=== PATIENT | female | born 1935 | race Caucasian/White ===

== ENCOUNTER → 2017-12-09 | Outpatient (CLI) | payer MEDICARE, BC ==
--- NOTE | 2017-12-09 15:47 | CT ---
EXAMINATION TYPE: CT abdomen pelvis w con DATE OF EXAM: 12/09/2017 COMPARISON: None INDICATION: abdominal pain and weight loss DLP: 741.7 mGycm, Automated exposure control for dose reduction was used. CONTRAST: 100mL mL of Isovue 300. Study performed with Oral Contrast TECHNIQUE: Axial images were obtained from above the diaphragm to the pubic rami in the axial plane a t 5 mm thick sections. Reconstructed images are reviewed on the computer in the coronal plane. FINDINGS: Limited CT sections are obtained the lung bases. The lung bases are clear. CT ABDOMEN: Liver: There is some mild fatty infiltration of the liver. There is likely a cyst in the caudate lobe liver Spleen: Normal Pancreas: Normal Adrenal glands: The adrenal glands are normal. Gallbladder: Normal Kidneys: No masses are evident. No hydronephrosis is present. No cysts are present. Delayed images were obtained through the kidneys, which remain unremarkable. Aorta: Vascular calcification is within the aorta. The aorta is tortuous. Inferior vena cava: Normal. CT PELVIS: Loops of bowel within the abdomen and pelvis are normal. There are loops of bowel which are incom pletely distended or lack oral contrast limiting their evaluation. Appendix: Normal as visualized. Urinary bladder: Normal as visualized Genitourinary structures: Uterus and ovaries are not identified. Osseous structures: Postsurgical changes are through the lumbar spine. Bilateral hip prostheses are p resent causing beam hardening artifact over the lower pelvis. IMPRESSIONS: 1. No suspicious acute changes. 2. Mild fatty infiltration the liver. 3. Mild diverticulosis without acute diverticulitis.
== END | disposition home or self-care (01) ==
LOC: RADCTMAIN 12:24
PROVIDERS: ATTEND Nurse Practitioner Family
DX: K57.90 Diverticulosis of intestine, part unspecified, without perforation or abscess without bleeding (principal); K76.0 Fatty (change of) liver, not elsewhere classified; K56.7 Ileus, unspecified
CPT/HCPCS: 74177; Q9967

== ENCOUNTER → 2020-01-03 | Outpatient (CLI) | payer MEDICARE, BC ==
[2020-01-03 14:19] LABS: HCT 45.6 % (34.0-46.0); HGB 15.1 gm/dL (11.4-16.0); MCH 34.2 pg (25.0-35.0); MCHC 33.1 g/dL (31.0-37.0); MCV 103.6 fL (80.0-100.0); Macrocytosis Slight; Mean Platelet Volume 7.2; Platelet Count 267 k/uL (150-450); RDW 11.7 % (11.5-15.5); WBC 7.7 k/uL (3.8-10.6)
[2020-01-03 14:21] LABS: Appearance,Urine Clear (Clear); Bilirubin,Urine Negative (Negative); Blood,Urine Negative (Negative); Color,Urine Colorless; Glucose,Urine (UA) Negative (Negative); Ketones,Urine Negative (Negative); Leukocyte Esterase,Urine Negative (Negative); Nitrite,Urine Negative (Negative); Protein,Urine Negative (Negative); Specific Gravity,Urine 1.004 (1.001-1.035); Urobilinogen,Urine <2.0 mg/dL (<2.0)
--- NOTE | 2020-01-03 16:50 | XR ---
EXAMINATION TYPE: XR chest 2V DATE OF EXAM: 01/03/2020 COMPARISON: NONE HISTORY: Preoperative evaluation for carpal tunnel surgery. TECHNIQUE: Frontal and lateral views of the chest are obtained. FINDINGS: There is no focal air space opacity, pleural effusion, or pneumothorax seen. The cardiac silhouette size is within normal limits. The osseous structures are intact. IMPRESSION: No acute cardiopulmonary process.
[2020-01-03 21:35] LABS: African American GFR (CKD) 92.9 (60.0-200.0); Anion Gap 9.6 mmol/L (4.00-12.00); BUN/Creat Ratio 17.14 Ratio (12.00-20.00); Calcium 10.2 mg/dL (8.7-10.3); Carbon Dioxide 27.4 mmol/L (21.6-31.8); Non-African American GFR(CKD) 80.1 (60.0-200.0); Potassium 4.3 mmol/L (3.5-5.5)
[2020-01-04 02:50] LABS: INR 1.01 (0.90-1.11); Partial Thromboplastin Time 30.7 sec (24.7-29.9); Prothrombin Time 10.8 sec (9.9-11.9)
== END | disposition home or self-care (01) ==
LOC: LABWHC1 12:59
PROVIDERS: ATTEND Orthopaedic Surgery Orthopaedic Surgery of the Spine
DX: Z01.818 Encounter for other preprocedural examination (principal); Z01.812 Encounter for preprocedural laboratory examination; Z79.01 Long term (current) use of anticoagulants
CPT/HCPCS: 36415; 71046; 80048; 81003; 85027; 85610; 85730; 93005

== ENCOUNTER → 2020-04-03 | Outpatient (CLI) | payer MEDICARE, BC ==
[2020-04-03 13:22] VITALS: BP 148/87; PULSE 79; RESP 18; TEMP 98
--- NOTE | 2020-04-03 18:45 | P.PAINCN ---
History of Present Illness - Reason for Consult Consult date: 04/03/20 - History of Present Illness This is a 54 years old female who was referred to [facility] pain clinic from Dr. Nguyễn's office, patient complaining of severe numbness and tingling sensation in the upper extremity mainly in the right side, she had numbness and tingling sensation in the second third and fourth finger of her hand, with radiation to the forearm, started year and a half ago she denies any initiating event, patient had EMG and nerve conduction study showed that she had carpal tunnel syndrome and she had carpal tunnel surgery, and she continued to have numbness and tingling sensation, and the numbness is in the dorsal and palmar aspect of her fingers, and the numbness radiated to the forearms, patient denies any motor or sensory deficit, she denies any fever or night sweats, she denies any change in the bowel movements or urination Past Medical History Past Medical History: Asthma, Cancer, Hyperlipidemia, Hypertension Additional Past Medical History / Comment(s): numbness 2nd,3rd,4th digits rt hand, back pain,skin CA History of Any Multi-Drug Resistant Organisms: None Reported Past Surgical History: Back Surgery, Hysterectomy, Joint Replacement, Orthopedic Surgery, Tonsillectomy Additional Past Surgical History / Comment(s): back x2,lumbar fusion, left knee replacement,ana hips Past Anesthesia/Blood Transfusion Reactions: No Reported Reaction Additional Past Anesthesia/Blood Transfusion Reaction / Comm: no hx blood transfusion Smoking Status: Former smoker - Past Family History Mother Family Medical History: No Reported History Medications and Allergies Home Medications Medication Instructions Recorded Confirmed Type Omeprazole [PriLOSEC] 40 mg PO DAILY 10/27/14 04/03/20 History Pravastatin Sodium [Pravachol] 40 mg PO DAILY 10/27/14 04/03/20 History SUMAtriptan SUCCINATE [Imitrex] 25 mg PO DIRECTED PRN 10/27/14 04/03/20 History Verapamil HCl [Calan] 240 mg PO BID 10/27/14 04/03/20 History ALPRAZolam [Xanax] 0.5 mg PO HS PRN 04/02/20 04/03/20 History Azelastine HCl [Astepro] 2 spray NASAL BID 04/02/20 04/03/20 History Budesonide/Formoterol Fumarate 2 puff INHALATION BID 04/02/20 04/03/20 History [Symbicort 160-4.5 Mcg Inhaler] Calcium Carbonate/Vitamin D3 2 each PO DAILY 04/02/20 04/03/20 History [Calcium 600-Vit D3 12.5 Mcg (500 Iu)] Celecoxib [CeleBREX] 200 mg PO BID 04/02/20 04/03/20 History Cholecalciferol [Vitamin D3 (25 25 mcg PO DAILY 04/02/20 04/03/20 History Mcg = 1000 Iu)] Gabapentin 600 mg PO HS 04/02/20 04/03/20 History Metoprolol Tartrate [Lopressor] 50 mg PO BID 04/02/20 04/03/20 History Mirtazapine [Remeron] 15 mg PO HS 04/02/20 04/03/20 History Montelukast Sodium [Singulair] 10 mg PO HS 04/02/20 04/03/20 History Multivitamins, Thera [Multivitamin 1 tab PO DAILY 04/02/20 04/03/20 History (formulary)] Allergies Allergy/AdvReac Type Severity Reaction Status Date / Time amoxicillin trihydrate Allergy Unknown Verified 04/02/20 14:57 [From Augmentin] cephalexin monohydrate Allergy Unknown Verified 04/02/20 14:57 [From Keflex] dicyclomine Allergy states Verified 04/02/20 14:57 "unconscious for 8 days" hydromorphone HCl Allergy Confusion Verified 04/02/20 14:57 [From Dilaudid] nitrofurantoin Allergy Unknown Verified 04/02/20 14:57 macrocrystalline [From Macrodantin] potassium clavulanate Allergy Unknown Verified 04/02/20 14:57 [From Augmentin] Physical Exam Vitals: Vital Signs Temp Pulse Resp BP Pulse Ox 04/03/20 13:16 98.0 F 79 18 148/87 95 Physical Examinations : -Constitutiona : Cooperative , not in acute distress . -HEENT : nech : supple , no Lymphadenopathy , normal thyroid size . : eyes : no ptosis , no icterus, no photophobia . - neurologic : Cranial nerve II to XII intact , no focal neurological deffecit . -psychatric : alert , oriented X 3 , appropriate affect , intact judgment and insight . -Lymphatic : no Lymphadenopathy . - musculoskeltal : Cervical Spine motor stregnth in the deltoid and biceps, normal right side , normal Left side motor stregnth biceps and the wrist extensors normal right side ,normal left side . motor stregnth in the triceps muscle . normal Right side , normal Left side deep tendon reflexes normal at the biceps , normal at Brachioradialis , normal at triceps. cervical facet loading test: Positive Bilaterally Spurling test= positive Right , positive left. Neck distraction test= positive Right , positive left. Renay sign= positive right, positive left . Lumber spine moter stegnth lower extremities ,thigh and legs 5/5 Right side , 5/5 Left side . Results Comments: MRI of the cervical spine= C2 3, C3 4 C4 5 and C5 6 cervical degenerative disc disease cervical facet arthropathy and foraminal stenos Assessment and Plan Plan: Assessment and plan=1-cervical radiculopathy 2-cervical degenerative disc disease 3-cervical stenosis. 4-cervical spondylosis with cervical facet arthropathy. Patient could benefit from cervical epidural steroid injection at C7-T1 (right paramedian approach ) Time with Patient: Greater than 30 PQRS Measure Charge Sheet Measure #130: Documentation of Current Meds in Medical Chart: Patient's medications documented in chart Measure #226: Tobacco Use: Screen & Cessation Intervention: Pt not a tobacco user Measure #111: Pneumonia Vaccination: Pneumococcal vaccine administered or previously received Measure #47: Advance Care Plan: Advance care planning discussed & documented, pt chose/unable to give Measure #412: Opioid Treatment Agreement: No documentation of signed opioid treatment agreement Measure #408: Opioid Therapy Follow-up Evaluation: Patient had NO f/u eval minimum every 3 months during opioid therapy Measure #317: Preventitive Care & Scrn High Bld Press & F/U: Pre-hypertensive or hypertensive BP documented, pt will f/u with PCP Measure #128: Body Mass Index (BMI) Screening & Follow-up: BMI documented ABOVE normal parameters - f/u documented Measure #131: Pain Assessment & Follow-up: Pain positive & plan documented, Follow-up scheduled Measure #431: Unhealthy Alcohol Use Preventative Care & Scrn: Patient not identified as an unhealthy alcohol user PQRS Narrative: Smoking Status Former smoker Blood Pressure 148/87 Pain Intensity [Right Hand] 3 Scale Used Numeric (1 - 10) Hx Alcohol Use (MH) Yes Home Medications: Ambulatory Orders Omeprazole [PriLOSEC] 40 mg PO DAILY 10/27/14 Pravastatin Sodium [Pravachol] 40 mg PO DAILY 10/27/14 SUMAtriptan SUCCINATE [Imitrex] 25 mg PO DIRECTED PRN 10/27/14 Verapamil HCl [Calan] 240 mg PO BID 10/27/14 ALPRAZolam [Xanax] 0.5 mg PO HS PRN 04/02/20 Azelastine HCl [Astepro] 2 spray NASAL BID 04/02/20 Budesonide/Formoterol Fumarate [Symbicort 160-4.5 Mcg Inhaler] 2 puff INHALATION BID 04/02/20 Calcium Carbonate/Vitamin D3 [Calcium 600-Vit D3 12.5 Mcg (500 Iu)] 2 each PO DAILY 04/02/20 Celecoxib [CeleBREX] 200 mg PO BID 04/02/20 Cholecalciferol [Vitamin D3 (25 Mcg = 1000 Iu)] 25 mcg PO DAILY 04/02/20 Gabapentin 600 mg PO HS 04/02/20 Metoprolol Tartrate [Lopressor] 50 mg PO BID 04/02/20 Mirtazapine [Remeron] 15 mg PO HS 04/02/20 Montelukast Sodium [Singulair] 10 mg PO HS 04/02/20 Multivitamins, Thera [Multivitamin (formulary)] 1 tab PO DAILY 04/02/20
== END | disposition home or self-care (01) ==
LOC: PNWHC3 13:02
PROVIDERS: ATTEND Specialist
DX: M48.02 Spinal stenosis, cervical region (principal); M50.10 Cervical disc disorder with radiculopathy, unspecified cervical region; M47.22 Other spondylosis with radiculopathy, cervical region; Z87.891 Personal history of nicotine dependence; Z79.891 Long term (current) use of opiate analgesic; Z79.899 Other long term (current) drug therapy
CPT/HCPCS: 99211

== ENCOUNTER 2020-04-16 11:48 | Day surgery (SDC) | payer MEDICARE, BC ==
[2020-04-12 16:07] VITALS: BMI 26.2
[2020-04-16] MEDS ORDERED: LACTATED RINGERS 1,000 ML IV ONE (12:05)
[2020-04-16 12:12] VITALS: TEMP 97.3
[2020-04-16] MEDS ORDERED: MIDAZOLAM 2 MG/2 ML VIAL ONE (12:18)
[2020-04-16] MEDS ORDERED: fentaNYL (PF) 50 MCG/ML 2 ML AMP ONE (12:18)
[2020-04-16] MEDS ORDERED: DEXAMETHASONE SOD PHOSPHATE 10 MG/ML 1 ML VIAL ONE (12:18)
[2020-04-16] MEDS ORDERED: IOPAMIDOL-370 125ML BTL ONE (12:18)
--- NOTE | 2020-04-16 12:31 | P.PCN ---
Date of Procedure: 04/16/20 Description of Procedure: Diagnosis: Cervical radiculopathy Cervical degenerative disc disease POSTOPERATIVE DIAGNOSIS: Diagnoses: Cervical radiculopathy Cervical degenerative disc disease PROCEDURE Cervical Epidural steroid injection under fluoroscopic guidance at the C7-T1 interspace using right paramedian approach Cervical epidurogram ANESTHESIA: Local with 1% lidocaine 3 ml and IV sedation with Versed and fentanyl, sedation time [] Fluoroscopy was used for the procedure and images were saved in the radiology portion of the chart. EBL: Minimal PROCEDURE INDICATION: The patient presents with cervical radicular symptoms unresponsive to conservative treatment. This is the [first/ second] cervical epidural steroid injection. PROCEDURE DESCRIPTION / TECHNIQUE: The patient was seen and identified in the preoperative area. Risks, benefits, complications including but not limited to infections ,bleeding ,allergic reaction to the medications ,nerve damage and incomplete pain relief, and alternatives were discussed with the patient. The patient agreed to proceed with the procedure and signed the consent. IV was started, and vital signs were stable. Patient was taken to the OR and time out was completed. The patient was placed in the prone position on procedure table and a pillow was placed under the chest area. The cervical area was prepped and draped in the usual sterile fashion. Conscious sedation was used during the procedure to decrease patients anxiety. Vital signs was monitored during the entire procedure. Using anterior-posterior fluoroscopy, the C7-T1 interlaminar space was identified and the skin over this site was marked and then infiltrated with 1% lidocaine subcutaneously. Subsequently, a 20-gauge Tuohy epidural needle was inserted and advanced toward the epidural space using the loss of resistance technique and guided by AP and 50 oblique fluoroscopy. The correct needle position in the epidural space was verified. After negative aspiration for blood and CSF and in the absence of paresthesias, Isovue 200 2 mL's was injected under live fluoroscopy with good epidural spread. After negative aspiration, a 4 ml mixture containing 10 mg of dexamethasone, 3 mL of preservative free normal saline was injected. Needle was withdrawn intact, skin was cleansed, and bandages were applied. COMPLICATIONS: None DISPOSITION / PLANS: The patient was placed in a supine position and transferred to the recovery area in a stable condition for observation. There was no evidence of lower extremity motor or sensory deficit after the procedure. Patient was discharged from the recovery room after meeting discharge criteria. Home discharge instructions were given to the patient by the staff. The patient will be scheduled a [follow up/repeat procedure] in the clinic in 2-4 weeks.
[2020-04-16] MEDS ORDERED: IV FLUID CONTINUATION 1,000 ML IV ONE (12:38)
[2020-04-16 12:51] VITALS: RESP 20
[2020-04-16 13:08] VITALS: BP 141/84; PULSE 70
--- NOTE | 2020-04-16 13:13 | FL ---
Fluoroscopy History: Cerv Epid Inj 6sec fluoro time, 3 images scanned
== END 2020-04-16 13:08 | disposition home or self-care (01) ==
LOC: ORPAIN 11:48
PROVIDERS: ATTEND Anesthesiology
DX: M50.10 Cervical disc disorder with radiculopathy, unspecified cervical region (principal)
CPT/HCPCS: 62321; J2250; J1100; J3010; Q9967

== ENCOUNTER 2020-05-21 10:55 | Day surgery (SDC) | payer MEDICARE, BC ==
[2020-05-01 15:55] VITALS: BMI 26.2
[~2020-05-21 10:55] MED LIST: LACTATED RINGERS 1,000 ML IV SCH
[2020-05-21 11:25] VITALS: TEMP 97.2
[2020-05-21] MEDS ORDERED: IOPAMIDOL M200 10 ML VIAL ONE (12:07)
[2020-05-21] MEDS ORDERED: DEXAMETHASONE SOD PHOSPHATE 10 MG/ML 1 ML VIAL ONE (12:07)
--- NOTE | 2020-05-21 12:31 | P.PCN ---
Date of Procedure: 05/21/20 Procedure(s) Performed: . PROCEDURE 1. Cervical epidural steroid injection under fluoroscopic guidance, C7-T1 (fluoroscopy images available in the radiology department ) 2. Cervical epidurogram. PREOPERATIVE DIAGNOSIS: 1- Cervical Degenerative Disc Diseases 2- Cervical radiculopathy., 3-cervical spondylosis with cervical Facet arthropathy without myelopathy POSTOPERATIVE DIAGNOSIS: : 1- Cervical Degenerative Disc Diseases , 2- Cervical radiculopathy. 3-,cervical spondylosis with cervical Facet arthropathy without myelopathy ANESTHESIA: Local anesthesia with lidocaine 1 % 3 ml only . EBL 0 PROCEDURE INDICATION: The patient with neck pain and radiculitis unresponsive to conservative treatment consents for procedure. PROCEDURE DESCRIPTION / TECHNIQUE: The patient was seen and identified in the preoperative area. Risks, benefits, complications, including but not limited to infections ,bleeding , allergic reactions to the medications ,and not complete pain releife, and alternatives were discussed with the patient, the patient agreed to proceed with the procedure and signed the consent. Patient was taken to the OR and time out was completed. The patient was placed in the prone position on the procedure table. A pillow was placed under the patients chest to increase the cervical interlaminar space. The cervical area was prepped and draped in the usual sterile fashion. Vital signs were closely monitored during the procedure. Using anterior-posterior fluoroscopy, the C7-T1 interlaminar space was identified and the skin over this site was marked and then infiltrated with 1% lidocaine subcutaneously. Subsequently, a 20-gauge 3-1/2-inch Tuohy epidural needle was inserted and advanced toward the epidural space by means of the ``hanging-drop technique and guided by AP and lateral fluoroscopy. The correct needle position in the epidural space was verified with the injection of 2 mL of the water soluble contrast dye Isovue-200 and observing an excellent epidurogram with the epidural spread of the dye, after negative aspiration for blood and CSF and in the absence of paresthesias. Again after negative aspiration, mixture containing 15 Dexamethasone and 2 ml of preservative-free normal saline injected and a washout of epidurogram was seen. Needle was wi thdrawn intact, skin was cleansed, and bandages were applied. Complications= none. Disposition= patient was placed in supine position and transferred to the recovery room area in stable condition and there was no evidence of upper or lower extremity motor or sensory deficit after the procedure patient was discharged from recovery room after discharge criteria met and home discharge instructions was given by the staff and patient will follow with the pain clinic in 2-4 weeks
[2020-05-21 12:35] VITALS: RESP 16
--- NOTE | 2020-05-21 12:50 | FL ---
EXAMINATION TYPE: FL guided pain mgmt statistic DATE OF EXAM: 05/21/2020 CLINICAL HISTORY: Neck pain. TECHNIQUE: Fluoroscopy. COMPARISON: None. FINDINGS: Fluoroscopic guidance was provided during pain relief procedure performed by Dr. John . A total of 4 seconds of fluoroscopic time was utilized during the procedure and 1 spot images are acquired. Single image acquired shows needle localization at C6 level. IMPRESSION: As Above.
[2020-05-21 12:53] VITALS: BP 160/91; PULSE 84
== END 2020-05-21 12:57 | disposition home or self-care (01) ==
LOC: ORPAIN 10:55
PROVIDERS: ATTEND Specialist
DX: M47.22 Other spondylosis with radiculopathy, cervical region (principal); M50.10 Cervical disc disorder with radiculopathy, unspecified cervical region; Z88.1 Allergy status to other antibiotic agents; Z88.5 Allergy status to narcotic agent; Z88.8 Allergy status to other drugs, medicaments and biological substances; I10 Essential (primary) hypertension; J45.909 Unspecified asthma, uncomplicated
CPT/HCPCS: 62321; J1100; Q9966

== ENCOUNTER → 2020-06-10 | Outpatient (CLI) | payer MEDICARE, BC ==
[2020-06-10 13:21] VITALS: BP 157/91; PULSE 99; RESP 18; TEMP 97.8
--- NOTE | 2020-06-10 13:23 | P.PN ---
Subjective Progress Note Date: 06/10/20 This is an 84-year-old lady with history of pain in her right hand with numbness and tingling. The patient had surgery on the middle 2 fingers on the right hand about 25 years ago and it seems to have had a fusion and interphalangeal joints. The patient denies any pain in her neck and only pain in the right hand which improved after cervical and epidural steroid injection and her pain is tolerable now. The patient did not respond to a carpal tunnel release previously and that's why she had the cervical epidural steroid injection. She has a severe history of osteoarthritis. Patient denies new-onset weakness, bowel/bladder incontinence, or any other signs or symptoms of cauda equina syndrome. There are no signs of acute intoxication, and no indications of medication diversion or overuse. In addition to above, 13-point review of systems is also negative for chest pain, shortness of breath, changes in vision, changes in hearing, new onset weakness, abdominal pain, diarrhea, extreme fatigue, malaise, fever, skin changes, homicidal or suicidal ideation, or bowel or bladder incontinence. Vital Signs: Reviewed in EMR Gen: AAOx3, NAD HEENT: PERRLA,hearing grossly normal Pulm: resp unlabored Neck: supple, trachea midline Neuro exam of the upper extremities: Normal muscle tones bilaterally Straight leg raising test: Christofer's test: Range of motion of the lumbar spine: Facet loading test: Tenderness in the paravertebral musculature: Neuro: CN II-XII grossly intact, Imaging: Reviewed in EMR/chart Assessment: Cervical spondylosis without myelopathy Right hand pain due to osteoarthritis and possibly due to cervical radiculopathy Right hand pain responsive to cervical epidural steroid injection Plan: 1. Explanation: Opioid and psychological risk scores were reviewed. Diagnoses, prognoses, and multiple treatment options including but not limited to physical therapy, interventional therapies, adjuvant medical therapies, narcotic medication therapies, and surgery were discussed with the patient and all questions were answered to the patient's satisfaction. 2. Opioid agreement: Signed with the patient and the patient is warned not to use opioids while driving or before driving and not to combine opioids with benzodiazepines or alcohol. 3. Counseling: The patient was counseled extensively on SMOKING CESSATION, BODY MASS INDEX, EXERCISE. Specifically, the patient was instructed regarding the importance of smoking cessation, obesity, and exercise in the context of both chronic pain and overall health. 4. Procedures: The patient would benefit from a third cervical epidural steroid injection but since her pain is tolerable and await until her pain starts to get worse. 5. Consultations: None 6. Investigations: None 7. Medications: None prescribed 8. Disposition: Return to clinic as needed 9. Maps were reviewed and were appropriate.
== END ==
LOC: PNWHC3 12:54
PROVIDERS: ATTEND Anesthesiology
DX: M47.812 Spondylosis without myelopathy or radiculopathy, cervical region (principal); M19.041 Primary osteoarthritis, right hand; Z87.891 Personal history of nicotine dependence
CPT/HCPCS: 99211

== ENCOUNTER 2020-08-06 09:59 | Day surgery (SDC) | payer MEDICARE, BC ==
[2020-08-02 11:56] VITALS: BMI 26.5
[2020-08-06 10:24] VITALS: TEMP 97
[2020-08-06] MEDS ORDERED: IOPAMIDOL M200 10 ML VIAL ONE (10:46)
[2020-08-06] MEDS ORDERED: DEXAMETHASONE SOD PHOSPHATE 10 MG/ML 1 ML VIAL ONE ×2 (10:46)
--- NOTE | 2020-08-06 11:03 | P.PCN ---
Date of Procedure: 08/06/20 Procedure(s) Performed: PROCEDURE 1. Cervical epidural steroid injection under fluoroscopic guidance, C7-T1 (fluoroscopy images available in the radiology department ) 2. Cervical epidurogram. PREOPERATIVE DIAGNOSIS: 1- Cervical Degenerative Disc Diseases 2- Cervical radiculopathy., 3-cervical spondylosis with cervical Facet arthropathy without myelopathy POSTOPERATIVE DIAGNOSIS: : 1- Cervical Degenerative Disc Diseases , 2- Cervical radiculopathy. 3-,cervical spondylosis with cervical Facet arthropathy without myelopathy ANESTHESIA: Local anesthesia with lidocaine 1 % 3 ml only . EBL =0 PROCEDURE INDICATION: The patient with neck pain and radiculitis unresponsive to conservative treatment consents for procedure. PROCEDURE DESCRIPTION / TECHNIQUE: The patient was seen and identified in the preoperative area. Risks, benefits, complications, including but not limited to infections ,bleeding , allergic reactions to the medications ,and not complete pain releife, and alternatives were discussed with the patient, the patient agreed to proceed with the procedure and signed the consent. Patient was taken to the OR and time out was completed. The patient was placed in the prone position on the procedure table. A pillow was placed under the patients chest to increase the cervical interlaminar space. The cervical area was prepped and draped in the usual sterile fashion. Vital signs were closely monitored during the procedure. Using anterior-posterior fluoroscopy, the C7-T1 interlaminar space was identified and the skin over this site was marked and then infiltrated with 1% lidocaine subcutaneously. Subsequently, a 20-gauge 3-1/2-inch Tuohy epidural needle was inserted and advanced toward the epidural space by means of the ``hanging-drop technique and guided by AP and lateral fluoroscopy. The correct needle position in the epidural space was verified with the injection of 2 mL of the water soluble contrast dye Isovue-200 and observing an excellent epidurogram with the epidural spread of the dye, after negative aspiration for blood and CSF and in the absence of paresthesias. Again after negative aspiration, mixture containing 15 Dexamethasone and 2 ml of preservative-free normal saline injected and a washout of epidurogram was seen. Needle was withdrawn intact, skin was cleansed, and bandages were applied. Complications= none. Disposition= patient was placed in supine position and transferred to the recovery room area in stable condition and there was no evidence of upper or lower extremity motor or sensory deficit after the procedure patient was discharged from recovery room after discharge criteria met and home discharge instructions was given by the staff and patient will follow with the pain clinic in 2-4 weeks
--- NOTE | 2020-08-06 11:06 | FL ---
Fluoroscopy HISTORY: Pain 17 seconds fluoroscopy time supplied to the referring clinician. 1 intraoperative C-arm images docum ent the procedure. See dictated report from anesthesia.
[2020-08-06 11:12] VITALS: BP 137/78; PULSE 78; RESP 18
== END 2020-08-06 11:41 | disposition home or self-care (01) ==
LOC: ORPAIN 09:59
PROVIDERS: ATTEND Specialist
DX: M47.22 Other spondylosis with radiculopathy, cervical region (principal); M50.10 Cervical disc disorder with radiculopathy, unspecified cervical region; Z88.1 Allergy status to other antibiotic agents; Z88.0 Allergy status to penicillin
CPT/HCPCS: 62321; J1100; Q9966

== ENCOUNTER 2022-09-02 15:49 | Emergency (ER) | payer MEDICARE ==
--- NOTE | 2022-09-02 16:54 | ED ---
General Adult HPI - General Chief complaint: Extremity Injury, Lower Stated complaint: hip pain Time Seen by Provider: 09/02/22 16:08 Source: patient Mode of arrival: EMS Limitations: physical limitation - History of Present Illness Initial comments: A 86-year-old woman presenting to the ED with a chief complaint of right hip pain. Patient notes history of remote fall 2 weeks ago where she slipped down some concrete steps. During that she admits that she landed on her chin falling forward. Currently denies any headache or neck pain. At that time does not note a definite hip injury however states over the last 5 days has been developing right hip pain. Patient states that she only experiences this pain when the hip is in certain positions. States that she has been able to ambulate however, "waddles" due to the pain. Denies chest pain or shortness of breath. Denied lightheadedness or dizziness prior to the fall. No other complaints. S he is not on blood thinners. - Related Data Home Medications Medication Instructions Recorded Confirmed Pravastatin Sodium [Pravachol] 40 mg PO DAILY 10/27/14 09/02/22 ALPRAZolam [Xanax] 0.5 mg PO BID PRN 04/02/20 09/02/22 Azelastine HCl [Astepro] 2 spray EA NOSTRIL BID PRN 04/02/20 09/02/22 Celecoxib [CeleBREX] 200 mg PO BID 04/02/20 09/02/22 Gabapentin 300 mg PO BID 04/02/20 09/02/22 Metoprolol Tartrate [Lopressor] 50 mg PO BID 04/02/20 09/02/22 Mirtazapine [Remeron] 15 mg PO HS 04/02/20 09/02/22 Montelukast Sodium [Singulair] 10 mg PO DAILY 04/02/20 09/02/22 Albuterol Inhaler [Ventolin Hfa 2 puff INHALATION RT-Q6H PRN 06/05/20 09/02/22 Inhaler] Budesonide/Formoterol Fumarate 2 puff INHALATION RT-BID 08/02/20 09/02/22 [Symbicort 160-4.5 Mcg Inhaler] Diltiazem Cd [Cardizem Cd] 180 mg PO DAILY 08/02/20 09/02/22 Baclofen [Lioresal] 10 mg PO BID PRN 09/02/22 09/02/22 DULoxetine HCL [Cymbalta] 30 mg PO DAILY 09/02/22 09/02/22 Dapagliflozin Propanediol [Farxiga] 10 mg PO DAILY 09/02/22 09/02/22 Ibuprofen [Motrin] 800 mg PO BID PRN 09/02/22 09/02/22 Multivitamins, Thera [Multivitamin 1 tab PO DAILY 09/02/22 09/02/22 (formulary)] Omeprazole 40 mg PO DAILY 09/02/22 09/02/22 SUMAtriptan succinate [Imitrex] 25 mg PO BID PRN 09/02/22 09/02/22 busPIRone HCL 5 mg PO BID PRN 09/02/22 09/02/22 Allergies Allergy/AdvReac Type Severity Reaction Status Date / Time amoxicillin trihydrate Allergy Unknown Verified 09/02/22 16:56 [From Augmentin] cephalexin monohydrate Allergy Unknown Verified 09/02/22 16:56 [From Keflex] dicyclomine Allergy disoriented Verified 09/02/22 16:56 for 4 days hydromorphone HCl Allergy Extremely Verified 09/02/22 16:56 [From Dilaudid] Confusion for 8 days nitrofurantoin Allergy Unknown Verified 09/02/22 16:56 macrocrystalline [From Macrodantin] potassium clavulanate Allergy Unknown Verified 09/02/22 16:56 [From Augmentin] zolpidem [From Ambien] AdvReac Unknown sleep Verified 09/02/22 16:56 walks, confused Review of Systems ROS Statement: Those systems with pertinent positive or pertinent negative responses have been documented in the HPI. ROS Other: All systems not noted in ROS Statement are negative. Past Medical History Past Medical History: Asthma, Cancer, Hyperlipidemia, Hypertension Additional Past Medical History / Comment(s): numbness 2nd,3rd,4th digits rt hand, back pain,skin CA History of Any Multi-Drug Resistant Organisms: None Reported Past Surgical History: Back Surgery, Hysterectomy, Joint Replacement, Orthopedic Surgery, Tonsillectomy Additional Past Surgical History / Comment(s): back x2,lumbar fusion, left knee replacement,ana hips, carpal tunnel surgery Right. Pain clinic procedure Past Anesthesia/Blood Transfusion Reactions: No Reported Reaction Additional Past Anesthesia/Blood Transfusion Reaction / Comment(s): no hx blood transfusion Past Psychological History: Depression Smoking Status: Former smoker - Past Family History Mother Family Medical History: No Reported History General Exam Limitations: no limitations, physical limitation General appearance: alert, in no apparent distress Head exam: Present: atraumatic, normocephalic Eye exam: Present: normal appearance Neck exam: Present: normal inspection (No midline cervical spinal tenderness to palpation) Respiratory exam: Present: normal lung sounds bilaterally Cardiovascular Exam: Present: regular rate, normal rhythm GI/Abdominal exam: Present: soft External exam: Present: other (Strength and sensation in bilateral upper and lower extremities 5/5 equal and intact. DP/PT pulses 2+. Radial pulses 2+. No pain on log roll of the right leg however tenderness to palpation at the area of the greater trochanter.) Extremities exam: Present: normal inspection Back exam: Present: other (No Midline thoracic or lumbar spinal tenderness to palpation) Neurological exam: Present: alert, oriented X3 Psychiatric exam: Present: normal affect, normal mood Skin exam: Present: warm, dry Medical Decision Making - Medical Decision Making Was pt. sent in by a medical professional or institution ([facility]aver, OIL PIPE INSPECTOR, urgent care, hospital, or shelter...) When possible be specific @ -No Did you speak to anyone other than the patient for history (EMS, parent, family, police, friend...)? What history was obtained from this source @ -No Did you review nursing and triage notes (agree or disagree)? Why? @ -I reviewed and agree with nursing and triage notes Were old charts reviewed (outside hosp., previous admission, EMS record, old EKG, old radiological studies, urgent care reports/EKG's, shelter records)? Report findings @ -No old charts were reviewed Differential Diagnosis (chest pain, altered mental status, abdominal pain women, abdominal pain men, vaginal bleeding, weakness, fever, dyspnea, syncope, headache, dizziness, GI bleed, back pain, seizure, CVA, palpatations, mental health, musculoskeletal)? @ -Acute fracture, acute brain hemorrhage. This is not meant to be an all- inclusive list EKG interpreted by me (3pts min.). @ -As above X-rays interpreted by me (1pt min.). @ -None done CT interpreted by me (1pt min.). @ -CT of the hip showed no acute fracture. U/S interpreted by me (1pt. min.). @ -None done What testing was considered but not performed or refused? (CT, X-rays, U/S, labs)? Why? @ -Acute brain and neck were considered however with history of remote fall and patient not complaining of any headache or neck pain deferred at this time. What meds were considered but not given or refused? Why? @ -None Did you discuss the management of the patient with other professionals (professionals i.e. , PA, OIL PIPE INSPECTOR, lab, RT, psych nurse, social work administrator, ct technologist, teacher, banking officer, case managers)? Give summary @ -No Was smoking cessation discussed for >3mins.? @ -No Was critical care preformed (if so, how long)? @ -No Were there social determinants of health that impacted care today? How? (Homelessness, low income, unemployed, alcoholism, drug addiction, transportation, low edu. Level, literacy, decrease access to med. care, fci, rehab)? @ -No Was there de-escalation of care discussed even if they declined (Discuss DNR or withdrawal of care, Hospice)? DNR status @ -No What co-morbidities impacted this encounter? (DM, HTN, Smoking, COPD, CAD, Cancer, CVA, ARF, Chemo, Hep., AIDS, mental health diagnosis, sleep apnea, morbid obesity)? @ -None Was patient admitted / discharged? Hospital course, mention meds given and route, prescriptions, significant lab abnormalities, going to OR and other pertinent info. @ -Discharged. CT findings as above. CT did show degenerative changes of the hip. Patient does have an orthopedic appointment scheduled for the sixth of next month. Provided ibuprofen starter pack in the ED. Advised follow-up as scheduled. Discussed return precautions patient verbalizes agreement. Undiagnosed new problem with uncertain prognosis? @ -No Drug Therapy requiring intensive monitoring for toxicity (Heparin, Nitro, Insulin, Cardizem)? @ -No Were any procedures done? @ -No Diagnosis/symptom? @ -Hip pain Acute, or Chronic, or Acute on Chronic? @ -Acute Uncomplicated (without systemic symptoms) or Complicated (systemic symptoms)? @ -Uncomplicated Side effects of treatment? @ -No Exacerbation, Progression, or Severe Exacerbation? @ -No Poses a threat to life or bodily function? How? (Chest pain, [place], ND, pneumonia, PE, COPD, DKA, ARF, appy, cholecystitis, CVA, Diverticulitis, Homicidal, Suicidal, threat to staff... and all critical care pts) @ -No Disposition Clinical Impression: Hip pain Disposition: HOME SELF-CARE Instructions (If sedation given, give patient instructions): Osteoarthritis (ED) Additional Instructions: Please return to the Emergency Department if symptoms worsen or any other concerns. Is patient prescribed a controlled substance at d/c from ED?: No Referrals: Gilberto Kelly MD [Primary Care Provider] - 1-2 days
--- NOTE | 2022-09-02 19:01 | CT ---
EXAMINATION TYPE: CT hip RT wo con CT DLP: 543.5 mGycm, Automated exposure control for dose reduction was used. DATE OF EXAM: 09/02/2022 6:16 PM COMPARISON: None CLINICAL INDICATION:Female, 86 years old with history of r/o fx; PHH, RT hip pain. no injury TECHNIQUE: Axial images were obtained of the right hip . Additional coronal and sagittal reformatted images and soft tissue and bone window were obtained for review. 3-D reconstruction was created on a separate workstation. Contrast used: None Oral contrast used: None FINDINGS: Right hip prosthesis hardware appears in tact. There is no evidence of fracture, subluxatio n, or dislocation. No significant soft tissue swelling or joint effusion is identified. No focal mus cular atrophy or edema is identified. No radiopaque foreign body identified. Scattered atherosclerosi s of the arterial vasculature. Few scattered colonic diverticula. IMPRESSION: Right hip arthroplasty without evidence of fracture.
[2022-09-02] MEDS ORDERED: IBUPROFEN 600 MG STARTER PACK 4 TAB BTL PO STA (20:02)
[2022-09-02] MEDS ORDERED: ACET/COD 300 MG/30 MG STARTER PACK 6 TAB BTL PO STA (20:33)
[2022-09-02 20:39] VITALS: BP 183/92; PULSE 102; RESP 19; TEMP 97
== END 2022-09-02 20:45 | disposition home or self-care (01) ==
LOC: EC 15:49
DX: M25.551 Pain in right hip (principal); J45.909 Unspecified asthma, uncomplicated; E78.5 Hyperlipidemia, unspecified; I10 Essential (primary) hypertension; F32.A Depression, unspecified; Z87.891 Personal history of nicotine dependence; Z79.51 Long term (current) use of inhaled steroids; Z79.899 Other long term (current) drug therapy; Z88.0 Allergy status to penicillin; Z88.6 Allergy status to analgesic agent; Z88.8 Allergy status to other drugs, medicaments and biological substances
CPT/HCPCS: 99284

== ENCOUNTER → 2022-09-30 | Outpatient (CLI) | payer MEDICARE ==
--- NOTE | 2022-09-30 12:42 | CT ---
EXAMINATION TYPE: CT lumbar spine wo con DATE OF EXAM: 09/30/2022 COMPARISON: None HISTORY: 86-year-old female S22.081A STABLE BURST FRACTURE OF T11-T12, eval of fx of t11-t12 TECHNIQUE: Contiguous axial scanning of the lumbar spine without IV contrast. Coronal and sagittal re constructions performed. CT DLP: 575.6 mGycm Automated exposure control for dose reduction was used. FINDINGS: Small hiatal hernia. Tortuous aorta and iliac arteries. Ectatic descending thoracic aorta at 2.8 cm. Sigmoid diverticulosis. Post surgical change L1-L5 posterior lumbar fusion with corresponding laminectomies. Disc bulge and facet arthropathy below the fusion at L5-S1. The fluid collection demonstrated within the laminectomy bed on the patient's outside 08/28/2022 MRI i s not as well depicted by CT partially secondary to prominent metal artifacts. Estimated to measure u p to 2.7 cm wide and 1.1 cm thick versus 2.0 cm thick previously. Craniocaudal extent not well charac terized. There is bone on bone disc that simply degenerative change above the fusion at T12-L1 redemonstrated. Inferior endplate erosion or deformity of T12 and anterior wedging also similar to prior. Some retro pulsion into the ventral spinal canal causing focal moderate spinal canal stenosis here, unchanged. O therwise, no significant spinal canal stenosis seen. On the right, there may be focal severe neuroforaminal stenosis at L5-S1 and L1-L2. Moderate at T12-L 1. On the left, moderate neural foraminal stenosis at L1-L2 and L5-S1. Mild additional levels. IMPRESSION: 1. POST SURGICAL CHANGE OF L1-L5 POSTERIOR LUMBAR FUSION WITH CORRESPONDING LAMINECTOMIES. 2. FLUID COLLECTION IN THE LAMINECTOMY BED SEEN TO MEASURE 6.2 CM CRANIOCAUDAL AND 2.0 CM THICK IS NO T WELL DEMONSTRATED BY CT DUE TO METAL ARTIFACT. IT MAY BE SMALLER MEASURING 1.1 CM THICK NOW. PRO BABLY RESORBING POSTSURGICAL SEROMA. 3. REDEMONSTRATED ANTERIOR WEDGE DEFORMITY OF T12 WITH SEVERE DISC/ENDPLATE DEGENERATIVE CHANGE AT TH IS LEVEL. RETROPULSION INTO THE VENTRAL SPINAL CANAL CAUSES A SIMILAR MODERATE FOCAL SPINAL CANAL RICHARD NOSIS. 4. VARIABLE NEUROFORAMINAL STENOSES OUTLINED ABOVE. There may be severe focal neuroforaminal steno sis on the right at L1-L2 and L5-S1. Moderate on the left at L1-L2 and L5-S1.
== END | disposition home or self-care (01) ==
LOC: RADCTMAIN 11:08
PROVIDERS: ATTEND Orthopaedic Surgery
DX: S22.081A Stable burst fracture of T11-T12 vertebra, initial encounter for closed fracture (principal); M47.816 Spondylosis without myelopathy or radiculopathy, lumbar region; M99.73 Connective tissue and disc stenosis of intervertebral foramina of lumbar region
CPT/HCPCS: 72131

== ENCOUNTER → 2022-10-21 | Outpatient (CLI) | payer MEDICARE ==
[2022-10-21 14:19] VITALS: BP 133/76; PULSE 75; RESP 15; TEMP 98.2
--- NOTE | 2022-10-21 14:32 | P.PAINPG ---
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 Pain level is provoked at 9/10 in intensity, constant, localized in the cervical spine, sharp in character w shooting towards the R shoulder. Pain is provoked by hyperextension, lifting. Pain is alleviated with medications, injections in the past, repositioning and rest. Oswestry axial pain score at 39. Interventional pain procedures completed include POWER C7-T1 x3 Patient is currently on Tramadol, Baclofen, Ibu Patient denies any side effects of the medication(s), denies excessive drowsiness or sleepiness, denies suicidal ideation and reports that the current pain medication is helping to control the pain and improve activities of daily living. Patient denies any motor or sensory deficits. Patient denies any fever or night sweats, denies any change in the bowel movements or urination. Physical Examination: -Constitutional: Cooperative. Not in acute distress . - Neurologic: Cranial nerve II to XII intact. No focal neurological deficits. - Psychatric: Alert & oriented x 3. Matching mood & appropriate affect. Judgment and insight intact. - Musculoskeletal: Cervical spine: Muscle bulk/ tone/ strength in the bilateral upper extremities normal Vertebral body tenderness to palpation over Spurling test positive Distraction test positive Facet loading test positive TTP Thoracic spine Muscle bulk / tone/ strength in the bilateral paraspinal muscles normal Vertebral body tender to palpation over Facet loading test positive TTP Lumbar spine: Motor bulk/ tone/ strength lower extremities , thigh and legs : 5/5 Deep tendon reflexes : Normal Knee Jerk. Normal Ankle Jerk . Vertebral body tenderness to palpation over L5 Trevizo test positive Lumbar Facet Loading Test positive Straight Leg Raise: positive at 30 degrees right side/ left side Gaenslen's Test positive Sacral spine : Severe tenderness over the Sacroiliac joint: right side / left side Range of motion: Flexion of the lumbar spine <60 degrees Range of motion: Extension of the lumbar spine <20 degrees Gaenslen's Test positive R / L Shanique test: positive right side / left side Thigh Thrust Test positive R / L Sacral Thrust Test positive R/ L Imaging: MRI non contrast of the lumbar spine from 08/28/22 reviewed Assessment and plan: Chronic LBP secondary to post laminectomy syndrome Recommendation of POWER L5-S1. May need a series of injections for optimal pain relief. Risks, benefits of procedure discussed and pt verbalized understanding. Admits to anticoagulant use or medical history of diabetes. Protocol for discontinuation/ continuation of medications janice procedure discussed. Minimal anesthesia provided, if clinically indicated, consisting of Versed and Fentanyl. Percocet 5/325gm #18 NR. Use, side effects, adverse reactions and safe storage discussed. Pt verbalized understanding. All questions answered. I have spent less than 30 minutes on patient care today. Dr John was available by phone for the evaluation of this patient. The time was used to review the medical records including relevant urine studies and Prescription history (MAPs), review of the available imaging, evaluation and examination of the patient, coordination of care with the medical staff and if applicable referring physicians, as well as creation of the medical record PQRS Narrative: Smoking Status Former smoker Hx Alcohol Use (MH) Yes Home Medications: Ambulatory Orders Pravastatin Sodium [Pravachol] 40 mg PO DAILY 10/27/14 ALPRAZolam [Xanax] 0.5 mg PO BID PRN 04/02/20 Azelastine HCl [Astepro] 2 spray EA NOSTRIL BID PRN 04/02/20 Celecoxib [CeleBREX] 200 mg PO BID 04/02/20 Gabapentin 300 mg PO BID 04/02/20 Metoprolol Tartrate [Lopressor] 50 mg PO BID 04/02/20 Mirtazapine [Remeron] 15 mg PO HS 04/02/20 Montelukast Sodium [Singulair] 10 mg PO DAILY 04/02/20 Albuterol Inhaler [Ventolin Hfa Inhaler] 2 puff INHALATION RT-Q6H PRN 06/05/20 Budesonide/Formoterol Fumarate [Symbicort 160-4.5 Mcg Inhaler] 2 puff INHALATION RT-BID 08/02/20 Diltiazem Cd [Cardizem Cd] 180 mg PO DAILY 08/02/20 Baclofen [Lioresal] 10 mg PO BID PRN 09/02/22 DULoxetine HCL [Cymbalta] 30 mg PO DAILY 09/02/22 Dapagliflozin Propanediol [Farxiga] 10 mg PO DAILY 09/02/22 Ibuprofen [Motrin] 800 mg PO BID PRN 09/02/22 Multivitamins, Thera [Multivitamin (formulary)] 1 tab PO DAILY 09/02/22 Omeprazole 40 mg PO DAILY 09/02/22 SUMAtriptan succinate [Imitrex] 25 mg PO BID PRN 09/02/22 busPIRone HCL 5 mg PO BID PRN 09/02/22 traMADol HCl [Ultram] 50 mg PO Q6H PRN 5 Days #20 tab 09/02/22 oxyCODONE HCL/ACETAMINOPHEN [Percocet 5-325 mg] 1 tab PO Q4HR PRN 3 Days #18 tab 10/21/22 Controlled Substance Measures - Controlled Substance Measures Is patient prescribed a controlled substance at discharge?: Yes When asked, does pt state using other controlled substances?: Yes If prescribed controlled substance>3 days was MAPS reviewed?: Prescribed <3 Days
== END ==
LOC: PNWHC3 13:28
PROVIDERS: ATTEND Specialist
DX: M48.04 Spinal stenosis, thoracic region (principal); M48.061 Spinal stenosis, lumbar region without neurogenic claudication; M54.16 Radiculopathy, lumbar region; M96.1 Postlaminectomy syndrome, not elsewhere classified; G89.29 Other chronic pain; Z87.891 Personal history of nicotine dependence; Z88.5 Allergy status to narcotic agent; Z88.8 Allergy status to other drugs, medicaments and biological substances; Z88.0 Allergy status to penicillin; Z88.1 Allergy status to other antibiotic agents
CPT/HCPCS: 99211

== ENCOUNTER 2022-10-28 10:08 | Inpatient (IN) | payer MEDICARE ==
[2022-10-28] MEDS ORDERED: SODIUM CHLORIDE 0.9% 1,000 ML IV STA (10:36)
[2022-10-28] MEDS ORDERED: KETOROLAC 15 MG/ML 1 ML VIAL IVP STA (10:37)
[2022-10-28] MEDS ORDERED: fentaNYL (PF) 50 MCG/ML 2 ML AMP IVP ONE (10:37)
[2022-10-28] MEDS ORDERED: ONDANSETRON 4 MG/2 ML VIAL IVP STA (10:37)
[2022-10-28] MEDS ORDERED: FAMOTIDINE 20 MG/2 ML VIAL IV STA (10:44)
--- NOTE | 2022-10-28 10:48 | ED ---
Abdominal Pain HPI - General Chief Complaint: Nausea/Vomiting/Diarrhea Stated Complaint: N/V/D Time Seen by Provider: 10/28/22 10:27 Source: patient, EMS, RN notes reviewed Mode of arrival: EMS Limitations: no limitations - History of Present Illness Initial Comments: This is an 87-year-old female who presents to the emergency department for abdominal pain, nausea, vomiting, and diarrhea. States that the symptoms started one week ago. The diarrhea improved this morning, however she continues to have nausea and abdominal pain. Denies any history of similar symptoms in the past. Additionally, her states that at the end of July, she fell and sustained an injury to her head and right hip. She did not experience any loss of consciousness, however she has continued to have pain, particularly in the right hip. She initially had an MRI revealing 2 fractures in the hip. She followed up with Dr. Garcia, orthopedics, who was concerned that given her heart condition, she would not survive surgery. She has since been on Oxycodone and Ibuprofen for management of her pain, however she did not take it today. Patient states that the abdominal pain is more painful than the hip at this time. While she does not have any fevers, patient is noted be sweating profusely in the examination room. Denies any fevers, sore throat, cough, dyspnea, chest pain, palpitations, or headaches. MD Complaint: abdominal pain Onset/Timin -: week(s) Location: diffuse - Related Data Home Medications Medication Instructions Recorded Confirmed Pravastatin Sodium [Pravachol] 40 mg PO DAILY 10/27/14 10/28/22 ALPRAZolam [Xanax] 0.5 mg PO BID PRN 04/02/20 10/28/22 Azelastine HCl [Astepro] 2 spray EA NOSTRIL BID PRN 04/02/20 10/28/22 Celecoxib [CeleBREX] 200 mg PO BID 04/02/20 10/28/22 Gabapentin 300 mg PO BID PRN 04/02/20 10/28/22 Metoprolol Tartrate [Lopressor] 50 mg PO BID 04/02/20 10/28/22 Mirtazapine [Remeron] 15 mg PO HS 04/02/20 10/28/22 Montelukast Sodium [Singulair] 10 mg PO HS 04/02/20 10/28/22 Budesonide/Formoterol Fumarate 2 puff INHALATION RT-BID 08/02/20 10/28/22 [Symbicort 160-4.5 Mcg Inhaler] Diltiazem Cd [Cardizem Cd] 180 mg PO DAILY 08/02/20 10/28/22 Dapagliflozin Propanediol [Farxiga] 10 mg PO DAILY 09/02/22 10/28/22 Multivitamins, Thera [Multivitamin 1 tab PO DAILY 09/02/22 10/28/22 (formulary)] Omeprazole 40 mg PO DAILY 09/02/22 10/28/22 SUMAtriptan succinate [Imitrex] 25 mg PO BID PRN 09/02/22 10/28/22 Calcium Carbonate [Calcium] 600 mg PO DAILY 10/26/22 10/28/22 Cholecalciferol [Vitamin D3 (25 25 mcg PO DAILY 10/26/22 10/28/22 Mcg = 1000 Iu)] HYDROcodone/APAP 7.5-325MG [[place] 1 tab PO Q8H PRN 10/26/22 10/28/22 7.5-325] Calcium Carbonate/Vitamin D3 1 cap PO DAILY 10/28/22 10/28/22 [Calcium 600 mg-D3 10 Mcg (400 Iu)] Cyanocobalamin (Vitamin B-12) 1,000 mcg PO DAILY 10/28/22 10/28/22 [Vitamin B-12] DULoxetine HCL [Cymbalta] 30 mg PO DAILY 10/28/22 10/28/22 Ibuprofen [Motrin] 600 mg PO BID PRN 10/28/22 10/28/22 Melatonin 10 mg PO HS 10/28/22 10/28/22 Potassium Gluconate 595mg Tab 595 mg PO DAILY 10/28/22 10/28/22 diphenhydrAMINE [Benadryl] 25 mg PO DAILY 10/28/22 10/28/22 traMADol HCl [Ultram] 50 mg PO Q8H PRN 10/28/22 10/28/22 Allergies Allergy/AdvReac Type Severity Reaction Status Date / Time amoxicillin trihydrate Allergy Unknown Verified 10/28/22 16:39 [From Augmentin] cephalexin monohydrate Allergy Unknown Verified 10/28/22 16:39 [From Keflex] dicyclomine Allergy disoriented Verified 10/28/22 16:39 for 4 days hydromorphone HCl Allergy Extremely Verified 10/28/22 16:39 [From Dilaudid] Confusion for 8 days nitrofurantoin Allergy Unknown Verified 10/28/22 16:39 macrocrystalline [From Macrodantin] potassium clavulanate Allergy Unknown Verified 10/28/22 16:39 [From Augmentin] zolpidem [From Ambien] AdvReac Unknown sleep Verified 10/28/22 16:39 walks, confused Review of Systems ROS Statement: Those systems with pertinent positive or pertinent negative responses have been documented in the HPI. ROS Other: All systems not noted in ROS Statement are negative. Past Medical History Past Medical History: Asthma, Cancer, Diabetes Mellitus, Hyperlipidemia, Hypertension Additional Past Medical History / Comment(s): numbness 2nd,3rd,4th digits rt hand, back pain,skin CA History of Any Multi-Drug Resistant Organisms: None Reported Past Surgical History: Back Surgery, Hysterectomy, Joint Replacement, Orthopedic Surgery, Tonsillectomy Additional Past Surgical History / Comment(s): back x2,lumbar fusion, left knee replacement,ana hips, carpal tunnel surgery Right. Pain clinic procedure Past Anesthesia/Blood Transfusion Reactions: No Reported Reaction Additional Past Anesthesia/Blood Transfusion Reaction / Comment(s): no hx blood transfusion Past Psychological History: No Psychological Hx Reported, Depression Smoking Status: Former smoker Past Alcohol Use History: None Reported Past Drug Use History: None Reported - Past Family History Mother Family Medical History: No Reported History General Exam Limitations: no limitations General appearance: alert, in distress Head exam: Present: atraumatic, normocephalic, normal inspection Respiratory exam: Present: normal lung sounds bilaterally. Absent: respiratory distress, wheezes, rales, rhonchi, stridor Cardiovascular Exam: Present: regular rate, normal rhythm, normal heart sounds. Absent: systolic murmur, diastolic murmur, rubs, gallop, clicks GI/Abdominal exam: Present: soft, tenderness (centralized), normal bowel sounds. Absent: distended Neurological exam: Present: alert, oriented X3, CN II-XII intact Psychiatric exam: Present: normal affect, normal mood Skin exam: Present: diaphoretic Course Vital Signs 10/28/22 10/28/22 10/28/22 10:13 13:00 16:00 Temperature 97 F L 97.4 F L Pulse Rate 99 107 H 103 H Pulse Rate [ [place] ] Respiratory 18 19 Rate Blood Pressure 197/105 174/133 198/103 Blood Pressure [Left Arm] O2 Sat by Pulse 93 L 94 L 90 L Oximetry 10/28/22 10/28/22 10/28/22 16:44 19:00 19:56 Temperature 97.4 F L Pulse Rate 96 Pulse Rate [ [place] ] Respiratory 17 Rate Blood Pressure 190/112 155/113 181/100 Blood Pressure [Left Arm] O2 Sat by Pulse 93 L Oximetry 10/29/22 10/29/22 10/29/22 00:07 01:18 02:00 Temperature Pulse Rate 78 84 84 Pulse Rate [ [place] ] Respiratory 18 18 18 Rate Blood Pressure 165/78 190/80 157/87 Blood Pressure [Left Arm] O2 Sat by Pulse 98 98 95 Oximetry 10/29/22 10/29/22 10/29/22 03:00 04:32 05:30 Temperature 98.1 F Pulse Rate 83 84 84 Pulse Rate [ [place] ] Respiratory 18 18 18 Rate Blood Pressure 151/92 146/87 164/129 Blood Pressure [Left Arm] O2 Sat by Pulse 94 L 95 95 Oximetry 10/29/22 10/29/22 10/29/22 06:00 06:35 08:45 Temperature Pulse Rate 86 Pulse Rate [ 100 [place] ] Respiratory 18 16 Rate Blood Pressure 163/120 167/80 Blood Pressure [Left Arm] O2 Sat by Pulse 98 Oximetry 10/29/22 10/29/22 10/29/22 15:10 19:25 21:00 Temperature 97.9 F 98.7 F Pulse Rate 88 80 Pulse Rate [ 74 [place] ] Respiratory 16 20 18 Rate Blood Pressure 167/89 177/84 Blood Pressure 147/88 [Left Arm] O2 Sat by Pulse 90 L 95 98 Oximetry 10/29/22 10/29/22 10/30/22 22:00 23:00 00:00 Temperature Pulse Rate 79 78 78 Pulse Rate [ [place] ] Respiratory 18 18 18 Rate Blood Pressure 183/88 168/85 169/79 Blood Pressure [Left Arm] O2 Sat by Pulse 98 97 97 Oximetry 10/30/22 10/30/22 10/30/22 01:00 03:00 04:00 Temperature Pulse Rate 76 67 74 Pulse Rate [ [place] ] Respiratory 18 18 18 Rate Blood Pressure 181/89 168/88 178/84 Blood Pressure [Left Arm] O2 Sat by Pulse 95 95 96 Oximetry 10/30/22 10/30/22 10/30/22 06:00 08:00 12:00 Temperature 98 F 98.3 F Pulse Rate 76 75 62 Pulse Rate [ [place] ] Respiratory 18 16 18 Rate Blood Pressure 176/84 198/91 172/86 Blood Pressure [Left Arm] O2 Sat by Pulse 96 92 L 96 Oximetry 10/30/22 13:00 Temperature 98.1 F Pulse Rate Pulse Rate [ 72 [place] ] Respiratory 17 Rate Blood Pressure Blood Pressure 153/98 [Left Arm] O2 Sat by Pulse 88 L Oximetry Medical Decision Making - Medical Decision Making This is an 87-year-old female who presents to the emergency department for abdominal pain, nausea, and vomiting. Was pt. sent in by a medical professional or institution? @ -No Did you speak to anyone other than the patient for history? @ -Her provided the majority of the information, with the patient explaining where her pain was that it was worse than the hip pain. Did you review nursing and triage notes? @ -Yes, and I agree, it is accurate with regards to the patient's symptoms. Were old charts reviewed? @ -No Differential Diagnosis? @ -Differential Abdominal Pain Women: Appendicitis, Cholecystitis, diverticulosis, ischemic bowel, pancreatitis, hepatitis, UTI, gastroenteritis, AAA, incarcerated hernia, bowel obstruction, constipation, inflammatory bowel, hepatitis, peptic ulcer disease, splenic infarction, perforated viscus, vulvitis, ovarian torsion, PID, kidney stone, placenta abruption, this is not meant to be an all-inclusive list EKG interpreted by me (3pts min.)? @ -EKG interpreted by me demonstrating the following: Sinus rhythm. Ventricular rate 98 beats per minute, NC interval 200 ms, QRS duration 109 ms, QTC 434 ms. X-rays interpreted by me (1pt min.)? @ -Not obtained CT interpreted by me (1pt min.)? @ -Computed tomography scan of the abdomen and pelvis obtained. My interpretation identifies no evidence of bowel wall thickening or free air. U/S interpreted by me (1pt. min.)? @ -Not obtained What testing was considered but not performed? (CT, X-rays, U/S, labs)? Why? @ -None What meds were considered but not given? Why? @ -None Did you discuss the management of the patient with other professionals? @ -Yes, Dr. Ortiz, who accepts the patient for admission. Did you reconcile home meds? @ -Yes Was smoking cessation discussed for >3mins.? @ -No Was critical care preformed (if so, how long)? @ -No Were there social determinants of health that impacted care today? How? (Homelessness, low income, unemployed, alcoholism, drug addiction, transportation, low edu. Level, literacy, decrease access to med. care, care home, rehab)? @ -No Was there de-escalation of care discussed even if they declined? (Discuss DNR or withdrawal of care, Hospice)? @ -No What co-morbidities impacted this encounter? (DM, HTN, Smoking, COPD, CAD, Cancer, CVA, Hep., AIDS, mental health diagnosis, sleep apnea, morbid obesity)? @ -DM, HLD, HTN Was patient admitted / discharged? @ -Admitted. Lab work obtained revealing leukocytosis and hypokalemia, with a potassium of 2.8. Lab work was otherwise nonactionable. 40 mEq of K-dur was administered. She was also given IV fluids, Zofran, Pepcid, and fentanyl for management of symptoms, which she felt was helpful. Urinalysis has 3+ ketones and 4+ glucose without evidence of infection. Computed tomography scan of the abdomen and pelvis obtained revealing no acute process. Patient was notably diaphoretic in the examination room and continued to be in extreme pain. Additionally, the patient became tachycardic and her blood pressure was extremely elevated, in the 190s systolically. She was initially given 20 mg of IV labetalol with no improvement in BP. Another 20 mg was subsequently ordered. Given the patient's age, comorbidities, and her presentation, there is concern for ACS or other underlying process. Blood cultures were ordered in light of her symptoms with the tachycardia and leukocytosis and she was admitted to medicine for further management. Serial troponins ordered as well. Undiagnosed new problem with uncertain prognosis? @ -None Drug Therapy requiring intensive monitoring for toxicity (Heparin, Nitro, Insulin, Cardizem)? @ -None Were any procedures done? @ -None Diagnosis/symptom? @ -Hypertensive urgency, abdominal pain, hypokalemia Acute, or Chronic, or Acute on Chronic? @ -Acute Uncomplicated (without systemic symptoms) or Complicated (systemic symptoms)? @ -Complicated Side effects of treatment? @ -None Exacerbation, Progression, or Severe Exacerbation] @ -Not applicable Poses a threat to life or bodily function? @ -Yes This case was discussed in detail with the attending ED physician, Dr. Ma. Presentation, findings, and treatment plan discussed in detail as well. - Lab Data Result diagrams: 10/30/22 09:36 10/30/22 09:36 Lab Results 10/28/22 10/28/22 10/28/22 Range/Units 10:40 10:40 14:08 WBC 13.3 H (3.8-10.6) k/uL RBC 5.15 (3.80-5.40) m/uL Hgb 17.1 H (11.4-16.0) gm/dL Hct 49.8 H (34.0-46.0) % MCV 96.8 (80.0-100.0) fL MCH 33.2 (25.0-35.0) pg MCHC 34.3 (31.0-37.0) g/dL RDW 12.0 (11.5-15.5) % Plt Count 289 (150-450) k/uL MPV 8.1 Neutrophils % 67 % Neutrophils % (Manual) % Lymphocytes % 21 % Lymphocytes % (Manual) % Monocytes % 7 % Monocytes % (Manual) % Eosinophils % 0 % Eosinophils % (Manual) % Basophils % 0 % Neutrophils # 8.9 H (1.3-7.7) k/uL Neutrophils # (Manual) (1.3-7.7) k/uL Lymphocytes # 2.8 (1.0-4.8) k/uL Lymphocytes # (Manual) (1.0-4.8) k/uL Monocytes # 1.0 (0-1.0) k/uL Monocytes # (Manual) (0-1.0) k/uL Eosinophils # 0.0 (0-0.7) k/uL Eosinophils # (Manual) (0-0.7) k/uL Basophils # 0.0 (0-0.2) k/uL Nucleated RBCs (0-0) /100 WBC Manual Slide Review RBC Morphology Sodium (137-145) mmol/L Potassium (3.5-5.1) mmol/L Chloride (98-107) mmol/L Carbon Dioxide (22-30) mmol/L Anion Gap mmol/L BUN (7-17) mg/dL Creatinine (0.52-1.04) mg/dL Est GFR (CKD-EPI)AfAm (>60 ml/min/1.73 sqM) Est GFR (CKD-EPI)NonAf (>60 ml/min/1.73 sqM) Glucose (74-99) mg/dL Estimated Ave Glu mg/dL mg/dL Hemoglobin A1c (<=6.0) % Plasma Lactic Acid [place] 1.3 (0.7-2.0) mmol/L Calcium (8.4-10.2) mg/dL Magnesium (1.5-2.4) mg/dL Total Bilirubin (0.2-1.3) mg/dL AST (14-36) U/L ALT (4-34) U/L Alkaline Phosphatase (38-126) U/L Troponin I (0.000-0.034) ng/mL Total Protein (6.3-8.2) g/dL Albumin (3.5-5.0) g/dL Amylase (30-110) U/L Lipase (23-300) U/L Procalcitonin (0.02-0.09) ng/mL TSH (0.465-4.680) mIU/L Urine Color Colorless Urine Appearance Clear (Clear) Urine pH 6.0 (5.0-8.0) Ur Specific [place] 1.011 (1.001-1.035) Urine Protein 1+ H (Negative) Urine Glucose (UA) 4+ H (Negative) Urine Ketones 3+ H (Negative) Urine Blood Negative (Negative) Urine Nitrite Negative (Negative) Urine Bilirubin Negative (Negative) Urine Urobilinogen <2.0 (<2.0) mg/dL Ur Leukocyte Esterase Negative (Negative) Urine RBC 1 (0-5) /hpf Urine WBC 1 (0-5) /hpf Urine Mucus Rare H (None) /hpf 10/28/22 10/28/22 10/28/22 Range/Units 14:08 14:08 18:08 WBC (3.8-10.6) k/uL RBC (3.80-5.40) m/uL Hgb (11.4-16.0) gm/dL Hct (34.0-46.0) % MCV (80.0-100.0) fL MCH (25.0-35.0) pg MCHC (31.0-37.0) g/dL RDW (11.5-15.5) % Plt Count (150-450) k/uL MPV Neutrophils % % Neutrophils % (Manual) % Lymphocytes % % Lymphocytes % (Manual) % Monocytes % % Monocytes % (Manual) % Eosinophils % % Eosinophils % (Manual) % Basophils % % Neutrophils # (1.3-7.7) k/uL Neutrophils # (Manual) (1.3-7.7) k/uL Lymphocytes # (1.0-4.8) k/uL Lymphocytes # (Manual) (1.0-4.8) k/uL Monocytes # (0-1.0) k/uL Monocytes # (Manual) (0-1.0) k/uL Eosinophils # (0-0.7) k/uL Eosinophils # (Manual) (0-0.7) k/uL Basophils # (0-0.2) k/uL Nucleated RBCs (0-0) /100 WBC Manual Slide Review RBC Morphology Sodium 140 (137-145) mmol/L Potassium 2.8 L (3.5-5.1) mmol/L Chloride 104 (98-107) mmol/L Carbon Dioxide 20 L (22-30) mmol/L Anion Gap 16 mmol/L BUN 15 (7-17) mg/dL Creatinine 0.53 (0.52-1.04) mg/dL Est GFR (CKD-EPI)AfAm >90 (>60 ml/min/1.73 sqM) Est GFR (CKD-EPI)NonAf 87 (>60 ml/min/1.73 sqM) Glucose 100 H (74-99) mg/dL Estimated Ave Glu mg/dL mg/dL Hemoglobin A1c (<=6.0) % Plasma Lactic Acid [place] (0.7-2.0) mmol/L Calcium 9.2 (8.4-10.2) mg/dL Magnesium (1.5-2.4) mg/dL Total Bilirubin 0.8 (0.2-1.3) mg/dL AST 41 H (14-36) U/L ALT 30 (4-34) U/L Alkaline Phosphatase 74 (38-126) U/L Troponin I 0.034 0.055 H* (0.000-0.034) ng/mL Total Protein 7.3 (6.3-8.2) g/dL Albumin 4.7 (3.5-5.0) g/dL Amylase 62 (30-110) U/L Lipase 42 (23-300) U/L Procalcitonin (0.02-0.09) ng/mL TSH 1.380 (0.465-4.680) mIU/L Urine Color Urine Appearance (Clear) Urine pH (5.0-8.0) Ur Specific [place] (1.001-1.035) Urine Protein (Negative) Urine Glucose (UA) (Negative) Urine Ketones (Negative) Urine Blood (Negative) Urine Nitrite (Negative) Urine Bilirubin (Negative) Urine Urobilinogen (<2.0) mg/dL Ur Leukocyte Esterase (Negative) Urine RBC (0-5) /hpf Urine WBC (0-5) /hpf Urine Mucus (None) /hpf 10/28/22 10/29/22 10/29/22 Range/Units 20:53 07:40 07:40 WBC 11.5 H (3.8-10.6) k/uL RBC 4.58 (3.80-5.40) m/uL Hgb 15.5 (11.4-16.0) gm/dL Hct 44.9 (34.0-46.0) % MCV 98.1 (80.0-100.0) fL MCH 33.8 (25.0-35.0) pg MCHC 34.4 (31.0-37.0) g/dL RDW 12.0 (11.5-15.5) % Plt Count 254 (150-450) k/uL MPV 7.4 Neutrophils % % Neutrophils % (Manual) 74 % Lymphocytes % % Lymphocytes % (Manual) 19 % Monocytes % % Monocytes % (Manual) 5 % Eosinophils % % Eosinophils % (Manual) 2 % Basophils % % Neutrophils # (1.3-7.7) k/uL Neutrophils # (Manual) 8.51 H (1.3-7.7) k/uL Lymphocytes # (1.0-4.8) k/uL Lymphocytes # (Manual) 2.19 (1.0-4.8) k/uL Monocytes # (0-1.0) k/uL Monocytes # (Manual) 0.58 (0-1.0) k/uL Eosinophils # (0-0.7) k/uL Eosinophils # (Manual) 0.23 (0-0.7) k/uL Basophils # (0-0.2) k/uL Nucleated RBCs 0 (0-0) /100 WBC Manual Slide Review Performed RBC Morphology Normal Sodium 140 (137-145) mmol/L Potassium 2.7 L* (3.5-5.1) mmol/L Chloride 105 (98-107) mmol/L Carbon Dioxide 23 (22-30) mmol/L Anion Gap 12 mmol/L BUN 19 H (7-17) mg/dL Creatinine 0.56 (0.52-1.04) mg/dL Est GFR (CKD-EPI)AfAm >90 (>60 ml/min/1.73 sqM) Est GFR (CKD-EPI)NonAf 85 (>60 ml/min/1.73 sqM) Glucose 118 H (74-99) mg/dL Estimated Ave Glu mg/dL mg/dL Hemoglobin A1c (<=6.0) % Plasma Lactic Acid Gideon (0.7-2.0) mmol/L Calcium 9.2 (8.4-10.2) mg/dL Magnesium (1.5-2.4) mg/dL Total Bilirubin (0.2-1.3) mg/dL AST (14-36) U/L ALT (4-34) U/L Alkaline Phosphatase (38-126) U/L Troponin I 0.062 H* (0.000-0.034) ng/mL Total Protein (6.3-8.2) g/dL Albumin (3.5-5.0) g/dL Amylase (30-110) U/L Lipase (23-300) U/L Procalcitonin (0.02-0.09) ng/mL TSH (0.465-4.680) mIU/L Urine Color Urine Appearance (Clear) Urine pH (5.0-8.0) Ur Specific [place] (1.001-1.035) Urine Protein (Negative) Urine Glucose (UA) (Negative) Urine Ketones (Negative) Urine Blood (Negative) Urine Nitrite (Negative) Urine Bilirubin (Negative) Urine Urobilinogen (<2.0) mg/dL Ur Leukocyte Esterase (Negative) Urine RBC (0-5) /hpf Urine WBC (0-5) /hpf Urine Mucus (None) /hpf 10/29/22 10/29/22 10/29/22 Range/Units 07:40 07:40 07:40 WBC (3.8-10.6) k/uL RBC (3.80-5.40) m/uL Hgb (11.4-16.0) gm/dL Hct (34.0-46.0) % MCV (80.0-100.0) fL MCH (25.0-35.0) pg MCHC (31.0-37.0) g/dL RDW (11.5-15.5) % Plt Count (150-450) k/uL MPV Neutrophils % % Neutrophils % (Manual) % Lymphocytes % % Lymphocytes % (Manual) % Monocytes % % Monocytes % (Manual) % Eosinophils % % Eosinophils % (Manual) % Basophils % % Neutrophils # (1.3-7.7) k/uL Neutrophils # (Manual) (1.3-7.7) k/uL Lymphocytes # (1.0-4.8) k/uL Lymphocytes # (Manual) (1.0-4.8) k/uL Monocytes # (0-1.0) k/uL Monocytes # (Manual) (0-1.0) k/uL Eosinophils # (0-0.7) k/uL Eosinophils # (Manual) (0-0.7) k/uL Basophils # (0-0.2) k/uL Nucleated RBCs (0-0) /100 WBC Manual Slide Review RBC Morphology Sodium (137-145) mmol/L Potassium (3.5-5.1) mmol/L Chloride (98-107) mmol/L Carbon Dioxide (22-30) mmol/L Anion Gap mmol/L BUN (7-17) mg/dL Creatinine (0.52-1.04) mg/dL Est GFR (CKD-EPI)AfAm (>60 ml/min/1.73 sqM) Est GFR (CKD-EPI)NonAf (>60 ml/min/1.73 sqM) Glucose (74-99) mg/dL Estimated Ave Glu mg/dL 128 mg/dL Hemoglobin A1c 6.1 H (<=6.0) % Plasma Lactic Acid Gideon (0.7-2.0) mmol/L Calcium (8.4-10.2) mg/dL Magnesium 2.3 (1.5-2.4) mg/dL Total Bilirubin (0.2-1.3) mg/dL AST (14-36) U/L ALT (4-34) U/L Alkaline Phosphatase (38-126) U/L Troponin I (0.000-0.034) ng/mL Total Protein (6.3-8.2) g/dL Albumin (3.5-5.0) g/dL Amylase (30-110) U/L Lipase (23-300) U/L Procalcitonin 0.06 (0.02-0.09) ng/mL TSH (0.465-4.680) mIU/L Urine Color Urine Appearance (Clear) Urine pH (5.0-8.0) Ur Specific [place] (1.001-1.035) Urine Protein (Negative) Urine Glucose (UA) (Negative) Urine Ketones (Negative) Urine Blood (Negative) Urine Nitrite (Negative) Urine Bilirubin (Negative) Urine Urobilinogen (<2.0) mg/dL Ur Leukocyte Esterase (Negative) Urine RBC (0-5) /hpf Urine WBC (0-5) /hpf Urine Mucus (None) /hpf 10/29/22 Range/Units 14:23 WBC (3.8-10.6) k/uL RBC (3.80-5.40) m/uL Hgb (11.4-16.0) gm/dL Hct (34.0-46.0) % MCV (80.0-100.0) fL MCH (25.0-35.0) pg MCHC (31.0-37.0) g/dL RDW (11.5-15.5) % Plt Count (150-450) k/uL MPV Neutrophils % % Neutrophils % (Manual) % Lymphocytes % % Lymphocytes % (Manual) % Monocytes % % Monocytes % (Manual) % Eosinophils % % Eosinophils % (Manual) % Basophils % % Neutrophils # (1.3-7.7) k/uL Neutrophils # (Manual) (1.3-7.7) k/uL Lymphocytes # (1.0-4.8) k/uL Lymphocytes # (Manual) (1.0-4.8) k/uL Monocytes # (0-1.0) k/uL Monocytes # (Manual) (0-1.0) k/uL Eosinophils # (0-0.7) k/uL Eosinophils # (Manual) (0-0.7) k/uL Basophils # (0-0.2) k/uL Nucleated RBCs (0-0) /100 WBC Manual Slide Review RBC Morphology Sodium (137-145) mmol/L Potassium 3.1 L (3.5-5.1) mmol/L Chloride (98-107) mmol/L Carbon Dioxide (22-30) mmol/L Anion Gap mmol/L BUN (7-17) mg/dL Creatinine (0.52-1.04) mg/dL Est GFR (CKD-EPI)AfAm (>60 ml/min/1.73 sqM) Est GFR (CKD-EPI)NonAf (>60 ml/min/1.73 sqM) Glucose (74-99) mg/dL Estimated Ave Glu mg/dL mg/dL Hemoglobin A1c (<=6.0) % Plasma Lactic Acid Gideon (0.7-2.0) mmol/L Calcium (8.4-10.2) mg/dL Magnesium 2.5 H (1.5-2.4) mg/dL Total Bilirubin (0.2-1.3) mg/dL AST (14-36) U/L ALT (4-34) U/L Alkaline Phosphatase (38-126) U/L Troponin I (0.000-0.034) ng/mL Total Protein (6.3-8.2) g/dL Albumin (3.5-5.0) g/dL Amylase (30-110) U/L Lipase (23-300) U/L Procalcitonin (0.02-0.09) ng/mL TSH (0.465-4.680) mIU/L Urine Color Urine Appearance (Clear) Urine pH (5.0-8.0) Ur Specific [place] (1.001-1.035) Urine Protein (Negative) Urine Glucose (UA) (Negative) Urine Ketones (Negative) Urine Blood (Negative) Urine Nitrite (Negative) Urine Bilirubin (Negative) Urine Urobilinogen (<2.0) mg/dL Ur Leukocyte Esterase (Negative) Urine RBC (0-5) /hpf Urine WBC (0-5) /hpf Urine Mucus (None) /hpf - Radiology Data Radiology results: report reviewed, image reviewed Disposition Clinical Impression: Hypertensive urgency, Hypokalemia, Abdominal pain Disposition: ADMITTED IP TO THIS HOSP
[2022-10-28 11:05] LABS: Basophils % (A) 0 %; Eosinophils % (A) 0 %; HCT 49.8 % (34.0-46.0); HGB 17.1 gm/dL (11.4-16.0); Lymphocytes # (A) 2.8 k/uL (1.0-4.8); Lymphocytes % (A) 21 %; MCH 33.2 pg (25.0-35.0); MCHC 34.3 g/dL (31.0-37.0); MCV 96.8 fL (80.0-100.0); Mean Platelet Volume 8.1; Monocytes % (A) 7 %; Neutrophils # (A) 8.9 k/uL (1.3-7.7); Neutrophils % (A) 67 %; Platelet Count 289 k/uL (150-450); RBC 5.15 m/uL (3.80-5.40); WBC 13.3 k/uL (3.8-10.6)
[2022-10-28 13:39] LABS: Appearance,Urine Clear (Clear); Bilirubin,Urine Negative (Negative); Blood,Urine Negative (Negative); Color,Urine Colorless; Glucose,Urine (UA) 4+ (Negative); Leukocyte Esterase,Urine Negative (Negative); Mucus,Urine Rare /hpf; Nitrite,Urine Negative (Negative); Protein,Urine 1+ (Negative); RBC,Urine 1 /hpf (0-5); Specific Gravity,Urine 1.011 (1.001-1.035); Urobilinogen,Urine <2.0 mg/dL (<2.0); WBC,Urine 1 /hpf (0-5)
[2022-10-28 14:05] LABS: Ketones,Urine 3+ (Negative)
[2022-10-28 15:03] LABS: ALT 30 U/L (4-34); AST 41 U/L (14-36); African American GFR (CKD) >90 (>60 ml/min/1.73 sqM); Albumin 4.7 g/dL (3.5-5.0); Alkaline Phosphatase 74 U/L (38-126); Amylase 62 U/L (30-110); Anion Gap 16 mmol/L; Blood Urea Nitrogen 15 mg/dL (7-17); Calcium 9.2 mg/dL (8.4-10.2); Carbon Dioxide 20 mmol/L (22-30); Chloride 104 mmol/L (98-107); Glucose 100 mg/dL (74-99); Lipase 42 U/L (23-300); Non-African American GFR(CKD) 87 (>60 ml/min/1.73 sqM); Potassium 2.8 mmol/L (3.5-5.1); Sodium 140 mmol/L (137-145); Total Bilirubin 0.8 mg/dL (0.2-1.3); Total Protein 7.3 g/dL (6.3-8.2)
[2022-10-28] MEDS ORDERED: LABETALOL 5 MG/ML VIAL MDV IVP STA ×2 (15:25→16:53)
[2022-10-28] MEDS ORDERED: POTASSIUM CHLORIDE ER 20 MEQ TAB.ER PO STA (15:25)
--- NOTE | 2022-10-28 15:55 | CT ---
EXAMINATION TYPE: CT abdomen pelvis w con DATE OF EXAM: 10/28/2022 COMPARISON: 12/09/2017 HISTORY: nausea, vomiting, right hip pain from fall CT DLP: 784.6 mGycm CONTRAST: CT scan of the abdomen and pelvis is performed without Oral Contrast and with IV Contrast, patient in jected with 100 mL of Isovue 300. FINDINGS: LUNG BASES-: No visible nodule. No infiltrate. LIVER/GB: No calcified gallstones. There is a simple cyst of the hepatic caudate lobe measuring 3.5 cm. Biliary tree is of normal caliber. PANCREAS: No inflammation. No distinct mass. SPLEEN: No splenic enlargement. No lesion seen. ADRENALS: No nodule. No thickening. KIDNEYS/BLADDER: No hydronephrosis. No nephrolithiasis. No distinct renal mass. Urinary bladder g rossly unremarkable. BOWEL: Normal appendix. Normal bowel caliber. No inflammation. GENITAL ORGANS: Streak artifact limits evaluation of the pelvis from bilateral hip prosthesis. There is a right ovarian cyst measuring 1.9 cm. Correlate with pelvic ultrasound. No left adnexal mass is s een. LYMPH NODES: No greater than 1cm abdominal or pelvic lymph nodes are appreciated. AORTA: No significant abnormality. OSSEOUS STRUCTURES: Bilateral hip prosthesis noted. There is evidence of lumbar laminectomy and fusio n. OTHER: No significant additional abnormality is seen. IMPRESSION: 1. No acute intra-abdominal or intrapelvic process seen. 2. Simple appearing right ovarian cyst however I consider ultrasound correlation as an outpatient.
[2022-10-28] MEDS ORDERED: AZELASTINE 137MCG/SPRAY EA NOSTRIL PRN (17:06)
[2022-10-28] MEDS ORDERED: IBUPROFEN 600 MG TAB PO PRN (17:06)
[2022-10-28] MEDS ORDERED: SUMAtriptan succinate 25 MG TAB PO PRN (17:06)
[2022-10-28] MEDS ORDERED: GABAPENTIN 300 MG CAP PO PRN (17:06)
[2022-10-28] MEDS ORDERED: traMADol 50 MG TAB PO PRN (17:06)
[2022-10-28] MEDS ORDERED: ONDANSETRON 4 MG/2 ML VIAL IVP PRN (17:15)
[2022-10-28] MEDS ORDERED: NALOXONE 0.4 MG/ML 1 ML VIAL IV PRN (17:15)
[2022-10-28] MEDS: HYDROcodone/APAP 7.5-325MG 1 EACH TAB PO PRN (18:16)
[2022-10-28] MEDS: SYMBICORT 160-4.5 MCG INHALER INHALATION SCH (20:41)
[2022-10-28] MEDS ORDERED: METOPROLOL TARTRATE 50 MG TAB PO SCH (21:00)
[2022-10-28] MEDS ORDERED: METOPROLOL TARTRATE 50 MG TAB PO STA (23:48)
[2022-10-28] MEDS: MELATONIN 5 MG TABLET PO SCH (23:52)
[2022-10-28] MEDS: MONTELUKAST 10 MG TAB PO SCH (23:52)
[2022-10-28] MEDS: MIRTAZAPINE 15 MG TAB PO SCH (23:53)
[2022-10-28] MEDS ORDERED: hydrALAZINE HCL 20 MG/ML 1 ML VIAL IVP PRN (23:58)
[2022-10-29] MEDS: ALPRAZolam 0.5 MG TAB PO PRN ×2 (01:21→08:50)
[2022-10-29] MEDS: HYDROcodone/APAP 7.5-325MG 1 EACH TAB PO PRN ×2 (02:15→08:50)
[2022-10-29] MEDS: PANTOPRAZOLE 40 MG TABLET PO SCH (06:46)
[2022-10-29 08:05] LABS: African American GFR (CKD) >90 (>60 ml/min/1.73 sqM); Anion Gap 12 mmol/L; Blood Urea Nitrogen 19 mg/dL (7-17); Calcium 9.2 mg/dL (8.4-10.2); Carbon Dioxide 23 mmol/L (22-30); Chloride 105 mmol/L (98-107); Glucose 118 mg/dL (74-99); Non-African American GFR(CKD) 85 (>60 ml/min/1.73 sqM); Sodium 140 mmol/L (137-145)
[2022-10-29 08:08] LABS: HCT 44.9 % (34.0-46.0); HGB 15.5 gm/dL (11.4-16.0); MCH 33.8 pg (25.0-35.0); MCHC 34.4 g/dL (31.0-37.0); MCV 98.1 fL (80.0-100.0); Mean Platelet Volume 7.4; Platelet Count 254 k/uL (150-450); RBC 4.58 m/uL (3.80-5.40); WBC 11.5 k/uL (3.8-10.6)
[2022-10-29 08:35] LABS: Potassium 2.7 mmol/L (3.5-5.1)
[2022-10-29] MEDS ORDERED: DAPAGLIFLOZIN PROPANEDIOL 10 MG TABLET PO SCH (09:00)
[2022-10-29] MEDS ORDERED: Magnesium Replacement Protocol 1 EACH MISC MISCELLANE PRN (09:04)
[2022-10-29] MEDS ORDERED: Potassium Replacement Protocol 1 EACH MISC MISCELLANE PRN (09:04)
[2022-10-29] MEDS: SYMBICORT 160-4.5 MCG INHALER INHALATION SCH ×2 (09:34→20:12)
[2022-10-29] MEDS: DULoxetine HCL 30 MG CAPSULE.DR PO SCH (10:06)
[2022-10-29] MEDS: MULTIVITAMINS, THERA 1 EACH TAB PO SCH (10:06)
[2022-10-29] MEDS: MELOXICAM 7.5 MG TAB PO SCH ×2 (10:06→22:22)
[2022-10-29] MEDS: CALCIUM CARB-VIT D 500 MG-5 MCG TAB PO SCH (10:06)
[2022-10-29] MEDS: CYANOCOBALAMIN 500 MCG TAB PO SCH (10:07)
[2022-10-29] MEDS: CALCIUM CARBONATE 500 MG CHEWABLE PO SCH (10:07)
[2022-10-29] MEDS: QUEtiapine 25 MG TAB PO PRN ×2 (10:07→18:24)
[2022-10-29 10:08] LABS: Eosinophils # (M) 0.23 k/uL (0-0.7); Lymphocytes # (M) 2.19 k/uL (1.0-4.8); Monocytes # (M) 0.58 k/uL (0-1.0); Neutrophils # (M) 8.51 k/uL (1.3-7.7); Neutrophils % (M) 74 %; Nucleated Red Blood Cells 0 /100 WBC (0-0); Total Cells Counted 100
[2022-10-29] MEDS: POTASSIUM CHLORIDE ER 10 MEQ TAB.ER.PRT PO SCH (10:08)
[2022-10-29] MEDS: METOPROLOL TARTRATE 50 MG TAB PO SCH ×2 (10:08→22:22)
[2022-10-29] MEDS: DILTIAZEM CD 180 MG CAP.ER.24H PO SCH (10:08)
[2022-10-29] MEDS: CHOLECALCIFEROL 25 MCG (1000 IU) TABLET PO SCH (10:08)
[2022-10-29] MEDS: PRAVASTATIN SODIUM 40 MG TAB PO SCH (10:08)
--- NOTE | 2022-10-29 10:08 | P.HPIM ---
History of Present Illness This is a pleasant 87 years old female with past medical history of Asthma, Diabetes Mellitus, Hyperlipidemia, Hypertension, back pain,s/p back surgery Patient is confused and poor historian although she answers questions and follow commands. Information obtained from the at bedside. He states that the patient has low appetite dehydrated with diarrhea over the last 2-3 days. Normally her bowel movement is moderate size but over the last 3 days is becoming large size and more loose. Patient has some vomiting but little volume. Patient denies abdominal pain in her abdomen looks soft. She has history of fall last July and since then she is complaining of from right shoulder and right hip pain, she's been evaluated by her PCP Dr. New and had MRI of the right hip and then referred her to Dr. Rutherford's and [facility] x-ray and CAT scan and his been fully evaluated. Patient still have some mild pain in her right shoulder and right hip she's not in distress, but this would limit movement of both extremities. This problem has been going on now for about 4-6 weeks as per . Discontinue his been fully evaluated already. Patient herself looks very confused, she thinks she isn't Dr. office in [place], when asking about today states she said 2 days after her birthday and she could not tell the name of the president. She follows simple commands. She denies headache dizziness weakness or numbness in extremities. Right-sided examination is somewhat limited by right shoulder pain and right hip pain. No blurred vision, and no slurred speech or choking. She denies chest pain or coughing or dyspnea. No urinary complaints. Patient is afebrile, tachycardic and hypertensive with systolic blood pressure on admission was 170-190. Patient is in room air. Labs showing mild leukocytosis of 13.3, rest of CBC, BMP and liver enzymes were unremarkable except for mild hypokalemia at 2.8 Troponin first one was negative and second and third were elevated at 0.05 and 0.06. TSH 1.3 which is within the reference range Urinalysis showed glucose urea and ketonuria. EKG showing normal sinus rhythm at [address]-T changes CT of the abdomen and pelvis with contrast showing no acute intra-abdominal or intrapelvic process. Right ovarian cyst Past Medical History Past Medical History: Asthma, Cancer, Diabetes Mellitus, Hyperlipidemia, Hypertension Additional Past Medical History / Comment(s): numbness 2nd,3rd,4th digits rt hand, back pain,skin CA History of Any Multi-Drug Resistant Organisms: None Reported Past Surgical History: Back Surgery, Hysterectomy, Joint Replacement, Orthopedic Surgery, Tonsillectomy Additional Past Surgical History / Comment(s): back x2,lumbar fusion, left knee replacement,ana hips, carpal tunnel surgery Right. Pain clinic procedure Past Anesthesia/Blood Transfusion Reactions: No Reported Reaction Additional Past Anesthesia/Blood Transfusion Reaction / Comment(s): no hx blood transfusion Past Psychological History: No Psychological Hx Reported, Depression Smoking Status: Former smoker Past Alcohol Use History: None Reported Past Drug Use History: None Reported - Past Family History Mother Family Medical History: No Reported History Medications and Allergies Home Medications Medication Instructions Recorded Confirmed Type Pravastatin Sodium [Pravachol] 40 mg PO DAILY 10/27/14 10/28/22 History ALPRAZolam [Xanax] 0.5 mg PO BID PRN 04/02/20 10/28/22 History Azelastine HCl [Astepro] 2 spray EA NOSTRIL BID PRN 04/02/20 10/28/22 History Celecoxib [CeleBREX] 200 mg PO BID 04/02/20 10/28/22 History Gabapentin 300 mg PO BID PRN 04/02/20 10/28/22 History Metoprolol Tartrate [Lopressor] 50 mg PO BID 04/02/20 10/28/22 History Mirtazapine [Remeron] 15 mg PO HS 04/02/20 10/28/22 History Montelukast Sodium [Singulair] 10 mg PO HS 04/02/20 10/28/22 History Budesonide/Formoterol Fumarate 2 puff INHALATION RT-BID 08/02/20 10/28/22 History [Symbicort 160-4.5 Mcg Inhaler] Diltiazem Cd [Cardizem Cd] 180 mg PO DAILY 08/02/20 10/28/22 History Dapagliflozin Propanediol [Farxiga] 10 mg PO DAILY 09/02/22 10/28/22 History Multivitamins, Thera [Multivitamin 1 tab PO DAILY 09/02/22 10/28/22 History (formulary)] Omeprazole 40 mg PO DAILY 09/02/22 10/28/22 History SUMAtriptan succinate [Imitrex] 25 mg PO BID PRN 09/02/22 10/28/22 History Calcium Carbonate [Calcium] 600 mg PO DAILY 10/26/22 10/28/22 History Cholecalciferol [Vitamin D3 (25 25 mcg PO DAILY 10/26/22 10/28/22 History Mcg = 1000 Iu)] HYDROcodone/APAP 7.5-325MG [[place] 1 tab PO Q8H PRN 10/26/22 10/28/22 History 7.5-325] Calcium Carbonate/Vitamin D3 1 cap PO DAILY 10/28/22 10/28/22 History [Calcium 600 mg-D3 10 Mcg (400 Iu)] Cyanocobalamin (Vitamin B-12) 1,000 mcg PO DAILY 10/28/22 10/28/22 History [Vitamin B-12] DULoxetine HCL [Cymbalta] 30 mg PO DAILY 10/28/22 10/28/22 History Ibuprofen [Motrin] 600 mg PO BID PRN 10/28/22 10/28/22 History Melatonin 10 mg PO HS 10/28/22 10/28/22 History Potassium Gluconate 595mg Tab 595 mg PO DAILY 10/28/22 10/28/22 History diphenhydrAMINE [Benadryl] 25 mg PO DAILY 10/28/22 10/28/22 History traMADol HCl [Ultram] 50 mg PO Q8H PRN 10/28/22 10/28/22 History Allergies Allergy/AdvReac Type Severity Reaction Status Date / Time amoxicillin trihydrate Allergy Unknown Verified 10/28/22 16:39 [From Augmentin] cephalexin monohydrate Allergy Unknown Verified 10/28/22 16:39 [From Keflex] dicyclomine Allergy disoriented Verified 10/28/22 16:39 for 4 days hydromorphone HCl Allergy Extremely Verified 10/28/22 16:39 [From Dilaudid] Confusion for 8 days nitrofurantoin Allergy Unknown Verified 10/28/22 16:39 macrocrystalline [From Macrodantin] potassium clavulanate Allergy Unknown Verified 10/28/22 16:39 [From Augmentin] zolpidem [From Ambien] AdvReac Unknown sleep Verified 10/28/22 16:39 walks, confused Physical Exam Vitals: Vital Signs Temp Pulse Resp BP Pulse Ox 10/29/22 06:35 167/80 10/29/22 06:00 86 18 163/120 98 10/29/22 05:30 84 18 164/129 95 10/29/22 04:32 98.1 F 84 18 146/87 95 10/29/22 03:00 83 18 151/92 94 L 10/29/22 02:00 84 18 157/87 95 10/29/22 01:18 84 18 190/80 98 10/29/22 00:07 78 18 165/78 98 10/28/22 19:56 97.4 F L 96 17 181/100 93 L 10/28/22 19:00 155/113 10/28/22 16:44 190/112 10/28/22 16:00 97.4 F L 103 H 19 198/103 90 L 10/28/22 13:00 107 H 174/133 94 L 10/28/22 10:13 97 F L 99 18 197/105 93 L Results CBC & Chem 7: 10/29/22 07:40 10/29/22 07:40 Labs: Abnormal Lab Results - Last 24 Hours (Table) 10/28/22 10/28/22 10/28/22 Range/Units 10:40 10:40 14:08 WBC 13.3 H (3.8-10.6) k/uL Hgb 17.1 H (11.4-16.0) gm/dL Hct 49.8 H (34.0-46.0) % Neutrophils # 8.9 H (1.3-7.7) k/uL Potassium 2.8 L (3.5-5.1) mmol/L Carbon Dioxide 20 L (22-30) mmol/L BUN (7-17) mg/dL Glucose 100 H (74-99) mg/dL AST 41 H (14-36) U/L Troponin I (0.000-0.034) ng/mL Urine Protein 1+ H (Negative) Urine Glucose (UA) 4+ H (Negative) Urine Ketones 3+ H (Negative) Urine Mucus Rare H (None) /hpf 10/28/22 10/28/22 10/29/22 Range/Units 18:08 20:53 07:40 WBC 11.5 H (3.8-10.6) k/uL Hgb (11.4-16.0) gm/dL Hct (34.0-46.0) % Neutrophils # (1.3-7.7) k/uL Potassium (3.5-5.1) mmol/L Carbon Dioxide (22-30) mmol/L BUN (7-17) mg/dL Glucose (74-99) mg/dL AST (14-36) U/L Troponin I 0.055 H* 0.062 H* (0.000-0.034) ng/mL Urine Protein (Negative) Urine Glucose (UA) (Negative) Urine Ketones (Negative) Urine Mucus (None) /hpf 10/29/22 Range/Units 07:40 WBC (3.8-10.6) k/uL Hgb (11.4-16.0) gm/dL Hct (34.0-46.0) % Neutrophils # (1.3-7.7) k/uL Potassium 2.7 L* (3.5-5.1) mmol/L Carbon Dioxide (22-30) mmol/L BUN 19 H (7-17) mg/dL Glucose 118 H (74-99) mg/dL AST (14-36) U/L Troponin I (0.000-0.034) ng/mL Urine Protein (Negative) Urine Glucose (UA) (Negative) Urine Ketones (Negative) Urine Mucus (None) /hpf Assessment and Plan Assessment: Nausea vomiting and diarrhea suspicious for acute gastroenteritis present on admission. This could be viral infection versus other Hypertension, uncontrolled with urgency on admission, with contributing risk factors including pain and previous use of NSAIDs Hypokalemia Fall at home with right-sided pain Diabetes mellitus Hyperlipidemia History of osteoarthritis back pain,s/p back surgery Plan: check for C. diff, check for pro-calcitonin. Patient with no fever, she has mild leukocytosis and is improving. Then her abdomen exam soft, therefore we will hold on antibiotics and further workup and monitoring Continue with metoprolol and increase dose to 100 mg twice a day. Continue with Cardizem with close monitoring of blood pressure. Add hydralazine IV when necessary Cardiology consult Replace potassium and magnesium per protocol with close monitoring Start gentle hydration with normal saline at 50 mL/h Check CT of the brain without contrast. Also patient received fentanyl, Benadryl and Xanax as well as [place] which might contribute to her confusion We recommend to hold all medications at increased risk of fall with elderly patient like [place], Xanax and Benadryl (or limit their use as pt with on chronic pain), discussed with staff patient.. Benadryl and Xanax were discontinued. Gabapentin when necessary was discontinued. We will lower [place] 7.5 mg down to 5 mg every 8 hours when necessary. One will add Seroquel when necessary Labs and medication were reviewed.. Continue same treatment. Continue with symptomatic treatment. Resume home medication. Monitor lytes and vitals. DVT and GI prophylaxis. Further recommendations depends on the clinical course of the patient DVT prophylaxis: Subcutaneous heparin GI Prophylaxis: Pepcid PT/OT: Pending Prognosis is guarded
[2022-10-29 10:10] LABS: RBC Morphology Normal
--- NOTE | 2022-10-29 11:41 | CT ---
EXAMINATION TYPE: CT brain wo con CT DLP: 1099 mGycm, Automated exposure control for dose reduction was used. DATE OF EXAM: 10/29/2022 11:36 AM COMPARISON: None. CLINICAL INDICATION:Female, 87 years old with history of confused, Confusion TECHNIQUE: Brain: Multiple axial CT images of the brain were obtained without IV contrast. Coronal and sagittal reformats reviewed. FINDINGS: Brain: Extra-axial spaces: No abnormal extra-axial fluid collections. Ventricular system: Within normal limits Cerebral parenchyma: Cerebral atrophy. No acute intraparenchymal hemorrhage or mass effect. The rawls -white junction is well differentiated. Scattered hypoattenuating areas are seen within the white mat ter. Nonspecific bilateral basal ganglia calcifications. Cerebellum: Unremarkable. Mass effect: No evidence of midline shift. Intracranial vasculature: Atherosclerotic calcifications of the intracranial vessels. Soft tissues: Normal. Calvarium/osseous structures: No depressed skull fracture. Paranasal sinuses and mastoid air cells: Clear Visualized orbits: Senile calcific scleral plaques are present. IMPRESSION: 1. No acute intracranial process. 2. Nonspecific white matter changes, likely secondary to chronic small vessel ischemic disease.
--- NOTE | 2022-10-29 11:46 | XR ---
EXAMINATION TYPE: XR chest 2V DATE OF EXAM: 10/29/2022 11:42 AM COMPARISON: Chest radiographs from 01/03/2020 TECHNIQUE: XR chest 2V Frontal and lateral views of the chest. CLINICAL INDICATION:Female, 87 years old with history of syncope and leukocytosis; FINDINGS: Lungs/Pleura: There is no evidence of pleural effusion, focal consolidation, or pneumothorax. Pulmonary vascularity: Unremarkable. Heart/mediastinum: Cardiomediastinal silhouette is unremarkable. Atherosclerotic calcifications are seen in the aorta. Musculoskeletal: No acute osseous pathology. There is lower spine fixation hardware is present. IMPRESSION: Low lung volumes with a generalized hazy appearance which could represent atelectasis versus pulmonar y edema correlate with serum BNP.
[2022-10-29] MEDS: diphenhydrAMINE 25 MG CAP PO SCH (13:30)
[2022-10-29 14:44] LABS: Magnesium 2.5 mg/dL (1.6-2.3); Potassium 3.1 mmol/L (3.5-5.1)
[2022-10-29] MEDS: DEXTROSE 5%-0.9% NACL 1,000 ML IV SCH (14:58)
[2022-10-29] MEDS: POTASSIUM CHLORIDE 10 MEQ in WATER FOR INJECTION 1 100ML.BAG IVPB SCH ×2 (15:04→17:24)
[2022-10-29] MEDS: MIRTAZAPINE 15 MG TAB PO SCH (22:22)
[2022-10-29] MEDS: MELATONIN 5 MG TABLET PO SCH (22:22)
[2022-10-29] MEDS: MONTELUKAST 10 MG TAB PO SCH (22:23)
[2022-10-30] MEDS: DEXTROSE 5%-0.9% NACL 1,000 ML IV SCH ×2 (05:24→10:07)
[2022-10-30] MEDS: SYMBICORT 160-4.5 MCG INHALER INHALATION SCH ×2 (07:56→21:03)
[2022-10-30] MEDS ORDERED: ASPIRIN-ACET-CAFF 250-250-65MG 1 EACH TAB PO PRN (08:33)
[2022-10-30] MEDS ORDERED: amLODIPine 5 MG TAB PO SCH (09:00)
[2022-10-30] MEDS ORDERED: ASPIRIN 325 MG TAB PO SCH (09:00)
[2022-10-30] MEDS: CALCIUM CARB-VIT D 500 MG-5 MCG TAB PO SCH (09:48)
[2022-10-30] MEDS: MULTIVITAMINS, THERA 1 EACH TAB PO SCH (09:48)
[2022-10-30] MEDS: CYANOCOBALAMIN 500 MCG TAB PO SCH (09:48)
[2022-10-30] MEDS: CALCIUM CARBONATE 500 MG CHEWABLE PO SCH (09:48)
[2022-10-30] MEDS: DULoxetine HCL 30 MG CAPSULE.DR PO SCH (09:48)
[2022-10-30] MEDS: METOPROLOL TARTRATE 50 MG TAB PO SCH ×2 (09:49→19:57)
[2022-10-30] MEDS: CHOLECALCIFEROL 25 MCG (1000 IU) TABLET PO SCH (09:49)
[2022-10-30] MEDS: POTASSIUM CHLORIDE ER 10 MEQ TAB.ER.PRT PO SCH (09:49)
[2022-10-30] MEDS: diphenhydrAMINE 25 MG CAP PO SCH (09:50)
[2022-10-30] MEDS: PRAVASTATIN SODIUM 40 MG TAB PO SCH (09:50)
[2022-10-30] MEDS: DILTIAZEM CD 180 MG CAP.ER.24H PO SCH (09:50)
[2022-10-30] MEDS: PANTOPRAZOLE 40 MG TABLET PO SCH (09:50)
[2022-10-30 09:58] LABS: African American GFR (CKD) >90 (>60 ml/min/1.73 sqM); Anion Gap 8 mmol/L; Blood Urea Nitrogen 14 mg/dL (7-17); Calcium 8.7 mg/dL (8.4-10.2); Carbon Dioxide 25 mmol/L (22-30); Chloride 108 mmol/L (98-107); Glucose 107 mg/dL (74-99); Magnesium 2.3 mg/dL (1.6-2.3); Non-African American GFR(CKD) >90 (>60 ml/min/1.73 sqM); Potassium 2.8 mmol/L (3.5-5.1); Sodium 141 mmol/L (137-145)
[2022-10-30 10:05] LABS: Basophils % (A) 0 %; Eosinophils # (A) 0.3 k/uL (0-0.7); Eosinophils % (A) 3 %; HCT 46.9 % (34.0-46.0); HGB 15.9 gm/dL (11.4-16.0); Lymphocytes # (A) 1.5 k/uL (1.0-4.8); Lymphocytes % (A) 14 %; MCH 33.5 pg (25.0-35.0); MCHC 33.9 g/dL (31.0-37.0); MCV 98.8 fL (80.0-100.0); Mean Platelet Volume 7.2; Monocytes # (A) 0.8 k/uL (0-1.0); Monocytes % (A) 7 %; Neutrophils # (A) 7.9 k/uL (1.3-7.7); Neutrophils % (A) 72 %; Platelet Count 261 k/uL (150-450); RBC 4.74 m/uL (3.80-5.40); RDW 12.1 % (11.5-15.5); WBC 10.9 k/uL (3.8-10.6)
[2022-10-30 10:06] LABS: NT-Pro-B-Type Natriuretic Pept 464 pg/mL
[2022-10-30] MEDS: SPIRONOLACTONE 25 MG TAB PO SCH (10:42)
[2022-10-30] MEDS: LOSARTAN 25 MG TAB PO SCH (10:42)
--- NOTE | 2022-10-30 10:42 | CT ---
EXAMINATION TYPE: CT cervical spine wo con DATE OF EXAM: 10/30/2022 COMPARISON: None HISTORY: Fall CT DLP: 345.5 mGycm CONTRAST: None CT of the cervical spine is performed in the axial plane at 2 mm thick sections. Reconstructed image s in the coronal, and sagittal plane are reviewed on the computer. No acute fractures are evident. There is some subtle minimal spondylolisthesis within the cervical spine including C3 anteriorly on C 4 and C4 anteriorly on C5. Small amount of spondylolisthesis of C5 anteriorly at C6 may be present. Loss of disc height is present C6-7. Posterior disc space narrowing is present C5-6. Vertebral body heights are preserved. No spinal canal stenosis is evident Uncovertebral joint hypertrophy and facet hypertrophy is contributing to severe foraminal narrowing C 3-4. Milder foraminal narrowing from uncovertebral joint hypertrophy is present C4-5 C5-6. Slightly m ore moderate foraminal narrowing is present C6-7 from uncovertebral joint hypertrophy. Some minimal dependent pleural fluid and/or atelectasis may be present at the lung apices. Prevertebr al space is normal. Posterior spinal lamellar line appears unremarkable. IMPRESSIONS: 1. No acute osseous abnormality. 2. Minimal grade 1 anterior spondylolisthesis at C3-4, C4-5 and C5-6. 3. Uncovertebral joint hypertrophy contributing to foraminal stenosis discussed above. This appears g reatest at C3-4 level. Correlate with radicular symptoms.
--- NOTE | 2022-10-30 11:07 | P.CRDCN ---
History of Present Illness Consult date: 10/30/22 Reason for Consult (text): High troponins History of present illness: History of present illness: This is an 87-year-old female patient with past medical history of hypertension, diabetes, hyperlipidemia, gastroesophageal reflux disease. She denies history of stent or cardiac surgery. Patient does not follow with a home care giver. Patient was brought into the hospital by family because she was fused. Patient states she had some difficulty in breathing is going off and on and not feeling well in general for the past 2 weeks. She's also had nausea, vomiting and diarrhea off and on and has not been eating. She denies any abdominal pain but had noted to have tenderness. She denies having chest pain. We have been asked to evaluate the patient for elevated troponins. Patient is seen today in the emergency center. She has had potassium replacement. EKG sinus rhythm Chest x-ray: Low lung volumes with generalized hazy appearance represent atelectasis versus pulmonary edema, correlate with serum BNP. CAT scan of the brain no acute intracranial process. Cervical spine CT no acute osseous abnormality. Positive for spondylolisthesis, foraminal stenosis. WBC initially 13.3, hemoglobin 17.1. Potassium 2.8, BUN 14 creatinine 0.43. Troponins 0.034, 0.055 and 0.062. ProBNP 464. Pro-calcitonin 0.06. Home cardiac medications: Cardizem CD 180 mg daily, Lopressor 50 mg twice daily, pravastatin 40 mg daily, Farxiga 10 mg daily Review Of Systems: At the time of my evaluation: Constitutional: No fever, no chills. + weakness, + fatigue. EENT: No headache. No dizziness. Lungs: + shortness of breath, cough, no sputum production. No wheezing. Cardiovascular: No chest pain, no lower extremity edema. No palpitations. No paroxysmal nocturnal dyspnea. No orthopnea. No lightheadedness or dizziness. No syncopal episodes. Abdominal: No abdominal pain. + nausea, + vomiting. + diarrhea. No constipation. No bloody or tarry stools. Musculoskeletal: No myalgias. No muscle weakness, no frequent falls. No back pain. No neck pain. Integumentary: No wounds. No rash. No unusual bruising. Neurologic: No aphasia. No facial droop. + change in mentation. Physical examination: Gen: This is an 87-year-old female. She is resting on the ear surgery and appears to be comfortable and in no acute distress. VS: reviewed HEENT: Head is atraumatic, normocephalic. Pupils equal, round. Sclerae is anicteric. NECK: Supple. No JVD. . LUNGS: Clear to auscultation. No wheezes or rhonchi. No intercostal ret ractions. HEART: Regular rate and rhythm. No murmur. ABDOMEN: Soft + tenderness. EXTREMITIES: No pedal edema. No calf tenderness. NEUROLOGICAL: Patient is awake, alert. Assessment: Hypertensive crisis Mildly elevated troponin possibly due to hypokalemia Nausea vomiting diarrhea Metabolic encephalopathy of unclear etiology Hypertension Diabetes Hyperlipidemia Gastroesophageal reflux disease Plan: Resume patient's home cardiac medications Discontinue aspirin until abdominal symptoms are investigated Add Aldactone 25 mg daily and losartan 25 mg daily for blood pressure control Continue to replace potassium Obtain 2-D echocardiogram and Doppler study to assess cardiac structure and func tion Further recommendations to follow based upon clinical course Thank you kindly for this consultation. Nurse practitioner note has been reviewed, I agree with documented findings and plan of care. Patient was seen and examined. Past Medical History Past Medical History: Asthma, Cancer, Diabetes Mellitus, Hyperlipidemia, Hypertension Additional Past Medical History / Comment(s): numbness 2nd,3rd,4th digits rt hand, back pain,skin CA History of Any Multi-Drug Resistant Organisms: None Reported Past Surgical History: Back Surgery, Hysterectomy, Joint Replacement, Orthopedic Surgery, Tonsillectomy Additional Past Surgical History / Comment(s): back x2,lumbar fusion, left knee replacement,ana hips, carpal tunnel surgery Right. Pain clinic procedure Past Anesthesia/Blood Transfusion Reactions: No Reported Reaction Additional Past Anesthesia/Blood Transfusion Reaction / Comment(s): no hx blood transfusion Past Psychological History: No Psychological Hx Reported, Depression Smoking Status: Former smoker Past Alcohol Use History: None Reported Past Drug Use History: None Reported - Past Family History Mother Family Medical History: No Reported History Medications and Allergies Home Medications Medication Instructions Recorded Confirmed Type Pravastatin Sodium [Pravachol] 40 mg PO DAILY 10/27/14 10/28/22 History ALPRAZolam [Xanax] 0.5 mg PO BID PRN 04/02/20 10/28/22 History Azelastine HCl [Astepro] 2 spray EA NOSTRIL BID PRN 04/02/20 10/28/22 History Celecoxib [CeleBREX] 200 mg PO BID 04/02/20 10/28/22 History Gabapentin 300 mg PO BID PRN 04/02/20 10/28/22 History Metoprolol Tartrate [Lopressor] 50 mg PO BID 04/02/20 10/28/22 History Mirtazapine [Remeron] 15 mg PO HS 04/02/20 10/28/22 History Montelukast Sodium [Singulair] 10 mg PO HS 04/02/20 10/28/22 History Budesonide/Formoterol Fumarate 2 puff INHALATION RT-BID 08/02/20 10/28/22 History [Symbicort 160-4.5 Mcg Inhaler] Diltiazem Cd [Cardizem Cd] 180 mg PO DAILY 08/02/20 10/28/22 History Dapagliflozin Propanediol [Farxiga] 10 mg PO DAILY 09/02/22 10/28/22 History Multivitamins, Thera [Multivitamin 1 tab PO DAILY 09/02/22 10/28/22 History (formulary)] Omeprazole 40 mg PO DAILY 09/02/22 10/28/22 History SUMAtriptan succinate [Imitrex] 25 mg PO BID PRN 09/02/22 10/28/22 History Calcium Carbonate [Calcium] 600 mg PO DAILY 10/26/22 10/28/22 History Cholecalciferol [Vitamin D3 (25 25 mcg PO DAILY 10/26/22 10/28/22 History Mcg = 1000 Iu)] HYDROcodone/APAP 7.5-325MG [[place] 1 tab PO Q8H PRN 10/26/22 10/28/22 History 7.5-325] Calcium Carbonate/Vitamin D3 1 cap PO DAILY 10/28/22 10/28/22 History [Calcium 600 mg-D3 10 Mcg (400 Iu)] Cyanocobalamin (Vitamin B-12) 1,000 mcg PO DAILY 10/28/22 10/28/22 History [Vitamin B-12] DULoxetine HCL [Cymbalta] 30 mg PO DAILY 10/28/22 10/28/22 History Ibuprofen [Motrin] 600 mg PO BID PRN 10/28/22 10/28/22 History Melatonin 10 mg PO HS 10/28/22 10/28/22 History Potassium Gluconate 595mg Tab 595 mg PO DAILY 10/28/22 10/28/22 History diphenhydrAMINE [Benadryl] 25 mg PO DAILY 10/28/22 10/28/22 History traMADol HCl [Ultram] 50 mg PO Q8H PRN 10/28/22 10/28/22 History Allergies Allergy/AdvReac Type Severity Reaction Status Date / Time amoxicillin trihydrate Allergy Unknown Verified 10/28/22 16:39 [From Augmentin] cephalexin monohydrate Allergy Unknown Verified 10/28/22 16:39 [From Keflex] dicyclomine Allergy disoriented Verified 10/28/22 16:39 for 4 days hydromorphone HCl Allergy Extremely Verified 10/28/22 16:39 [From Dilaudid] Confusion for 8 days nitrofurantoin Allergy Unknown Verified 10/28/22 16:39 macrocrystalline [From Macrodantin] potassium clavulanate Allergy Unknown Verified 10/28/22 16:39 [From Augmentin] zolpidem [From Ambien] AdvReac Unknown sleep Verified 10/28/22 16:39 walks, confused Physical Exam Vitals: Vital Signs Temp Pulse Pulse Resp BP BP Pulse Ox 10/30/22 08:00 98 F 75 16 198/91 92 L 10/30/22 06:00 76 18 176/84 96 10/30/22 04:00 74 18 178/84 96 10/30/22 03:00 67 18 168/88 95 10/30/22 01:00 76 18 181/89 95 10/30/22 00:00 78 18 169/79 97 10/29/22 23:00 78 18 168/85 97 10/29/22 22:00 79 18 183/88 98 10/29/22 21:00 80 18 177/84 98 10/29/22 19:25 98.7 F 88 20 167/89 95 10/29/22 15:10 97.9 F 74 16 147/88 90 L Intake and Output 10/29/22 10/30/22 10/30/22 22:59 06:59 14:59 Other: Voiding Method Toilet Results 10/30/22 09:36 10/30/22 09:36 CBC 10/30/22 Range/Units 09:36 WBC 10.9 H (3.8-10.6) k/uL RBC 4.74 (3.80-5.40) m/uL Hgb 15.9 (11.4-16.0) gm/dL Hct 46.9 H (34.0-46.0) % Plt Count 261 (150-450) k/uL Comprehensive Metabolic Panel 10/29/22 10/30/22 Range/Units 14:23 09:36 Sodium 141 (137-145) mmol/L Potassium 3.1 L 2.8 L (3.5-5.1) mmol/L Chloride 108 H (98-107) mmol/L Carbon Dioxide 25 (22-30) mmol/L BUN 14 (7-17) mg/dL Creatinine 0.43 L (0.52-1.04) mg/dL Glucose 107 H (74-99) mg/dL Calcium 8.7 (8.4-10.2) mg/dL Current Medications Generic Name Dose Route Start Last Admin Trade Name Freq PRN Reason Stop Dose Admin Acetaminophen 650 mg 10/28/22 17:15 Acetaminophen Tab 325 Mg Tab PO Q6HR PRN Mild Pain or Fever > 100.5 Hydrocodone Bitart/Acetaminophen 1 each 10/28/22 17:06 10/29/22 08:50 Hydrocodone/Apap 7.5-325mg 1 Each Tab PO 1 each Q8H PRN Administration Pain Alprazolam 0.5 mg 10/28/22 17:06 10/29/22 08:50 Alprazolam 0.5 Mg Tab PO 0.5 mg BID PRN Administration Anxiety Amlodipine Besylate 5 mg 10/30/22 09:00 10/30/22 09:50 Amlodipine 5 Mg Tab PO 5 mg DAILY NEISHA Administration Aspirin 325 mg 10/30/22 09:00 10/30/22 10:06 Aspirin 325 Mg Tab PO 325 mg DAILY NEISHA Administration Azelastine HCl 2 spray 10/28/22 17:06 Azelastine 137mcg/[place] EA NOSTRIL BID PRN Allergy Symptoms Budesonide/Formoterol Fumarate 2 puff 10/28/22 20:00 10/30/22 07:56 Symbicort 160-4.5 Mcg Inhaler INHALATION 2 puff RT-BID NEISHA Administration Calcium Carbonate 1 each 10/29/22 09:00 10/30/22 09:48 Calcium Carb-Vit D 500 Mg-5 Mcg Tab PO 1 each DAILY NEISHA Administration Calcium Carbonate/Glycine 500 mg 10/29/22 09:00 10/30/22 09:48 Calcium Carbonate 500 Mg Chewable PO 500 mg DAILY NEISHA Administration Cholecalciferol 25 mcg 10/29/22 09:00 10/30/22 09:49 Cholecalciferol 25 Mcg (1000 Iu) Tablet PO 25 mcg DAILY NEISHA Administration Cyanocobalamin 1,000 mcg 10/29/22 09:00 10/30/22 09:48 Cyanocobalamin 500 Mcg Tab PO 1,000 mcg DAILY NEISHA Administration Diltiazem HCl 180 mg 10/29/22 09:00 10/30/22 09:50 Diltiazem Cd 180 Mg Cap.Er.24h PO 180 mg DAILY NEISHA Administration Diphenhydramine HCl 25 mg 10/29/22 09:00 10/30/22 09:50 Diphenhydramine 25 Mg Cap PO 25 mg DAILY NEISHA Administration Duloxetine HCl 30 mg 10/29/22 09:00 10/30/22 09:48 Duloxetine Hcl 30 Mg Capsule.Dr PO 30 mg DAILY NEISHA Administration Gabapentin 300 mg 10/28/22 17:06 Gabapentin 300 Mg Cap PO BID PRN Pain Hydralazine HCl 10 mg 10/28/22 23:58 10/29/22 05:53 Hydralazine Hcl 20 Mg/Ml 1 Ml Vial IVP 10 mg Q6HR PRN Administration Blood Pressure - High Dextrose/Sodium Chloride 1,000 mls @ 50 mls/hr 10/29/22 10:15 10/30/22 10:07 Dextrose 5%-Ns Iv Soln IV 50 mls/hr .Q20H NEISHA Administration Melatonin 10 mg 10/28/22 21:00 10/29/22 22:22 Melatonin 5 Mg Tablet PO 10 mg HS NEISHA Administration Metoprolol Tartrate 100 mg 10/29/22 09:00 10/30/22 09:49 Metoprolol Tartrate 50 Mg Tab PO 100 mg BID NEISHA Administration Mirtazapine 15 mg 10/28/22 21:00 10/29/22 22:22 Mirtazapine 15 Mg Tab PO 15 mg HS NEISHA Administration Miscellaneous Information 1 each 10/29/22 09:04 Potassium Replacement Protocol 1 Each Misc MISCELLANE DAILY PRN Per Protocol Protocol Miscellaneous Information 1 each 10/29/22 09:04 Magnesium Replacement Protocol 1 Each Misc MISCELLANE DAILY PRN Per Protocol Protocol Montelukast Sodium 10 mg 10/28/22 21:00 10/29/22 22:23 Montelukast 10 Mg Tab PO 10 mg HS NEISHA Administration Multivitamins 1 each 10/29/22 09:00 10/30/22 09:48 Multivitamins, Thera 1 Each Tab PO 1 each DAILY NEISHA Administration Naloxone HCl 0.2 mg 10/28/22 17:15 Naloxone 0.4 Mg/Ml 1 Ml Vial IV Q2M PRN Opioid Reversal Ondansetron HCl 4 mg 10/28/22 17:15 Ondansetron 4 Mg/2 Ml Vial IVP Q8HR PRN Nausea And Vomiting Pantoprazole Sodium 40 mg 10/29/22 07:30 10/30/22 09:50 Pantoprazole 40 Mg Tablet PO 40 mg [id number] NEISHA Administration Potassium Chloride 10 meq 10/29/22 09:00 10/30/22 09:49 Potassium Chloride Er 10 Meq Tab.Er.Prt PO 10 meq DAILY NEISHA Administration Pravastatin Sodium 40 mg 10/29/22 09:00 10/30/22 09:50 Pravastatin Sodium 40 Mg Tab PO 40 mg DAILY NEISHA Administration Quetiapine Fumarate 12.5 mg 10/29/22 09:33 10/29/22 18:24 Quetiapine 25 Mg Tab PO 12.5 mg BID PRN Administration Agitation or Acute Anxiety Sumatriptan Succinate 25 mg 10/28/22 17:06 Sumatriptan Succinate 25 Mg Tab PO BID PRN Migraine Headache Tramadol HCl 50 mg 10/28/22 17:06 Tramadol 50 Mg Tab PO Q8H PRN Pain Intake and Output 10/29/22 10/30/22 10/30/22 22:59 06:59 14:59 Other: Voiding Method Toilet 10/30/22 09:36 10/30/22 09:36
[2022-10-30] MEDS ORDERED: hydrALAZINE HCL 20 MG/ML 1 ML VIAL IVP PRN (11:14)
[2022-10-30] MEDS ORDERED: KETOROLAC 15 MG/ML 1 ML VIAL IVP PRN (11:40)
[2022-10-30] MEDS ORDERED: metroNIDAZOLE 500 MG TAB PO SCH (11:45)
--- NOTE | 2022-10-30 11:45 | P.PN ---
Subjective This is a pleasant 87 years old female with past medical history of Asthma, Diabetes Mellitus, Hyperlipidemia, Hypertension, back pain,s/p back surgery Patient is confused and poor historian although she answers questions and follow commands. Information obtained from the at bedside. He states that the patient has low appetite dehydrated with diarrhea over the last 2-3 days. Normally her bowel movement is moderate size but over the last 3 days is becoming large size and more loose. Patient has some vomiting but little volume. Patient denies abdominal pain in her abdomen looks soft. She has history of fall last July and since then she is complaining of from right shoulder and right hip pain, she's been evaluated by her PCP Dr. New and had MRI of the right hip and then referred her to Dr. Rutherford's and [facility] x-ray and CAT scan and his been fully evaluated. Patient still have some mild pain in her right shoulder and right hip she's not in distress, but this would limit movement of both extremities. This problem has been going on now for about 4-6 weeks as per . Discontinue his been fully evaluated already. Patient herself looks very confused, she thinks she isn't Dr. office in [place], when asking about today states she said 2 days after her birthday and she could not tell the name of the president. She follows simple commands. She denies headache dizziness weakness or numbness in extremities. Right-sided examination is somewhat limited by right shoulder pain and right hip pain. No blurred vision, and no slurred speech or choking. She denies chest pain or coughing or dyspnea. No urinary complaints. Patient is afebrile, tachycardic and hypertensive with systolic blood pressure on admission was 170-190. Patient is in room air. Labs showing mild leukocytosis of 13.3, rest of CBC, BMP and liver enzymes were unremarkable except for mild hypokalemia at 2.8 Troponin first one was negative and second and third were elevated at 0.05 and 0.06. TSH 1.3 which is within the reference range Urinalysis showed glucose urea and ketonuria. EKG showing normal sinus rhythm at [address]-T changes CT of the abdomen and pelvis with contrast showing no acute intra-abdominal or intrapelvic process. Right ovarian cyst 10/30/2022 Patient admitted yesterday with signs symptoms of gastroenteritis-like picture with nausea vomiting and periumbilical mild abdominal pain and diarrhea. Tiffany ent still has poor appetite and not eating well. She still has diarrhea as per bedside nurse. However on examination she has mild periumbilical pain and tenderness, no guarding, no rebound tenderness. But also patient has been confused, she does not oriented to time place and person as she could not answer these questions. She follows commands and answer other questions appropriately most of the time, she still ABOUT [place] Citizen. When I talked to her he feel the same thing that she is confused and she is been gradually getting worse over the last few days. At baseline she is more alert and oriented to time place person and more active and do her own daily activities. Patient got Xanax [place] yesterday, we stopped this medication. Postop Ultram and place her on Toradol since CT of the brain is negative Also was concerned because of her neck pain, patient complains from some neck pain but no significant tenderness. 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 Patient with no pain or numbness in hr arms Because of persistent mild leukocytosis but improving and patient has negative procalcitonin. No fever. Therefore we will hold on antibiotics for now She continued on D5 normal saline at 50 mL/h, also Seroquel when necessary for agitation. Blood pressure is uncontrolled with urgency this morning 198/90+, yesterday with increase her metoprolol 100 mg and put her on Norvasc, today we added losartan and Aldactone by restoration silversmith will follow closely. We also hold farxiga for dehydration which would contribute for her pressure. Prognosis remains guarded Discussed with staff Active Medications Generic Name Dose Route Start Last Admin Trade Name Freq PRN Reason Stop Dose Admin Acetaminophen 650 mg 10/28/22 17:15 Acetaminophen Tab 325 Mg Tab PO Q6HR PRN Mild Pain or Fever > 100.5 Hydrocodone Bitart/Acetaminophen 1 each 10/28/22 17:06 10/29/22 08:50 Hydrocodone/Apap 7.5-325mg 1 Each Tab PO 1 each Q8H PRN Administration Pain Alprazolam 0.5 mg 10/28/22 17:06 10/29/22 08:50 Alprazolam 0.5 Mg Tab PO 0.5 mg BID PRN Administration Anxiety Amlodipine Besylate 5 mg 08/18/23 09:00 10/30/22 09:50 Amlodipine 5 Mg Tab PO 5 mg DAILY NEISHA Administration Azelastine HCl 2 spray 10/28/22 17:06 Azelastine 137mcg/[place] EA NOSTRIL BID PRN Allergy Symptoms Budesonide/Formoterol Fumarate 2 puff 10/28/22 20:00 10/30/22 07:56 Symbicort 160-4.5 Mcg Inhaler INHALATION 2 puff RT-BID NEISHA Administration Calcium Carbonate 1 each 10/29/22 09:00 10/30/22 09:48 Calcium Carb-Vit D 500 Mg-5 Mcg Tab PO 1 each DAILY NEISHA Administration Calcium Carbonate/Glycine 500 mg 10/29/22 09:00 10/30/22 09:48 Calcium Carbonate 500 Mg Chewable PO 500 mg DAILY NEISHA Administration Cholecalciferol 25 mcg 10/29/22 09:00 10/30/22 09:49 Cholecalciferol 25 Mcg (1000 Iu) Tablet PO 25 mcg DAILY NEISHA Administration Cyanocobalamin 1,000 mcg 10/29/22 09:00 10/30/22 09:48 Cyanocobalamin 500 Mcg Tab PO 1,000 mcg DAILY NEISHA Administration Diltiazem HCl 180 mg 10/29/22 09:00 10/30/22 09:50 Diltiazem Cd 180 Mg Cap.Er.24h PO 180 mg DAILY NEISHA Administration Diphenhydramine HCl 25 mg 10/29/22 09:00 10/30/22 09:50 Diphenhydramine 25 Mg Cap PO 25 mg DAILY NEISHA Administration Duloxetine HCl 30 mg 10/29/22 09:00 10/30/22 09:48 Duloxetine Hcl 30 Mg Capsule.Dr PO 30 mg DAILY NEISHA Administration Gabapentin 300 mg 10/28/22 17:06 Gabapentin 300 Mg Cap PO BID PRN Pain Hydralazine HCl 20 mg 10/30/22 11:14 Hydralazine Hcl 20 Mg/Ml 1 Ml Vial IVP Q6HR PRN Blood Pressure - High Dextrose/Sodium Chloride 1,000 mls @ 50 mls/hr 10/29/22 10:15 10/30/22 10:07 Dextrose 5%-Ns Iv Soln IV 50 mls/hr .Q20H NEISHA Administration Losartan Potassium 25 mg 10/30/22 10:30 10/30/22 10:42 Losartan 25 Mg Tab PO 25 mg DAILY NEISHA Administration Melatonin 10 mg 10/28/22 21:00 10/29/22 22:22 Melatonin 5 Mg Tablet PO 10 mg HS NEISHA Administration Metoprolol Tartrate 100 mg 10/29/22 09:00 10/30/22 09:49 Metoprolol Tartrate 50 Mg Tab PO 100 mg BID NEISHA Administration Mirtazapine 15 mg 10/28/22 21:00 10/29/22 22:22 Mirtazapine 15 Mg Tab PO 15 mg HS NEISHA Administration Miscellaneous Information 1 each 10/29/22 09:04 Potassium Replacement Protocol 1 Each [facility] MISCELLANE DAILY PRN Per Protocol Protocol Miscellaneous Information 1 each 10/29/22 09:04 Magnesium Replacement Protocol 1 Each [facility] MISCELLANE DAILY PRN Per Protocol Protocol Montelukast Sodium 10 mg 10/28/22 21:00 10/29/22 22:23 Montelukast 10 Mg Tab PO 10 mg HS NEISHA Administration Multivitamins 1 each 10/29/22 09:00 10/30/22 09:48 Multivitamins, Thera 1 Each Tab PO 1 each DAILY NEISHA Administration Naloxone HCl 0.2 mg 10/28/22 17:15 Naloxone 0.4 Mg/Ml 1 Ml Vial IV Q2M PRN Opioid Reversal Ondansetron HCl 4 mg 10/28/22 17:15 Ondansetron 4 Mg/2 Ml Vial IVP Q8HR PRN Nausea And Vomiting Pantoprazole Sodium 40 mg 10/29/22 07:30 10/30/22 09:50 Pantoprazole 40 Mg Tablet PO 40 mg AC-[id number] NEISHA Administration Potassium Chloride 10 meq 10/29/22 09:00 10/30/22 09:49 Potassium Chloride Er 10 Meq Tab.Er.Prt PO 10 meq DAILY NEISHA Administration Pravastatin Sodium 40 mg 10/29/22 09:00 10/30/22 09:50 Pravastatin Sodium 40 Mg Tab PO 40 mg DAILY NEISHA Administration Quetiapine Fumarate 12.5 mg 10/29/22 09:33 10/29/22 18:24 Quetiapine 25 Mg Tab PO 12.5 mg BID PRN Administration Agitation or Acute Anxiety Spironolactone 25 mg 10/30/22 10:30 10/30/22 10:42 Spironolactone 25 Mg Tab PO 25 mg DAILY NEISHA Administration Sumatriptan Succinate 25 mg 10/28/22 17:06 Sumatriptan Succinate 25 Mg Tab PO BID PRN Migraine Headache Tramadol HCl 50 mg 10/28/22 17:06 Tramadol 50 Mg Tab PO Q8H PRN Pain Objective - Vital Signs Vital signs: Vital Signs Temp 98 F 10/30/22 08:00 Pulse 75 10/30/22 08:00 Resp 16 10/30/22 08:00 BP 198/91 10/30/22 08:00 Pulse Ox 92 L 10/30/22 08:00 FiO2 Intake & Output 10/29/22 10/30/22 10/30/22 18:59 06:59 18:59 Output Total 0 Balance 0 Output: Urine 0 Stool 0 Other: Voiding Method Toilet - Exam -GENERAL: The patient is alert and awake, relaxed answers questions and follow command but she is confused to time place and person, not in any acute distress. Thin lady HEENT: Pupils are round and equally reacting to light. EOMI. No scleral icterus. No conjunctival pallor. Normocephalic, atraumatic. No pharyngeal erythema. No thyromegaly. CARDIOVASCULAR: S1 and S2 present. No murmurs, rubs, or gallops. PULMONARY: Chest is clear to auscultation, no wheezing , no crackles. -ABDOMEN: Soft, very mild periumbilical tenderness, no guarding or rebound tenderness, nondistended, normoactive bowel sounds. No palpable organomegaly. MUSCULOSKELETAL: No joint swelling or deformity. EXTREMITIES: No cyanosis, clubbing, or pedal edema. NEUROLOGICAL: Gross neurological examination did not reveal any focal deficits. SKIN: No rashes. no petechiae. - Labs CBC & Chem 7: 10/30/22 09:36 10/30/22 09:36 Labs: Abnormal Lab Results - Last 24 Hours (Table) 10/29/22 10/29/22 10/30/22 Range/Units 07:40 14:23 09:36 WBC (3.8-10.6) k/uL Hct (34.0-46.0) % Neutrophils # (1.3-7.7) k/uL Potassium 3.1 L 2.8 L (3.5-5.1) mmol/L Chloride 108 H (98-107) mmol/L Creatinine 0.43 L (0.52-1.04) mg/dL Glucose 107 H (74-99) mg/dL Hemoglobin A1c 6.1 H (<=6.0) % Magnesium 2.5 H (1.6-2.3) mg/dL 10/30/22 Range/Units 09:36 WBC 10.9 H (3.8-10.6) k/uL Hct 46.9 H (34.0-46.0) % Neutrophils # 7.9 H (1.3-7.7) k/uL Potassium (3.5-5.1) mmol/L Chloride (98-107) mmol/L Creatinine (0.52-1.04) mg/dL Glucose (74-99) mg/dL Hemoglobin A1c (<=6.0) % Magnesium (1.6-2.3) mg/dL Microbiology - Last 24 Hours (Table) 10/28/22 17:00 Blood Culture - Preliminary Blood 10/28/22 16:40 Blood Culture - Preliminary Blood Assessment and Plan Assessment: Nausea vomiting and diarrhea suspicious for acute gastroenteritis present on admission. This could be viral infection versus other. Hypertension, uncontrolled with urgency on admission, with contributing risk factors including pain and previous use of NSAIDs Altered mental status most likely metabolic and/or toxic encephalopathy. Ruled out intracranial lesion Hypokalemia History of Fall at home with right-sided pain including right shoulder and right knee, this has been evaluated as an outpatient Diabetes mellitus Hyperlipidemia History of osteoarthritis back pain,s/p back surgery Plan: check for C. diff, pro-calcitonin is negative. Patient with no fever, she has mild leukocytosis and is improving. No fever. Then her abdomen exam soft, therefore the suspicion of bacterial infection is very low and antibiotic have more risks than benefits Continue with metoprolol and increase dose to 100 mg twice a day. Continue with Cardizem with close monitoring of blood pressure. Add hydralazine IV when ne cessary . Also add losartan and Aldactone Cardiology consult Replace potassium and magnesium per protocol with close monitoring Start gentle hydration with normal saline at 50 mL/h Check MRI of the brain Also patient received fentanyl, Benadryl and Xanax as well as [place] which might contribute to her confusion. We will stop this medication and monitor We recommend to hold all medications at increased risk of fall with elderly patient like [place], Xanax and Benadryl (or limit their use as pt with on chronic pain), discussed with staff patient.. Benadryl and Xanax were discontinued. Gabapentin when necessary was discontinued. We will lower [place] 7.5 mg down to 5 mg every 8 hours when necessary. we will add Seroquel when necessary Labs and medication were reviewed.. Continue same treatment. Continue with symptomatic treatment. Resume home medication. Monitor lytes and vitals. DVT and GI prophylaxis. Further recommendations depends on the clinical course of the patient DVT prophylaxis: Subcutaneous heparin GI Prophylaxis: Pepcid PT/OT: Pending Prognosis is guarded
[2022-10-30 16:45] LABS: Glucose,Whole Blood 122 mg/dL (70-110)
[2022-10-30] MEDS: QUEtiapine 25 MG TAB PO PRN (19:36)
[2022-10-30] MEDS: MELATONIN 5 MG TABLET PO SCH (19:58)
[2022-10-30] MEDS: MONTELUKAST 10 MG TAB PO SCH (19:58)
[2022-10-30] MEDS: MIRTAZAPINE 15 MG TAB PO SCH (19:58)
[2022-10-30 20:10] LABS: Glucose,Whole Blood 108 mg/dL (70-110)
[2022-10-30] MEDS ORDERED: POTASSIUM CHLORIDE ER 20 MEQ TAB.ER PO STA (21:57)
[2022-10-31 06:04] LABS: Glucose,Whole Blood 105 mg/dL (70-110)
[2022-10-31] MEDS: POTASSIUM CHLORIDE ER 10 MEQ TAB.ER.PRT PO SCH (06:55)
[2022-10-31] MEDS: PANTOPRAZOLE 40 MG TABLET PO SCH (06:55)
[2022-10-31] MEDS: SYMBICORT 160-4.5 MCG INHALER INHALATION SCH ×2 (07:52→20:22)
--- NOTE | 2022-10-31 08:16 | P.CNOR ---
History of Present Illness - [facility] Consult date: 10/31/22 Consult reason: neck pain (Abnormal cervical CT findings) History of present illness: Patient is an 87-year-old female who presented to [facility] a few days ago with regards to gastroenteritis-type symptoms. During her hospital stay she did mention some vague neck pain so computed tomography scan was done, due to findings, our orthopedic team was consulted. Initial notes did demonstrate patient was very confused, at bedside today show this seems to be resolving. She states she does not remember the last few days. Patient is oriented to time and place at this time. Patient denies any significant neck pain at this time. She does note some pain in her shoulder which she states is chronic. She denies any pain numbness or tingling to the bilateral upper extremities or bilateral lower extremity is. A urinary catheter is in place. She denies any loss of bowel function at this time. Patient states that she normally utilizes no assistive devices with ambulation. She does admit to a fall she states happened about 2 weeks ago. when reviewing notes, she was evaluated in the ER in August 2022 for hip pain, it was noted that she had felt previously. No acute fractures or dislocations are noted to the right hip arthroplasty. Patient was also evaluated by Dr. Garcia in the outpatient setting for a burst fracture involving T11 and T12. Patient was then evaluated by pain about a week ago or so with regards to low back pain, she received a POWER at L5-S1. It was noted she had also received previously a size cervical spine. She admits to previous back surgery was done in [place]. Patient. There is stable today at bedside, she has been up ambulating with physical therapy. X-ray of the right shoulder will be ordered for baseline. Patient seems to not be demonstrating any acute neuropathic signs at this time. Review of Systems Constitutional: Reports as per [facility] Past Medical History Past Medical History: Asthma, Cancer, Diabetes Mellitus, Hyperlipidemia, Hypertension Additional Past Medical History / Comment(s): numbness 2nd,3rd,4th digits rt hand, back pain,skin CA History of Any Multi-Drug Resistant Organisms: None Reported Past Surgical History: Back Surgery, Hysterectomy, Joint Replacement, Orthopedic Surgery, Tonsillectomy Additional Past Surgical History / Comment(s): back x2,lumbar fusion, left knee replacement,ana hips, carpal tunnel surgery Right. Pain clinic procedure Past Anesthesia/Blood Transfusion Reactions: No Reported Reaction Additional Past Anesthesia/Blood Transfusion Reaction / Comm: no hx blood transfusion Past Psychological History: No Psychological Hx Reported, Depression Smoking Status: Former smoker Past Alcohol Use History: None Reported Past Drug Use History: None Reported - Past Family History Mother Family Medical History: No Reported History Medications and Allergies Home Medications Medication Instructions Recorded Confirmed Type Pravastatin Sodium [Pravachol] 40 mg PO DAILY 10/27/14 10/28/22 History ALPRAZolam [Xanax] 0.5 mg PO BID PRN 04/02/20 10/28/22 History Azelastine HCl [Astepro] 2 spray EA NOSTRIL BID PRN 04/02/20 10/28/22 History Celecoxib [CeleBREX] 200 mg PO BID 04/02/20 10/28/22 History Gabapentin 300 mg PO BID PRN 04/02/20 10/28/22 History Metoprolol Tartrate [Lopressor] 50 mg PO BID 04/02/20 10/28/22 History Mirtazapine [Remeron] 15 mg PO HS 04/02/20 10/28/22 History Montelukast Sodium [Singulair] 10 mg PO HS 04/02/20 10/28/22 History Budesonide/Formoterol Fumarate 2 puff INHALATION RT-BID 08/02/20 10/28/22 History [Symbicort 160-4.5 Mcg Inhaler] Diltiazem Cd [Cardizem Cd] 180 mg PO DAILY 08/02/20 10/28/22 History Dapagliflozin Propanediol [Farxiga] 10 mg PO DAILY 09/02/22 10/28/22 History Multivitamins, Thera [Multivitamin 1 tab PO DAILY 09/02/22 10/28/22 History (formulary)] Omeprazole 40 mg PO DAILY 09/02/22 10/28/22 History SUMAtriptan succinate [Imitrex] 25 mg PO BID PRN 09/02/22 10/28/22 History Calcium Carbonate [Calcium] 600 mg PO DAILY 10/26/22 10/28/22 History Cholecalciferol [Vitamin D3 (25 25 mcg PO DAILY 10/26/22 10/28/22 History Mcg = 1000 Iu)] HYDROcodone/APAP 7.5-325MG [[place] 1 tab PO Q8H PRN 10/26/22 10/28/22 History 7.5-325] Calcium Carbonate/Vitamin D3 1 cap PO DAILY 10/28/22 10/28/22 History [Calcium 600 mg-D3 10 Mcg (400 Iu)] Cyanocobalamin (Vitamin B-12) 1,000 mcg PO DAILY 10/28/22 10/28/22 History [Vitamin B-12] DULoxetine HCL [Cymbalta] 30 mg PO DAILY 10/28/22 10/28/22 History Ibuprofen [Motrin] 600 mg PO BID PRN 10/28/22 10/28/22 History Melatonin 10 mg PO HS 10/28/22 10/28/22 History Potassium Gluconate 595mg Tab 595 mg PO DAILY 10/28/22 10/28/22 History diphenhydrAMINE [Benadryl] 25 mg PO DAILY 10/28/22 10/28/22 History traMADol HCl [Ultram] 50 mg PO Q8H PRN 10/28/22 10/28/22 History Allergies Allergy/AdvReac Type Severity Reaction Status Date / Time amoxicillin trihydrate Allergy Unknown Verified 10/28/22 16:39 [From Augmentin] cephalexin monohydrate Allergy Unknown Verified 10/28/22 16:39 [From Keflex] dicyclomine Allergy disoriented Verified 10/28/22 16:39 for 4 days hydromorphone HCl Allergy Extremely Verified 10/28/22 16:39 [From Dilaudid] Confusion for 8 days nitrofurantoin Allergy Unknown Verified 10/28/22 16:39 macrocrystalline [From Macrodantin] potassium clavulanate Allergy Unknown Verified 10/28/22 16:39 [From Augmentin] zolpidem [From Ambien] AdvReac Unknown sleep Verified 10/28/22 16:39 walks, confused Physical Examination Gen: AOx3, NAD VSS stable at this time Integument: No obvious open lesions, sores, areas of erythema noted throughout the cervical, thoracic and lumbar spine Palpation: No significant tenderness with palpation to the cervical spine, she does demonstrate some vague discomfort in the paraspinal region of the lower thoracic and lumbar spine ROM: Full range of motion in all major muscle groups of the left upper extremity and bilateral lower extremities. Patient does lack full range of motion with regards to shoulder abduction and forward elevation on the right Sensory Exam: Senory exam to light touch is intact C5-T1 Senosry exam to light touch is intact L2-S1 Motor: 4/5 strength appreciated in the bilateral upper extremities with full extension, elbow flexion, wrist extension, wrist flexion, procurement specialist. Strength testing difficult with shoulder elevation and abduction on the right shoulder due to pain Reflexes: 2/4 in all UE and LE]Negative Renay's bilaterally, negative Babinski bilaterally, negative clonus bilaterally Special Test: Negative logroll bilaterally, negative straight leg raise bilaterally Results - Labs Labs: Abnormal Lab Results - Last 24 Hours (Table) 10/30/22 10/30/22 10/30/22 Range/Units 09:36 09:36 16:42 WBC 10.9 H (3.8-10.6) k/uL Hct 46.9 H (34.0-46.0) % Neutrophils # 7.9 H (1.3-7.7) k/uL Potassium 2.8 L (3.5-5.1) mmol/L Chloride 108 H (98-107) mmol/L Creatinine 0.43 L (0.52-1.04) mg/dL Glucose 107 H (74-99) mg/dL POC Glucose (mg/dL) 122 H (70-110) mg/dL Microbiology - Last 24 Hours (Table) 10/28/22 17:00 Blood Culture - Preliminary Blood 10/28/22 16:40 Blood Culture - Preliminary Blood H & H 10/28/22 10/29/22 10/30/22 Range/Units 10:40 07:40 09:36 Hgb 17.1 H 15.5 15.9 (11.4-16.0) gm/dL Hct 49.8 H 44.9 46.9 H (34.0-46.0) % Result Diagrams: 10/30/22 09:36 10/30/22 09:36 - Diagnostic results CT scan - cervical: report reviewed, image reviewed (Report and images reviewed of the cervical computed tomography scan. No acute fractures or dislocations appreciated. 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 Garcia. No emergent orthopedic spine surgical intervention recommended at this time. With regards to cervical spine, patient has chronic osteoarthritic changes. She is not demonstrating any acute neuropathic signs at this time. X-rays of the right shoulder will be obtained, I anticipate her lack of motion and discomfort in the right shoulder resulting from an arthritic versus rotator cuff arthropathy condition versus an acute cervical spine issue. No imaging of the thoracic and lumbar spine at this time, patient appears stable with regards to these previous problems. If the patient does develop symptoms of the low back or lower extremities we can further evaluate. Patient's mental state and overall medical status seems to be improving. Would recommend PT/OT evaluation for gait training. Avoid narcotics at this time DVT prophylaxis per primary medical service Encourage incentive spirometer Other medical specialty recommendations appreciated We'll continue to follow the patient during inpatient stay Time with Patient: Less than 30
--- NOTE | 2022-10-31 08:33 | P.PN ---
Subjective Progress Note Date: 10/31/22 Principal diagnosis: Hypertension emergency The patient is an 87-year-old female patient was admitted to the hospital with hypertension emergency and also symptoms of nausea and vomiting and diarrhea. October [id number] She was seen and evaluated this morning. The symptoms of nausea and vomiting and diarrhea have improved. The pressure remains elevated. No symptoms of chest pain or chest discomfort or shortness of breath. The echo was not ordered and going to order the echo. I would suggest monitor the patient for additional 24 hours. She still and is stable to go home The examination is remarkable for elevated blood pressure with regular rhythm and a systolic murmur. Assessment Hypertension emergency Evidence of myocardial injury Plan Please dose of amlodipine Monitor the patient for additional 24 hours Obtain an echocardiogram Follow-up with the patient Objective - Vital Signs Vital signs: Vital Signs Temp 97.7 F 10/31/22 06:57 Pulse 75 10/31/22 06:57 Resp 18 10/31/22 06:57 BP 186/96 10/31/22 06:57 Pulse Ox 94 L 10/31/22 06:57 FiO2 Intake & Output 10/30/22 10/31/22 10/31/22 18:59 06:59 18:59 Output Total 1250 Balance -1250 Output: Urine 1250 Stool 0 Other: Voiding Method Indwelling Catheter Indwelling Catheter - Labs CBC & Chem 7: 10/30/22 09:36 10/30/22 09:36 Labs: Abnormal Lab Results - Last 24 Hours (Table) 10/30/22 10/30/22 10/30/22 Range/Units 09:36 09:36 16:42 WBC 10.9 H (3.8-10.6) k/uL Hct 46.9 H (34.0-46.0) % Neutrophils # 7.9 H (1.3-7.7) k/uL Potassium 2.8 L (3.5-5.1) mmol/L Chloride 108 H (98-107) mmol/L Creatinine 0.43 L (0.52-1.04) mg/dL Glucose 107 H (74-99) mg/dL POC Glucose (mg/dL) 122 H (70-110) mg/dL Microbiology - Last 24 Hours (Table) 10/28/22 17:00 Blood Culture - Preliminary Blood 10/28/22 16:40 Blood Culture - Preliminary Blood
[2022-10-31] MEDS: PRAVASTATIN SODIUM 40 MG TAB PO SCH (08:55)
[2022-10-31] MEDS: CALCIUM CARB-VIT D 500 MG-5 MCG TAB PO SCH (08:55)
[2022-10-31] MEDS: amLODIPine 10 MG TAB PO SCH (08:55)
[2022-10-31] MEDS: LOSARTAN 25 MG TAB PO SCH (08:55)
[2022-10-31] MEDS: METOPROLOL TARTRATE 50 MG TAB PO SCH ×2 (08:55→20:35)
[2022-10-31] MEDS: DULoxetine HCL 30 MG CAPSULE.DR PO SCH (08:55)
[2022-10-31] MEDS: diphenhydrAMINE 25 MG CAP PO SCH (08:55)
[2022-10-31] MEDS: CHOLECALCIFEROL 25 MCG (1000 IU) TABLET PO SCH (08:55)
[2022-10-31] MEDS: MULTIVITAMINS, THERA 1 EACH TAB PO SCH (08:56)
[2022-10-31] MEDS: CYANOCOBALAMIN 500 MCG TAB PO SCH (08:56)
[2022-10-31] MEDS: DILTIAZEM CD 180 MG CAP.ER.24H PO SCH (08:56)
[2022-10-31] MEDS: SPIRONOLACTONE 25 MG TAB PO SCH (08:56)
[2022-10-31] MEDS: CALCIUM CARBONATE 500 MG CHEWABLE PO SCH (08:56)
--- NOTE | 2022-10-31 09:58 | XR ---
EXAMINATION TYPE: XR shoulder complete RT DATE OF EXAM: 10/31/2022 9:34 AM INDICATION: Patient age:Female; 87 years old; Reason for study: pain; COMPARISON: None TECHNIQUE: The right shoulder was examined in AP, internally rotated and scapular Y projections. . FINDINGS: No evidence of acute osseous pathology, joint dislocation, or soft tissue swelling. Mild AC joint art hropathy with joint space narrowing and capsular hypertrophy. The remaining portions of the visualize d chest are unremarkable. IMPRESSION: 1. No acute osseous pathology. 2. Mild AC joint arthropathy.
[2022-10-31] MEDS ORDERED: hydrALAZINE HCL 20 MG/ML 1 ML VIAL IVP PRN (10:26)
--- NOTE | 2022-10-31 10:48 | CA ---
Transthoracic Echo Report Name: Becky Sykes Age: 87 Gender: F : 1935 Exam Date: 10/31/2022 09:22 Exam Location: [facility] Ht (in): 62 Wt (lb): 140 Ordering Physician: Aubrey Lee MD ([id number]) Attending/Referring Phys: Yard Switcher Eloisa Franco RDCS Procedure CPT: Indications: HTN Cardiac Hx: Technical Quality: Good Contrast 1: Total Dose (mL): Contrast 2: Total Dose (mL): MEASUREMENTS (Male / Female) Normal Values 2D ECHO LV Diastolic Diameter PLAX 4.4 cm 4.2 - 5.9 / 3.9 - 5.3 cm LV Systolic Diameter PLAX 2.8 cm IVS Diastolic Thickness 1.2 cm 0.6 - 1.0 / 0.6 - 0.9 cm LVPW Diastolic Thickness 1.1 cm 0.6 - 1.0 / 0.6 - 0.9 cm LV Relative Wall Thickness 0.5 RV Internal Dim ED PLAX 2.8 cm LA Systolic Diameter LX 3.5 cm 3.0 - 4.0 / 2.7 - 3.8 cm LV Diastolic Volume MOD BP 57.5 cm??? 67 - 155 / 56 - 104 cm??? LV Systolic Volume MOD BP 25.5 cm??? - / 19 - 49 cm??? LV Ejection Fraction MOD BP 55.6 % >= 55 % LV Cardiac Index MOD BP 1350.9 cm???/min???m??? LV Diastolic Volume MOD 4C 63.3 cm??? LV Systolic Volume MOD 4C 26.2 cm??? LV Ejection Fraction MOD 4C 58.5 % LV Cardiac Index MOD 4C 1565.1 cm???/min???m??? LV Diastolic Length 4C 7.5 cm LV Systolic Length 4C 5.8 cm LV Diastolic Volume MOD 2C 55.3 cm??? LV Systolic Volume MOD 2C 26.2 cm??? LV Ejection Fraction MOD 2C 52.5 % LV Cardiac Index MOD 2C 1226.0 cm???/min???m??? LV Diastolic Length 2C 7.4 cm LV Systolic Length 2C 5.6 cm LA Volume 37.7 cm??? - 58 / 22 - 52 cm??? M-MODE Aortic Root Diameter MM 3.6 cm MV E Point Septal Separation 0.7 cm AV Cusp Separation MM 2.2 cm DOPPLER AV Peak Velocity 122.1 cm/s AV Peak Gradient 6.0 mmHg AI Peak Velocity 477.9 cm/s AI Peak Gradient 91.3 mmHg AI Pressure Half Time 309.4 ms MV Area PHT 1.4 cm??? Mitral E Point Velocity 79.0 cm/s Mitral A Point Velocity 124.2 cm/s Mitral E to A Ratio 0.6 MV Deceleration Time 547.3 ms MV E' Velocity 4.8 cm/s Mitral E to MV E' Ratio 16.4 TR Peak Velocity 297.1 cm/s TR Peak Gradient 35.3 mmHg Right Ventricular Systolic Press 40.3 mmHg FINDINGS Left Ventricle Left ventricular ejection fraction is estimated at 50-55 %. Left ventricular cavity size normal. Mildly increased septal wall thickness. Mildly increased posterior wall thickness. Right Ventricle Normal right ventricular size. Mild pulmonary hypertension. Right Atrium Normal right atrial size. Left Atrium Normal left atrial size. Mitral Valve Mitral valve thickened. Mild mitral annular calcification. Mild mitral regurgitation. Aortic Valve Trileaflet aortic valve. Mild aortic regurgitation. Aortic valve sclerosis. Tricuspid Valve Structurally normal tricuspid valve. Mild tricuspid regurgitation. Pulmonic Valve Pulmonic valve not well visualized. Pericardium No pericardial effusion. Aorta Normal size aortic root and proximal ascending aorta. CONCLUSIONS Normal LV systolic function Aortic sclerosis with mild aortic insufficiency Previewed by: Dr. Aubrey Lee MD (Electronically Signed) Final Date: 31 October 2022 10:47
[2022-10-31 11:31] LABS: HCT 46.4 % (34.0-46.0); MCH 34.1 pg (25.0-35.0); MCHC 34.5 g/dL (31.0-37.0); Mean Platelet Volume 7.5; Platelet Count 274 k/uL (150-450); RBC 4.69 m/uL (3.80-5.40); WBC 12.2 k/uL (3.8-10.6)
[2022-10-31 11:43] LABS: African American GFR (CKD) >90 (>60 ml/min/1.73 sqM); Anion Gap 10 mmol/L; Blood Urea Nitrogen 14 mg/dL (7-17); Calcium 8.9 mg/dL (8.4-10.2); Carbon Dioxide 22 mmol/L (22-30); Chloride 107 mmol/L (98-107); Glucose 138 mg/dL (74-99); Non-African American GFR(CKD) >90 (>60 ml/min/1.73 sqM); Sodium 139 mmol/L (137-145)
[2022-10-31 11:46] LABS: Potassium 2.6 mmol/L (3.5-5.1)
[2022-10-31 12:11] LABS: Glucose,Whole Blood 86 mg/dL (70-110)
[2022-10-31] MEDS: POTASSIUM CHLORIDE ER 20 MEQ TAB.ER PO SCH (12:13)
[2022-10-31] MEDS: DEXTROSE 5%-0.9% NACL 1,000 ML IV SCH (12:18)
[2022-10-31] MEDS ORDERED: POTASSIUM CHLORIDE 10 MEQ in WATER FOR INJECTION 1 100ML.BAG IVPB SCH (15:30)
--- NOTE | 2022-10-31 15:31 | P.PN ---
Subjective Progress Note Date: 10/31/22 * 87 years old female with past medical history of Asthma, Diabetes Mellitus, Hyperlipidemia, Hypertension, back pain,s/p back surgery * Patient is confused and poor historian although she answers questions and follow commands. Information obtained from the at bedside. * Patient is afebrile, tachycardic and hypertensive with systolic blood pressure on admission was 170-190. Patient is in room air. * Labs showing mild leukocytosis of 13.3, rest of CBC, BMP and liver enzymes were unremarkable except for mild hypokalemia at 2.8 Troponin first one was negative and second and third were elevated at 0.05 and 0.06. TSH 1.3 which is within the reference range Urinalysis showed glucose urea and ketonuria.EKG showing normal sinus rhythm at [address]-T changes * CT of the abdomen and pelvis with contrast showing no acute intra-abdominal or intrapelvic process. Right ovarian cyst * 10/30/2022 Patient admitted yesterday with signs symptoms of gastroenteritis- like picture with nausea vomiting and periumbilical mild abdominal pain and diarrhea. Patient still has poor appetite and not eating well. She still has diarrhea as per bedside nurse. However on examination she has mild p eriumbilical pain and tenderness, no guarding, no rebound tenderness. But also patient has been confused, she does not oriented to time place and person as she could not answer these questions. She follows commands and answer other questions appropriately most of the time, she still ABOUT Occitan. When I talked to her he feel the same thing that she is confused and she is been gradually getting worse over the last few days. At baseline she is more alert and oriented to time place person and more active and do her own daily activities. Patient got Xanax [place] yesterday, we stopped this medication. Postop Ultram and place her on Toradol since CT of the brain is negative Also was concerned because of her neck pain, patient complains from some neck pain but no significant tenderness. 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 Patient with no pain or numbness in hr arms Because of persistent mild leukocytosis but improving and patient has negative procalcitonin. No fever. Therefore we will hold on antibiotics for nowShe continued on D5 normal saline at 50 mL/h, also Seroquel when necessary for agitation. Blood pressure is uncontrolled with urgency this morning 198/90+, yesterday with increase her metoprolol 100 mg and put her on Norvasc, today we added losartan and Aldactone by outreach director will follow closely. We also hold farxiga for dehydration which would contribute for her pressure. * 10/31/2022 : Patient seen and evaluated bedside, continues to have low appetite, CT abdomen and pelvis negative. We'll monitor for diarrhea. Noted to have hypokalemia potassium will be replaced Objective - Vital Signs Vital signs: Vital Signs Temp 97.7 F 10/31/22 15:10 Pulse 62 10/31/22 15:10 Resp 18 10/31/22 15:10 BP 150/67 10/31/22 15:10 Pulse Ox 95 10/31/22 15:10 FiO2 Intake & Output 10/30/22 10/31/22 10/31/22 18:59 06:59 18:59 Output Total 1250 400 Balance -1250 -400 Output: Urine 1250 400 Stool 0 Other: Voiding Method Indwelling Catheter Indwelling Catheter Indwelling Catheter - Exam PHYSICAL EXAMINATION: GENERAL: The patient is alert and oriented x 1 , HEENT: Pupils are round and equally reacting to light. EOMI. CARDIOVASCULAR: S1 and S2 present. No murmurs, rubs, or gallops. PULMONARY: Chest is clear to auscultation, no wheezing or crackles. ABDOMEN: Soft, nontender, nondistended, normoactive bowel sounds. MUSCULOSKELETAL: No joint swelling or deformity. EXTREMITIES: No cyanosis, clubbing, or pedal edema. NEUROLOGICAL: Gross neurological examination did not reveal any focal deficits. - Labs CBC & Chem 7: 10/31/22 11:03 10/31/22 11:03 Labs: Abnormal Lab Results - Last 24 Hours (Table) 10/30/22 10/31/22 10/31/22 Range/Units 16:42 11:03 11:03 WBC 12.2 H (3.8-10.6) k/uL Hct 46.4 H (34.0-46.0) % Potassium 2.6 L* (3.5-5.1) mmol/L Creatinine 0.41 L (0.52-1.04) mg/dL Glucose 138 H (74-99) mg/dL POC Glucose (mg/dL) 122 H (70-110) mg/dL Microbiology - Last 24 Hours (Table) 10/28/22 17:00 Blood Culture - Preliminary Blood 10/28/22 16:40 Blood Culture - Preliminary Blood Assessment and Plan Assessment: Assessment: * Nausea vomiting and diarrhea suspicious for acute gastroenteritis present on admission. * Hypertension, uncontrolled with urgency on admission, * Acute metabolic encephalopathy * Hypokalemia * History of Fall at home with right-sided pain including right shoulder and right knee, * Diabetes mellitus * Hyperlipidemia * History of osteoarthritis * back pain,s/p back surgery Plan: * Consultations obtained from orthopedic, cardiology * Patient noted to have significant elevation in blood pressure continue current medications including Cardizem, losartan, metoprolol, Aldactone * Noted to have minimal oral intake, CT abdomen and pelvis negative for acute intra-abdominal process * Continue patient on fluid resuscitation * X-ray shoulder negative for fracture cervical spine CT does show degenerative changes. CT head obtained on admission negative for acute intracranial process
[2022-10-31 17:06] LABS: Glucose,Whole Blood 123 mg/dL (70-110)
[2022-10-31 20:19] LABS: Glucose,Whole Blood 129 mg/dL (70-110)
[2022-10-31] MEDS: MONTELUKAST 10 MG TAB PO SCH (20:35)
[2022-10-31] MEDS: MIRTAZAPINE 15 MG TAB PO SCH (20:35)
[2022-10-31] MEDS: MELATONIN 5 MG TABLET PO SCH (20:35)
[2022-10-31] MEDS: QUEtiapine 25 MG TAB PO PRN (20:35)
[2022-11-01] MEDS: DEXTROSE 5%-0.9% NACL 1,000 ML IV SCH (06:21)
[2022-11-01] MEDS: PANTOPRAZOLE 40 MG TABLET PO SCH (06:21)
[2022-11-01 06:25] LABS: Glucose,Whole Blood 110 mg/dL (70-110)
[2022-11-01] MEDS: SYMBICORT 160-4.5 MCG INHALER INHALATION SCH ×2 (08:40→20:33)
--- NOTE | 2022-11-01 08:48 | P.PN ---
Subjective Progress Note Date: 11/01/22 Principal diagnosis: Right shoulder pain, cervical spondylosis Patient evaluated today at bedside, she is resting in her hospital bed. He appears stable at this time. She complains of minimal shoulder pain at this time. X-rays were reviewed from yesterday, no acute fractures or dislocations were noted. Chronic osteoarthritic findings involving the acromioclavicular joint along with glenohumeral joint. Patient's neck remained stable at this time, she has no acute complaints. Objective - Vital Signs Vital signs: Vital Signs Temp 98.0 F 11/01/22 04:22 Pulse 80 11/01/22 04:22 Resp 18 11/01/22 04:22 BP 138/72 11/01/22 04:22 Pulse Ox 95 11/01/22 04:22 FiO2 Intake & Output 10/31/22 11/01/22 11/01/22 18:59 06:59 18:59 Intake Total 720 Output Total 950 1250 Balance -950 -530 Intake: Intake, IV Titration 600 Amount Dextrose 5%-0.9% NaCl 1, 600 000 ml @ 50 mls/hr IV . Q20H [facility] Rx#:[id number] Oral 120 Output: Urine 950 1250 Other: Voiding Method Indwelling Catheter Indwelling Catheter - Exam Gen: AOx3, NAD VSS stable at this time Integument: No obvious open lesions, sores, areas of erythema noted throughout the cervical, thoracic and lumbar spine Palpation: No significant tenderness with palpation to the cervical spine, she does demonstrate some vague discomfort in the paraspinal region of the lower thoracic and lumbar spine ROM: Full range of motion in all major muscle groups of the left upper extremity and bilateral lower extremities. Patient does lack full range of motion with regards to shoulder abduction and forward elevation on the right Sensory Exam: Senory exam to light touch is intact C5-T1 Senosry exam to light touch is intact L2-S1 Motor: 4/5 strength appreciated in the bilateral upper extremities with full extension, elbow flexion, wrist extension, wrist flexion, food service utility worker. Strength testing difficult with shoulder elevation and abduction on the right shoulder due to pain Reflexes: 2/4 in all UE and LE]Negative Renay's bilaterally, negative Babinski bilaterally, negative clonus bilaterally Special Test: Negative logroll bilaterally, negative straight leg raise bilaterally - Labs CBC & Chem 7: 10/31/22 11:03 10/31/22 11:03 Labs: Abnormal Lab Results - Last 24 Hours (Table) 10/31/22 10/31/22 10/31/22 Range/Units 11:03 11:03 17:04 WBC 12.2 H (3.8-10.6) k/uL Hct 46.4 H (34.0-46.0) % Potassium 2.6 L* (3.5-5.1) mmol/L Creatinine 0.41 L (0.52-1.04) mg/dL Glucose 138 H (74-99) mg/dL POC Glucose (mg/dL) 123 H (70-110) mg/dL 10/31/22 Range/Units 20:16 WBC (3.8-10.6) k/uL Hct (34.0-46.0) % Potassium (3.5-5.1) mmol/L Creatinine (0.52-1.04) mg/dL Glucose (74-99) mg/dL POC Glucose (mg/dL) 129 H (70-110) mg/dL Microbiology - Last 24 Hours (Table) 10/28/22 17:00 Blood Culture - Preliminary Blood 10/28/22 16:40 Blood Culture - Preliminary Blood Assessment and Plan Assessment: Chronic neck pain Multilevel cervical spondylosis 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 She also demonstrates sclerosis throughout the greater tuberosity, the humeral head does seem to be migrating superiorly which could represent rotator cuff arthropathy. Recommending conservative measures at this time, this to include use of ice and Tylenol. Advised patient follow-up in the outpatient setting discussed with her options, possible steroid injection Patient's cervical spine remained stable at this time, recommending continuation of conservative measures. Patient states that she does have follow-up with Dr. Garcia in 4-5 weeks for recheck of the thoracic/lumbar spine. DVT prophylaxis per primary medical service Encourage incentive spirometer Other medical specialty recommendations appreciated Orthopedically patient remained stable, recommending follow-up with Dr. Garcia is scheduled. Please contact our service with any further questions. Time with Patient: Less than 30
[2022-11-01] MEDS: CYANOCOBALAMIN 500 MCG TAB PO SCH (08:55)
[2022-11-01] MEDS: METOPROLOL TARTRATE 50 MG TAB PO SCH ×2 (08:55→20:11)
[2022-11-01] MEDS: MULTIVITAMINS, THERA 1 EACH TAB PO SCH (08:55)
[2022-11-01] MEDS: DILTIAZEM CD 180 MG CAP.ER.24H PO SCH (08:55)
[2022-11-01] MEDS: SPIRONOLACTONE 25 MG TAB PO SCH (08:55)
[2022-11-01] MEDS: LOSARTAN 25 MG TAB PO SCH (08:55)
[2022-11-01] MEDS: amLODIPine 10 MG TAB PO SCH (08:55)
[2022-11-01] MEDS: CALCIUM CARB-VIT D 500 MG-5 MCG TAB PO SCH (08:55)
[2022-11-01] MEDS: PRAVASTATIN SODIUM 40 MG TAB PO SCH (08:55)
[2022-11-01] MEDS: POTASSIUM CHLORIDE ER 10 MEQ TAB.ER.PRT PO SCH (08:55)
[2022-11-01] MEDS: DULoxetine HCL 30 MG CAPSULE.DR PO SCH (08:55)
[2022-11-01] MEDS: CHOLECALCIFEROL 25 MCG (1000 IU) TABLET PO SCH (08:55)
[2022-11-01] MEDS: ACETAMINOPHEN TAB 325 MG TAB PO PRN (08:55)
[2022-11-01] MEDS: diphenhydrAMINE 25 MG CAP PO SCH (08:55)
[2022-11-01] MEDS: CALCIUM CARBONATE 500 MG CHEWABLE PO SCH (08:56)
[2022-11-01 11:03] LABS: HCT 46.5 % (34.0-46.0); HGB 15.9 gm/dL (11.4-16.0); MCH 33.6 pg (25.0-35.0); MCHC 34.1 g/dL (31.0-37.0); MCV 98.5 fL (80.0-100.0); Mean Platelet Volume 7.7; Platelet Count 286 k/uL (150-450); RBC 4.72 m/uL (3.80-5.40); WBC 12.6 k/uL (3.8-10.6)
--- NOTE | 2022-11-01 11:12 | P.PN ---
Subjective Progress Note Date: 11/01/22 Principal diagnosis: Hypertension emergency The patient is an 87-year-old female patient was admitted to the hospital with hypertension emergency and also symptoms of nausea and vomiting and diarrhea. October [id number] She was seen and evaluated this morning. The symptoms of nausea and vomiting and diarrhea have improved. The pressure remains elevated. No symptoms of chest pain or chest discomfort or shortness of breath. The echo was not ordered and going to order the echo. I would suggest monitor the patient for additional 24 hours. She still and is stable to go home. The examination is remarkable for elevated blood pressure with regular rhythm and a systolic murmur. 11/01/2022 The patient was seen and evaluated this morning. She is feeling overall better. No caliber vascular symptoms with the pressure appeared to be under good control on the current medical regimen. The echo revealed normal biventricular dimension with mild aortic insufficiency and evidence of aortic sclerosis. From the cardiovascular standpoint of view, the patient can be discharged home in the next 24 hours. We are going to monitor her overnight for possible discharge to rehab tomorrow. The examination is remarkable for regular rhythm with a systolic murmur at right upper sternal border and no lower extremity edema noted. Assessment Hypertension emergency Evidence of myocardial injury Plan Continue the current medical regimen Follow-up with the patient Objective - Vital Signs Vital signs: Vital Signs Temp 98.0 F 11/01/22 04:22 Pulse 80 11/01/22 04:22 Resp 18 11/01/22 04:22 BP 138/72 11/01/22 04:22 Pulse Ox 95 11/01/22 04:22 FiO2 Intake & Output 10/31/22 11/01/22 11/01/22 18:59 06:59 18:59 Intake Total 720 240 Output Total 950 1250 Balance -950 -530 240 Intake: Intake, IV Titration 600 Amount Dextrose 5%-0.9% NaCl 1, 600 000 ml @ 50 mls/hr IV . Q20H [facility] Rx#:[id number] Oral 120 240 Output: Urine 950 1250 Other: Voiding Method Indwelling Catheter Indwelling Catheter - Labs CBC & Chem 7: 11/01/22 10:40 10/31/22 11:03 Labs: Abnormal Lab Results - Last 24 Hours (Table) 10/31/22 10/31/22 10/31/22 Range/Units 11:03 11:03 17:04 WBC 12.2 H (3.8-10.6) k/uL Hct 46.4 H (34.0-46.0) % Potassium 2.6 L* (3.5-5.1) mmol/L Creatinine 0.41 L (0.52-1.04) mg/dL Glucose 138 H (74-99) mg/dL POC Glucose (mg/dL) 123 H (70-110) mg/dL 10/31/22 11/01/22 Range/Units 20:16 10:40 WBC 12.6 H (3.8-10.6) k/uL Hct 46.5 H (34.0-46.0) % Potassium (3.5-5.1) mmol/L Creatinine (0.52-1.04) mg/dL Glucose (74-99) mg/dL POC Glucose (mg/dL) 129 H (70-110) mg/dL Microbiology - Last 24 Hours (Table) 10/28/22 17:00 Blood Culture - Preliminary Blood 10/28/22 16:40 Blood Culture - Preliminary Blood
[2022-11-01 11:19] LABS: African American GFR (CKD) >90 (>60 ml/min/1.73 sqM); Anion Gap 8 mmol/L; Blood Urea Nitrogen 10 mg/dL (7-17); Calcium 9.1 mg/dL (8.4-10.2); Carbon Dioxide 25 mmol/L (22-30); Chloride 107 mmol/L (98-107); Glucose 135 mg/dL (74-99); Non-African American GFR(CKD) >90 (>60 ml/min/1.73 sqM); Potassium 3.2 mmol/L (3.5-5.1); Sodium 140 mmol/L (137-145)
[2022-11-01 11:31] LABS: Glucose,Whole Blood 116 mg/dL (70-110)
--- NOTE | 2022-11-01 12:47 | P.PN ---
Subjective Progress Note Date: 11/01/22 * 87 years old female with past medical history of Asthma, Diabetes Mellitus, Hyperlipidemia, Hypertension, back pain,s/p back surgery * Patient is confused and poor historian although she answers questions and follow commands. Information obtained from the at bedside. * Patient is afebrile, tachycardic and hypertensive with systolic blood pressure on admission was 170-190. Patient is in room air. * Labs showing mild leukocytosis of 13.3, rest of CBC, BMP and liver enzymes were unremarkable except for mild hypokalemia at 2.8 Troponin first one was negative and second and third were elevated at 0.05 and 0.06. TSH 1.3 which is within the reference range Urinalysis showed glucose urea and ketonuria.EKG showing normal sinus rhythm at [address]-T changes * CT of the abdomen and pelvis with contrast showing no acute intra-abdominal or intrapelvic process. Right ovarian cyst * 10/30/2022 Patient admitted yesterday with signs symptoms of gastroenteritis- like picture with nausea vomiting and periumbilical mild abdominal pain and diarrhea. Patient still has poor appetite and not eating well. She still has diarrhea as per bedside nurse. However on examination she has mild p eriumbilical pain and tenderness, no guarding, no rebound tenderness. But also patient has been confused, she does not oriented to time place and person as she could not answer these questions. She follows commands and answer other questions appropriately most of the time, she still ABOUT Turkmen. When I talked to her he feel the same thing that she is confused and she is been gradually getting worse over the last few days. At baseline she is more alert and oriented to time place person and more active and do her own daily activities. Patient got Xanax [place] yesterday, we stopped this medication. Postop Ultram and place her on Toradol since CT of the brain is negative Also was concerned because of her neck pain, patient complains from some neck pain but no significant tenderness. 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 Patient with no pain or numbness in hr arms Because of persistent mild leukocytosis but improving and patient has negative procalcitonin. No fever. Therefore we will hold on antibiotics for nowShe continued on D5 normal saline at 50 mL/h, also Seroquel when necessary for agitation. Blood pressure is uncontrolled with urgency this morning 198/90+, yesterday with increase her metoprolol 100 mg and put her on Norvasc, today we added losartan and Aldactone by credit support specialist will follow closely. We also hold farxiga for dehydration which would contribute for her pressure. * 10/31/2022 : Patient seen and evaluated bedside, she continues to have low appetite, CT abdomen and pelvis negative. We'll monitor for diarrhea. Noted to have hypokalemia potassium will be replaced * 11/01/2022 : Patient seen and evaluated bedside. Patient had insomnia. Was up through the night. She continues to remain confused. Blood work reviewed the able discuss care plan with family. Patient very forgetful will need an MRI brain for better evaluation as well Objective - Vital Signs Vital signs: Vital Signs Temp 98.0 F 11/01/22 04:22 Pulse 68 11/01/22 12:07 Resp 18 11/01/22 12:07 BP 160/88 11/01/22 12:07 Pulse Ox 97 11/01/22 12:07 FiO2 Intake & Output 10/31/22 11/01/22 11/01/22 18:59 06:59 18:59 Intake Total 720 240 Output Total 950 1250 0 Balance -950 -530 240 Intake: Intake, IV Titration 600 Amount Dextrose 5%-0.9% NaCl 1, 600 000 ml @ 50 mls/hr IV . Q20H [facility] Rx#:[id number] Oral 120 240 Output: Urine 950 1250 Stool 0 Other: Voiding Method Indwelling Catheter Indwelling Catheter Indwelling Catheter - Exam PHYSICAL EXAMINATION: GENERAL: The patient is alert and oriented x 1 , HEENT: Pupils are round and equally reacting to light. EOMI. CARDIOVASCULAR: S1 and S2 present. No murmurs, rubs, or gallops. PULMONARY: Chest is clear to auscultation, no wheezing or crackles. ABDOMEN: Soft, nontender, nondistended, normoactive bowel sounds. MUSCULOSKELETAL: No joint swelling or deformity. EXTREMITIES: No cyanosis, clubbing, or pedal edema. NEUROLOGICAL: Gross neurological examination did not reveal any focal deficits. Impaired cognition and memory - Labs CBC & Chem 7: 11/01/22 10:40 11/01/22 10:40 Labs: Abnormal Lab Results - Last 24 Hours (Table) 10/31/22 10/31/22 11/01/22 Range/Units 17:04 20:16 10:40 WBC 12.6 H (3.8-10.6) k/uL Hct 46.5 H (34.0-46.0) % Potassium (3.5-5.1) mmol/L Creatinine (0.52-1.04) mg/dL Glucose (74-99) mg/dL POC Glucose (mg/dL) 123 H 129 H (70-110) mg/dL 11/01/22 11/01/22 Range/Units 10:40 11:30 WBC (3.8-10.6) k/uL Hct (34.0-46.0) % Potassium 3.2 L (3.5-5.1) mmol/L Creatinine 0.38 L (0.52-1.04) mg/dL Glucose 135 H (74-99) mg/dL POC Glucose (mg/dL) 116 H (70-110) mg/dL Microbiology - Last 24 Hours (Table) 10/28/22 17:00 Blood Culture - Preliminary Blood 10/28/22 16:40 Blood Culture - Preliminary Blood Assessment and Plan Assessment: Assessment: * Nausea vomiting and diarrhea suspicious for acute gastroenteritis present on admission. * Hypertension, uncontrolled with urgency on admission, * Acute metabolic encephalopathy with acute delirium * Hypokalemia improved * History of Fall at home with right-sided pain including right shoulder and right knee, * Diabetes mellitus * Hyperlipidemia * History of osteoarthritis * back pain,s/p back surgery Plan: * Consultations obtained from orthopedic, cardiology * Patient noted to have significant elevation in blood pressure continue current medications including Cardizem, losartan, metoprolol, Aldactone * Noted to have minimal oral intake, CT abdomen and pelvis negative for acute intra-abdominal process * Continue patient on fluid resuscitation * X-ray shoulder negative for fracture cervical spine CT does show degenerative changes. CT head obtained on admission negative for acute intracranial pr ocess * In regards to acute delirium continue patient on Seroquel as needed
[2022-11-01] MEDS: MEGESTROL 40 MG TAB PO SCH (14:05)
[2022-11-01] MEDS: POTASSIUM CHLORIDE ER 20 MEQ TAB.ER PO SCH (14:05)
[2022-11-01 16:52] LABS: Glucose,Whole Blood 106 mg/dL (70-110)
[2022-11-01] MEDS: MELATONIN 5 MG TABLET PO SCH (20:11)
[2022-11-01] MEDS: MONTELUKAST 10 MG TAB PO SCH (20:11)
[2022-11-01] MEDS: QUEtiapine 25 MG TAB PO PRN (20:12)
[2022-11-01 20:26] LABS: Glucose,Whole Blood 158 mg/dL (70-110)
[2022-11-02 06:09] LABS: Glucose,Whole Blood 119 mg/dL (70-110)
[2022-11-02] MEDS: PANTOPRAZOLE 40 MG TABLET PO SCH ×2 (06:18→09:06)
[2022-11-02] MEDS: SYMBICORT 160-4.5 MCG INHALER INHALATION SCH ×2 (08:22→20:22)
[2022-11-02] MEDS: MEGESTROL 40 MG TAB PO SCH (09:03)
[2022-11-02] MEDS: DULoxetine HCL 30 MG CAPSULE.DR PO SCH (09:03)
[2022-11-02] MEDS: SPIRONOLACTONE 25 MG TAB PO SCH (09:03)
[2022-11-02] MEDS: DILTIAZEM CD 180 MG CAP.ER.24H PO SCH (09:04)
[2022-11-02] MEDS: METOPROLOL TARTRATE 50 MG TAB PO SCH ×2 (09:04→20:01)
[2022-11-02] MEDS: CHOLECALCIFEROL 25 MCG (1000 IU) TABLET PO SCH (09:04)
[2022-11-02] MEDS: PRAVASTATIN SODIUM 40 MG TAB PO SCH (09:04)
[2022-11-02] MEDS: CALCIUM CARBONATE 500 MG CHEWABLE PO SCH (09:04)
[2022-11-02] MEDS: CYANOCOBALAMIN 500 MCG TAB PO SCH (09:04)
[2022-11-02] MEDS: amLODIPine 10 MG TAB PO SCH (09:05)
[2022-11-02] MEDS: diphenhydrAMINE 25 MG CAP PO SCH (09:05)
[2022-11-02] MEDS: POTASSIUM CHLORIDE ER 10 MEQ TAB.ER.PRT PO SCH (09:05)
[2022-11-02] MEDS: MULTIVITAMINS, THERA 1 EACH TAB PO SCH (09:06)
[2022-11-02] MEDS: LOSARTAN 25 MG TAB PO SCH (09:06)
[2022-11-02] MEDS: CALCIUM CARB-VIT D 500 MG-5 MCG TAB PO SCH (09:15)
[2022-11-02] MEDS: ACETAMINOPHEN TAB 325 MG TAB PO PRN (10:58)
[2022-11-02 11:00] LABS: HCT 48.2 % (34.0-46.0); HGB 16.5 gm/dL (11.4-16.0); MCH 33.6 pg (25.0-35.0); MCHC 34.2 g/dL (31.0-37.0); MCV 98.2 fL (80.0-100.0); Mean Platelet Volume 8.6; Platelet Count 288 k/uL (150-450); WBC 13.3 k/uL (3.8-10.6)
[2022-11-02 11:36] LABS: Glucose,Whole Blood 110 mg/dL (70-110)
[2022-11-02 12:30] LABS: African American GFR (CKD) >90 (>60 ml/min/1.73 sqM); Anion Gap 12 mmol/L; Blood Urea Nitrogen 9 mg/dL (7-17); Calcium 9.2 mg/dL (8.4-10.2); Carbon Dioxide 22 mmol/L (22-30); Chloride 107 mmol/L (98-107); Glucose 112 mg/dL (74-99); Non-African American GFR(CKD) >90 (>60 ml/min/1.73 sqM); Potassium 3.1 mmol/L (3.5-5.1); Sodium 141 mmol/L (137-145)
--- NOTE | 2022-11-02 13:05 | MR ---
EXAMINATION TYPE: MR brain wo con DATE OF EXAM: 11/02/2022 COMPARISON: CT brain 10/29/2022 HISTORY: Confusion. CONTRAST: Performed utilizing 0 mL intravenous Gadavist gadolinium contrast. TECHNIQUE: Multiplanar, multiecho imaging on a 3.0 Yohana magnet is performed through the brain. Stud y is performed within 24 hours of arrival to the hospital. The craniovertebral junction is normal. The pituitary is normal. Diffusion-weighted imaging is performed. No abnormal hyperintensity is present to suggest an acute i ntracranial infarct or acute ischemic change. Periventricular white matter hypodensity is present, likely on the basis of chronic white matter isch emic changes. Ventricles and sulci are prominent for the patient age. IMPRESSIONS: 1. Atrophy with chronic appearing periventricular white matter ischemic changes. 2. No acute intracranial process.
--- NOTE | 2022-11-02 13:21 | P.PN ---
Subjective HISTORY OF PRESENT ILLNESS: The patient is an 87-year-old female patient was admitted to the hospital with hypertension emergency and also symptoms of nausea and vomiting and diarrhea. October [id number] She was seen and evaluated this morning. The symptoms of nausea and vomiting and diarrhea have improved. The pressure remains elevated. No symptoms of chest pain or chest discomfort or shortness of breath. The echo was not ordered and going to order the echo. I would suggest monitor the patient for additional 24 hours. She still and is stable to go home. The examination is remarkable for elevated blood pressure with regular rhythm and a systolic murmur. 11/01/2022 The patient was seen and evaluated this morning. She is feeling overall better. No caliber vascular symptoms with the pressure appeared to be under good control on the current medical regimen. The echo revealed normal biventricular dimension with mild aortic insufficiency and evidence of aortic sclerosis. From the cardiovascular standpoint of view, the patient can be discharged home in the next 24 hours. We are going to monitor her overnight for possible discharge to rehab tomorrow. The examination is remarkable for regular rhythm with a systolic murmur at right upper sternal border and no lower extremity edema noted. 11/02/2022 Patient examined this morning to bedside. Patient denies chest pain or pressur e. She denies shortness of breath. Blood pressure stable today with a recent reading of 146/81. PHYSICAL EXAM: VITAL SIGNS: Reviewed. GENERAL: Well-developed in no acute distress. NECK: Supple. No JVD or thyromegaly LUNGS: Respirations even and unlabored. Lungs essentially clear to auscultation bilaterally. HEART: Regular rate and rhythm. S1 and S2 heard. EXTREMITIES: Normal range of motion. No clubbing or cyanosis. Peripheral pulses intact. No lower extremity edema ASSESSMENT: Hypertension emergency Evidence of myocardial injury PLAN: Continue current cardiac medications Continue to monitor blood pressure Patient is stable for discharge today from a cardiac standpoint We will sign off. Please reconsult if needed. Nurse practitioner note has been reviewed by physician. Signing provider agrees with the documented findings, assessment, and plan of care. Objective - Vital Signs Vital signs: Vital Signs Temp 98.0 F 11/02/22 12:00 Pulse 75 11/02/22 12:00 Resp 16 11/02/22 12:00 BP 146/81 11/02/22 12:00 Pulse Ox 97 11/02/22 12:00 FiO2 Intake & Output 11/01/22 11/02/22 11/02/22 18:59 06:59 18:59 Intake Total 480 740 Output Total 500 600 Balance -20 140 Intake: Intake, IV Titration 500 Amount Dextrose 5%-0.9% NaCl 1, 500 000 ml @ 50 mls/hr IV . Q20H [facility] Rx#:[id number] Oral 480 240 Output: Urine 500 600 Stool 0 0 Other: Voiding Method Indwelling Catheter Indwelling Catheter # Bowel Movements 1 - Labs CBC & Chem 7: 11/02/22 09:26 11/02/22 09:26 Labs: Abnormal Lab Results - Last 24 Hours (Table) 11/01/22 11/02/22 11/02/22 Range/Units 20:24 06:07 09:26 WBC 13.3 H (3.8-10.6) k/uL Hgb 16.5 H (11.4-16.0) gm/dL Hct 48.2 H (34.0-46.0) % Potassium (3.5-5.1) mmol/L Creatinine (0.52-1.04) mg/dL Glucose (74-99) mg/dL POC Glucose (mg/dL) 158 H 119 H (70-110) mg/dL 11/02/22 Range/Units 09:26 WBC (3.8-10.6) k/uL Hgb (11.4-16.0) gm/dL Hct (34.0-46.0) % Potassium 3.1 L (3.5-5.1) mmol/L Creatinine 0.38 L (0.52-1.04) mg/dL Glucose 112 H (74-99) mg/dL POC Glucose (mg/dL) (70-110) mg/dL
--- NOTE | 2022-11-02 14:07 | P.PN ---
Subjective Progress Note Date: 11/02/22 * 87 years old female with past medical history of Asthma, Diabetes Mellitus, Hyperlipidemia, Hypertension, back pain,s/p back surgery * Patient is confused and poor historian although she answers questions and follow commands. Information obtained from the at bedside. * Patient is afebrile, tachycardic and hypertensive with systolic blood pressure on admission was 170-190. Patient is in room air. * Labs showing mild leukocytosis of 13.3, rest of CBC, BMP and liver enzymes were unremarkable except for mild hypokalemia at 2.8 Troponin first one was negative and second and third were elevated at 0.05 and 0.06. TSH 1.3 which is within the reference range Urinalysis showed glucose urea and ketonuria.EKG showing normal sinus rhythm at [address]-T changes * CT of the abdomen and pelvis with contrast showing no acute intra-abdominal or intrapelvic process. Right ovarian cyst * 10/30/2022 Patient admitted yesterday with signs symptoms of gastroenteritis- like picture with nausea vomiting and periumbilical mild abdominal pain and diarrhea. Patient still has poor appetite and not eating well. She still has diarrhea as per bedside nurse. However on examination she has mild p eriumbilical pain and tenderness, no guarding, no rebound tenderness. But also patient has been confused, she does not oriented to time place and person as she could not answer these questions. She follows commands and answer other questions appropriately most of the time, she still ABOUT [place]. When I talked to her he feel the same thing that she is confused and she is been gradually getting worse over the last few days. At baseline she is more alert and oriented to time place person and more active and do her own daily activities. Patient got Xanax [place] yesterday, we stopped this medication. Postop Ultram and place her on Toradol since CT of the brain is negative Also was concerned because of her neck pain, patient complains from some neck pain but no significant tenderness. 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 Patient with no pain or numbness in hr arms Because of persistent mild leukocytosis but improving and patient has negative procalcitonin. No fever. Therefore we will hold on antibiotics for nowShe continued on D5 normal saline at 50 mL/h, also Seroquel when necessary for agitation. Blood pressure is uncontrolled with urgency this morning 198/90+, yesterday with increase her metoprolol 100 mg and put her on Norvasc, today we added losartan and Aldactone by fishing tool supervisor will follow closely. We also hold farxiga for dehydration which would contribute for her pressure. * 10/31/2022 : Patient seen and evaluated bedside, she continues to have low appetite, CT abdomen and pelvis negative. We'll monitor for diarrhea. Noted to have hypokalemia potassium will be replaced * 11/01/2022 : Patient seen and evaluated bedside. Patient had insomnia. Was up through the night. She continues to remain confused. Blood work reviewed the able discuss care plan with family. Patient very forgetful will need an MRI brain for better evaluation as well * 11/02/2022 : Patient seen and evaluated bedside. Patient is alert and oriented 2. Patient completed MRI Objective - Vital Signs Vital signs: Vital Signs Temp 98.0 F 11/02/22 12:00 Pulse 75 11/02/22 12:00 Resp 16 11/02/22 12:00 BP 146/81 11/02/22 12:00 Pulse Ox 97 11/02/22 12:00 FiO2 Intake & Output 11/01/22 11/02/22 11/02/22 18:59 06:59 18:59 Intake Total 480 740 Output Total 500 600 Balance -20 140 Intake: Intake, IV Titration 500 Amount Dextrose 5%-0.9% NaCl 1, 500 000 ml @ 50 mls/hr IV . Q20H [facility] Rx#:[id number] Oral 480 240 Output: Urine 500 600 Stool 0 0 Other: Voiding Method Indwelling Catheter Indwelling Catheter # Bowel Movements 1 - Exam PHYSICAL EXAMINATION: GENERAL: The patient is alert and oriented x 1 , HEENT: Pupils are round and equally reacting to light. EOMI. CARDIOVASCULAR: S1 and S2 present. No murmurs, rubs, or gallops. PULMONARY: Chest is clear to auscultation, no wheezing or crackles. ABDOMEN: Soft, nontender, nondistended, normoactive bowel sounds. MUSCULOSKELETAL: No joint swelling or deformity. EXTREMITIES: No cyanosis, clubbing, or pedal edema. NEUROLOGICAL: Gross neurological examination did not reveal any focal deficits. Impaired cognition and memory - Labs CBC & Chem 7: 11/02/22 09:26 11/02/22 09:26 Labs: Abnormal Lab Results - Last 24 Hours (Table) 11/01/22 11/02/22 11/02/22 Range/Units 20:24 06:07 09:26 WBC 13.3 H (3.8-10.6) k/uL Hgb 16.5 H (11.4-16.0) gm/dL Hct 48.2 H (34.0-46.0) % Potassium (3.5-5.1) mmol/L Creatinine (0.52-1.04) mg/dL Glucose (74-99) mg/dL POC Glucose (mg/dL) 158 H 119 H (70-110) mg/dL 11/02/22 Range/Units 09:26 WBC (3.8-10.6) k/uL Hgb (11.4-16.0) gm/dL Hct (34.0-46.0) % Potassium 3.1 L (3.5-5.1) mmol/L Creatinine 0.38 L (0.52-1.04) mg/dL Glucose 112 H (74-99) mg/dL POC Glucose (mg/dL) (70-110) mg/dL Assessment and Plan Assessment: Assessment: * Nausea vomiting and diarrhea suspicious for acute gastroenteritis present on admission. * Hypertension, uncontrolled with urgency on admission, * Acute metabolic encephalopathy with acute delirium * Hypokalemia improved * History of Fall at home with right-sided pain including right shoulder and right knee, * Diabetes mellitus * Hyperlipidemia * History of osteoarthritis * back pain, s/p back surgery Plan: * Consultations obtained from orthopedic, cardiology * Patient noted to have significant elevation in blood pressure continue current medications including Cardizem, losartan, metoprolol, Aldactone * Noted to have minimal oral intake, CT abdomen and pelvis negative for acute intra-abdominal process * In regards to encephalopathy MRI brain ordered * Continue patient on fluid resuscitation * X-ray shoulder negative for fracture >> cervical spine CT does show degenerative changes>. CT head obtained on admission negative for acute interracial process * In regards to acute delirium continue patient on Seroquel as needed
[2022-11-02 14:35] VITALS: BMI 19.3
[2022-11-02 16:45] LABS: Glucose,Whole Blood 121 mg/dL (70-110)
[2022-11-02] MEDS: LIDOCAINE 5% PATCH TOPICAL SCH (17:11)
[2022-11-02] MEDS: MELATONIN 5 MG TABLET PO SCH (20:01)
[2022-11-02] MEDS: MONTELUKAST 10 MG TAB PO SCH (20:01)
[2022-11-02] MEDS: POTASSIUM CHLORIDE ER 20 MEQ TAB.ER PO SCH ×2 (20:27→23:48)
[2022-11-02] MEDS: DEXTROSE 5%-0.9% NACL 1,000 ML IV SCH (20:37)
[2022-11-02 20:55] LABS: Glucose,Whole Blood 108 mg/dL (70-110)
[2022-11-03 06:23] LABS: Glucose,Whole Blood 118 mg/dL (70-110)
[2022-11-03] MEDS: PANTOPRAZOLE 40 MG TABLET PO SCH (06:36)
[2022-11-03] MEDS: LIDOCAINE 5% PATCH TOPICAL SCH (08:39)
[2022-11-03] MEDS: CYANOCOBALAMIN 500 MCG TAB PO SCH (08:39)
[2022-11-03] MEDS: SPIRONOLACTONE 25 MG TAB PO SCH (08:39)
[2022-11-03] MEDS: METOPROLOL TARTRATE 50 MG TAB PO SCH ×2 (08:40→20:46)
[2022-11-03] MEDS: diphenhydrAMINE 25 MG CAP PO SCH (08:40)
[2022-11-03] MEDS: DILTIAZEM CD 180 MG CAP.ER.24H PO SCH (08:40)
[2022-11-03] MEDS: MULTIVITAMINS, THERA 1 EACH TAB PO SCH (08:40)
[2022-11-03] MEDS: MEGESTROL 40 MG TAB PO SCH (08:40)
[2022-11-03] MEDS: CHOLECALCIFEROL 25 MCG (1000 IU) TABLET PO SCH (08:40)
[2022-11-03] MEDS: CALCIUM CARB-VIT D 500 MG-5 MCG TAB PO SCH (08:40)
[2022-11-03] MEDS: POTASSIUM CHLORIDE ER 10 MEQ TAB.ER.PRT PO SCH (08:40)
[2022-11-03] MEDS: PRAVASTATIN SODIUM 40 MG TAB PO SCH (08:40)
[2022-11-03] MEDS: amLODIPine 10 MG TAB PO SCH (08:40)
[2022-11-03] MEDS: LOSARTAN 25 MG TAB PO SCH (08:40)
[2022-11-03] MEDS: DULoxetine HCL 30 MG CAPSULE.DR PO SCH (08:40)
[2022-11-03] MEDS: CALCIUM CARBONATE 500 MG CHEWABLE PO SCH (08:40)
[2022-11-03 09:02] LABS: HCT 47.8 % (34.0-46.0); HGB 16.3 gm/dL (11.4-16.0); MCH 33.8 pg (25.0-35.0); MCHC 34.2 g/dL (31.0-37.0); MCV 98.8 fL (80.0-100.0); Mean Platelet Volume 8.3; Platelet Count 341 k/uL (150-450); RBC 4.84 m/uL (3.80-5.40); RDW 11.9 % (11.5-15.5)
[2022-11-03 09:17] LABS: African American GFR (CKD) >90 (>60 ml/min/1.73 sqM); Anion Gap 12 mmol/L; Blood Urea Nitrogen 8 mg/dL (7-17); C Reactive Protein 1.6 mg/dL (<1.0); Calcium 9.3 mg/dL (8.4-10.2); Carbon Dioxide 22 mmol/L (22-30); Chloride 107 mmol/L (98-107); Glucose 118 mg/dL (74-99); Non-African American GFR(CKD) >90 (>60 ml/min/1.73 sqM); Potassium 2.9 mmol/L (3.5-5.1); Sodium 141 mmol/L (137-145)
[2022-11-03] MEDS: SYMBICORT 160-4.5 MCG INHALER INHALATION SCH ×2 (09:28→20:13)
[2022-11-03] MEDS ORDERED: Potassium Replacement Protocol 1 EACH MISC MISCELLANE PRN ×2 (11:28→12:30)
[2022-11-03] MEDS ORDERED: POTASSIUM CHLORIDE ER 20 MEQ TAB.ER PO SCH (12:00)
[2022-11-03 12:03] LABS: Glucose,Whole Blood 136 mg/dL (70-110)
[2022-11-03] MEDS: POTASSIUM CHLORIDE 10 MEQ in WATER FOR INJECTION 1 100ML.BAG IVPB SCH ×5 (12:45→23:35)
--- NOTE | 2022-11-03 13:43 | P.PN ---
Subjective Progress Note Date: 11/03/22 * 87 years old female with past medical history of Asthma, Diabetes Mellitus, Hyperlipidemia, Hypertension, back pain,s/p back surgery * Patient is confused and poor historian although she answers questions and follow commands. Information obtained from the at bedside. * Patient is afebrile, tachycardic and hypertensive with systolic blood pressure on admission was 170-190. Patient is in room air. * Labs showing mild leukocytosis of 13.3, rest of CBC, BMP and liver enzymes were unremarkable except for mild hypokalemia at 2.8 Troponin first one was negative and second and third were elevated at 0.05 and 0.06. TSH 1.3 which is within the reference range Urinalysis showed glucose urea and ketonuria.EKG showing normal sinus rhythm at [address]-T changes * CT of the abdomen and pelvis with contrast showing no acute intra-abdominal or intrapelvic process. Right ovarian cyst * 10/30/2022 Patient admitted yesterday with signs symptoms of gastroenteritis- like picture with nausea vomiting and periumbilical mild abdominal pain and diarrhea. Patient still has poor appetite and not eating well. She still has diarrhea as per bedside nurse. However on examination she has mild p eriumbilical pain and tenderness, no guarding, no rebound tenderness. But also patient has been confused, she does not oriented to time place and person as she could not answer these questions. She follows commands and answer other questions appropriately most of the time, she still ABOUT [place]. When I talked to her he feel the same thing that she is confused and she is been gradually getting worse over the last few days. At baseline she is more alert and oriented to time place person and more active and do her own daily activities. Patient got Xanax [place] yesterday, we stopped this medication. Postop Ultram and place her on Toradol since CT of the brain is negative Also was concerned because of her neck pain, patient complains from some neck pain but no significant tenderness. 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 Patient with no pain or numbness in hr arms Because of persistent mild leukocytosis but improving and patient has negative procalcitonin. No fever. Therefore we will hold on antibiotics for nowShe continued on D5 normal saline at 50 mL/h, also Seroquel when necessary for agitation. Blood pressure is uncontrolled with urgency this morning 198/90+, yesterday with increase her metoprolol 100 mg and put her on Norvasc, today we added losartan and Aldactone by wood finisher apprentice will follow closely. We also hold farxiga for dehydration which would contribute for her pressure. * 10/31/2022 : Patient seen and evaluated bedside, she continues to have low appetite, CT abdomen and pelvis negative. We'll monitor for diarrhea. Noted to have hypokalemia potassium will be replaced * 11/01/2022 : Patient seen and evaluated bedside. Patient had insomnia. Was up through the night. She continues to remain confused. Blood work reviewed the able discuss care plan with family. Patient very forgetful will need an MRI brain for better evaluation as well * 11/02/2022 : Patient seen and evaluated bedside. Patient is alert and oriented 2. Patient completed MRI * 11/03/22 : Patient seen and evaluated bedside, mentation has improved. Patient continued to have minimal oral intake started on IV fluids diarrhea has improved as well last bowel movement Objective - Vital Signs Vital signs: Vital Signs Temp 97.9 F 11/02/22 20:00 Pulse 80 11/03/22 08:00 Resp 16 11/03/22 08:00 BP 159/70 11/03/22 08:00 Pulse Ox 96 11/03/22 09:30 FiO2 Intake & Output 11/02/22 11/03/22 11/03/22 18:59 06:59 18:59 Output Total 1075 800 0 Balance -1075 -800 0 Weight 54.431 kg Output: Urine 1075 800 Stool 0 Other: Voiding Method Indwelling Catheter Indwelling Catheter # Voids 1 - Exam PHYSICAL EXAMINATION: GENERAL: The patient is alert and oriented x 1 , HEENT: Pupils are round and equally reacting to light. EOMI. CARDIOVASCULAR: S1 and S2 present. No murmurs, rubs, or gallops. PULMONARY: Chest is clear to auscultation, no wheezing or crackles. ABDOMEN: Soft, nontender, nondistended, normoactive bowel sounds. MUSCULOSKELETAL: No joint swelling or deformity. EXTREMITIES: No cyanosis, clubbing, or pedal edema. NEUROLOGICAL: Gross neurological examination did not reveal any focal deficits. Impaired cognition and memory - Labs CBC & Chem 7: 11/03/22 07:40 11/03/22 07:40 Labs: Abnormal Lab Results - Last 24 Hours (Table) 11/02/22 11/03/22 11/03/22 Range/Units 16:41 06:20 07:40 WBC 15.0 H (3.8-10.6) k/uL Hgb 16.3 H (11.4-16.0) gm/dL Hct 47.8 H (34.0-46.0) % Potassium (3.5-5.1) mmol/L Creatinine (0.52-1.04) mg/dL Glucose (74-99) mg/dL POC Glucose (mg/dL) 121 H 118 H (70-110) mg/dL C-Reactive Protein (<1.0) mg/dL 11/03/22 11/03/22 Range/Units 07:40 11:58 WBC (3.8-10.6) k/uL Hgb (11.4-16.0) gm/dL Hct (34.0-46.0) % Potassium 2.9 L (3.5-5.1) mmol/L Creatinine 0.38 L (0.52-1.04) mg/dL Glucose 118 H (74-99) mg/dL POC Glucose (mg/dL) 136 H (70-110) mg/dL C-Reactive Protein 1.6 H (<1.0) mg/dL Microbiology - Last 24 Hours (Table) 10/28/22 17:00 Blood Culture - Final Blood 10/28/22 16:40 Blood Culture - Final Blood Assessment and Plan Assessment: Assessment: * Nausea vomiting and diarrhea suspicious for acute gastroenteritis present on admission. * Hypertension, uncontrolled with urgency on admission, * Acute metabolic encephalopathy with acute delirium * Hypokalemia improved * History of Fall at home with right-sided pain including right shoulder and right knee, * Diabetes mellitus * Hyperlipidemia * History of osteoarthritis * back pain, s/p back surgery Plan: * Consultations obtained from orthopedic, cardiology * Patient noted to have significant elevation in blood pressure continue current medications including Cardizem, losartan, metoprolol, Aldactone * Noted to have minimal oral intake, CT abdomen and pelvis negative for acute intra-abdominal process * In regards to encephalopathy MRI brain ordered negative for stroke * Continue patient on fluid resuscitation * X-ray shoulder negative for fracture >> cervical spine CT does show degenerative changes>. CT head obtained on admission negative for acute interracial process * In regards to acute delirium continue patient on Seroquel as needed
[2022-11-03] MEDS: SODIUM CHLORIDE 0.9% 1,000 ML IV SCH (15:34)
[2022-11-03 16:45] LABS: Glucose,Whole Blood 118 mg/dL (70-110)
[2022-11-03 20:46] LABS: Glucose,Whole Blood 104 mg/dL (70-110)
[2022-11-03] MEDS: MELATONIN 5 MG TABLET PO SCH (20:46)
[2022-11-03] MEDS: MONTELUKAST 10 MG TAB PO SCH (20:46)
[2022-11-03] MEDS: DEXTROSE 5%-0.9% NACL 1,000 ML IV SCH (23:35)
[2022-11-04] MEDS: POTASSIUM CHLORIDE 10 MEQ in WATER FOR INJECTION 1 100ML.BAG IVPB SCH (01:18)
[2022-11-04] MEDS: DEXTROSE 5%-0.9% NACL 1,000 ML IV SCH (03:44)
[2022-11-04] MEDS: SODIUM CHLORIDE 0.9% 1,000 ML IV SCH ×2 (03:44→17:46)
[2022-11-04 06:10] LABS: Glucose,Whole Blood 101 mg/dL (70-110)
[2022-11-04] MEDS: PANTOPRAZOLE 40 MG TABLET PO SCH ×2 (06:14→09:12)
[2022-11-04] MEDS: CALCIUM CARBONATE 500 MG CHEWABLE PO SCH (09:12)
[2022-11-04] MEDS: CHOLECALCIFEROL 25 MCG (1000 IU) TABLET PO SCH (09:12)
[2022-11-04] MEDS: METOPROLOL TARTRATE 50 MG TAB PO SCH ×2 (09:12→21:17)
[2022-11-04] MEDS: LOSARTAN 25 MG TAB PO SCH (09:12)
[2022-11-04] MEDS: POTASSIUM CHLORIDE ER 10 MEQ TAB.ER.PRT PO SCH (09:13)
[2022-11-04] MEDS: PRAVASTATIN SODIUM 40 MG TAB PO SCH (09:13)
[2022-11-04] MEDS: SPIRONOLACTONE 25 MG TAB PO SCH (09:13)
[2022-11-04] MEDS: diphenhydrAMINE 25 MG CAP PO SCH (09:13)
[2022-11-04] MEDS: DULoxetine HCL 30 MG CAPSULE.DR PO SCH (09:13)
[2022-11-04] MEDS: DILTIAZEM CD 180 MG CAP.ER.24H PO SCH (09:13)
[2022-11-04] MEDS: MEGESTROL 40 MG TAB PO SCH (09:13)
[2022-11-04] MEDS: amLODIPine 10 MG TAB PO SCH (09:13)
[2022-11-04] MEDS: CALCIUM CARB-VIT D 500 MG-5 MCG TAB PO SCH (09:13)
[2022-11-04] MEDS: CYANOCOBALAMIN 500 MCG TAB PO SCH (09:13)
[2022-11-04] MEDS: MULTIVITAMINS, THERA 1 EACH TAB PO SCH (09:14)
[2022-11-04] MEDS: LIDOCAINE 5% PATCH TOPICAL SCH (09:17)
[2022-11-04] MEDS: SYMBICORT 160-4.5 MCG INHALER INHALATION SCH ×2 (09:50→21:21)
[2022-11-04 10:16] LABS: African American GFR (CKD) >90 (>60 ml/min/1.73 sqM); Anion Gap 12 mmol/L; Blood Urea Nitrogen 7 mg/dL (7-17); Calcium 9.3 mg/dL (8.4-10.2); Carbon Dioxide 25 mmol/L (22-30); Chloride 102 mmol/L (98-107); Glucose 93 mg/dL (74-99); Non-African American GFR(CKD) >90 (>60 ml/min/1.73 sqM); Potassium 3.3 mmol/L (3.5-5.1); Sodium 139 mmol/L (137-145)
[2022-11-04 10:53] LABS: HCT 47.9 % (34.0-46.0); HGB 16.4 gm/dL (11.4-16.0); MCH 34.3 pg (25.0-35.0); MCHC 34.4 g/dL (31.0-37.0); MCV 99.7 fL (80.0-100.0); Mean Platelet Volume 8.3; Platelet Count 355 k/uL (150-450); WBC 15.3 k/uL (3.8-10.6)
[2022-11-04] MEDS: MEGESTROL 400 MG/10 ML CUP PO SCH (11:05)
[2022-11-04 12:09] LABS: Glucose,Whole Blood 87 mg/dL (70-110)
--- NOTE | 2022-11-04 12:46 | P.PN ---
Subjective Progress Note Date: 11/04/22 * 87 years old female with past medical history of Asthma, Diabetes Mellitus, Hyperlipidemia, Hypertension, back pain,s/p back surgery * Patient is confused and poor historian although she answers questions and follow commands. Information obtained from the at bedside. * Patient is afebrile, tachycardic and hypertensive with systolic blood pressure on admission was 170-190. Patient is in room air. * Labs showing mild leukocytosis of 13.3, rest of CBC, BMP and liver enzymes were unremarkable except for mild hypokalemia at 2.8 Troponin first one was negative and second and third were elevated at 0.05 and 0.06. TSH 1.3 which is within the reference range Urinalysis showed glucose urea and ketonuria.EKG showing normal sinus rhythm at [address]-T changes * CT of the abdomen and pelvis with contrast showing no acute intra-abdominal or intrapelvic process. Right ovarian cyst * 10/30/2022 Patient admitted yesterday with signs symptoms of gastroenteritis- like picture with nausea vomiting and periumbilical mild abdominal pain and diarrhea. Patient still has poor appetite and not eating well. She still has diarrhea as per bedside nurse. However on examination she has mild p eriumbilical pain and tenderness, no guarding, no rebound tenderness. But also patient has been confused, she does not oriented to time place and person as she could not answer these questions. She follows commands and answer other questions appropriately most of the time, she still ABOUT [place]. When I talked to her he feel the same thing that she is confused and she is been gradually getting worse over the last few days. At baseline she is more alert and oriented to time place person and more active and do her own daily activities. Patient got Xanax [place] yesterday, we stopped this medication. Postop Ultram and place her on Toradol since CT of the brain is negative Also was concerned because of her neck pain, patient complains from some neck pain but no significant tenderness. 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 Patient with no pain or numbness in hr arms Because of persistent mild leukocytosis but improving and patient has negative procalcitonin. No fever. Therefore we will hold on antibiotics for nowShe continued on D5 normal saline at 50 mL/h, also Seroquel when necessary for agitation. Blood pressure is uncontrolled with urgency this morning 198/90+, yesterday with increase her metoprolol 100 mg and put her on Norvasc, today we added losartan and Aldactone by mine inspector federal will follow closely. We also hold farxiga for dehydration which would contribute for her pressure. * 10/31/2022 : Patient seen and evaluated bedside, she continues to have low appetite, CT abdomen and pelvis negative. We'll monitor for diarrhea. Noted to have hypokalemia potassium will be replaced * 11/01/2022 : Patient seen and evaluated bedside. Patient had insomnia. Was up through the night. She continues to remain confused. Blood work reviewed the able discuss care plan with family. Patient very forgetful will need an MRI brain for better evaluation as well * 11/02/2022 : Patient seen and evaluated bedside. Patient is alert and oriented 2. Patient completed MRI * 11/03/22 : Patient seen and evaluated bedside, mentation has improved. Patient continued to have minimal oral intake started on IV fluids diarrhea has improved as well last bowel movement 11/01 * 11/04/2022: Patient care plan discussed with at bedside. At this time patient is alert and oriented 1. Mentation back syndrome in. MRI brain negative for stroke we will request psychiatry to evaluate secondary to ongoing behavioral issues. Patient will need to be discharged to subacute rehab. K plan discussed with case management in detail. Continue to have high white cell count however no clear cut source of infection Objective - Vital Signs Vital signs: Vital Signs Temp 98.1 F 11/04/22 12:00 Pulse 85 11/04/22 12:00 Resp 18 11/04/22 12:00 BP 157/85 11/04/22 12:00 Pulse Ox 95 11/04/22 12:00 FiO2 Intake & Output 11/03/22 11/04/22 11/04/22 18:59 06:59 18:59 Intake Total 1000 100 Output Total 750 700 Balance 250 -700 100 Intake: Intake, IV Titration 1000 Amount Potassium Chloride 10 meq 600 In Water For Injection 1 100ml.bag @ 100 mls/hr IVPB Q1HR [facility] Rx#: [id number] Sodium Chloride 0.9% 1, 400 000 ml @ 75 mls/hr IV . [id number] [facility] Rx#:[id number] Oral 100 Output: Urine 750 700 Stool 0 Other: Voiding Method Indwelling Catheter Indwelling Catheter Indwelling Catheter - Exam PHYSICAL EXAMINATION: GENERAL: The patient is alert and oriented x 1 , disoriented HEENT: Pupils are round and equally reacting to light. EOMI. CARDIOVASCULAR: S1 and S2 present. No murmurs, rubs, or gallops. PULMONARY: Chest is clear to auscultation, no wheezing or crackles. ABDOMEN: Soft, nontender, nondistended, normoactive bowel sounds. MUSCULOSKELETAL: No joint swelling or deformity. EXTREMITIES: No cyanosis, clubbing, or pedal edema. NEUROLOGICAL: Gross neurological examination did not reveal any focal deficits. Impaired cognition and memory - Labs CBC & Chem 7: 11/04/22 07:41 11/04/22 07:41 Labs: Abnormal Lab Results - Last 24 Hours (Table) 11/03/22 11/04/22 11/04/22 Range/Units 16:41 07:41 07:41 WBC 15.3 H (3.8-10.6) k/uL Hgb 16.4 H (11.4-16.0) gm/dL Hct 47.9 H (34.0-46.0) % Potassium 3.3 L (3.5-5.1) mmol/L Creatinine 0.42 L (0.52-1.04) mg/dL POC Glucose (mg/dL) 118 H (70-110) mg/dL Microbiology - Last 24 Hours (Table) 11/01/22 13:51 Stool Culture - Preliminary Stool Assessment and Plan Assessment: Assessment: * acute gastroenteritis present on admission * Hypertension, uncontrolled with urgency on admission * Acute metabolic encephalopathy with acute delirium * Hypokalemia * History of Fall at home with right-sided pain including right shoulder and right knee * Diabetes mellitus type 2 * Hyperlipidemia * History of osteoarthritis * back pain, s/p back surgery Plan: * Consultations obtained from orthopedic, cardiology was psychiatry * Patient noted to have significant elevation in blood pressure on admission, significant improvement with current medications including Cardizem, l osartan, metoprolol, Aldactone * Noted to have minimal oral intake, CT abdomen and pelvis negative for acute intra-abdominal process, stool culture negative * In regards to encephalopathy MRI brain ordered negative for stroke * Continue patient on fluid resuscitation, encourage oral intake. Start patient on Megace * X-ray shoulder negative for fracture >> cervical spine CT does show degenerative changes>. CT head obtained on admission negative for acute interracial process * In regards to acute delirium continue patient on Seroquel , commence psychiatry evaluation * In regards to the ability care plan discussed with case management and patient will need to be discharged to rehab facility>> plan to discharge within the next 48 hours will need insurance approval
[2022-11-04] MEDS: QUEtiapine 25 MG TAB PO PRN (15:31)
[2022-11-04] MEDS: POTASSIUM CHLORIDE ER 20 MEQ TAB.ER PO SCH (15:31)
[2022-11-04 17:03] LABS: Glucose,Whole Blood 103 mg/dL (70-110)
[2022-11-04 20:56] LABS: Glucose,Whole Blood 94 mg/dL (70-110)
[2022-11-04] MEDS: MONTELUKAST 10 MG TAB PO SCH (21:17)
[2022-11-04] MEDS: MELATONIN 5 MG TABLET PO SCH (21:17)
[2022-11-05 06:48] LABS: Glucose,Whole Blood 94 mg/dL (70-110)
[2022-11-05] MEDS: DEXTROSE 5%-0.9% NACL 1,000 ML IV SCH ×2 (06:52→23:44)
[2022-11-05] MEDS: SODIUM CHLORIDE 0.9% 1,000 ML IV SCH ×2 (06:52→18:02)
[2022-11-05 07:34] LABS: HCT 47.3 % (34.0-46.0); HGB 16.1 gm/dL (11.4-16.0); MCH 33.6 pg (25.0-35.0); MCV 98.8 fL (80.0-100.0); Mean Platelet Volume 8.1; Platelet Count 334 k/uL (150-450); RBC 4.78 m/uL (3.80-5.40); WBC 14.2 k/uL (3.8-10.6)
[2022-11-05 08:00] LABS: African American GFR (CKD) >90 (>60 ml/min/1.73 sqM); Anion Gap 14 mmol/L; Blood Urea Nitrogen 8 mg/dL (7-17); Calcium 9.3 mg/dL (8.4-10.2); Carbon Dioxide 21 mmol/L (22-30); Chloride 103 mmol/L (98-107); Glucose 89 mg/dL (74-99); Non-African American GFR(CKD) >90 (>60 ml/min/1.73 sqM); Potassium 2.9 mmol/L (3.5-5.1); Sodium 138 mmol/L (137-145)
[2022-11-05 09:06] LABS: C Reactive Protein 2.5 mg/dL (<1.0)
[2022-11-05] MEDS: SYMBICORT 160-4.5 MCG INHALER INHALATION SCH ×2 (09:12→19:42)
[2022-11-05] MEDS: LIDOCAINE 5% PATCH TOPICAL SCH (09:31)
[2022-11-05] MEDS: METOPROLOL TARTRATE 50 MG TAB PO SCH ×2 (09:32→21:08)
[2022-11-05] MEDS: MULTIVITAMINS, THERA 1 EACH TAB PO SCH (09:32)
[2022-11-05] MEDS: SPIRONOLACTONE 25 MG TAB PO SCH (09:32)
[2022-11-05] MEDS: CALCIUM CARB-VIT D 500 MG-5 MCG TAB PO SCH (09:32)
[2022-11-05] MEDS: PRAVASTATIN SODIUM 40 MG TAB PO SCH (09:32)
[2022-11-05] MEDS: MEGESTROL 400 MG/10 ML CUP PO SCH (09:32)
[2022-11-05] MEDS: DILTIAZEM CD 180 MG CAP.ER.24H PO SCH (09:32)
[2022-11-05] MEDS: CYANOCOBALAMIN 500 MCG TAB PO SCH (09:32)
[2022-11-05] MEDS: LOSARTAN 25 MG TAB PO SCH (09:32)
[2022-11-05] MEDS: POTASSIUM CHLORIDE ER 20 MEQ TAB.ER PO SCH ×2 (09:33→09:34)
[2022-11-05] MEDS: CALCIUM CARBONATE 500 MG CHEWABLE PO SCH (09:33)
[2022-11-05] MEDS: DULoxetine HCL 30 MG CAPSULE.DR PO SCH (09:33)
[2022-11-05] MEDS: QUEtiapine 25 MG TAB PO PRN (09:33)
[2022-11-05] MEDS: amLODIPine 10 MG TAB PO SCH (09:33)
[2022-11-05] MEDS: CHOLECALCIFEROL 25 MCG (1000 IU) TABLET PO SCH (09:33)
[2022-11-05] MEDS: POTASSIUM CHLORIDE ER 10 MEQ TAB.ER.PRT PO SCH (09:33)
[2022-11-05] MEDS: PANTOPRAZOLE 40 MG TABLET PO SCH (09:34)
--- NOTE | 2022-11-05 09:42 | XR ---
EXAMINATION TYPE: XR chest 2V DATE OF EXAM: 11/05/2022 COMPARISON: 10/29/2022 HISTORY: Shortness of breath TECHNIQUE: Frontal and lateral views of the chest are obtained. FINDINGS: Scattered senescent parenchymal changes noted. Hyperinflation compatible with COPD. No evidence for infiltrate. No evidence for atelectasis. Heart size is stable. Mediastinal structures are stable and grossly unremarkable. No evidence for hilar prominence. Degenerative changes dorsal spine. IMPRESSION: 1. No evidence for acute pulmonary disease.
[2022-11-05 11:44] LABS: Glucose,Whole Blood 91 mg/dL (70-110)
--- NOTE | 2022-11-05 13:02 | P.PN ---
Subjective This is a pleasant 87 years old female with past medical history of Asthma, Diabetes Mellitus, Hyperlipidemia, Hypertension, back pain,s/p back surgery Patient is confused and poor historian although she answers questions and follow commands. Information obtained from the at bedside. He states that the patient has low appetite dehydrated with diarrhea over the last 2-3 days. Normally her bowel movement is moderate size but over the last 3 days is becoming large size and more loose. Patient has some vomiting but little volume. Patient denies abdominal pain in her abdomen looks soft. She has history of fall last July and since then she is complaining of from right shoulder and right hip pain, she's been evaluated by her PCP Dr. New and had MRI of the right hip and then referred her to Dr. Rutherford's and [facility] x-ray and CAT scan and his been fully evaluated. Patient still have some mild pain in her right shoulder and right hip she's not in distress, but this would limit movement of both extremities. This problem has been going on now for about 4-6 weeks as per . Discontinue his been fully evaluated already. Patient herself looks very confused, she thinks she isn't Dr. office in [place], when asking about today states she said 2 days after her birthday and she could not tell the name of the president. She follows simple commands. She denies headache dizziness weakness or numbness in extremities. Right-sided examination is somewhat limited by right shoulder pain and right hip pain. No blurred vision, and no slurred speech or choking. She denies chest pain or coughing or dyspnea. No urinary complaints. Patient is afebrile, tachycardic and hypertensive with systolic blood pressure on admission was 170-190. Patient is in room air. Labs showing mild leukocytosis of 13.3, rest of CBC, BMP and liver enzymes were unremarkable except for mild hypokalemia at 2.8 Troponin first one was negative and second and third were elevated at 0.05 and 0.06. TSH 1.3 which is within the reference range Urinalysis showed glucose urea and ketonuria. EKG showing normal sinus rhythm at [address]-T changes CT of the abdomen and pelvis with contrast showing no acute intra-abdominal or intrapelvic process. Right ovarian cyst 10/30/2022 Patient admitted yesterday with signs symptoms of gastroenteritis-like picture with nausea vomiting and periumbilical mild abdominal pain and diarrhea. Tiffany ent still has poor appetite and not eating well. She still has diarrhea as per bedside nurse. However on examination she has mild periumbilical pain and tenderness, no guarding, no rebound tenderness. But also patient has been confused, she does not oriented to time place and person as she could not answer these questions. She follows commands and answer other questions appropriately most of the time, she still ABOUT [place]. When I talked to her he feel the same thing that she is confused and she is been gradually getting worse over the last few days. At baseline she is more alert and oriented to time place person and more active and do her own daily activities. Patient got Xanax [place] yesterday, we stopped this medication. Postop Ultram and place her on Toradol since CT of the brain is negative Also was concerned because of her neck pain, patient complains from some neck pain but no significant tenderness. 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 Patient with no pain or numbness in hr arms Because of persistent mild leukocytosis but improving and patient has negative procalcitonin. No fever. Therefore we will hold on antibiotics for now She continued on D5 normal saline at 50 mL/h, also Seroquel when necessary for agitation. Blood pressure is uncontrolled with urgency this morning 198/90+, yesterday with increase her metoprolol 100 mg and put her on Norvasc, today we added losartan and Aldactone by baggage screener will follow closely. We also hold farxiga for dehydration which would contribute for her pressure. Prognosis remains guarded Discussed with staff I'm resume the care of the patient today on 11/05/2022 Patient today is awake and alert partially to place but oriented to time and person. She is partially disoriented to place, she does note that this is not her house but she cannot tell where she is at. As per at bedside yesterday was significantly worse throughout the day and she was more worse by the evening time and even she could not recognize her however this morning was significant improvement and as per this morning patient is close to her baseline but not at baseline yet. As per yesterday she's been experiencing some visual hallucination ask him about rest of the wall he does not see Patient is able to follow commands. She denies any headache or dizziness, no weakness or tingling or numbness in extremities. She's feels a little nausea but no vomiting. She has low appetite. she complains from epigastric pain about 6-7/10 in severity, nonradiating. She denies urinary complaints, no dysuria urgency. Patient says that she hasn't been walking she came to the hospital and she wants to try to work with physical therapist which is ordered On admission C[place] and Xanax were discontinued. Today we discussed continue with Moon, MRI of the brain is negative for acute processes Objective - Vital Signs Vital signs: Vital Signs Temp 96.7 F L 11/05/22 08:02 Pulse 84 11/05/22 08:02 Resp 16 11/05/22 08:02 BP 159/74 11/05/22 08:02 Pulse Ox 95 11/05/22 08:02 FiO2 Intake & Output 11/04/22 11/05/22 11/05/22 18:59 06:59 18:59 Intake Total 100 100 Output Total 700 500 Balance 100 -600 -500 Weight 54.431 kg Intake: Oral 100 100 Output: Urine 700 500 Stool 0 Other: Voiding Method Indwelling Catheter Indwelling Catheter Indwelling Catheter - Exam -GENERAL: The patient is alert and awake, she is oriented to time person and partially to place X2 to 3, relaxed answers questions and follow command, not in any acute distress. Thin lady HEENT: Pupils are round and equally reacting to light. EOMI. No scleral icterus. No conjunctival pallor. Normocephalic, atraumatic. No pharyngeal erythema. No thyromegaly. CARDIOVASCULAR: S1 and S2 present. No murmurs, rubs, or gallops. PULMONARY: Chest is clear to auscultation, no wheezing , no crackles. -ABDOMEN: Soft, very mild epigastric tenderness, no guarding or rebound tenderness, nondistended, normoactive bowel sounds. No palpable organomegaly. MUSCULOSKELETAL: No joint swelling or deformity. EXTREMITIES: No cyanosis, clubbing, or pedal edema. NEUROLOGICAL: Gross neurological examination did not reveal any focal deficits. SKIN: No rashes. no petechiae. - Labs CBC & Chem 7: 11/05/22 07:04 11/05/22 07:04 Labs: Abnormal Lab Results - Last 24 Hours (Table) 11/05/22 11/05/22 Range/Units 07:04 07:04 WBC 14.2 H (3.8-10.6) k/uL Hgb 16.1 H (11.4-16.0) gm/dL Hct 47.3 H (34.0-46.0) % Potassium 2.9 L (3.5-5.1) mmol/L Carbon Dioxide 21 L (22-30) mmol/L Creatinine 0.38 L (0.52-1.04) mg/dL C-Reactive Protein 2.5 H (<1.0) mg/dL Microbiology - Last 24 Hours (Table) 11/01/22 13:51 Stool Culture - Final Stool Assessment and Plan Assessment: Nausea vomiting and diarrhea suspicious for acute gastroenteritis present on admission. This could be viral infection versus other. Epigastric pain and tenderness Altered mental status most likely metabolic and/or toxic encephalopathy. Ruled out intracranial lesion Hypertension, uncontrolled with urgency on admission, with contributing risk factors including pain and previous use of NSAIDs Hypokalemia generalized weakness secondary to above History of Fall at home with right-sided pain including right shoulder and right knee, this has been evaluated as an outpatient Diabetes mellitus Hyperlipidemia History of osteoarthritis back pain,s/p back surgery Plan: Consult neurology service for confusion and infectious disease team to help with leukocytosis Repeat chest x-ray is unremarkable. Repeat urine analysis was requested. We will order ultrasound of the liver Replace potassium and magnesium per protocol with close monitoring Continue gentle hydration with normal saline Discontinue Benadryl We recommend to hold all medications at increased risk of fall with elderly patient like [place], Xanax and Benadryl (or limit their use as pt with on chronic pain), discussed with staff patient.. Benadryl and Xanax were discontinued. Gabapentin when necessary was discontinued. We will lower [place] 7.5 mg down to 5 mg every 8 hours when necessary. we will add Seroquel when necessary Labs and medication were reviewed.. Continue same treatment. Continue with symptomatic treatment. Resume home medication. Monitor lytes and vitals. DVT and GI prophylaxis. Further recommendations depends on the clinical course of the patient DVT prophylaxis: Subcutaneous heparin GI Prophylaxis: Pepcid PT/OT: Pending Prognosis is guarded
[2022-11-05] MEDS ORDERED: QUEtiapine 25 MG TAB PO PRN (13:40)
--- NOTE | 2022-11-05 13:53 | US ---
EXAMINATION TYPE: US liver DATE OF EXAM: 11/05/2022 COMPARISON: NONE CLINICAL INDICATION: Female, 87 years old with history of epigastric pain; Epigastric pain TECHNIQUE: Multiple sonographic images of the right upper quadrant are obtained. FINDINGS: EXAM MEASUREMENTS: Liver Length: 14.1 cm Gallbladder Wall: 0.3 cm CBD: 0.5 cm Right Kidney: 11.4 x 5.0 x 4.7 cm MENTAL HEALTH DIRECTOR NOTES:Technical limitations due to large amount of overlying bowel gas Pancreas: Obscured by bowel gas Liver: cystic area left lobe = 2.9 x 2.9 x 3.2cm Gallbladder: no evidence of stones Evidence for sonographic Jang's sign: no CBD: limited evaluation Right Kidney: no evidence of hydronephrosis IMPRESSION: Simple hepatic cyst.
--- NOTE | 2022-11-05 14:04 | P.CN ---
Psychiatric Consult - . Consult date: 11/05/22 Consult:: 11/05/22 13:42 IDENTIFYING DATA: This patient is a 87-year-old, female, currently lives with her , in a condo, has 2 kids. REASON FOR REFERRAL: Psychiatry was consulted for management with behavioral disturbances HISTORY OF PRESENT ILLNESS: The patient presented to the hospital several days ago with a complaint of abdominal pain, nausea and vomiting for about a week. Patient fell in her home back in July of this year and broke her hip. Patient was seen by orthopedics Leal is not a candidate for orthopedic surgery. Patient was placed on opiates for pain management. Patient has been somewhat confusing the hospital at times according to notes, she had an MRI completed recently of her brain that showed atrophy and chronic periventricular ischemic white matter changes and also no acute changes. Patient's nurse states that patient was having some confusion however is fairly pleasant and also was describing some kind of visual illusions in her room. Patient was seen lying on her bed today and was pleasant and agreed to seek the junior underwriter. She was fairly directable during conversation, had fair attention span. She correctly said her name a date of however does not know the current location and does not know the date. Her memory was poor with recall after 5 minutes. She claims that she is feeling "weird and sluggish" and states that she does have a history of mild depression and anxiety. Claims that her sleep has been on and off and also appetite has been fairly poor. She did not offer any other complaints. At this time patient denies any suicidal or homical ideations, intent or plan. Patient denies any auditory, visual hallucinations and denies any paranoia or delusions. Patients admits to using no recreational drugs or cigarettes. PAST PSYCHIATRIC HISTORY: Patient has a a history of depression and anxiety, currently taking Cymbalta 30 mg daily for mood and anxiety, melatonin and Seroquel when necessary. She was taking Remeron at home however not in the hospital. Patient denies any previous psychiatric hospitalizations. Patient denies any psychiatric outpatient follow-up. Patient denies any history of suicide attempts in the past. PAST MEDICAL HISTORY: As per internal medicine note. ALLERGIES: as per EMR. CHEMICAL DEPENDENCY HISTORY: as per HPI. FAMILY PSYCHIATRIC/SUBSTANCE USE HISTORY: denies SOCIAL HISTORY: Patient was born and raised in [facility]. Claims that she completed high school and some college. States that she is currently has 2 kids, they live in a condo. 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 Denies any legal history. MENTAL STATUS EXAM: General Appearance: Patient appears to be thin, short hair, wearing glasses, stated age is alert, pleasant, and cooperative. Patient appears to have fair hygiene and grooming wearing hospital gown with fair eye contact. Behavior: Patient is calmly lying in bed without any agitated behavior. Attempts to cooperate. Fairly directable. Speech: Patient's speech is fluent and nonpressured. Mood/Affect: Patient reports their mood is "sluggish", affect is congruent Suicidality/Homicidality: Patient denies having any suicidal or homicidal ideation intent or plan. Perceptions: Patient denies any visual hallucinations and denies any auditory hallucinations Though content/process: There is no evidence of any delusional thought content and thought process is linear and goal-directed. Rambles at times. Memory and concentration: AOX1, does not know her location or date. Can list the days of the week backwards. 0 out of 3 recall after 5 minutes. Judgment and insight: Chronically limited IMPRESSIONS: Delirium, unknown etiology Major Neurocognitive disorder hx of depression and anxiety PLAN: -At this time patient DOES NOT meet criteria for inpatient psychiatric admission. -Delirium precautions recommended with patient including - avoiding use of narcotics and NETWORK INTELLIGENCE ANALYST sedatives, limit anticholinergic medications when possible, frequent re-orientation, minimize use of restraints, open window shades during the day and close them at night -Would recommend the following medication changes/additions: Please try and avoid steroids, opiates and benzodiazepines along with any anticholinergics as these will precipitate her delirium. Continue with melatonin 10 mg daily at bedtime for sleep, added Seroquel 12.5 mg daily at bedtime scheduled for insomnia/delirium/psychosis, + 25 mg twice a day when necessary for psychosis or agitation. Continue with Cymbalta 30 mg daily for mood/30. -Communicated plan to patient's nurse -Will follow loosely along and will re-see patient if needed/requested. -continue with planning for [facility] discharge planning. -Please contact with any questions. 11/05/22 13:57
[2022-11-05 14:46] LABS: Appearance,Urine Cloudy (Clear); Bacteria,Urine Few /hpf; Bilirubin,Urine Negative (Negative); Blood,Urine Negative (Negative); Color,Urine Yellow; Glucose,Urine (UA) Negative (Negative); Ketones,Urine 2+ (Negative); Leukocyte Esterase,Urine Large (Negative); Mucus,Urine Rare /hpf; Nitrite,Urine Negative (Negative); Protein,Urine Trace (Negative); RBC,Urine 3 /hpf (0-5); Specific Gravity,Urine 1.012 (1.001-1.035); Urobilinogen,Urine <2.0 mg/dL (<2.0); WBC,Urine >182 /hpf (0-5)
[2022-11-05 16:20] LABS: Glucose,Whole Blood 139 mg/dL (70-110)
[2022-11-05 20:13] LABS: Glucose,Whole Blood 77 mg/dL (70-110)
--- NOTE | 2022-11-05 21:01 | P.CONS ---
History of Present Illness - Reason for Consult Consult date: 11/05/22 Leukocytosis Requesting physician: Dat E Sheet - Chief Complaint Weakness and mental status changes x few days - History of Present Illness Patient is a 87-year-old female with a past medical history significant for diabetes mellitus hypertension hyperlipidemia skin cancer presenting to the hospital more than a week ago with initial presentation for abdominal pain nausea vomiting and diarrhea symptoms going on for about a week before the patient presented to hospital patient on presentation to the hospital was afebrile and the patient did not have any fever during this hospital stay patient was not hypotensive, however did have a mild hypoxemia requiring supplemental oxygen patient did have a white count of 13.5 white count did come down to 10.9 on 10/30/2022 however the white count has been slowly creeping up up to 15.3 yesterday patient did have a normal creatinine normal liver enzymes troponin was slightly elevated did have a normal procalcitonin x2 did have a normal UA on admission however the patient did have a UA obtained this afternoon which was cloudy large leukocyte esterase more than 12 WBC patient did have a blood culture on the patient that has been negative stool culture were negative abdominal pelvis CT on admission no acute intra-abdominal or intrapelvic pelvic process simple appearing right ovarian cyst last chest x-ray was this morning obvious acute pulmonary disease patient Currently denies having any headache or URI symptoms no chest pain shortness of breath occasional cough no nausea no vomiting no further diarrhea did have some vague urinary symptoms however denies having any Ventura catheter placement during this hospital stay Review of Systems Positive point and negatives has been mentioned in the HPI, complete review of systems was performed and all other systems are negative Past Medical History Past Medical History: Asthma, Cancer, Diabetes Mellitus, Hyperlipidemia, Hypertension Additional Past Medical History / Comment(s): numbness 2nd,3rd,4th digits rt hand, back pain,skin CA History of Any Multi-Drug Resistant Organisms: None Reported Past Surgical History: Back Surgery, Hysterectomy, Joint Replacement, Orthopedic Surgery, Tonsillectomy Additional Past Surgical History / Comment(s): back x2,lumbar fusion, left knee replacement,ana hips, carpal tunnel surgery Right. Pain clinic procedure Past Anesthesia/Blood Transfusion Reactions: No Reported Reaction Additional Past Anesthesia/Blood Transfusion Reaction / Comm: no hx blood transfusion Past Psychological History: No Psychological Hx Reported, Depression Smoking Status: Former smoker Past Alcohol Use History: None Reported Past Drug Use History: None Reported - Past Family History Mother Family Medical History: No Reported History Medications and Allergies Home Medications Medication Instructions Recorded Confirmed Type Pravastatin Sodium [Pravachol] 40 mg PO DAILY 10/27/14 10/28/22 History Azelastine HCl [Astepro] 2 spray EA NOSTRIL BID PRN 04/02/20 10/28/22 History Celecoxib [CeleBREX] 200 mg PO BID 04/02/20 10/28/22 History Montelukast Sodium [Singulair] 10 mg PO HS 04/02/20 10/28/22 History Budesonide/Formoterol Fumarate 2 puff INHALATION RT-BID 08/02/20 10/28/22 History [Symbicort 160-4.5 Mcg Inhaler] Diltiazem Cd [Cardizem CD] 180 mg PO DAILY 08/02/20 10/28/22 History Dapagliflozin Propanediol [Farxiga] 10 mg PO DAILY 09/02/22 10/28/22 History Multivitamins, Thera [Multivitamin 1 tab PO DAILY 09/02/22 10/28/22 History (formulary)] Omeprazole 40 mg PO DAILY 09/02/22 10/28/22 History SUMAtriptan succinate [Imitrex] 25 mg PO BID PRN 09/02/22 10/28/22 History Calcium Carbonate [Calcium] 600 mg PO DAILY 10/26/22 10/28/22 History Cholecalciferol [Vitamin D3 (25 25 mcg PO DAILY 10/26/22 10/28/22 History Mcg = 1000 Iu)] Calcium Carbonate/Vitamin D3 1 cap PO DAILY 10/28/22 10/28/22 History [Calcium 600 mg-D3 10 Mcg (400 Iu)] Cyanocobalamin (Vitamin B-12) 1,000 mcg PO DAILY 10/28/22 10/28/22 History [Vitamin B-12] DULoxetine HCL [Cymbalta] 30 mg PO DAILY 10/28/22 10/28/22 History Ibuprofen [Motrin] 600 mg PO BID PRN 10/28/22 10/28/22 History Melatonin 10 mg PO HS 10/28/22 10/28/22 History Potassium Gluconate 595mg Tab 595 mg PO DAILY 10/28/22 10/28/22 History Ciprofloxacin HCl [Cipro] 500 mg PO Q12HR 5 Days #10 tab 11/10/22 Rx Lidocaine 5% Patch [Lidoderm 5% 1 patch TOPICAL DAILY #15 patch 11/10/22 Rx Patch] Losartan [Cozaar] 25 mg PO DAILY #30 tab 11/10/22 Rx Megestrol [Megace] 400 mg PO DAILY #14 ml 11/10/22 Rx Metoprolol Tartrate [Lopressor] 100 mg PO BID #30 tab 11/10/22 Rx QUEtiapine [SEROquel] 12.5 mg PO HS #15 tab 11/10/22 Rx Spironolactone [Aldactone] 25 mg PO DAILY #30 tab 11/10/22 Rx amLODIPine [Norvasc] 10 mg PO DAILY #30 tab 11/10/22 Rx Allergies Allergy/AdvReac Type Severity Reaction Status Date / Time amoxicillin trihydrate Allergy Unknown Verified 10/28/22 16:39 [From Augmentin] cephalexin monohydrate Allergy Unknown Verified 10/28/22 16:39 [From Keflex] dicyclomine Allergy disoriented Verified 10/28/22 16:39 for 4 days hydromorphone HCl Allergy Extremely Verified 10/28/22 16:39 [From Dilaudid] Confusion for 8 days nitrofurantoin Allergy Unknown Verified 10/28/22 16:39 macrocrystalline [From Macrodantin] potassium clavulanate Allergy Unknown Verified 10/28/22 16:39 [From Augmentin] zolpidem [From Ambien] AdvReac Unknown sleep Verified 10/28/22 16:39 walks, confused Physical Exam Vitals: Vital Signs Temp Pulse Resp BP BP Pulse Ox 11/05/22 08:02 96.7 F L 84 16 159/74 95 11/05/22 01:46 79 16 11/05/22 01:32 94 L 11/05/22 00:00 79 16 149/73 94 L 11/04/22 20:00 94 18 174/88 94 L 11/04/22 15:00 98 F 81 16 138/68 94 L 11/04/22 12:00 98.1 F 85 18 157/85 95 Intake and Output 11/04/22 11/05/22 11/05/22 22:59 06:59 14:59 Intake Total 100 Output Total 0 700 500 Balance 0 -600 -500 Intake: Oral 100 Output: Urine 700 500 Stool 0 0 Other: Voiding Method Indwelling Catheter Indwelling Catheter Indwelling Catheter GENERAL DESCRIPTION: Elderly female lying in bed, no distress. No tachypnea or accessory muscle of respiration use. HEENT: Shows Pallor , no scleral icterus. Oral mucous membrane is dry. NECK: Trachea central, no thyromegaly. LUNGS: Unlabored breathing. Decreased pulses in the base HEART: S1, S2, regular rate and rhythm. No loud murmur ABDOMEN: Soft, no tenderness , EXTREMITIES: No edema of feet. SKIN: No rash, no masses palpable. NEUROLOGICAL: The patient is lethargic but arousable, mood and affect normal. Results CBC & Chem 7: 11/08/22 07:48 11/10/22 07:30 Labs: Abnormal Lab Results - Last 24 Hours (Table) 11/05/22 11/05/22 Range/Units 07:04 07:04 WBC 14.2 H (3.8-10.6) k/uL Hgb 16.1 H (11.4-16.0) gm/dL Hct 47.3 H (34.0-46.0) % Potassium 2.9 L (3.5-5.1) mmol/L Carbon Dioxide 21 L (22-30) mmol/L Creatinine 0.38 L (0.52-1.04) mg/dL C-Reactive Protein 2.5 H (<1.0) mg/dL Microbiology - Last 24 Hours (Table) 11/01/22 13:51 Stool Culture - Final Stool Assessment and Plan (1) Allergy to multiple antibiotics Status: Acute Code(s): Z88.1 - ALLERGY STATUS TO OTHER ANTIBIOTIC AGENTS SNOMED Code(s): 189040980 (2) Leukocytosis Status: Acute Code(s): D72.829 - ELEVATED WHITE BLOOD CELL COUNT, UNSPECIFIED SNOMED Code(s): 373361777 (3) UTI (urinary tract infection) Status: Acute Code(s): N39.0 - URINARY TRACT INFECTION, SITE NOT SPECIFIED SNOMED Code(s): 42070944 Plan: 1patient with leukocytosis which is likely multifactorial in this patient initially presented with GI symptoms and did have a negative UA chest x-ray has been negative CT abdominal pelvis was negative for acute process now with evidence of significantly positive UA likely symptomatic UTI from enteric gram- negative pathogen 2-patient with multiple antibiotic allergies that would limit the number of antibiotics safe to use 3-we will add Azactam 2 g every 8 hours for possible gram-negative UTI. Patient does have allergy reports to penicillin and cephalosporin. We will follow on clinical condition and cultures to further adjust medication if needed Thank you for this consultation we will follow the patient along with you Dictation was produced using iLive dictation software. please excuse any grammatical, word or spelling errors. Time with Patient: Greater than 30
[2022-11-05] MEDS: QUEtiapine 25 MG TAB PO SCH (21:08)
[2022-11-05] MEDS: MONTELUKAST 10 MG TAB PO SCH (21:08)
[2022-11-05] MEDS: MELATONIN 5 MG TABLET PO SCH (21:08)
--- NOTE | 2022-11-05 23:20 | P.CNNES ---
History of Present Illness Consult date: 11/05/22 Requesting physician: Dat E Sheet Reason for Consult: Confusion History of Present Illness: Patient is a 87-year-old right-handed female who came to the hospital by ambulance on 10/28/2022 for altered mental status. As per EMS flow sheet, when they arrived, patient was found sitting at the edge of the bed appearing to be alert and oriented 2-3, pink and clammy to the touch. Patient was noted to be continuously going from sitting to a laying position stating she is having right hip pain. patient was able to answer some open ended questions appropriately however could not answer timeline of events with confusion. Per patient's on the scene, patient fell onto her chin on 08/11/2022 while developing right lower leg pain, right hip pain and right shoulder pain for 2 weeks after the incident in July. Per , patient has been feeling ill for one to 2 weeks with nausea, vomiting and diarrhea. Per patient's on seen, patient has history of dementia but has been having increased confusion since December 2021. patient has been taking ibuprofen 600 mg and hydrocodone as prescribed for pain management but has not taken on the day of admission. Patient denied any chest pain. patient's vitals shows blood pressure 186/83, pulse rate 105, respiration 30, saturation 93%, blood glucose 108. Patient's blood tests showed WBC 13.3, hemoglobin 17.1, platelets 289. Sodium is normal, potassium 2.8, normal renal functions. Hepatic panel with borderline AST 41, normal ALT. Troponins are mildly elevated. UA is negative. Patient had a repeat UA, which revealed large amount of leukocyte Estrace, more than 182 WBCs, moderate WBC clumps and few bacteria. Urine cultures has not been done. Computed tomography scan of the head on admission showed no acute intracranial process. Nonspecific but but it changes, likely secondary to chronic small vessel ischemic disease. Chest x-ray revealed low lung volumes with a generalized hazy appearance which could represent atelectasis versus pulmonary edema correlate with sit and BNP. CT of abdomen and pelvis revealed no acute process. Simple appearing right ovarian cyst however consider ultrasound correlation as outpatient. 2-D echo revealed normal left-ventricular systolic function. Aortic sclerosis with mild aortic insufficiency. Normal left atrial size. CT of the cervical spine showed no acute osseous abnormality. Minimal grade 1 anterior spondylolisthesis at C3 4, C4 5 and C5 6. Uncovertebral joint hypertrophy continued into foraminal stenosis. Patient had a brain MRI which revealed atrophy with chronic appearing periventricular white matter ischemic changes. No acute intracranial process. Liver ultrasound revealed simple hepatic cyst. patient at present concurs that she suffered from a fall on 08/11/2022 [place], missed a step and fell, hitting her head, producing a big bruise over the neck down. She did not break any bones. Patient believes the confusion started about 2 weeks after the fall. Patient believes that before the falls she was perfectly fine. Patient states her "mind gets goofy". Patient states she lives alone day and thinks has lived 3 days. She wakes up and does not know the time of the day is morning or evening. Sometimes she does not know where she is located. As the weeks past by, she became more desperate like things are not going to get better. Patient denies any other falls besides the one mentioned above. She does not feel that she is a big fall risk. Patient states that she lives with her , who is 88 years old. She does not use any assistive device for walking, as it "throws her gait off". Patient denies any headache. Patient says that she smoked 2 packs per day for 10 years, quit H 33. She drinks alcohol only socially. She has 2 sons. The younger son lives close by. Review of Systems Constitutional: Reports weight loss, Denies chills, Denies fever Eyes: denies blurred vision, denies diplopia, denies pain Ears: left: decreased hearing, deny: earache Ears, nose, mouth and throat: Denies headache, Denies sore throat Cardiovascular: Reports lightheadedness (When gets up), Reports shortness of breath, Denies chest pain Respiratory: Denies cough, Denies excessive sputum Gastrointestinal: Denies abdominal pain, Denies diarrhea, Denies nausea, Denies vomiting Genitourinary: Denies dysuria, Denies hematuria, Denies urge incontinence, Denies urgency, Denies urinary frequency Musculoskeletal: Denies low back pain, Denies myalgias, Denies neck pain Integumentary: Denies pruritus, Denies rash Neurological: Reports as per HPI, Denies aphasia, Denies change in speech, Denies headaches, Denies paralysis, Denies paresthesias, Denies tingling, Denies vertigo, Denies weakness Psychiatric: Reports depression, Denies anxiety Endocrine: Reports fatigue, Reports weight change Past Medical History Past Medical History: Asthma, Cancer, Diabetes Mellitus, Hyperlipidemia, Hypertension Additional Past Medical History / Comment(s): numbness 2nd,3rd,4th digits rt hand, back pain,skin CA History of Any Multi-Drug Resistant Organisms: None Reported Past Surgical History: Back Surgery, Hysterectomy, Joint Replacement, Orthopedic Surgery, Tonsillectomy Additional Past Surgical History / Comment(s): back x2,lumbar fusion, left knee replacement,ana hips, carpal tunnel surgery Right. Pain clinic procedure Past Anesthesia/Blood Transfusion Reactions: No Reported Reaction Additional Past Anesthesia/Blood Transfusion Reaction / Comment(s): no hx blood transfusion Past Psychological History: No Psychological Hx Reported, Depression Smoking Status: Former smoker Past Alcohol Use History: None Reported Past Drug Use History: None Reported - Past Family History Mother Family Medical History: No Reported History Medications and Allergies Home Medications Medication Instructions Recorded Confirmed Type Pravastatin Sodium [Pravachol] 40 mg PO DAILY 10/27/14 10/28/22 History ALPRAZolam [Xanax] 0.5 mg PO BID PRN 04/02/20 10/28/22 History Azelastine HCl [Astepro] 2 spray EA NOSTRIL BID PRN 04/02/20 10/28/22 History Celecoxib [CeleBREX] 200 mg PO BID 04/02/20 10/28/22 History Gabapentin 300 mg PO BID PRN 04/02/20 10/28/22 History Metoprolol Tartrate [Lopressor] 50 mg PO BID 04/02/20 10/28/22 History Mirtazapine [Remeron] 15 mg PO HS 04/02/20 10/28/22 History Montelukast Sodium [Singulair] 10 mg PO HS 04/02/20 10/28/22 History Budesonide/Formoterol Fumarate 2 puff INHALATION RT-BID 08/02/20 10/28/22 History [Symbicort 160-4.5 Mcg Inhaler] Diltiazem Cd [Cardizem Cd] 180 mg PO DAILY 08/02/20 10/28/22 History Dapagliflozin Propanediol [Farxiga] 10 mg PO DAILY 09/02/22 10/28/22 History Multivitamins, Thera [Multivitamin 1 tab PO DAILY 09/02/22 10/28/22 History (formulary)] Omeprazole 40 mg PO DAILY 09/02/22 10/28/22 History SUMAtriptan succinate [Imitrex] 25 mg PO BID PRN 09/02/22 10/28/22 History Calcium Carbonate [Calcium] 600 mg PO DAILY 10/26/22 10/28/22 History Cholecalciferol [Vitamin D3 (25 25 mcg PO DAILY 10/26/22 10/28/22 History Mcg = 1000 Iu)] HYDROcodone/APAP 7.5-325MG [[place] 1 tab PO Q8H PRN 10/26/22 10/28/22 History 7.5-325] Calcium Carbonate/Vitamin D3 1 cap PO DAILY 10/28/22 10/28/22 History [Calcium 600 mg-D3 10 Mcg (400 Iu)] Cyanocobalamin (Vitamin B-12) 1,000 mcg PO DAILY 10/28/22 10/28/22 History [Vitamin B-12] DULoxetine HCL [Cymbalta] 30 mg PO DAILY 10/28/22 10/28/22 History Ibuprofen [Motrin] 600 mg PO BID PRN 10/28/22 10/28/22 History Melatonin 10 mg PO HS 10/28/22 10/28/22 History Potassium Gluconate 595mg Tab 595 mg PO DAILY 10/28/22 10/28/22 History diphenhydrAMINE [Benadryl] 25 mg PO DAILY 10/28/22 10/28/22 History traMADol HCl [Ultram] 50 mg PO Q8H PRN 10/28/22 10/28/22 History Allergies Allergy/AdvReac Type Severity Reaction Status Date / Time amoxicillin trihydrate Allergy Unknown Verified 10/28/22 16:39 [From Augmentin] cephalexin monohydrate Allergy Unknown Verified 10/28/22 16:39 [From Keflex] dicyclomine Allergy disoriented Verified 10/28/22 16:39 for 4 days hydromorphone HCl Allergy Extremely Verified 10/28/22 16:39 [From Dilaudid] Confusion for 8 days nitrofurantoin Allergy Unknown Verified 10/28/22 16:39 macrocrystalline [From Macrodantin] potassium clavulanate Allergy Unknown Verified 10/28/22 16:39 [From Augmentin] zolpidem [From Ambien] AdvReac Unknown sleep Verified 10/28/22 16:39 walks, confused Physical Examination - Vital Signs Vital Signs: Vital Signs Temp Pulse Resp BP BP Pulse Ox 11/05/22 15:00 97.1 F L 71 16 136/66 95 11/05/22 08:02 96.7 F L 84 16 159/74 95 11/05/22 01:46 79 16 11/05/22 01:32 94 L 11/05/22 00:00 79 16 149/73 94 L Intake and Output 11/05/22 11/05/22 11/05/22 06:59 14:59 22:59 Intake Total 100 Output Total 700 600 Balance -600 -600 Intake: Oral 100 Output: Urine 700 600 Stool 0 Other: Voiding Method Indwelling Catheter Indwelling Catheter Patient is an elderly female, in no acute distress. She appears slightly shaky. Patient is alert awake. Patient knows it is last october which she believes the year is 1924. She then sat 2025 and then 2022. She knows that she is in [facility] in the hospital. Could not tell the name. She knows name of the current president Mr. Campbell. Speech and language functions are normal. Patient can name and repeat very well. No aphasia or dysarthria. Attention, concentration intact and fund of knowledge is adequate. Detailed cognitive function [place] deferred. She does not have visuospatial apraxia. She does have very mild positive palmomental reflex bilaterally. On cranial nerve examination, pupils are equal, round and reacting to light, visual sharp are full on confrontation, with no neglect on double simultaneous stimulation. Extraocular muscles are intact with no nystagmus. Face is symmet margarito, tongue protrudes to the midline. Palatal elevation and sensation normal, hearing and shoulder shrug normal, facial sensation normal. On muscle strength testing, there is no pronator drift and the strength is normal in arms and legs distally and proximally, except deltoids which are very weak about 3+4 bilaterally from shoulder issues.. Deep tendon reflexes are symmetric 2 at the biceps, 2 brachioradialis, 0 at the knees, plantars downgoing bilaterally. Sensory to touch is equal with no neglect on double simultaneous stimulation. Cerebellar function showed no ataxia for [id number] testing, although she was slightly shaky. She could not do it appropriately because of limited s houlder range of motion. No dysdiadochokinesia. No ataxia for [id number] testing on either side. Tone and bulk of muscles normal. Gait deferred.. On general examination, there is no carotid bruit or murmur, S1-S2 audible. Chest is clear on consultation. Abdomen is soft nontender. No organomegaly, bowel sounds present. Peripheral pulses are present. No edema. Results - Laboratory Findings CBC and BMP: 11/05/22 07:04 11/05/22 12:59 Abnormal Lab Findings: Abnormal Labs 10/28/22 10/28/22 10/28/22 10:40 10:40 14:08 WBC 13.3 H Hgb 17.1 H Hct 49.8 H Neutrophils # 8.9 H Neutrophils # (Manual) Potassium 2.8 L Chloride Carbon Dioxide 20 L BUN Creatinine Glucose 100 H POC Glucose (mg/dL) Hemoglobin A1c Magnesium AST 41 H Troponin I C-Reactive Protein Urine Appearance Urine Protein 1+ H Urine Glucose (UA) 4+ H Urine Ketones 3+ H Ur Leukocyte Esterase Urine WBC Urine WBC Clumps Urine Bacteria Urine Mucus Rare H 10/28/22 10/28/22 10/29/22 18:08 20:53 07:40 WBC 11.5 H Hgb Hct Neutrophils # Neutrophils # (Manual) 8.51 H Potassium Chloride Carbon Dioxide BUN Creatinine Glucose POC Glucose (mg/dL) Hemoglobin A1c Magnesium AST Troponin I 0.055 H* 0.062 H* C-Reactive Protein Urine Appearance Urine Protein Urine Glucose (UA) Urine Ketones Ur Leukocyte Esterase Urine WBC Urine WBC Clumps Urine Bacteria Urine Mucus 10/29/22 10/29/22 10/29/22 07:40 07:40 14:23 WBC Hgb Hct Neutrophils # Neutrophils # (Manual) Potassium 2.7 L* 3.1 L Chloride Carbon Dioxide BUN 19 H Creatinine Glucose 118 H POC Glucose (mg/dL) Hemoglobin A1c 6.1 H Magnesium 2.5 H AST Troponin I C-Reactive Protein Urine Appearance Urine Protein Urine Glucose (UA) Urine Ketones Ur Leukocyte Esterase Urine WBC Urine WBC Clumps Urine Bacteria Urine Mucus 10/30/22 10/30/22 10/30/22 09:36 09:36 16:42 WBC 10.9 H Hgb Hct 46.9 H Neutrophils # 7.9 H Neutrophils # (Manual) Potassium 2.8 L Chloride 108 H Carbon Dioxide BUN Creatinine 0.43 L Glucose 107 H POC Glucose (mg/dL) 122 H Hemoglobin A1c Magnesium AST Troponin I C-Reactive Protein Urine Appearance Urine Protein Urine Glucose (UA) Urine Ketones Ur Leukocyte Esterase Urine WBC Urine WBC Clumps Urine Bacteria Urine Mucus 10/31/22 10/31/22 10/31/22 11:03 11:03 17:04 WBC 12.2 H Hgb Hct 46.4 H Neutrophils # Neutrophils # (Manual) Potassium 2.6 L* Chloride Carbon Dioxide BUN Creatinine 0.41 L Glucose 138 H POC Glucose (mg/dL) 123 H Hemoglobin A1c Magnesium AST Troponin I C-Reactive Protein Urine Appearance Urine Protein Urine Glucose (UA) Urine Ketones Ur Leukocyte Esterase Urine WBC Urine WBC Clumps Urine Bacteria Urine Mucus 10/31/22 11/01/22 11/01/22 20:16 10:40 10:40 WBC 12.6 H Hgb Hct 46.5 H Neutrophils # Neutrophils # (Manual) Potassium 3.2 L Chloride Carbon Dioxide BUN Creatinine 0.38 L Glucose 135 H POC Glucose (mg/dL) 129 H Hemoglobin A1c Magnesium AST Troponin I C-Reactive Protein Urine Appearance Urine Protein Urine Glucose (UA) Urine Ketones Ur Leukocyte Esterase Urine WBC Urine WBC Clumps Urine Bacteria Urine Mucus 11/01/22 11/01/22 11/02/22 11:30 20:24 06:07 WBC Hgb Hct Neutrophils # Neutrophils # (Manual) Potassium Chloride Carbon Dioxide BUN Creatinine Glucose POC Glucose (mg/dL) 116 H 158 H 119 H Hemoglobin A1c Magnesium AST Troponin I C-Reactive Protein Urine Appearance Urine Protein Urine Glucose (UA) Urine Ketones Ur Leukocyte Esterase Urine WBC Urine WBC Clumps Urine Bacteria Urine Mucus 11/02/22 11/02/22 11/02/22 09:26 09:26 16:41 WBC 13.3 H Hgb 16.5 H Hct 48.2 H Neutrophils # Neutrophils # (Manual) Potassium 3.1 L Chloride Carbon Dioxide BUN Creatinine 0.38 L Glucose 112 H POC Glucose (mg/dL) 121 H Hemoglobin A1c Magnesium AST Troponin I C-Reactive Protein Urine Appearance Urine Protein Urine Glucose (UA) Urine Ketones Ur Leukocyte Esterase Urine WBC Urine WBC Clumps Urine Bacteria Urine Mucus 11/03/22 11/03/22 11/03/22 06:20 07:40 07:40 WBC 15.0 H Hgb 16.3 H Hct 47.8 H Neutrophils # Neutrophils # (Manual) Potassium 2.9 L Chloride Carbon Dioxide BUN Creatinine 0.38 L Glucose 118 H POC Glucose (mg/dL) 118 H Hemoglobin A1c Magnesium AST Troponin I C-Reactive Protein 1.6 H Urine Appearance Urine Protein Urine Glucose (UA) Urine Ketones Ur Leukocyte Esterase Urine WBC Urine WBC Clumps Urine Bacteria Urine Mucus 11/03/22 11/03/22 11/04/22 11:58 16:41 07:41 WBC 15.3 H Hgb 16.4 H Hct 47.9 H Neutrophils # Neutrophils # (Manual) Potassium Chloride Carbon Dioxide BUN Creatinine Glucose POC Glucose (mg/dL) 136 H 118 H Hemoglobin A1c Magnesium AST Troponin I C-Reactive Protein Urine Appearance Urine Protein Urine Glucose (UA) Urine Ketones Ur Leukocyte Esterase Urine WBC Urine WBC Clumps Urine Bacteria Urine Mucus 11/04/22 11/05/22 11/05/22 07:41 07:04 07:04 WBC 14.2 H Hgb 16.1 H Hct 47.3 H Neutrophils # Neutrophils # (Manual) Potassium 3.3 L 2.9 L Chloride Carbon Dioxide 21 L BUN Creatinine 0.42 L 0.38 L Glucose POC Glucose (mg/dL) Hemoglobin A1c Magnesium AST Troponin I C-Reactive Protein 2.5 H Urine Appearance Urine Protein Urine Glucose (UA) Urine Ketones Ur Leukocyte Esterase Urine WBC Urine WBC Clumps Urine Bacteria Urine Mucus 11/05/22 11/05/22 13:40 16:16 WBC Hgb Hct Neutrophils # Neutrophils # (Manual) Potassium Chloride Carbon Dioxide BUN Creatinine Glucose POC Glucose (mg/dL) 139 H Hemoglobin A1c Magnesium AST Troponin I C-Reactive Protein Urine Appearance Cloudy H Urine Protein Trace H Urine Glucose (UA) Urine Ketones 2+ H Ur Leukocyte Esterase Large H Urine WBC >182 H Urine WBC Clumps Moderate H Urine Bacteria Few H Urine Mucus Rare H Assessment and Plan Assessment: * Altered mental status, mild confusion, perhaps due to mild delirium. * Acute UTI * Rule out underlying cognitive impairment * Asthma * Diabetes * Hypertension * Hyperlipidemia Plan: * Treatment of possible UTI as per internal medicine. We will check urine cultures. * Check B12, folate, MMA and ammonia level. * Recommend patient follow up with neurologist as an outpatient to rule out underlying cognitive impairment, if confusion/altered mentation persists. * No other neurological workup indicated. Please call neurology if any other concerns. Thank you for the consult.
[2022-11-05] MEDS: AZTREONAM 2 GM in SODIUM CHLORIDE 0.9% 100 ML IVPB SCH (23:39)
[2022-11-06 06:06] LABS: Glucose,Whole Blood 88 mg/dL (70-110)
[2022-11-06] MEDS: AZTREONAM 2 GM in SODIUM CHLORIDE 0.9% 100 ML IVPB SCH ×4 (09:18→23:45)
[2022-11-06] MEDS: PANTOPRAZOLE 40 MG TABLET PO SCH (09:18)
[2022-11-06] MEDS: LIDOCAINE 5% PATCH TOPICAL SCH (09:23)
[2022-11-06] MEDS: MULTIVITAMINS, THERA 1 EACH TAB PO SCH (09:24)
[2022-11-06] MEDS: CALCIUM CARB-VIT D 500 MG-5 MCG TAB PO SCH (09:24)
[2022-11-06] MEDS: METOPROLOL TARTRATE 50 MG TAB PO SCH ×2 (09:24→20:31)
[2022-11-06] MEDS: CALCIUM CARBONATE 500 MG CHEWABLE PO SCH (09:24)
[2022-11-06] MEDS: LOSARTAN 25 MG TAB PO SCH (09:24)
[2022-11-06] MEDS: CHOLECALCIFEROL 25 MCG (1000 IU) TABLET PO SCH (09:24)
[2022-11-06] MEDS: POTASSIUM CHLORIDE ER 10 MEQ TAB.ER.PRT PO SCH (09:24)
[2022-11-06] MEDS: CYANOCOBALAMIN 500 MCG TAB PO SCH (09:24)
[2022-11-06] MEDS: PRAVASTATIN SODIUM 40 MG TAB PO SCH (09:24)
[2022-11-06] MEDS: SPIRONOLACTONE 25 MG TAB PO SCH (09:24)
[2022-11-06] MEDS: amLODIPine 10 MG TAB PO SCH (09:24)
[2022-11-06] MEDS: MEGESTROL 400 MG/10 ML CUP PO SCH (09:24)
[2022-11-06] MEDS: DULoxetine HCL 30 MG CAPSULE.DR PO SCH (09:24)
[2022-11-06] MEDS: DILTIAZEM CD 180 MG CAP.ER.24H PO SCH (09:24)
[2022-11-06] MEDS: SYMBICORT 160-4.5 MCG INHALER INHALATION SCH ×2 (10:26→21:10)
[2022-11-06 10:32] LABS: Basophils % (A) 0 %; Eosinophils # (A) 0.4 k/uL (0-0.7); Eosinophils % (A) 3 %; HCT 46.2 % (34.0-46.0); HGB 16.2 gm/dL (11.4-16.0); Lymphocytes # (A) 1.9 k/uL (1.0-4.8); Lymphocytes % (A) 13 %; MCHC 35.1 g/dL (31.0-37.0); MCV 96.9 fL (80.0-100.0); Mean Platelet Volume 9.1; Monocytes # (A) 1.2 k/uL (0-1.0); Monocytes % (A) 8 %; Neutrophils # (A) 11.2 k/uL (1.3-7.7); Neutrophils % (A) 74 %; Platelet Count 334 k/uL (150-450); RBC 4.76 m/uL (3.80-5.40); RDW 11.8 % (11.5-15.5); WBC 15.2 k/uL (3.8-10.6)
--- NOTE | 2022-11-06 11:06 | P.PN ---
Subjective This is a pleasant 87 years old female with past medical history of Asthma, Diabetes Mellitus, Hyperlipidemia, Hypertension, back pain,s/p back surgery Patient is confused and poor historian although she answers questions and follow commands. Information obtained from the at bedside. He states that the patient has low appetite dehydrated with diarrhea over the last 2-3 days. Normally her bowel movement is moderate size but over the last 3 days is becoming large size and more loose. Patient has some vomiting but little volume. Patient denies abdominal pain in her abdomen looks soft. She has history of fall last July and since then she is complaining of from right shoulder and right hip pain, she's been evaluated by her PCP Dr. New and had MRI of the right hip and then referred her to Dr. Rutherford's and [facility] x-ray and CAT scan and his been fully evaluated. Patient still have some mild pain in her right shoulder and right hip she's not in distress, but this would limit movement of both extremities. This problem has been going on now for about 4-6 weeks as per . Discontinue his been fully evaluated already. Patient herself looks very confused, she thinks she isn't Dr. office in [place], when asking about today states she said 2 days after her birthday and she could not tell the name of the president. She follows simple commands. She denies headache dizziness weakness or numbness in extremities. Right-sided examination is somewhat limited by right shoulder pain and right hip pain. No blurred vision, and no slurred speech or choking. She denies chest pain or coughing or dyspnea. No urinary complaints. Patient is afebrile, tachycardic and hypertensive with systolic blood pressure on admission was 170-190. Patient is in room air. Labs showing mild leukocytosis of 13.3, rest of CBC, BMP and liver enzymes were unremarkable except for mild hypokalemia at 2.8 Troponin first one was negative and second and third were elevated at 0.05 and 0.06. TSH 1.3 which is within the reference range Urinalysis showed glucose urea and ketonuria. EKG showing normal sinus rhythm at [address]-T changes CT of the abdomen and pelvis with contrast showing no acute intra-abdominal or intrapelvic process. Right ovarian cyst 10/30/2022 Patient admitted yesterday with signs symptoms of gastroenteritis-like picture with nausea vomiting and periumbilical mild abdominal pain and diarrhea. Tiffany ent still has poor appetite and not eating well. She still has diarrhea as per bedside nurse. However on examination she has mild periumbilical pain and tenderness, no guarding, no rebound tenderness. But also patient has been confused, she does not oriented to time place and person as she could not answer these questions. She follows commands and answer other questions appropriately most of the time, she still ABOUT Marshallese. When I talked to her he feel the same thing that she is confused and she is been gradually getting worse over the last few days. At baseline she is more alert and oriented to time place person and more active and do her own daily activities. Patient got Xanax [place] yesterday, we stopped this medication. Postop Ultram and place her on Toradol since CT of the brain is negative Also was concerned because of her neck pain, patient complains from some neck pain but no significant tenderness. 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 Patient with no pain or numbness in hr arms Because of persistent mild leukocytosis but improving and patient has negative procalcitonin. No fever. Therefore we will hold on antibiotics for now She continued on D5 normal saline at 50 mL/h, also Seroquel when necessary for agitation. Blood pressure is uncontrolled with urgency this morning 198/90+, yesterday with increase her metoprolol 100 mg and put her on Norvasc, today we added losartan and Aldactone by delivery engineer will follow closely. We also hold farxiga for dehydration which would contribute for her pressure. Prognosis remains guarded Discussed with staff I'm resume the care of the patient today on 11/05/2022 Patient today is awake and alert partially to place but oriented to time and person. She is partially disoriented to place, she does note that this is not her house but she cannot tell where she is at. As per at bedside yesterday was significantly worse throughout the day and she was more worse by the evening time and even she could not recognize her however this morning was significant improvement and as per this morning patient is close to her baseline but not at baseline yet. As per yesterday she's been experiencing some visual hallucination ask him about rest of the wall he does not see Patient is able to follow commands. She denies any headache or dizziness, no weakness or tingling or numbness in extremities. She's feels a little nausea but no vomiting. She has low appetite. she complains from epigastric pain about 6-7/10 in severity, nonradiating. She denies urinary complaints, no dysuria urgency. Patient says that she hasn't been walking she came to the hospital and she wants to try to work with physical therapist which is ordered On admission [place] and Xanax were discontinued. Today we discussed continue with Moon, MRI of the brain is negative for acute processes Objective - Vital Signs Vital signs: Vital Signs Temp 98.3 F 11/06/22 09:20 Pulse 82 11/06/22 09:20 Resp 18 11/06/22 09:20 BP 158/75 11/06/22 09:20 Pulse Ox 99 11/06/22 09:20 FiO2 Intake & Output 11/05/22 11/06/22 11/06/22 18:59 06:59 18:59 Intake Total 50 Output Total 600 1175 300 Balance -600 -1175 -250 Intake: Oral 50 Output: Urine 600 1175 300 Stool 0 Other: Voiding Method Indwelling Catheter Indwelling Catheter - Exam -GENERAL: The patient is alert and awake, she is oriented to time person and pa rtially to place X2 to 3, relaxed answers questions and follow command, not in any acute distress. Thin lady HEENT: Pupils are round and equally reacting to light. EOMI. No scleral icterus. No conjunctival pallor. Normocephalic, atraumatic. No pharyngeal erythema. No thyromegaly. CARDIOVASCULAR: S1 and S2 present. No murmurs, rubs, or gallops. PULMONARY: Chest is clear to auscultation, no wheezing , no crackles. -ABDOMEN: Soft, nontender, no guarding or rebound tenderness, nondistended, norm oactive bowel sounds. No palpable organomegaly. MUSCULOSKELETAL: No joint swelling or deformity. EXTREMITIES: No cyanosis, clubbing, or pedal edema. NEUROLOGICAL: Gross neurological examination did not reveal any focal deficits. SKIN: No rashes. no petechiae. - Labs CBC & Chem 7: 11/06/22 09:51 11/05/22 12:59 Labs: Abnormal Lab Results - Last 24 Hours (Table) 11/05/22 11/05/22 11/05/22 Range/Units 13:40 16:16 20:59 WBC (3.8-10.6) k/uL Hgb (11.4-16.0) gm/dL Hct (34.0-46.0) % Neutrophils # (1.3-7.7) k/uL Monocytes # (0-1.0) k/uL POC Glucose (mg/dL) 139 H (70-110) mg/dL Vitamin B12 >3600.0 H (200.0-944.0) pg/mL Urine Appearance Cloudy H (Clear) Urine Protein Trace H (Negative) Urine Ketones 2+ H (Negative) Ur Leukocyte Esterase Large H (Negative) Urine WBC >182 H (0-5) /hpf Urine WBC Clumps Moderate H (None) /hpf Urine Bacteria Few H (None) /hpf Urine Mucus Rare H (None) /hpf 11/06/22 Range/Units 09:51 WBC 15.2 H (3.8-10.6) k/uL Hgb 16.2 H (11.4-16.0) gm/dL Hct 46.2 H (34.0-46.0) % Neutrophils # 11.2 H (1.3-7.7) k/uL Monocytes # 1.2 H (0-1.0) k/uL POC Glucose (mg/dL) (70-110) mg/dL Vitamin B12 (200.0-944.0) pg/mL Urine Appearance (Clear) Urine Protein (Negative) Urine Ketones (Negative) Ur Leukocyte Esterase (Negative) Urine WBC (0-5) /hpf Urine WBC Clumps (None) /hpf Urine Bacteria (None) /hpf Urine Mucus (None) /hpf Microbiology - Last 24 Hours (Table) 11/01/22 13:51 Stool Culture - Final Stool Assessment and Plan Assessment: Nausea vomiting and diarrhea suspicious for acute gastroenteritis present on admission. This could be viral infection versus other. Epigastric pain and tenderness Altered mental status most likely metabolic and/or toxic encephalopathy. Ruled out intracranial lesion Hypertension, uncontrolled with urgency on admission, with contributing risk factors including pain and previous use of NSAIDs Hypokalemia generalized weakness secondary to above History of Fall at home with right-sided pain including right shoulder and right knee, this has been evaluated as an outpatient Diabetes mellitus Hyperlipidemia History of osteoarthritis back pain,s/p back surgery Plan: Consult neurology service for confusion and infectious disease team to help with leukocytosis Repeat chest x-ray is unremarkable. Repeat urine analysis was requested. We will order ultrasound of the liver Replace potassium and magnesium per protocol with close monitoring Continue gentle hydration with normal saline Discontinue Benadryl We recommend to hold all medications at increased risk of fall with elderly patient like [place], Xanax and Benadryl (or limit their use as pt with on chronic pain), discussed with staff patient.. Benadryl and Xanax were discontinued. G abapentin when necessary was discontinued. We will lower [place] 7.5 mg down to 5 mg every 8 hours when necessary. we will add Seroquel when necessary Labs and medication were reviewed.. Continue same treatment. Continue with symptomatic treatment. Resume home medication. Monitor lytes and vitals. DVT and GI prophylaxis. Further recommendations depends on the clinical course of the patient DVT prophylaxis: Subcutaneous heparin GI Prophylaxis: Pepcid PT/OT: Pending Prognosis is guarded
[2022-11-06 11:28] LABS: Glucose,Whole Blood 90 mg/dL (70-110)
[2022-11-06 13:26] LABS: ALT 30 U/L (4-34); AST 34 U/L (14-36); African American GFR (CKD) >90 (>60 ml/min/1.73 sqM); Albumin 3.5 g/dL (3.5-5.0); Alkaline Phosphatase 99 U/L (38-126); Anion Gap 9 mmol/L; Bilirubin, Delta 0.3 mg/dL (0.0-0.2); Bilirubin,Unconjugated 0.5 mg/dL (0.0-1.1); Blood Urea Nitrogen 7 mg/dL (7-17); Carbon Dioxide 24 mmol/L (22-30); Chloride 102 mmol/L (98-107); Glucose 82 mg/dL (74-99); Non-African American GFR(CKD) >90 (>60 ml/min/1.73 sqM); Sodium 135 mmol/L (137-145); Total Bilirubin 0.8 mg/dL (0.2-1.3); Total Protein 6.3 g/dL (6.3-8.2)
[2022-11-06] MEDS ORDERED: Potassium Replacement Protocol 1 EACH MISC MISCELLANE PRN (16:20)
[2022-11-06 16:42] LABS: Glucose,Whole Blood 96 mg/dL (70-110)
[2022-11-06] MEDS: POTASSIUM CHLORIDE ER 20 MEQ TAB.ER PO SCH ×3 (16:46→20:31)
[2022-11-06] MEDS: DEXTROSE 5%-0.9% NACL 1,000 ML IV SCH (20:00)
[2022-11-06 20:26] LABS: Glucose,Whole Blood 120 mg/dL (70-110)
[2022-11-06] MEDS: MELATONIN 5 MG TABLET PO SCH (20:31)
[2022-11-06] MEDS: QUEtiapine 25 MG TAB PO SCH (20:31)
[2022-11-06] MEDS: MONTELUKAST 10 MG TAB PO SCH (20:31)
[2022-11-06] MEDS: SODIUM CHLORIDE 0.9% 1,000 ML IV SCH ×2 (20:32→22:58)
--- NOTE | 2022-11-06 22:04 | P.PN ---
Subjective Progress Note Date: 11/06/22 Principal diagnosis: Leukocytosis/UTI ,Multiple antibiotics allergy Patient is a 87-year-old female with a past medical history significant for diabetes mellitus hypertension hyperlipidemia skin cancer with initial presentation for abdominal pain nausea vomiting and diarrhea symptoms going on for about a week before the patient presented to hospital, patient noticed to have elevated white count probably this infectious disease consultation. On today's evaluation that is 11/06/2022, the patient denies having any fever or any chills patient mention overall not feeling that good today however no other symptom that she could describe denies any chest pain shortness of breath or cough no abdominal pain or diarrhea did have a [place]ura catheter and currently on 4 L nasal cannula oxygen. Patient white Up to 15.2 today creatinine 0.36 urine showing gram-negative bacilli Objective - Vital Signs Vital signs: Vital Signs Temp 98.3 F 11/06/22 09:20 Pulse 82 11/06/22 09:20 Resp 18 11/06/22 09:20 BP 158/75 11/06/22 09:20 Pulse Ox 99 11/06/22 09:20 FiO2 Intake & Output 11/05/22 11/06/22 11/06/22 18:59 06:59 18:59 Intake Total 410 Output Total 600 1175 900 Balance -600 -5578 -490 Intake: Oral 410 Output: Urine 600 1175 900 Stool 0 Other: Voiding Method Indwelling Catheter Indwelling Catheter Indwelling Catheter - Exam GENERAL DESCRIPTION: Elderly female lying in bed in no distress RESPIRATORY SYSTEM: Unlabored breathing , decreased breath sounds at bases HEART: S1 S2 regular rate and rhythm ,no loud murmurs ABDOMEN: Soft , no tenderness EXTREMITIES: No edema feet - Labs CBC & Chem 7: 11/06/22 09:51 11/06/22 12:00 Labs: Abnormal Lab Results - Last 24 Hours (Table) 11/05/22 11/05/22 11/06/22 Range/Units 16:16 20:59 09:51 WBC 15.2 H (3.8-10.6) k/uL Hgb 16.2 H (11.4-16.0) gm/dL Hct 46.2 H (34.0-46.0) % Neutrophils # 11.2 H (1.3-7.7) k/uL Monocytes # 1.2 H (0-1.0) k/uL Sodium (137-145) mmol/L Potassium (3.5-5.1) mmol/L Creatinine (0.52-1.04) mg/dL POC Glucose (mg/dL) 139 H (70-110) mg/dL Delta Bilirubin (0.0-0.2) mg/dL Vitamin B12 >3600.0 H (200.0-944.0) pg/mL 11/06/22 Range/Units 12:00 WBC (3.8-10.6) k/uL Hgb (11.4-16.0) gm/dL Hct (34.0-46.0) % Neutrophils # (1.3-7.7) k/uL Monocytes # (0-1.0) k/uL Sodium 135 L (137-145) mmol/L Potassium 3.0 L (3.5-5.1) mmol/L Creatinine 0.36 L (0.52-1.04) mg/dL POC Glucose (mg/dL) (70-110) mg/dL Delta Bilirubin 0.3 H (0.0-0.2) mg/dL Vitamin B12 (200.0-944.0) pg/mL Assessment and Plan (1) UTI (urinary tract infection) Current Visit: Yes Status: Acute Code(s): N39.0 - URINARY TRACT INFECTION, SITE NOT SPECIFIED SNOMED Code(s): 84895596 (2) Leukocytosis Current Visit: Yes Status: Acute Code(s): D72.829 - ELEVATED WHITE BLOOD CELL COUNT, UNSPECIFIED SNOMED Code(s): 210667711 (3) Allergy to multiple antibiotics Current Visit: Yes Status: Acute Code(s): Z88.1 - ALLERGY STATUS TO OTHER ANTIBIOTIC AGENTS SNOMED Code(s): 822504832 Plan: 1patient with leukocytosis which is likely multifactorial in this patient initially presented with GI symptoms and did have a negative UA chest x-ray has been negative CT abdominal pelvis was negative for acute process now with evidence of significantly positive UA likely symptomatic UTI from enteric gram- negative pathogen 2-patient with multiple antibiotic allergies that would limit the number of antibiotics safe to use 3-We will continue patient on Azactam while waiting for urine culture final side which is currently growing gram-negative antibiotic will adjust it further on the basis of culture Family at the bedside questions were answered Dictation was produced using [employer] software. please excuse any grammatical, word or spelling errors.
[2022-11-07] MEDS: PANTOPRAZOLE 40 MG TABLET PO SCH ×2 (06:08→09:07)
[2022-11-07 06:24] LABS: Glucose,Whole Blood 99 mg/dL (70-110)
[2022-11-07] MEDS: LIDOCAINE 5% PATCH TOPICAL SCH (09:04)
[2022-11-07] MEDS: CALCIUM CARBONATE 500 MG CHEWABLE PO SCH (09:05)
[2022-11-07] MEDS: CHOLECALCIFEROL 25 MCG (1000 IU) TABLET PO SCH ×2 (09:05→12:19)
[2022-11-07] MEDS: POTASSIUM CHLORIDE ER 10 MEQ TAB.ER.PRT PO SCH (09:05)
[2022-11-07] MEDS: LOSARTAN 25 MG TAB PO SCH (09:06)
[2022-11-07] MEDS: METOPROLOL TARTRATE 50 MG TAB PO SCH (09:06)
[2022-11-07] MEDS: CYANOCOBALAMIN 500 MCG TAB PO SCH ×2 (09:06→12:19)
[2022-11-07] MEDS: SPIRONOLACTONE 25 MG TAB PO SCH (09:07)
[2022-11-07] MEDS: amLODIPine 10 MG TAB PO SCH (09:07)
[2022-11-07] MEDS: DULoxetine HCL 30 MG CAPSULE.DR PO SCH (09:07)
[2022-11-07] MEDS: PRAVASTATIN SODIUM 40 MG TAB PO SCH (09:07)
[2022-11-07] MEDS: MULTIVITAMINS, THERA 1 EACH TAB PO SCH ×2 (09:07→12:19)
[2022-11-07] MEDS: CALCIUM CARB-VIT D 500 MG-5 MCG TAB PO SCH ×2 (09:07→12:19)
[2022-11-07] MEDS: DILTIAZEM CD 180 MG CAP.ER.24H PO SCH (09:08)
[2022-11-07] MEDS: AZTREONAM 2 GM in SODIUM CHLORIDE 0.9% 100 ML IVPB SCH ×2 (09:13→15:21)
[2022-11-07] MEDS: MEGESTROL 400 MG/10 ML CUP PO SCH (09:13)
[2022-11-07] MEDS: SYMBICORT 160-4.5 MCG INHALER INHALATION SCH ×2 (09:25→21:20)
[2022-11-07 09:58] LABS: Basophils % (A) 0 %; Eosinophils # (A) 0.4 k/uL (0-0.7); Eosinophils % (A) 3 %; HCT 50.1 % (34.0-46.0); HGB 17.2 gm/dL (11.4-16.0); Lymphocytes # (A) 2.3 k/uL (1.0-4.8); Lymphocytes % (A) 18 %; MCH 33.4 pg (25.0-35.0); MCHC 34.3 g/dL (31.0-37.0); MCV 97.3 fL (80.0-100.0); Mean Platelet Volume 8.8; Monocytes # (A) 1.1 k/uL (0-1.0); Monocytes % (A) 9 %; Neutrophils # (A) 8.8 k/uL (1.3-7.7); Neutrophils % (A) 67 %; Platelet Count 392 k/uL (150-450); RBC 5.15 m/uL (3.80-5.40); RDW 11.9 % (11.5-15.5); WBC 13.2 k/uL (3.8-10.6)
[2022-11-07 11:37] LABS: Glucose,Whole Blood 97 mg/dL (70-110)
--- NOTE | 2022-11-07 12:46 | P.PN ---
Subjective This is a pleasant 87 years old female with past medical history of Asthma, Diabetes Mellitus, Hyperlipidemia, Hypertension, back pain,s/p back surgery Patient is confused and poor historian although she answers questions and follow commands. Information obtained from the at bedside. He states that the patient has low appetite dehydrated with diarrhea over the last 2-3 days. Normally her bowel movement is moderate size but over the last 3 days is becoming large size and more loose. Patient has some vomiting but little volume. Patient denies abdominal pain in her abdomen looks soft. She has history of fall last July and since then she is complaining of from right shoulder and right hip pain, she's been evaluated by her PCP Dr. New and had MRI of the right hip and then referred her to Dr. Rutherford's and [facility] x-ray and CAT scan and his been fully evaluated. Patient still have some mild pain in her right shoulder and right hip she's not in distress, but this would limit movement of both extremities. This problem has been going on now for about 4-6 weeks as per . Discontinue his been fully evaluated already. Patient herself looks very confused, she thinks she isn't Dr. office in [place], when asking about today states she said 2 days after her birthday and she could not tell the name of the president. She follows simple commands. She denies headache dizziness weakness or numbness in extremities. Right-sided examination is somewhat limited by right shoulder pain and right hip pain. No blurred vision, and no slurred speech or choking. She denies chest pain or coughing or dyspnea. No urinary complaints. Patient is afebrile, tachycardic and hypertensive with systolic blood pressure on admission was 170-190. Patient is in room air. Labs showing mild leukocytosis of 13.3, rest of CBC, BMP and liver enzymes were unremarkable except for mild hypokalemia at 2.8 Troponin first one was negative and second and third were elevated at 0.05 and 0.06. TSH 1.3 which is within the reference range Urinalysis showed glucose urea and ketonuria. EKG showing normal sinus rhythm at [address]-T changes CT of the abdomen and pelvis with contrast showing no acute intra-abdominal or intrapelvic process. Right ovarian cyst 10/30/2022 Patient admitted yesterday with signs symptoms of gastroenteritis-like picture with nausea vomiting and periumbilical mild abdominal pain and diarrhea. Tiffany ent still has poor appetite and not eating well. She still has diarrhea as per bedside nurse. However on examination she has mild periumbilical pain and tenderness, no guarding, no rebound tenderness. But also patient has been confused, she does not oriented to time place and person as she could not answer these questions. She follows commands and answer other questions appropriately most of the time, she still ABOUT Bangladeshi. When I talked to her he feel the same thing that she is confused and she is been gradually getting worse over the last few days. At baseline she is more alert and oriented to time place person and more active and do her own daily activities. Patient got Xanax [place] yesterday, we stopped this medication. Postop Ultram and place her on Toradol since CT of the brain is negative Also was concerned because of her neck pain, patient complains from some neck pain but no significant tenderness. 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 Patient with no pain or numbness in hr arms Because of persistent mild leukocytosis but improving and patient has negative procalcitonin. No fever. Therefore we will hold on antibiotics for now She continued on D5 normal saline at 50 mL/h, also Seroquel when necessary for agitation. Blood pressure is uncontrolled with urgency this morning 198/90+, yesterday with increase her metoprolol 100 mg and put her on Norvasc, today we added losartan and Aldactone by conditioning coach will follow closely. We also hold farxiga for dehydration which would contribute for her pressure. Prognosis remains guarded Discussed with staff I'm resume the care of the patient today on 11/05/2022 Patient today is awake and alert partially to place but oriented to time and person. She is partially disoriented to place, she does note that this is not her house but she cannot tell where she is at. As per at bedside yesterday was significantly worse throughout the day and she was more worse by the evening time and even she could not recognize her however this morning was significant improvement and as per this morning patient is close to her baseline but not at baseline yet. As per yesterday she's been experiencing some visual hallucination ask him about rest of the wall he does not see Patient is able to follow commands. She denies any headache or dizziness, no weakness or tingling or numbness in extremities. She's feels a little nausea but no vomiting. She has low appetite. she complains from epigastric pain about 6-7/10 in severity, nonradiating. She denies urinary complaints, no dysuria urgency. Patient says that she hasn't been walking she came to the hospital and she wants to try to work with physical therapist which is ordered On admission [place] and Xanax were discontinued. Today we discussed continue with Moon, MRI of the brain is negative for acute processes 11/07/2022 Patient awake alert but she still confused, she thinks she is in a restaurant, however she noticed 2022 and it is the end of October and going to be November 13 soon. She could not remember the name of the president, she has some insight into her illness. She is pleasant relaxed, smiling and she feels hungry and wants to leave this morning. I think her mentation is improving. She denies any urinary symptoms but she has Ventura catheter Patient looks her mentation improving as a trauma will continue now with close monitoring. Objective - Vital Signs Vital signs: Vital Signs Temp 98 F 11/06/22 20:00 Pulse 83 11/07/22 04:00 Resp 18 11/07/22 04:00 BP 123/69 11/07/22 04:00 Pulse Ox 93 L 11/07/22 04:00 FiO2 Intake & Output 11/06/22 11/07/22 11/07/22 18:59 06:59 18:59 Intake Total 770 Output Total 900 900 Balance -130 -900 Weight 54.431 kg Intake: Oral 770 Output: Urine 900 900 Other: Voiding Method Indwelling Catheter Indwelling Catheter # Bowel Movements 1 - Exam -GENERAL: The patient is alert and awake, she is oriented to time person and partially to place X2 to 3, relaxed answers questions and follow command, not in any acute distress. Thin lady HEENT: Pupils are round and equally reacting to light. EOMI. No scleral icterus. No conjunctival pallor. Normocephalic, atraumatic. No pharyngeal erythema. No thyromegaly. CARDIOVASCULAR: S1 and S2 present. No murmurs, rubs, or gallops. PULMONARY: Chest is clear to auscultation, no wheezing , no crackles. -ABDOMEN: Soft, nontender, no guarding or rebound tenderness, nondistended, normoactive bowel sounds. No palpable organomegaly. MUSCULOSKELETAL: No joint swelling or deformity. EXTREMITIES: No cyanosis, clubbing, or pedal edema. NEUROLOGICAL: Gross neurological examination did not reveal any focal deficits. SKIN: No rashes. no petechiae. - Labs CBC & Chem 7: 11/07/22 08:34 11/06/22 12:00 Labs: Abnormal Lab Results - Last 24 Hours (Table) 11/06/22 11/06/22 11/06/22 Range/Units 09:51 12:00 20:23 WBC 15.2 H (3.8-10.6) k/uL Hgb 16.2 H (11.4-16.0) gm/dL Hct 46.2 H (34.0-46.0) % Neutrophils # 11.2 H (1.3-7.7) k/uL Monocytes # 1.2 H (0-1.0) k/uL Sodium 135 L (137-145) mmol/L Potassium 3.0 L (3.5-5.1) mmol/L Creatinine 0.36 L (0.52-1.04) mg/dL POC Glucose (mg/dL) 120 H (70-110) mg/dL Delta Bilirubin 0.3 H (0.0-0.2) mg/dL Microbiology - Last 24 Hours (Table) 11/05/22 13:40 Urine Culture - Preliminary Urine,Voided Gram Neg Bacilli Assessment and Plan Assessment: Nausea vomiting and diarrhea suspicious for acute gastroenteritis present on admission. This could be viral infection versus other. Epigastric pain and tenderness Altered mental status most likely metabolic and/or toxic encephalopathy. Ruled out intracranial lesion Hypertension, uncontrolled with urgency on admission, with contributing risk factors including pain and previous use of NSAIDs Hypokalemia generalized weakness secondary to above History of Fall at home with right-sided pain including right shoulder and right knee, this has been evaluated as an outpatient Diabetes mellitus Hyperlipidemia History of osteoarthritis back pain,s/p back surgery Plan: Consult neurology service for confusion and infectious disease team to help with leukocytosis Repeat chest x-ray is unremarkable. Repeat urine analysis was requested. We will order ultrasound of the liver Replace potassium and magnesium per protocol with close monitoring Continue gentle hydration with normal saline Discontinue Benadryl We recommend to hold all medications at increased risk of fall with elderly patient like [place], Xanax and Benadryl (or limit their use as pt with on chronic pain), discussed with staff patient.. Benadryl and Xanax were discontinued. Gabapentin when necessary was discontinued. We will lower [place] 7.5 mg down to 5 mg every 8 hours when necessary. we will add Seroquel when necessary Labs and medication were reviewed.. Continue same treatment. Continue with symptomatic treatment. Resume home medication. Monitor lytes and vitals. DVT and GI prophylaxis. Further recommendations depends on the clinical course of the patient DVT prophylaxis: Subcutaneous heparin GI Prophylaxis: Pepcid PT/OT: Pending Prognosis is guarded
[2022-11-07 15:03] LABS: African American GFR (CKD) >90 (>60 ml/min/1.73 sqM); Anion Gap 13 mmol/L; Blood Urea Nitrogen 8 mg/dL (7-17); Calcium 9.5 mg/dL (8.4-10.2); Carbon Dioxide 22 mmol/L (22-30); Chloride 103 mmol/L (98-107); Glucose 139 mg/dL (74-99); Non-African American GFR(CKD) 84 (>60 ml/min/1.73 sqM); Potassium 3.2 mmol/L (3.5-5.1); Sodium 138 mmol/L (137-145)
[2022-11-07] MEDS ORDERED: Potassium Replacement Protocol 1 EACH MISC MISCELLANE PRN (15:09)
[2022-11-07] MEDS: ACETAMINOPHEN TAB 325 MG TAB PO PRN (15:13)
[2022-11-07] MEDS: DEXTROSE 5%-0.9% NACL 1,000 ML IV SCH (15:15)
[2022-11-07] MEDS: POTASSIUM CHLORIDE ER 20 MEQ TAB.ER PO SCH ×2 (15:21→16:28)
--- NOTE | 2022-11-07 16:43 | P.PN ---
Subjective Progress Note Date: 11/07/22 Principal diagnosis: Leukocytosis/UTI ,Multiple antibiotics allergy Patient is a 87-year-old female with a past medical history significant for diabetes mellitus hypertension hyperlipidemia skin cancer with initial presentation for abdominal pain nausea vomiting and diarrhea symptoms going on for about a week before the patient presented to hospital, patient noticed to have elevated white count probably this infectious disease consultation. On today's evaluation that is 11/07/2022, the patient remains to be afebrile, patient apparently did have more confusion today and did have a sitter at the bedside, the patient denies any chest pain shortness of breath or cough no abdominal pain or diarrhea did have a Ventura catheter and currently on 3 L nasal cannula oxygen. Patient white count is down to 13.2 today, creatinine 0.57 urinary showing gram-negative bacilli with ID sensitivities pending Objective - Vital Signs Vital signs: Vital Signs Temp 97.5 F L 11/07/22 15:51 Pulse 99 11/07/22 15:51 Resp 18 11/07/22 15:51 BP 124/74 11/07/22 15:51 Pulse Ox 93 L 11/07/22 11:33 FiO2 Intake & Output 11/06/22 11/07/22 11/07/22 18:59 06:59 18:59 Intake Total 770 Output Total 900 900 550 Balance -130 -900 -550 Weight 54.431 kg Intake: Oral 770 Output: Urine 900 900 550 Stool 0 Other: Voiding Method Indwelling Catheter Indwelling Catheter Indwelling Catheter # Bowel Movements 1 1 - Exam GENERAL DESCRIPTION: Elderly female lying in bed in no distress RESPIRATORY SYSTEM: Unlabored breathing , decreased breath sounds at bases HEART: S1 S2 regular rate and rhythm ,no loud murmurs ABDOMEN: Soft , no tenderness EXTREMITIES: No edema feet - Labs CBC & Chem 7: 11/07/22 08:34 11/07/22 14:35 Labs: Abnormal Lab Results - Last 24 Hours (Table) 11/06/22 11/07/22 11/07/22 Range/Units 20:23 08:34 14:35 WBC 13.2 H (3.8-10.6) k/uL Hgb 17.2 H (11.4-16.0) gm/dL Hct 50.1 H (34.0-46.0) % Neutrophils # 8.8 H (1.3-7.7) k/uL Monocytes # 1.1 H (0-1.0) k/uL Potassium 3.2 L (3.5-5.1) mmol/L Glucose 139 H (74-99) mg/dL POC Glucose (mg/dL) 120 H (70-110) mg/dL Microbiology - Last 24 Hours (Table) 11/05/22 13:40 Urine Culture - Preliminary Urine,Voided Gram Neg Bacilli Assessment and Plan (1) UTI (urinary tract infection) Current Visit: Yes Status: Acute Code(s): N39.0 - URINARY TRACT INFECTION, SITE NOT SPECIFIED SNOMED Code(s): 77786403 (2) Leukocytosis Current Visit: Yes Status: Acute Code(s): D72.829 - ELEVATED WHITE BLOOD CELL COUNT, UNSPECIFIED SNOMED Code(s): 437826014 (3) Allergy to multiple antibiotics Current Visit: Yes Status: Acute Code(s): Z88.1 - ALLERGY STATUS TO OTHER ANTIBIOTIC AGENTS SNOMED Code(s): 593423783 Plan: 1patient with leukocytosis which is likely multifactorial in this patient initially presented with GI symptoms and did have a negative UA chest x-ray has been negative CT abdominal pelvis was negative for acute process now with evidence of significantly positive UA likely symptomatic UTI from enteric gram- negative pathogen 2-patient with multiple antibiotic allergies that would limit the number of antibiotics safe to use 3-patient white count is trending down, urinary showing gram-negative with ID sensitivities pending we will continue patient on Azactam while waiting for urine culture to finalize and monitor clinical course closely Dictation was produced using [employer] dictation software. please excuse any grammatical, word or spelling errors. Time with Patient: Less than 30
[2022-11-07 16:56] LABS: Glucose,Whole Blood 131 mg/dL (70-110)
[2022-11-07] MEDS: SODIUM CHLORIDE 0.9% 1,000 ML IV SCH (18:21)
[2022-11-07 20:29] LABS: Glucose,Whole Blood 127 mg/dL (70-110)
[2022-11-07] MEDS: MONTELUKAST 10 MG TAB PO SCH (21:40)
[2022-11-08] MEDS: AZTREONAM 2 GM in SODIUM CHLORIDE 0.9% 100 ML IVPB SCH ×3 (00:27→16:56)
[2022-11-08] MEDS: MELATONIN 5 MG TABLET PO SCH ×2 (01:16→21:11)
[2022-11-08] MEDS: METOPROLOL TARTRATE 50 MG TAB PO SCH ×3 (01:16→21:11)
[2022-11-08] MEDS: QUEtiapine 25 MG TAB PO SCH ×2 (01:16→21:12)
[2022-11-08] MEDS: SODIUM CHLORIDE 0.9% 1,000 ML IV SCH ×2 (01:30→14:57)
[2022-11-08] MEDS: PANTOPRAZOLE 40 MG TABLET PO SCH (06:05)
[2022-11-08] MEDS: SYMBICORT 160-4.5 MCG INHALER INHALATION SCH ×2 (07:54→21:18)
[2022-11-08 08:13] LABS: HCT 44.8 % (34.0-46.0); HGB 15.6 gm/dL (11.4-16.0); MCH 33.9 pg (25.0-35.0); MCHC 34.8 g/dL (31.0-37.0); MCV 97.4 fL (80.0-100.0); Mean Platelet Volume 7.4; Platelet Count 346 k/uL (150-450); RDW 11.8 % (11.5-15.5)
[2022-11-08 08:15] LABS: Chloride 105 mmol/L (98-107)
[2022-11-08 08:17] LABS: African American GFR (CKD) >90 (>60 ml/min/1.73 sqM); Anion Gap 9 mmol/L; Blood Urea Nitrogen 7 mg/dL (7-17); Carbon Dioxide 24 mmol/L (22-30); Glucose 106 mg/dL (74-99); Non-African American GFR(CKD) >90 (>60 ml/min/1.73 sqM); Potassium 3.1 mmol/L (3.5-5.1); Sodium 138 mmol/L (137-145)
[2022-11-08 08:41] LABS: Neutrophils % (M) 70 %; Nucleated Red Blood Cells 0 /100 WBC (0-0); Total Cells Counted 100
[2022-11-08 08:42] LABS: Reactive Lymphocytes Present
[2022-11-08] MEDS ORDERED: Potassium Replacement Protocol 1 EACH MISC MISCELLANE PRN (09:12)
[2022-11-08 11:37] LABS: Glucose,Whole Blood 90 mg/dL (70-110)
--- NOTE | 2022-11-08 12:21 | P.PN ---
Subjective This is a pleasant 87 years old female with past medical history of Asthma, Diabetes Mellitus, Hyperlipidemia, Hypertension, back pain,s/p back surgery Patient is confused and poor historian although she answers questions and follow commands. Information obtained from the at bedside. He states that the patient has low appetite dehydrated with diarrhea over the last 2-3 days. Normally her bowel movement is moderate size but over the last 3 days is becoming large size and more loose. Patient has some vomiting but little volume. Patient denies abdominal pain in her abdomen looks soft. She has history of fall last July and since then she is complaining of from right shoulder and right hip pain, she's been evaluated by her PCP Dr. New and had MRI of the right hip and then referred her to Dr. Rutherford's and [facility] x-ray and CAT scan and his been fully evaluated. Patient still have some mild pain in her right shoulder and right hip she's not in distress, but this would limit movement of both extremities. This problem has been going on now for about 4-6 weeks as per . Discontinue his been fully evaluated already. Patient herself looks very confused, she thinks she isn't Dr. office in [place], when asking about today states she said 2 days after her birthday and she could not tell the name of the president. She follows simple commands. She denies headache dizziness weakness or numbness in extremities. Right-sided examination is somewhat limited by right shoulder pain and right hip pain. No blurred vision, and no slurred speech or choking. She denies chest pain or coughing or dyspnea. No urinary complaints. Patient is afebrile, tachycardic and hypertensive with systolic blood pressure on admission was 170-190. Patient is in room air. Labs showing mild leukocytosis of 13.3, rest of CBC, BMP and liver enzymes were unremarkable except for mild hypokalemia at 2.8 Troponin first one was negative and second and third were elevated at 0.05 and 0.06. TSH 1.3 which is within the reference range Urinalysis showed glucose urea and ketonuria. EKG showing normal sinus rhythm at [address]-T changes CT of the abdomen and pelvis with contrast showing no acute intra-abdominal or intrapelvic process. Right ovarian cyst 10/30/2022 Patient admitted yesterday with signs symptoms of gastroenteritis-like picture with nausea vomiting and periumbilical mild abdominal pain and diarrhea. Tiffany ent still has poor appetite and not eating well. She still has diarrhea as per bedside nurse. However on examination she has mild periumbilical pain and tenderness, no guarding, no rebound tenderness. But also patient has been confused, she does not oriented to time place and person as she could not answer these questions. She follows commands and answer other questions appropriately most of the time, she still ABOUT Indian. When I talked to her he feel the same thing that she is confused and she is been gradually getting worse over the last few days. At baseline she is more alert and oriented to time place person and more active and do her own daily activities. Patient got Xanax [place] yesterday, we stopped this medication. Postop Ultram and place her on Toradol since CT of the brain is negative Also was concerned because of her neck pain, patient complains from some neck pain but no significant tenderness. 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 Patient with no pain or numbness in hr arms Because of persistent mild leukocytosis but improving and patient has negative procalcitonin. No fever. Therefore we will hold on antibiotics for now She continued on D5 normal saline at 50 mL/h, also Seroquel when necessary for agitation. Blood pressure is uncontrolled with urgency this morning 198/90+, yesterday with increase her metoprolol 100 mg and put her on Norvasc, today we added losartan and Aldactone by pick pulling machine operator will follow closely. We also hold farxiga for dehydration which would contribute for her pressure. Prognosis remains guarded Discussed with staff I'm resume the care of the patient today on 11/05/2022 Patient today is awake and alert partially to place but oriented to time and person. She is partially disoriented to place, she does note that this is not her house but she cannot tell where she is at. As per at bedside yesterday was significantly worse throughout the day and she was more worse by the evening time and even she could not recognize her however this morning was significant improvement and as per this morning patient is close to her baseline but not at baseline yet. As per yesterday she's been experiencing some visual hallucination ask him about rest of the wall he does not see Patient is able to follow commands. She denies any headache or dizziness, no weakness or tingling or numbness in extremities. She's feels a little nausea but no vomiting. She has low appetite. she complains from epigastric pain about 6-7/10 in severity, nonradiating. She denies urinary complaints, no dysuria urgency. Patient says that she hasn't been walking she came to the hospital and she wants to try to work with physical therapist which is ordered On admission F[place] and Xanax were discontinued. Today we discussed continue with Moon, MRI of the brain is negative for acute processes 11/07/2022 Patient awake alert but she still confused, she thinks she is in a restaurant, however she noticed 2022 and it is the end of October and going to be November 13 soon. She could not remember the name of the president, she has some insight into her illness. She is pleasant relaxed, smiling and she feels hungry and wants to leave this morning. I think her mentation is improving. She denies any urinary symptoms but she has Ventura catheter Patient looks her mentation improving as a trauma will continue now with close monitoring. 11/08/2022 Patient is more sleepy and drowsy this morning but she was just woke up from sleep. Overall his improvement while she is on aztreonam. Urine culture is growing sensitive Klebsiella She still has Ventura catheter No other new abdominal pain, tenderness or urinary symptoms. And she is hemodynamically stable pt remains on aztreonam Objective - Vital Signs Vital signs: Vital Signs Temp 98.4 F 11/07/22 23:36 Pulse 86 11/08/22 04:00 Resp 18 11/08/22 04:00 BP 125/70 11/08/22 04:00 Pulse Ox 95 11/08/22 04:00 FiO2 Intake & Output 11/07/22 11/08/22 11/08/22 18:59 06:59 18:59 Output Total 550 700 Balance -550 -700 Output: Urine 550 700 Stool 0 Other: Voiding Method Indwelling Catheter Indwelling Catheter # Bowel Movements 1 1 - Exam -GENERAL: The patient is alert and awake, she is oriented to time person and partially to place X2 to 3, relaxed answers questions and follow command, not in any acute distress. Thin lady HEENT: Pupils are round and equally reacting to light. EOMI. No scleral icterus. No conjunctival pallor. Normocephalic, atraumatic. No pharyngeal erythema. No thyromegaly. CARDIOVASCULAR: S1 and S2 present. No murmurs, rubs, or gallops. PULMONARY: Chest is clear to auscultation, no wheezing , no crackles. -ABDOMEN: Soft, nontender, no guarding or rebound tenderness, nondistended, normoactive bowel sounds. No palpable organomegaly. MUSCULOSKELETAL: No joint swelling or deformity. EXTREMITIES: No cyanosis, clubbing, or pedal edema. NEUROLOGICAL: Gross neurological examination did not reveal any focal deficits. SKIN: No rashes. no petechiae. - Labs CBC & Chem 7: 11/08/22 07:48 11/08/22 07:48 Labs: Abnormal Lab Results - Last 24 Hours (Table) 11/07/22 11/07/22 11/07/22 Range/Units 08:34 14:35 16:54 WBC 13.2 H (3.8-10.6) k/uL Hgb 17.2 H (11.4-16.0) gm/dL Hct 50.1 H (34.0-46.0) % Neutrophils # 8.8 H (1.3-7.7) k/uL Monocytes # 1.1 H (0-1.0) k/uL Potassium 3.2 L (3.5-5.1) mmol/L Glucose 139 H (74-99) mg/dL POC Glucose (mg/dL) 131 H (70-110) mg/dL 11/07/22 Range/Units 20:28 WBC (3.8-10.6) k/uL Hgb (11.4-16.0) gm/dL Hct (34.0-46.0) % Neutrophils # (1.3-7.7) k/uL Monocytes # (0-1.0) k/uL Potassium (3.5-5.1) mmol/L Glucose (74-99) mg/dL POC Glucose (mg/dL) 127 H (70-110) mg/dL Microbiology - Last 24 Hours (Table) 11/05/22 13:40 Urine Culture - Final Urine,Voided Klebsiella pneumoniae Assessment and Plan Assessment: Nausea vomiting and diarrhea suspicious for acute gastroenteritis present on admission. This could be viral infection versus other. Acute urinary tract infection secondary to Klebsiella Altered mental status most likely metabolic and/or toxic encephalopathy. intracranial lesion ruled out by neurologist. Improving slowly and gradually with elements of delirium Hypertension, uncontrolled with urgency on admission, with contributing risk factors including pain and previous use of NSAIDs Hypokalemia generalized weakness secondary to above History of Fall at home with right-sided pain including right shoulder and right knee, this has been evaluated as an outpatient Diabetes mellitus Hyperlipidemia History of osteoarthritis back pain,s/p back surgery Plan: Consult neurology service for confusion and infectious disease team to help with leukocytosis from recommended to continue the current management Continue with aztreonam Primary team on the case Replace potassium and magnesium per protocol with close monitoring Continue gentle hydration with normal saline Continue with Ventura catheter Discontinue Benadryl. Avoid Xanax or sedatives Labs and medication were reviewed.. Continue same treatment. Continue with symptomatic treatment. Resume home medication. Monitor lytes and vitals. DVT and GI prophylaxis. Further recommendations depends on the clinical course of t he patient DVT prophylaxis: Subcutaneous heparin GI Prophylaxis: Pepcid PT/OT: Pending Prognosis is guarded
[2022-11-08] MEDS: CALCIUM CARBONATE 500 MG CHEWABLE PO SCH (14:39)
[2022-11-08] MEDS: POTASSIUM CHLORIDE ER 20 MEQ TAB.ER PO SCH ×2 (14:40→16:56)
[2022-11-08] MEDS: MEGESTROL 400 MG/10 ML CUP PO SCH (14:40)
[2022-11-08] MEDS: CHOLECALCIFEROL 25 MCG (1000 IU) TABLET PO SCH (14:40)
[2022-11-08] MEDS: amLODIPine 10 MG TAB PO SCH (14:40)
[2022-11-08] MEDS: CALCIUM CARB-VIT D 500 MG-5 MCG TAB PO SCH (14:40)
[2022-11-08] MEDS: LIDOCAINE 5% PATCH TOPICAL SCH (14:40)
[2022-11-08] MEDS: PRAVASTATIN SODIUM 40 MG TAB PO SCH (14:41)
[2022-11-08] MEDS: CYANOCOBALAMIN 500 MCG TAB PO SCH (14:41)
[2022-11-08] MEDS: MULTIVITAMINS, THERA 1 EACH TAB PO SCH (14:41)
[2022-11-08] MEDS: DILTIAZEM CD 180 MG CAP.ER.24H PO SCH (14:41)
[2022-11-08] MEDS: SPIRONOLACTONE 25 MG TAB PO SCH (14:41)
[2022-11-08] MEDS: LOSARTAN 25 MG TAB PO SCH (14:42)
[2022-11-08] MEDS: DULoxetine HCL 30 MG CAPSULE.DR PO SCH (14:42)
[2022-11-08] MEDS: DEXTROSE 5%-0.9% NACL 1,000 ML IV SCH (14:55)
[2022-11-08] MEDS: POTASSIUM CHLORIDE ER 10 MEQ TAB.ER.PRT PO SCH (14:55)
--- NOTE | 2022-11-08 15:44 | P.PN ---
Subjective Progress Note Date: 11/08/22 Principal diagnosis: Leukocytosis/UTI ,Multiple antibiotics allergy Patient is a 87-year-old female with a past medical history significant for diabetes mellitus hypertension hyperlipidemia skin cancer with initial presentation for abdominal pain nausea vomiting and diarrhea symptoms going on for about a week before the patient presented to hospital, patient noticed to have elevated white count probably this infectious disease consultation. On today's evaluation that is 11/08/2022 the patient remains to be afebrile, the patient is slightly more awake and alert today patient is breathing comfortably on 2 L nasal cannula oxygen denies any chest pain shortness of breath or cough no nausea vomiting no abdominal pain or diarrhea has been reported. The patient white count normalized to 10.0, creatinine 0.36, urine has been finalized with Klebsiella there is a sensitive pathogen. Objective - Vital Signs Vital signs: Vital Signs Temp 97.6 F 11/08/22 08:00 Pulse 85 11/08/22 08:00 Resp 16 11/08/22 08:00 BP 135/66 11/08/22 08:00 Pulse Ox 97 11/08/22 08:00 FiO2 Intake & Output 11/07/22 11/08/22 11/08/22 18:59 06:59 18:59 Output Total 550 700 400 Balance -550 -700 -400 Output: Urine 550 700 400 Stool 0 Other: Voiding Method Indwelling Catheter Indwelling Catheter # Bowel Movements 1 1 - Exam GENERAL DESCRIPTION: Elderly female lying in bed in no distress RESPIRATORY SYSTEM: Unlabored breathing , decreased breath sounds at bases HEART: S1 S2 regular rate and rhythm ,no loud murmurs ABDOMEN: Soft , no tenderness EXTREMITIES: No edema feet - Labs CBC & Chem 7: 11/08/22 07:48 11/08/22 07:48 Labs: Abnormal Lab Results - Last 24 Hours (Table) 11/07/22 11/07/22 11/07/22 Range/Units 14:35 16:54 20:28 Potassium 3.2 L (3.5-5.1) mmol/L Creatinine (0.52-1.04) mg/dL Glucose 139 H (74-99) mg/dL POC Glucose (mg/dL) 131 H 127 H (70-110) mg/dL 11/08/22 Range/Units 07:48 Potassium 3.1 L (3.5-5.1) mmol/L Creatinine 0.36 L (0.52-1.04) mg/dL Glucose 106 H (74-99) mg/dL POC Glucose (mg/dL) (70-110) mg/dL Microbiology - Last 24 Hours (Table) 11/05/22 13:40 Urine Culture - Final Urine,Voided Klebsiella pneumoniae Assessment and Plan (1) UTI (urinary tract infection) Current Visit: Yes Status: Acute Code(s): N39.0 - URINARY TRACT INFECTION, SITE NOT SPECIFIED SNOMED Code(s): 42860884 (2) Leukocytosis Current Visit: Yes Status: Acute Code(s): D72.829 - ELEVATED WHITE BLOOD CELL COUNT, UNSPECIFIED SNOMED Code(s): 158491458 (3) Allergy to multiple antibiotics Current Visit: Yes Status: Acute Code(s): Z88.1 - ALLERGY STATUS TO OTHER ANTIBIOTIC AGENTS SNOMED Code(s): 026811545 Plan: 1patient with leukocytosis which is likely multifactorial in this patient initially presented with GI symptoms and did have a negative UA chest x-ray has been negative CT abdominal pelvis was negative for acute process now with evidence of significantly positive UA likely symptomatic UTI from enteric gram-negative pathogen 2-patient with multiple antibiotic allergies that would limit the number of antibiotics safe to use 3the patient white count has normalized urine is growing Klebsiella that is a sensitive pathogen we will continue patient on Azactam and transition to short course of oral Cipro on discharge Dictation was produced using [employer] dictation software. please excuse any grammatical, word or spelling errors.
[2022-11-08 16:21] LABS: Glucose,Whole Blood 112 mg/dL (70-110)
[2022-11-08] MEDS: ACETAMINOPHEN TAB 325 MG TAB PO PRN (16:56)
[2022-11-08 20:21] LABS: Glucose,Whole Blood 123 mg/dL (70-110)
[2022-11-08] MEDS: MONTELUKAST 10 MG TAB PO SCH (21:11)
[2022-11-09] MEDS: AZTREONAM 2 GM in SODIUM CHLORIDE 0.9% 100 ML IVPB SCH ×3 (00:09→15:56)
[2022-11-09 06:13] LABS: Glucose,Whole Blood 91 mg/dL (70-110)
[2022-11-09] MEDS: PANTOPRAZOLE 40 MG TABLET PO SCH (06:53)
[2022-11-09] MEDS: DEXTROSE 5%-0.9% NACL 1,000 ML IV SCH (06:53)
[2022-11-09] MEDS: SYMBICORT 160-4.5 MCG INHALER INHALATION SCH ×2 (08:05→21:20)
[2022-11-09] MEDS: CALCIUM CARB-VIT D 500 MG-5 MCG TAB PO SCH (09:00)
[2022-11-09] MEDS: DILTIAZEM CD 180 MG CAP.ER.24H PO SCH (09:00)
[2022-11-09] MEDS: PRAVASTATIN SODIUM 40 MG TAB PO SCH (09:00)
[2022-11-09] MEDS: POTASSIUM CHLORIDE ER 10 MEQ TAB.ER.PRT PO SCH (09:00)
[2022-11-09] MEDS: amLODIPine 10 MG TAB PO SCH (09:00)
[2022-11-09] MEDS: LOSARTAN 25 MG TAB PO SCH (09:00)
[2022-11-09] MEDS: DULoxetine HCL 30 MG CAPSULE.DR PO SCH (09:00)
[2022-11-09] MEDS: SPIRONOLACTONE 25 MG TAB PO SCH (09:00)
[2022-11-09] MEDS: CHOLECALCIFEROL 25 MCG (1000 IU) TABLET PO SCH (09:00)
[2022-11-09] MEDS: CYANOCOBALAMIN 500 MCG TAB PO SCH (09:00)
[2022-11-09] MEDS: SODIUM CHLORIDE 0.9% 1,000 ML IV SCH ×2 (09:01→15:58)
[2022-11-09] MEDS: CALCIUM CARBONATE 500 MG CHEWABLE PO SCH (09:01)
[2022-11-09] MEDS: MULTIVITAMINS, THERA 1 EACH TAB PO SCH (09:01)
[2022-11-09] MEDS: MEGESTROL 400 MG/10 ML CUP PO SCH (09:06)
[2022-11-09] MEDS: METOPROLOL TARTRATE 50 MG TAB PO SCH ×2 (09:07→20:49)
[2022-11-09] MEDS: LIDOCAINE 5% PATCH TOPICAL SCH (09:07)
[2022-11-09 09:53] LABS: African American GFR (CKD) >90 (>60 ml/min/1.73 sqM); Anion Gap 11 mmol/L; Blood Urea Nitrogen 8 mg/dL (7-17); Calcium 9.2 mg/dL (8.4-10.2); Carbon Dioxide 22 mmol/L (22-30); Chloride 104 mmol/L (98-107); Glucose 88 mg/dL (74-99); Non-African American GFR(CKD) >90 (>60 ml/min/1.73 sqM); Potassium 3.1 mmol/L (3.5-5.1); Sodium 137 mmol/L (137-145)
[2022-11-09] MEDS ORDERED: POTASSIUM CHLORIDE ER 20 MEQ TAB.ER PO STA (10:05)
[2022-11-09] MEDS ORDERED: POTASSIUM CHLORIDE ER 20 MEQ TAB.ER PO ONE (11:15)
[2022-11-09 11:45] LABS: Glucose,Whole Blood 138 mg/dL (70-110)
--- NOTE | 2022-11-09 14:05 | P.PN ---
Subjective Progress Note Date: 11/09/22 This is a pleasant 87 years old female with past medical history of Asthma, Diabetes Mellitus, Hyperlipidemia, Hypertension, back pain,s/p back surgery Patient is confused and poor historian although she answers questions and follow commands. Information obtained from the at bedside. He states that the patient has low appetite dehydrated with diarrhea over the last 2-3 days. Normally her bowel movement is moderate size but over the last 3 days is becoming large size and more loose. Patient has some vomiting but little volume. Patient denies abdominal pain in her abdomen looks soft. She has history of fall last July and since then she is complaining of from right shoulder and right hip pain, she's been evaluated by her PCP Dr. New and had MRI of the right hip and then referred her to Dr. Rutherford's and [facility] x-ray and CAT scan and his been fully evaluated. Patient still have some mild pain in her right shoulder and right hip she's not in distress, but this would limit movement of both extremities. This problem has been going on now for about 4-6 weeks as per . Discontinue his been fully evaluated already. Patient herself looks very confused, she thinks she isn't Dr. office in [place], when asking about today states she said 2 days after her birthday and she could not tell the name of the president. She follows simple commands. She denies headache dizziness weakness or numbness in extremities. Right-sided examination is somewhat limited by right shoulder pain and right hip pain. No blurred vision, and no slurred speech or choking. She denies chest pain or coughing or dyspnea. No urinary complaints. Patient is afebrile, tachycardic and hypertensive with systolic blood pressure on admission was 170-190. Patient is in room air. Labs showing mild leukocytosis of 13.3, rest of CBC, BMP and liver enzymes were unremarkable except for mild hypokalemia at 2.8 Troponin first one was negative and second and third were elevated at 0.05 and 0.06. TSH 1.3 which is within the reference range Urinalysis showed glucose urea and ketonuria. EKG showing normal sinus rhythm at [address]-T changes CT of the abdomen and pelvis with contrast showing no acute intra-abdominal or intrapelvic process. Right ovarian cyst 10/30/2022 Patient admitted yesterday with signs symptoms of gastroenteritis-like picture with nausea vomiting and periumbilical mild abdominal pain and diarrhea. Patient still has poor appetite and not eating well. She still has diarrhea as per bedside nurse. However on examination she has mild periumbilical pain and tenderness, no guarding, no rebound tenderness. But also patient has been confused, she does not oriented to time place and person as she could not answer these questions. She follows commands and answer other questions appropriately most of the time, she still ABOUT [place]. When I talked to her he feel the same thing that she is confused and she is been gradually getting worse over the last few days. At baseline she is more alert and oriented to time place person and more active and do her own daily activities. Patient got Xanax [place] yesterday, we stopped this medication. Postop Ultram and place her on Toradol since CT of the brain is negative Also was concerned because of her neck pain, patient complains from some neck pain but no significant tenderness. 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 Patient with no pain or numbness in hr arms Because of persistent mild leukocytosis but improving and patient has negative procalcitonin. No fever. Therefore we will hold on antibiotics for now She continued on D5 normal saline at 50 mL/h, also Seroquel when necessary for a gitation. Blood pressure is uncontrolled with urgency this morning 198/90+, yesterday with increase her metoprolol 100 mg and put her on Norvasc, today we added losartan and Aldactone by horticultural farmworker will follow closely. We also hold farxiga for dehydration which would contribute for her pressure. Prognosis remains guarded Discussed with staff I'm resume the care of the patient today on 11/05/2022 Patient today is awake and alert partially to place but oriented to time and person. She is partially disoriented to place, she does note that this is not her house but she cannot tell where she is at. As per at bedside yesterday was significantly worse throughout the day and she was more worse by the evening time and even she could not recognize her however this morning was significant improvement and as per this morning patient is close to her baseline but not at baseline yet. As per yesterday she's been experiencing some visual hallucination ask him about rest of the wall he does not see Patient is able to follow commands. She denies any headache or dizziness, no weakness or tingling or numbness in extremities. She's feels a little nausea but no vomiting. She has low appetite. she complains from epigastric pain about 6-7/10 in severity, nonradiating. She denies urinary complaints, no dysuria urgency. Patient says that she hasn't been walking she came to the hospital and she wants to try to work with physical therapist which is ordered On admission [place] and Xanax were discontinued. Today we discussed continue with Moon, MRI of the brain is negative for acute processes 11/07/2022 Patient awake alert but she still confused, she thinks she is in a restaurant, however she noticed 2022 and it is the end of October and going to be November 13 soon. She could not remember the name of the president, she has some insight into her illness. She is pleasant relaxed, smiling and she feels hungry and wants to leave this morning. I think her mentation is improving. She denies any urinary symptoms but she has Ventura catheter Patient looks her mentation improving as a trauma will continue now with close monitoring. 11/08/2022 Patient is more sleepy and drowsy this morning but she was just woke up from sleep. Overall his improvement while she is on aztreonam. Urine culture is growing sensitive Klebsiella She still has Ventura catheter No other new abdominal pain, tenderness or urinary symptoms. And she is hemodynamically stable pt remains on aztreonam 11/09. Patient seen and examined. Patient is confused compared to yesterday according to the REVIEW OF SYSTEMS: CONSTITUTIONAL: No fever, no malaise,. CARDIOVASCULAR: No chest pain, no palpitations, no syncope. PULMONARY: No shortness of breath, no cough, GASTROINTESTINAL: No diarrhea, no nausea, no vomiting, no abdominal pain. NEUROLOGICAL: No headaches, no weakness, PHYSICAL EXAMINATION: GENERAL: The patient is alert , not in any acute distress. Well developed, well nourished. HEENT: Pupils are round and equally reacting to light. EOMI. No scleral icterus. No conjunctival pallor. Normocephalic, atraumatic. No pharyngeal erythema. No thyromegaly. CARDIOVASCULAR: S1 and S2 present. No murmurs, rubs, or gallops. PULMONARY: Chest is clear to auscultation, no wheezing or crackles. ABDOMEN: Soft, nontender, nondistended, normoactive bowel sounds. No palpable organomegaly. MUSCULOSKELETAL: No joint swelling or deformity. EXTREMITIES: No cyanosis, clubbing, or pedal edema. NEUROLOGICAL: Gross neurological examination did not reveal any focal deficits. SKIN: No rashes. Assessment and plan Nausea vomiting and diarrhea suspicious for acute gastroenteritis present on admission. This could be viral infection versus other. Acute urinary tract infection secondary to Klebsiella Altered mental status most likely metabolic and/or toxic encephalopathy. intracranial lesion ruled out by neurologist. Improving slowly and gradually with elements of delirium Hypertension, uncontrolled with urgency on admission, with contributing risk factors including pain and previous use of NSAIDs Hypokalemia generalized weakness secondary to above History of Fall at home with right-sided pain including right shoulder and right knee, this has been evaluated as an outpatient Diabetes mellitus Hyperlipidemia History of osteoarthritis back pain,s/p back surgery Monitor vital signs Monitor CBC Monitor CMP Continue with aztreonam Continue gentle hydration with normal saline Continue with Ventura catheter Discontinue Benadryl. Avoid Xanax or sedatives Follow-up in ID recommendations Neurology evaluated the patient, recommended outpatient follow-up Possible discharge in next 24 hours Labs and medication were reviewed.. Continue same treatment. Continue with symptomatic treatment. Resume home medication. Monitor labs and vitals. DVT and GI prophylaxis. Further recommendations as per clinical course of the patient Dictation was produced using [employer]COM dictation software. please excuse any grammatical, word or spelling errors. Objective - Vital Signs Vital signs: Vital Signs Temp 97.8 F 11/09/22 08:00 Pulse 87 11/09/22 08:00 Resp 18 11/09/22 08:00 BP 140/79 11/09/22 08:00 Pulse Ox 96 11/09/22 08:09 FiO2 Intake & Output 11/08/22 11/09/22 11/09/22 18:59 06:59 18:59 Output Total 700 700 Balance -700 -700 Output: Urine 700 700 Stool 0 Other: Voiding Method Indwelling Catheter Indwelling Catheter Indwelling Catheter # Bowel Movements 1 - Labs CBC & Chem 7: 11/08/22 07:48 11/09/22 08:25 Labs: Abnormal Lab Results - Last 24 Hours (Table) 11/08/22 11/08/22 11/09/22 Range/Units 16:19 20:19 08:25 Potassium 3.1 L (3.5-5.1) mmol/L Creatinine 0.39 L (0.52-1.04) mg/dL POC Glucose (mg/dL) 112 H 123 H (70-110) mg/dL
--- NOTE | 2022-11-09 14:44 | CDI ---
Documentation Clarification Form Date: 11/09/2022 02:19:52 PM From: Sima Victor RN CCDS Phone: [phone] Admit Date: 10/30/2022 07:55:00 AM Patient Name: Becky Sykes Visit Number: [id number] Discharge Date: ATTENTION: The Clinical Documentation Specialists (CDI) and [facility] Coding Staff appreciate your assistance in clarifying documentation. Please respond to the clarification below the line at the bottom and electronically sign. The CDI & [facility] Coding staff will review the response and follow-up if needed. Please note: Queries are made part of the Legal Health Record. If you have any questions, please contact the author of this message via ITS. Dr. Teo Yoder MD UTI is documented 11/05, ID consult and patient has thomas catheter initiated on 10/29, Nursing Urinary catheter management. Additional clarification regarding the etiology of the UTI is requested. History/Risk Factors: 87-year-old female presents to the ED with low appetite, dehydrated and diarrhea for the last 2-3 days. Medical history: A fall July 2022 with right sided should pain and confusion. Medical history: DM, HLD, back pain s/p back surgery and HTN. 10/29, H&P. Clinical Indicators: VSS, 10/28: B/P 197/015; HR 99; SpO2 97% F Oral; RR 18 SpO2 93% room air Urinalysis: 10/28: Colorless, protein 1+; Glucose 4+; Ketones 3+; Mucus rare 11/05: Yellow; Cloudy; Protein trace; Ketones 2+; Leukocyte esterase Large; Wbc >182; Wbc clumps Moderate; Bacteria few; Mucus rare. Urine culture, 11/05: Verified 11/07 Klebsiella pneumoniae Lab results, 10/28: Wbc 13.3; Neutrophils 8.9 Treatment: 11/06 Aztreonam 2gm IVPB q8hr Please clarify the etiology of the UTI, if known: [x ] UTI due to Thomas catheter [ ] Other condition, please specify [ ] Unable to determine (Template Last Revised: May 2020) MTDD
--- NOTE | 2022-11-09 15:05 | CDI ---
Documentation Clarification Form Date: 11/09/2022 02:46:00 PM From: Sima Victor Phone: [phone] Admit Date: 10/30/2022 07:55:00 AM Patient Name: Becky Sykes Visit Number: [id number] Discharge Date: ATTENTION: The Clinical Documentation Specialists (CDI) and [facility] Coding Staff appreciate your assistance in clarifying documentation. Please respond to the clarification below the line at the bottom and electronically sign. The CDI & [facility] Coding staff will review the response and follow-up if needed. Please note: Queries are made part of the Legal Health Record. If you have any questions, please contact the author of this message via ITS. Dr. Teo Yoder Severe Malnutrition is documented 11/02, Dietitian consult. Additional clarification regarding the severity of malnutrition is requested. History/Risk Factors: 87-year-old female presents to the ED with low appetite, dehydrated and diarrhea for the last 2-3 days. Medical history: A fall July 2022 with right sided should pain and confusion. Medical history: DM, HLD, back pain s/p back surgery and HTN. 10/29, H&P. Clinical Indicators: RD Consult Assessment Current BMI: 19.4kg Underweight 9.1kg (14.3%) weight loss x two months Muscle strength testing: No pronator drift and the strength is normal in arms and legs distally and proximally, except deltoids which are very weak about 3+4 bilaterally from shoulder issues, 11/05, Neuro evaluation [Cite applicable ASPEN criteria listed below] RD Consult Assessment: Treatment: RD consult Supplements: Commercial beverage Ensure compact TID Monitor daily PO intake Monitor commercial beverage intake. Please clarify the severity of malnutrition, if known: [ x ] Severe Protein-Calorie Malnutrition [ ] Other condition, please specify [ ] Unable to Determine In responding to this query, please exercise your independent professional judgment. The [facility] Coding Staff and Clinical Documentation Specialists appreciate your assistance in clarifying documentation, maintaining compliance with coding guidelines, accurately documenting patients condition and capturing severity of illness. The fact that a question is asked does not imply that any particular answer is desired or expected. Communication forms are a method of clarifying documentation and are made part of the Legal Health Record. Thank you in advance for your clarification. Last Reviewed September 2022 Reference: Using the ASPEN Guidelines, Undernutrition (Malnutrition) is characterized by at least two of the following six findings. The severity can be determined based on the criteria listed below. Malnutrition Characteristics for Moderate and Severe Malnutrition Type of Malnutrition Acute Illness or Injury Chronic Illness Degree of Malnutrition Non-severe (moderate) Malnutrition Severe Malnutrition Non-severe (moderate) Malnutrition Severe Malnutrition Energy Intake <75% for >7 days = 50% for = 5 days <75% for = 1 month =75% for = 1 month Weight Loss 1-2% in one week, 5% in 1 month, 7.5% in 3 months 2% in one week, >5% in 1 month, >7.5% in 3 months 5% in one month, 7.5% in 3 months, 10% in 6 months, 20% in 1 year >5% in one month, >7.5% in 3 months, >10% in 6 months, >20% in 1 year Body Fat Wasting Mild Moderate Mild Severe Muscle Wasting Mild Moderate Mild Severe Presence of Edema Mild Moderate to Severe Mild Severe [employer] Strength Not applicable Measurably Reduced Not applicable Measurably Reduced Source: Sahil SolomonV, Jeff P, Brownlee G, et al. Consensus statement: Academy of Nutrition and Dietetics and [place] Society for Parenteral and Enteral Nutrition: characteristics recommended for the identification and documentation of adult malnutrition (undernutrition).JPEN J Parenter Enteral Nutr. 2012;36(3):275-283. (Template Last Revised: September 2022) MTDChris
[2022-11-09 16:34] LABS: Glucose,Whole Blood 127 mg/dL (70-110)
--- NOTE | 2022-11-09 17:54 | P.PN ---
Subjective Progress Note Date: 11/09/22 Principal diagnosis: Leukocytosis/UTI ,Multiple antibiotics allergy Patient is a 87-year-old female with a past medical history significant for diabetes mellitus hypertension hyperlipidemia skin cancer with initial presentation for abdominal pain nausea vomiting and diarrhea symptoms going on for about a week before the patient presented to hospital, patient noticed to have elevated white count probably this infectious disease consultation. On today's evaluation that is 11/09/2022 the patient continues to be afebrile, the patient is breathing comfortably on 2 L nasal cannula oxygen, the patient denies any chest pain shortness of breath or cough no nausea vomiting no abdominal pain or diarrhea has been reported. The patient white count normalized to 10.0 as of yesterdayhe was done today, creatinine 0.39, urine has been finalized with Klebsiella that is a sensitive pathogen. Objective - Vital Signs Vital signs: Vital Signs Temp 98.4 F 11/09/22 12:00 Pulse 82 11/09/22 12:00 Resp 18 11/09/22 12:19 BP 134/65 11/09/22 12:00 Pulse Ox 95 11/09/22 12:00 FiO2 Intake & Output 11/08/22 11/09/22 11/09/22 18:59 06:59 18:59 Output Total 700 700 325 Balance -700 -700 -325 Weight 54.431 kg Output: Urine 700 700 325 Stool 0 Other: Voiding Method Indwelling Catheter Indwelling Catheter Indwelling Catheter # Bowel Movements 1 - Exam GENERAL DESCRIPTION: Elderly female lying in bed in no distress RESPIRATORY SYSTEM: Unlabored breathing , decreased breath sounds at bases HEART: S1 S2 regular rate and rhythm ,no loud murmurs ABDOMEN: Soft , no tenderness EXTREMITIES: No edema feet - Labs CBC & Chem 7: 11/08/22 07:48 11/09/22 12:29 Labs: Abnormal Lab Results - Last 24 Hours (Table) 11/08/22 11/08/22 11/09/22 Range/Units 16:19 20:19 08:25 Potassium 3.1 L (3.5-5.1) mmol/L Creatinine 0.39 L (0.52-1.04) mg/dL POC Glucose (mg/dL) 112 H 123 H (70-110) mg/dL 11/09/22 Range/Units 11:43 Potassium (3.5-5.1) mmol/L Creatinine (0.52-1.04) mg/dL POC Glucose (mg/dL) 138 H (70-110) mg/dL Assessment and Plan (1) UTI (urinary tract infection) Current Visit: Yes Status: Acute Code(s): N39.0 - URINARY TRACT INFECTION, SITE NOT SPECIFIED SNOMED Code(s): 93938970 (2) Leukocytosis Current Visit: Yes Status: Acute Code(s): D72.829 - ELEVATED WHITE BLOOD CELL COUNT, UNSPECIFIED SNOMED Code(s): 538358379 (3) Allergy to multiple antibiotics Current Visit: Yes Status: Acute Code(s): Z88.1 - ALLERGY STATUS TO OTHER ANTIBIOTIC AGENTS SNOMED Code(s): 820394826 Plan: 1patient with leukocytosis which is likely multifactorial in this patient initially presented with GI symptoms and did have a negative UA chest x-ray has been negative CT abdominal pelvis was negative for acute process now with evidence of significantly positive UA likely symptomatic UTI from enteric gram- negative pathogen 2-patient with multiple antibiotic allergies that would limit the number of antibiotics safe to use 3the patient white count has normalized urine is growing Klebsiella that is a sensitive pathogen , patient to continue patient on Azactam while inpatient and transition to short course of oral Cipro on discharge at the bedside questions were answered Dictation was produced using [employer] dictation software. please excuse any grammatical, word or spelling errors. Time with Patient: Less than 30
[2022-11-09 20:12] LABS: Glucose,Whole Blood 95 mg/dL (70-110)
[2022-11-09] MEDS: MONTELUKAST 10 MG TAB PO SCH (20:48)
[2022-11-09] MEDS: MELATONIN 5 MG TABLET PO SCH (20:48)
[2022-11-09] MEDS: QUEtiapine 25 MG TAB PO SCH (20:49)
[2022-11-10] MEDS: AZTREONAM 2 GM in SODIUM CHLORIDE 0.9% 100 ML IVPB SCH ×2 (00:29→08:36)
[2022-11-10 02:52] VITALS: RESP 16
[2022-11-10] MEDS: DEXTROSE 5%-0.9% NACL 1,000 ML IV SCH (04:09)
[2022-11-10 06:18] LABS: Glucose,Whole Blood 99 mg/dL (70-110)
[2022-11-10] MEDS: PANTOPRAZOLE 40 MG TABLET PO SCH (06:40)
[2022-11-10] MEDS: SODIUM CHLORIDE 0.9% 1,000 ML IV SCH (06:40)
[2022-11-10] MEDS: DILTIAZEM CD 180 MG CAP.ER.24H PO SCH (08:36)
[2022-11-10] MEDS: CYANOCOBALAMIN 500 MCG TAB PO SCH (08:36)
[2022-11-10] MEDS: CALCIUM CARBONATE 500 MG CHEWABLE PO SCH (08:36)
[2022-11-10] MEDS: MEGESTROL 400 MG/10 ML CUP PO SCH (08:36)
[2022-11-10] MEDS: DULoxetine HCL 30 MG CAPSULE.DR PO SCH (08:36)
[2022-11-10] MEDS: POTASSIUM CHLORIDE ER 10 MEQ TAB.ER.PRT PO SCH (08:37)
[2022-11-10] MEDS: SPIRONOLACTONE 25 MG TAB PO SCH (08:37)
[2022-11-10] MEDS: CHOLECALCIFEROL 25 MCG (1000 IU) TABLET PO SCH (08:37)
[2022-11-10] MEDS: METOPROLOL TARTRATE 50 MG TAB PO SCH (08:37)
[2022-11-10] MEDS: PRAVASTATIN SODIUM 40 MG TAB PO SCH (08:37)
[2022-11-10] MEDS: LOSARTAN 25 MG TAB PO SCH (08:37)
[2022-11-10] MEDS: CALCIUM CARB-VIT D 500 MG-5 MCG TAB PO SCH (08:37)
[2022-11-10] MEDS: amLODIPine 10 MG TAB PO SCH (08:37)
[2022-11-10] MEDS: MULTIVITAMINS, THERA 1 EACH TAB PO SCH (08:37)
[2022-11-10] MEDS: SYMBICORT 160-4.5 MCG INHALER INHALATION SCH (09:03)
[2022-11-10 10:17] VITALS: PULSE 104
[2022-11-10 10:19] VITALS: BP 137/73; TEMP 97.6
[2022-11-10] MEDS: LIDOCAINE 5% PATCH TOPICAL SCH (11:36)
[2022-11-10] MEDS: POTASSIUM CHLORIDE ER 20 MEQ TAB.ER PO SCH ×2 (11:36→14:00)
[2022-11-10 11:48] LABS: Glucose,Whole Blood 103 mg/dL (70-110)
--- NOTE | 2022-11-10 12:16 | P.DS ---
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 side pain Do you want consulting provider notified?: Yes 11/04/22 12:41 Consult Physician Routine Consulting Provider: Raphael Alvarez Consult Reason/Comments: Dementia with behaviour issue, Do you want consulting provider notified?: Yes 11/05/22 07:59 Consult Physician Routine Consulting Provider: Gabriela Zuñiga Consult Reason/Comments: leukocytosis Do you want consulting provider notified?: Yes 11/05/22 08:00 Consult Physician Routine Consulting Provider: Taylor Love Consult Reason/Comments: confusion Do you want consulting provider notified?: Yes Primary care physician: [facility] Course: Discharge diagnoses; Nausea vomiting and diarrhea suspicious for acute gastroenteritis present on admission. This could be viral infection versus other. Acute urinary tract infection secondary to Klebsiella Altered mental status most likely metabolic and/or toxic encephalopathy. intracranial lesion ruled out by neurologist. Improving slowly and gradually with elements of delirium Hypertension, uncontrolled with urgency on admission, with contributing risk factors including pain and previous use of NSAIDs Hypokalemia generalized weakness secondary to above History of Fall at home with right-sided pain including right shoulder and right knee, this has been evaluated as an outpatient Diabetes mellitus Hyperlipidemia History of osteoarthritis back pain,s/p back surgery Hospital course; This is a pleasant 87 years old female with past medical history of Asthma, Diabetes Mellitus, Hyperlipidemia, Hypertension, back pain,s/p back surgery Patient is confused and poor historian although she answers questions and follow commands. Information obtained from the at bedside. He states that the patient has low appetite dehydrated with diarrhea over the last 2-3 days. Normally her bowel movement is moderate size but over the last 3 days is becoming large size and more loose. Patient has some vomiting but little volume. Patient denies abdominal pain in her abdomen looks soft. She has history of fall last July and since then she is complaining of from right shoulder and right hip pain, she's been evaluated by her PCP Dr. New and had MRI of the right hip and then referred her to Dr. Rutherford's and Leonardo x-ray and CAT scan and his been fully evaluated. Patient still have some mild pain in her right shoulder and right hip she's not in distress, but this would limit movement of both extremities. This problem has been going on now for about 4-6 weeks as per . Discontinue his been fully evaluated already. Patient herself looks very confused, she thinks she isn't Dr. office in [place], when asking about today states she said 2 days after her birthday and she could not tell the name of the president. She follows simple commands. She denies headache dizziness weakness or numbness in extremities. Right-sided examination is somewhat limited by right shoulder pain and right hip pain. No blurred vision, and no slurred speech or choking. She denies chest pain or coughing or dyspnea. No urinary complaints. Patient is afebrile, tachycardic and hypertensive with systolic blood pressure on admission was 170-190. Patient is in room air. Labs showing mild leukocytosis of 13.3, rest of CBC, BMP and liver enzymes were unremarkable except for mild hypokalemia at 2.8 Troponin first one was negative and second and third were elevated at 0.05 and 0.06. TSH 1.3 which is within the reference range Urinalysis showed glucose urea and ketonuria. EKG showing normal sinus rhythm at [address]-T changes CT of the abdomen and pelvis with contrast showing no acute intra-abdominal or intrapelvic process. Right ovarian cyst 10/30/2022 Patient admitted yesterday with signs symptoms of gastroenteritis-like picture with nausea vomiting and periumbilical mild abdominal pain and diarrhea. Patient still has poor appetite and not eating well. She still has diarrhea as per bedside nurse. However on examination she has mild periumbilical pain and tenderness, no guarding, no rebound tenderness. But also patient has been confused, she does not oriented to time place and person as she could not answer these questions. She follows commands and answer other questions appropriately most of the time, she still ABOUT Lithuanian. When I talked to her he feel the same thing that she is confused and she is been gradually getting worse over the last few days. At baseline she is more alert and oriented to time place person and more active and do her own daily activities. Patient got Xanax [place] yesterday, we stopped this medication. Postop Ultram and place her on Toradol since CT of the brain is negative Also was concerned because of her neck pain, patient complains from some neck pain but no significant tenderness. 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 Patient with no pain or numbness in hr arms Because of persistent mild leukocytosis but improving and patient has negative procalcitonin. No fever. Therefore we will hold on antibiotics for now She continued on D5 normal saline at 50 mL/h, also Seroquel when necessary for agitation. Blood pressure is uncontrolled with urgency this morning 198/90+, yesterday with increase her metoprolol 100 mg and put her on Norvasc, today we added losartan and Aldactone by mortgage broker will follow closely. We also hold farxiga for dehydration which would contribute for her pressure. Prognosis remains guarded Discussed with staff I'm resume the care of the patient today on 11/05/2022 Patient today is awake and alert partially to place but oriented to time and person. She is partially disoriented to place, she does note that this is not her house but she cannot tell where she is at. As per at bedside yest erday was significantly worse throughout the day and she was more worse by the evening time and even she could not recognize her however this morning was significant improvement and as per this morning patient is close to her baseline but not at baseline yet. As per yesterday she's been experiencing some visual hallucination ask him about rest of the wall he does not see Patient is able to follow commands. She denies any headache or dizziness, no weakness or tingling or numbness in extremities. She's feels a little nausea but no vomiting. She has low appetite. she complains from epigastric pain about 6-7/10 in severity, nonradiating. She denies urinary complaints, no dysuria urgency. Patient says that she hasn't been walking she came to the hospital and she wants to try to work with physical therapist which is ordered On admission [place] and Xanax were discontinued. Today we discussed continue with Jradalel, MRI of the brain is negative for acute processes 11/07/2022 Patient awake alert but she still confused, she thinks she is in a restaurant, however she noticed 2022 and it is the end of October and going to be November 13 soon. She could not remember the name of the president, she has some insight into her illness. She is pleasant relaxed, smiling and she feels hungry and wants to leave this morning. I think her mentation is improving. She denies any urinary symptoms but she has [place] catheter Patient looks her mentation improving as a trauma will continue now with close monitoring. 11/08/2022 Patient is more sleepy and drowsy this morning but she was just woke up from sleep. Overall his improvement while she is on aztreonam. Urine culture is growing sensitive Klebsiella She still has [place] catheter No other new abdominal pain, tenderness or urinary symptoms. And she is hemodynamically stable pt remains on aztreonam 11/09. Dr. Yoder took over care Patient seen and examined. Patient is confused compared to yesterday according to the 11/10. Patient seen and examined. ID recommended discharging on short course of oral Cipro, being discharged on 5 more days. Being discharged to rehab in stable condition PHYSICAL EXAMINATION: GENERAL: The patient is alert and oriented x2 , not in any acute distress. Well developed, well nourished. HEENT: Pupils are round and equally reacting to light. EOMI. No scleral icterus. No conjunctival pallor. Normocephalic, atraumatic. No pharyngeal erythema. No thyromegaly. CARDIOVASCULAR: S1 and S2 present. No murmurs, rubs, or gallops. PULMONARY: Chest is clear to auscultation, no wheezing or crackles. ABDOMEN: Soft, nontender, nondistended, normoactive bowel sounds. No palpable organomegaly. MUSCULOSKELETAL: No joint swelling or deformity. EXTREMITIES: No cyanosis, clubbing, or pedal edema. NEUROLOGICAL: Gross neurological examination did not reveal any focal deficits. SKIN: No rashes. Dictation was produced using [employer] dictation software. please excuse any grammatical, word or spelling errors. Patient Condition at Discharge: Good Plan - Discharge Summary New Discharge Prescriptions: New Spironolactone [Aldactone] 25 mg PO DAILY #30 tab Losartan [Cozaar] 25 mg PO DAILY #30 tab Lidocaine 5% Patch [Lidoderm 5% Patch] 1 patch TOPICAL DAILY #15 patch Metoprolol Tartrate [Lopressor] 100 mg PO BID #30 tab Megestrol [Megace] 400 mg PO DAILY #14 ml amLODIPine [Norvasc] 10 mg PO DAILY #30 tab QUEtiapine [SEROquel] 12.5 mg PO HS #15 tab Ciprofloxacin HCl [Cipro] 500 mg PO Q12HR 5 Days #10 tab Continue Pravastatin Sodium [Pravachol] 40 mg PO DAILY Azelastine HCl [Astepro] 2 spray EA NOSTRIL BID PRN PRN Reason: Allergy Symptoms Celecoxib [CeleBREX] 200 mg PO BID Montelukast Sodium [Singulair] 10 mg PO HS Multivitamins, Thera [Multivitamin (formulary)] 1 tab PO DAILY Cholecalciferol [Vitamin D3 (25 Mcg = 1000 Iu)] 25 mcg PO DAILY Calcium Carbonate [Calcium] 600 mg PO DAILY DULoxetine HCL [Cymbalta] 30 mg PO DAILY Ibuprofen [Motrin] 600 mg PO BID PRN PRN Reason: Pain Or Fever > 100.5 Diltiazem Cd [Cardizem CD] 180 mg PO DAILY Budesonide/Formoterol Fumarate [Symbicort 160-4.5 Mcg Inhaler] 2 puff INHALATION RT-BID Dapagliflozin Propanediol [Farxiga] 10 mg PO DAILY SUMAtriptan succinate [Imitrex] 25 mg PO BID PRN PRN Reason: Migraine Headache Omeprazole 40 mg PO DAILY Potassium Gluconate 595mg Tab 595 mg PO DAILY Cyanocobalamin (Vitamin B-12) [Vitamin B-12] 1,000 mcg PO DAILY Melatonin 10 mg PO HS Calcium Carbonate/Vitamin D3 [Calcium 600 mg-D3 10 Mcg (400 Iu)] 1 cap PO DAILY Discontinued ALPRAZolam [Xanax] 0.5 mg PO BID PRN PRN Reason: Anxiety Mirtazapine [Remeron] 15 mg PO HS Metoprolol Tartrate [Lopressor] 50 mg PO BID Gabapentin 300 mg PO BID PRN PRN Reason: Pain HYDROcodone/APAP 7.5-325MG [[place] 7.5-325] 1 tab PO Q8H PRN PRN Reason: Pain traMADol HCl [Ultram] 50 mg PO Q8H PRN PRN Reason: Pain diphenhydrAMINE [Benadryl] 25 mg PO DAILY Discharge Medication List Pravastatin Sodium [Pravachol] 40 mg PO DAILY 10/27/14 [History] Azelastine HCl [Astepro] 2 spray EA NOSTRIL BID PRN 04/02/20 [History] Celecoxib [CeleBREX] 200 mg PO BID 04/02/20 [History] Montelukast Sodium [Singulair] 10 mg PO HS 04/02/20 [History] Budesonide/Formoterol Fumarate [Symbicort 160-4.5 Mcg Inhaler] 2 puff INHALATION RT-BID 08/02/20 [History] Diltiazem Cd [Cardizem CD] 180 mg PO DAILY 08/02/20 [History] Dapagliflozin Propanediol [Farxiga] 10 mg PO DAILY 09/02/22 [History] Multivitamins, Thera [Multivitamin (formulary)] 1 tab PO DAILY 09/02/22 [History] Omeprazole 40 mg PO DAILY 09/02/22 [History] SUMAtriptan succinate [Imitrex] 25 mg PO BID PRN 09/02/22 [History] Calcium Carbonate [Calcium] 600 mg PO DAILY 10/26/22 [History] Cholecalciferol [Vitamin D3 (25 Mcg = 1000 Iu)] 25 mcg PO DAILY 10/26/22 [History] Calcium Carbonate/Vitamin D3 [Calcium 600 mg-D3 10 Mcg (400 Iu)] 1 cap PO DAILY 10/28/22 [History] Cyanocobalamin (Vitamin B-12) [Vitamin B-12] 1,000 mcg PO DAILY 10/28/22 [History] DULoxetine HCL [Cymbalta] 30 mg PO DAILY 10/28/22 [History] Ibuprofen [Motrin] 600 mg PO BID PRN 10/28/22 [History] Melatonin 10 mg PO HS 10/28/22 [History] Potassium Gluconate 595mg Tab 595 mg PO DAILY 10/28/22 [History] Ciprofloxacin HCl [Cipro] 500 mg PO Q12HR 5 Days #10 tab 11/10/22 [Rx] Lidocaine 5% Patch [Lidoderm 5% Patch] 1 patch TOPICAL DAILY #15 patch 11/10/22 [Rx] Losartan [Cozaar] 25 mg PO DAILY #30 tab 11/10/22 [Rx] Megestrol [Megace] 400 mg PO DAILY #14 ml 11/10/22 [Rx] Metoprolol Tartrate [Lopressor] 100 mg PO BID #30 tab 11/10/22 [Rx] QUEtiapine [SEROquel] 12.5 mg PO HS #15 tab 11/10/22 [Rx] Spironolactone [Aldactone] 25 mg PO DAILY #30 tab 11/10/22 [Rx] amLODIPine [Norvasc] 10 mg PO DAILY #30 tab 11/10/22 [Rx] Follow up Appointment(s)/Referral(s): Gilberto Kelly MD [Primary Care Provider] - 1-2 days Magdy Palomares DO [Doctor of Osteopathic Medicine] - As Needed Miguel Garcia DO [Doctor of Osteopathic Medicine] - 4 Weeks Gabriela Zuñiga MD [STAFF PHYSICIAN] - 1 Week Discharge/Stand Alone Forms: Who Do I Call?, Community Resources Discharge Disposition: TRANSFER TO SNF/ECF
--- NOTE | 2022-11-10 14:50 | P.PN ---
Subjective Progress Note Date: 11/10/22 Principal diagnosis: Leukocytosis/UTI ,Multiple antibiotics allergy Patient is a 87-year-old female with a past medical history significant for diabetes mellitus hypertension hyperlipidemia skin cancer with initial presentation for abdominal pain nausea vomiting and diarrhea symptoms going on for about a week before the patient presented to hospital, patient noticed to have elevated white count probably this infectious disease consultation. On today's evaluation that is 11/10/2022 the patient remains to be afebrile, the patient is breathing comfortably on 2 L nasal cannula oxygen, the patient is more awake and alert today and denies any chest pain shortness of breath or cough no nausea vomiting no abdominal pain or diarrhea has been reported. The patient white count normalized to 10.0 as of 11/08/2022, cbc was done today, creatinine 0.39, urine has been finalized with Klebsiella that is a sensitive pathogen. Objective - Vital Signs Vital signs: Vital Signs Temp 97.6 F 11/10/22 08:00 Pulse 104 H 11/10/22 08:00 Resp 16 11/10/22 08:00 BP 137/73 11/10/22 08:00 Pulse Ox 97 11/10/22 09:05 FiO2 Intake & Output 11/09/22 11/10/22 11/10/22 18:59 06:59 18:59 Intake Total 150 Output Total 525 1100 225 Balance -525 -950 -225 Weight 54.431 kg Intake: Oral 150 Output: Urine 525 1100 225 Stool 0 Other: Voiding Method Indwelling Catheter Indwelling Catheter Indwelling Catheter - Exam GENERAL DESCRIPTION: Elderly female lying in bed in no distress RESPIRATORY SYSTEM: Unlabored breathing , decreased breath sounds at bases HEART: S1 S2 regular rate and rhythm ,no loud murmurs ABDOMEN: Soft , no tenderness EXTREMITIES: No edema feet - Labs CBC & Chem 7: 11/08/22 07:48 11/10/22 07:30 Labs: Abnormal Lab Results - Last 24 Hours (Table) 11/09/22 11/10/22 Range/Units 16:33 07:30 Potassium 3.2 L (3.5-5.1) mmol/L POC Glucose (mg/dL) 127 H (70-110) mg/dL Assessment and Plan (1) UTI (urinary tract infection) Status: Acute Code(s): N39.0 - URINARY TRACT INFECTION, SITE NOT SPECIFIED SNOMED Code(s): 48745345 (2) Leukocytosis Status: Acute Code(s): D72.829 - ELEVATED WHITE BLOOD CELL COUNT, UNSPECIFIED SNOMED Code(s): 889905531 (3) Allergy to multiple antibiotics Status: Acute Code(s): Z88.1 - ALLERGY STATUS TO OTHER ANTIBIOTIC AGENTS SNOMED Code(s): 562031946 Plan: 1patient with leukocytosis which is likely multifactorial in this patient in itially presented with GI symptoms and did have a negative UA chest x-ray has been negative CT abdominal pelvis was negative for acute process now with evidence of significantly positive UA likely symptomatic UTI from enteric gram- negative pathogen 2-patient with multiple antibiotic allergies that would limit the number of antibiotics safe to use 3the patient white count has normalized urine is growing Klebsiella that is a sensitive pathogen , patient has shown clinical improvement and will finish therapy with short course of oral Cipro on discharge, discussed with the admitting team working on discharge at the bedside questions were answered Dictation was produced using [employer] dictation software. please excuse any grammatical, word or spelling errors. Time with Patient: Less than 30
== END 2022-11-10 14:10 | DRG 391 ==
LOC: EC 10:08 → 6NMEDSUR 18:30 → 3SCARD 21:32 → OBSVTOIN 10-30 07:55 → 3SCARD 10-30 11:37
PROVIDERS: ADMIT Internal Medicine; ATTEND Internal Medicine
DX: K52.9 Noninfective gastroenteritis and colitis, unspecified (principal); E43 Unspecified severe protein-calorie malnutrition; T83.511A Infection and inflammatory reaction due to indwelling urethral catheter, initial encounter; N39.0 Urinary tract infection, site not specified; G92.9 Unspecified toxic encephalopathy; S22.089A Unspecified fracture of T11-T12 vertebra, initial encounter for closed fracture; Z68.1 Body mass index [BMI] 19.9 or less, adult; F03.918 Unspecified dementia, unspecified severity, with other behavioral disturbance; F03.94 Unspecified dementia, unspecified severity, with anxiety; I16.1 Hypertensive emergency; I5A Non-ischemic myocardial injury (non-traumatic); B96.1 Klebsiella pneumoniae [K. pneumoniae] as the cause of diseases classified elsewhere; E11.9 Type 2 diabetes mellitus without complications; E78.5 Hyperlipidemia, unspecified; E86.0 Dehydration; E87.6 Hypokalemia; K76.89 Other specified diseases of liver; G43.909 Migraine, unspecified, not intractable, without status migrainosus; G47.00 Insomnia, unspecified; G89.29 Other chronic pain; I10 Essential (primary) hypertension; I70.0 Atherosclerosis of aorta; I35.1 Nonrheumatic aortic (valve) insufficiency; K21.9 Gastro-esophageal reflux disease without esophagitis; M19.011 Primary osteoarthritis, right shoulder; M47.812 Spondylosis without myelopathy or radiculopathy, cervical region; M48.02 Spinal stenosis, cervical region; M43.12 Spondylolisthesis, cervical region; N83.201 Unspecified ovarian cyst, right side; W19.XXXA Unspecified fall, initial encounter; Y92.009 Unspecified place in unspecified non-institutional (private) residence as the place of occurrence of the external cause; Z79.1 Long term (current) use of non-steroidal anti-inflammatories (NSAID); Z79.51 Long term (current) use of inhaled steroids; Z79.84 Long term (current) use of oral hypoglycemic drugs; Z79.899 Other long term (current) drug therapy; Z85.828 Personal history of other malignant neoplasm of skin; Z91.81 History of falling; Z96.652 Presence of left artificial knee joint; Z96.643 Presence of artificial hip joint, bilateral; Z88.1 Allergy status to other antibiotic agents; Z88.0 Allergy status to penicillin; Z87.81 Personal history of (healed) traumatic fracture; Z71.3 Dietary counseling and surveillance; Z87.891 Personal history of nicotine dependence; Z98.1 Arthrodesis status
CPT/HCPCS: 36415; 70450; 70551; 71046; 72125; 74177; 76705; 80048; 80053; 80076; 81001; 82140; 82150; 82607; 82746; 83036; 83605; 83690; 83735; 83880; 83921; 84132; 84145; 84443; 84484; 85025; 85027; 86140; 87040; 87045; 87046; 87077; 87086; 87186; 93005; 93306; 94640; 94760; 96361; 96365; 96366; 96375; 96376; 99285

== ENCOUNTER 2022-12-01 11:50 | Emergency (ER) | payer MEDICARE ==
[2022-12-01 11:57] VITALS: TEMP 98
--- NOTE | 2022-12-01 12:40 | ED ---
Back Pain HPI - General Chief Complaint: Back Pain/Injury Stated Complaint: back pain Time Seen by Provider: 12/01/22 11:55 Source: patient, EMS - History of Present Illness Initial Comments: 87-year-old female with chronic neck and back pain who presents from home. provides history. States that the patient slipped out of her wheelchair yesterday attempting to get into her bed. He went into the room and found the patient laying on her back. It was presumed that the patient had hit her head. She denies losing consciousness. This morning the patient states that she seemed somewhat confused. They called and spoke with her home nurse who recommended that the patient be evaluated. She is wheelchair bound due to chronic lower back pain. Under the care of Dr. Garcia. She does admit to some right sided flank pain. No headaches or visual changes. No nausea or vomiting. She did not take anything for the pain before coming in. No other alleviating, precipitating or modifying factors - Related Data Home Medications Medication Instructions Recorded Confirmed Pravastatin Sodium [Pravachol] 40 mg PO DAILY 10/27/14 10/28/22 Azelastine HCl [Astepro] 2 spray EA NOSTRIL BID PRN 04/02/20 10/28/22 Celecoxib [CeleBREX] 200 mg PO BID 04/02/20 10/28/22 Montelukast Sodium [Singulair] 10 mg PO HS 04/02/20 10/28/22 Budesonide/Formoterol Fumarate 2 puff INHALATION RT-BID 08/02/20 10/28/22 [Symbicort 160-4.5 Mcg Inhaler] Diltiazem Cd [Cardizem CD] 180 mg PO DAILY 08/02/20 10/28/22 Dapagliflozin Propanediol [Farxiga] 10 mg PO DAILY 09/02/22 10/28/22 Multivitamins, Thera [Multivitamin 1 tab PO DAILY 09/02/22 10/28/22 (formulary)] Omeprazole 40 mg PO DAILY 09/02/22 10/28/22 SUMAtriptan succinate [Imitrex] 25 mg PO BID PRN 09/02/22 10/28/22 Calcium Carbonate [Calcium] 600 mg PO DAILY 10/26/22 10/28/22 Cholecalciferol [Vitamin D3 (25 25 mcg PO DAILY 10/26/22 10/28/22 Mcg = 1000 Iu)] Calcium Carbonate/Vitamin D3 1 cap PO DAILY 10/28/22 10/28/22 [Calcium 600 mg-D3 10 Mcg (400 Iu)] Cyanocobalamin (Vitamin B-12) 1,000 mcg PO DAILY 10/28/22 10/28/22 [Vitamin B-12] DULoxetine HCL [Cymbalta] 30 mg PO DAILY 10/28/22 10/28/22 Ibuprofen [Motrin] 600 mg PO BID PRN 10/28/22 10/28/22 Melatonin 10 mg PO HS 10/28/22 10/28/22 Potassium Gluconate 595mg Tab 595 mg PO DAILY 10/28/22 10/28/22 Previous Rx's Medication Instructions Recorded Ciprofloxacin HCl [Cipro] 500 mg PO Q12HR 5 Days #10 tab 11/10/22 Lidocaine 5% Patch [Lidoderm 5% 1 patch TOPICAL DAILY #15 patch 11/10/22 Patch] Losartan [Cozaar] 25 mg PO DAILY #30 tab 11/10/22 Megestrol [Megace] 400 mg PO DAILY #14 ml 11/10/22 Metoprolol Tartrate [Lopressor] 100 mg PO BID #30 tab 11/10/22 QUEtiapine [SEROquel] 12.5 mg PO HS #15 tab 11/10/22 Spironolactone [Aldactone] 25 mg PO DAILY #30 tab 11/10/22 amLODIPine [Norvasc] 10 mg PO DAILY #30 tab 11/10/22 Allergies Allergy/AdvReac Type Severity Reaction Status Date / Time amoxicillin trihydrate Allergy Unknown Verified 12/01/22 11:57 [From Augmentin] cephalexin monohydrate Allergy Unknown Verified 12/01/22 11:57 [From Keflex] dicyclomine Allergy disoriented Verified 12/01/22 11:57 for 4 days hydromorphone HCl Allergy Extremely Verified 12/01/22 11:57 [From Dilaudid] Confusion for 8 days nitrofurantoin Allergy Unknown Verified 12/01/22 11:57 macrocrystalline [From Macrodantin] potassium clavulanate Allergy Unknown Verified 12/01/22 11:57 [From Augmentin] zolpidem [From Ambien] AdvReac Unknown sleep Verified 12/01/22 11:57 walks, confused Review of Systems ROS Statement: Those systems with pertinent positive or pertinent negative responses have been documented in the HPI. ROS Other: All systems not noted in ROS Statement are negative. Past Medical History Past Medical History: Asthma, Cancer, Diabetes Mellitus, Hyperlipidemia, Hypertension Additional Past Medical History / Comment(s): numbness 2nd,3rd,4th digits rt hand, back pain,skin CA History of Any Multi-Drug Resistant Organisms: None Reported Past Surgical History: Back Surgery, Hysterectomy, Joint Replacement, Orthopedic Surgery, Tonsillectomy Additional Past Surgical History / Comment(s): back x2,lumbar fusion, left knee replacement,ana hips, carpal tunnel surgery Right. Pain clinic procedure Past Anesthesia/Blood Transfusion Reactions: No Reported Reaction Additional Past Anesthesia/Blood Transfusion Reaction / Comment(s): no hx blood transfusion Past Psychological History: No Psychological Hx Reported, Depression Smoking Status: Former smoker Past Alcohol Use History: None Reported Past Drug Use History: None Reported - Past Family History Mother Family Medical History: No Reported History General Exam General appearance: alert, in no apparent distress Head exam: Present: atraumatic, normocephalic, normal inspection Eye exam: Present: normal appearance, PERRL, EOMI. Absent: scleral icterus, conjunctival injection, periorbital swelling ENT exam: Present: normal exam, mucous membranes moist Neck exam: Present: normal inspection. Absent: tenderness, meningismus, lymphadenopathy Respiratory exam: Present: normal lung sounds bilaterally. Absent: respiratory distress, wheezes, rales, rhonchi, stridor Cardiovascular Exam: Present: regular rate, normal rhythm, normal heart sounds. Absent: systolic murmur, diastolic murmur, rubs, gallop, clicks GI/Abdominal exam: Present: soft, normal bowel sounds. Absent: distended, tenderness, guarding, rebound, rigid Extremities exam: Present: normal inspection, full ROM, normal capillary refill. Absent: tenderness, pedal edema, joint swelling, calf tenderness Back exam: Present: normal inspection, CVA tenderness (R) Neurological exam: Present: alert, oriented X3, CN II-XII intact Psychiatric exam: Present: normal affect, normal mood Skin exam: Present: warm, dry, intact, normal color. Absent: rash Course Vital Signs 12/01/22 12/01/22 11:51 16:31 Temperature 98.0 F Pulse Rate 95 106 H Respiratory 18 20 Rate Blood Pressure 126/80 141/74 O2 Sat by Pulse 96 99 Oximetry Medical Decision Making - Medical Decision Making Was pt. sent in by a medical professional or institution (ERIC Shaver, PARACHUTIST/COMBATANT DIVER QUALIFIED, urgent care, hospital, or correction...) When possible be specific @ -No Did you speak to anyone other than the patient for history (EMS, parent, family, police, friend...)? What history was obtained from this source @ -I spoke with the in regards to the patient's symptoms Did you review nursing and triage notes (agree or disagree)? Why? @ -I reviewed and agree with nursing and triage notes Were old charts reviewed (outside hosp., previous admission, EMS record, old EKG, old radiological studies, urgent care reports/EKG's, correction records)? Report findings @ -I reviewed patient's discharge summary from the end of December Differential Diagnosis (chest pain, altered mental status, abdominal pain women, abdominal pain men, vaginal bleeding, weakness, fever, dyspnea, syncope, headache, dizziness, GI bleed, back pain, seizure, CVA, palpatations, mental health, musculoskeletal)? @ -Differential Back Pain: Strain, zoster, cauda equina syndrome, epidural abscess, vertebral osteomyelitis, discitis, fracture, subluxation, disc herniation, DJD, spinal stenosis, dissection, AAA, pancreatitis, peptic ulcer disease, pyelonephritis, kidney stone, this is not meant to be an all-inclusive list. EKG interpreted by me (3pts min.). @ -Not done X-rays interpreted by me (1pt min.). @ -Yes and does not demonstrate any new compression fractures CT interpreted by me (1pt min.). @ -Yes and demonstrates no acute intracranial process U/S interpreted by me (1pt. min.). @ -None done What testing was considered but not performed or refused? (CT, X-rays, U/S, labs)? Why? @ -None What meds were considered but not given or refused? Why? @ -None Did you discuss the management of the patient with other professionals (professionals i.e. ERIC Shaver, PARACHUTIST/COMBATANT DIVER QUALIFIED, lab, RT, psych nurse, clinical social worker, wreath and garland maker hand, teacher, hospital chief financial officer, case management assistant)? Give summary @ -Spoke with Dayana the case management assistant Was smoking cessation discussed for >3mins.? @ -No Was critical care preformed (if so, how long)? @ -No Were there social determinants of health that impacted care today? How? (Homelessness, low income, unemployed, alcoholism, drug addiction, transportation, low edu. Level, literacy, decrease access to med. care, fci, rehab)? @ -No Was there de-escalation of care discussed even if they declined (Discuss DNR or withdrawal of care, Hospice)? DNR status @ -No What co-morbidities impacted this encounter? (DM, HTN, Smoking, COPD, CAD, Cancer, CVA, ARF, Chemo, Hep., AIDS, mental health diagnosis, sleep apnea, morbid obesity)? @ -Compression fracture, chronic neck pain, chronic back pain Was patient admitted / discharged? Hospital course, mention meds given and route, prescriptions, significant lab abnormalities, going to OR and other pe rtinent info. @ -Upon arrival patient was placed into quach 23. Thorough history and physical exam was performed. Patient is alert and oriented was no signs of confusion. She is sent for CT of her head as well as an x-ray of her lower back and pelvis. No new injuries identified. We did have a case management assistant see the patient. She is made an appointment at Dr. Kelly office. She does have an upcoming appointment with pain management. They were agreeable to going home. Return for any new or worsening symptoms. Patient was discharged in stable condition Undiagnosed new problem with uncertain prognosis? @ -No Drug Therapy requiring intensive monitoring for toxicity (Heparin, Nitro, Insulin, Cardizem)? @ -No Were any procedures done? @ -No Diagnosis/symptom? @ -Acute fall, chronic neck and back pain Acute, or Chronic, or Acute on Chronic? @ -Acute Uncomplicated (without systemic symptoms) or Complicated (systemic symptoms)? @ -complicated Side effects of treatment? @ -No Exacerbation, Progression, or Severe Exacerbation? @ -No Poses a threat to life or bodily function? How? (Chest pain, USA, MA, pneumonia, PE, COPD, DKA, ARF, appy, cholecystitis, CVA, Diverticulitis, Homicidal, Suicidal, threat to staff... and all critical care pts) @ -No - Lab Data Result diagrams: 12/01/22 12:36 12/01/22 12:36 Lab Results 12/01/22 12/01/22 12/01/22 Range/Units 12:36 12:36 12:36 WBC 9.7 (3.8-10.6) k/uL RBC 4.87 (3.80-5.40) m/uL Hgb 16.5 H (11.4-16.0) gm/dL Hct 49.7 H (34.0-46.0) % MCV 102.1 H (80.0-100.0) fL MCH 33.9 (25.0-35.0) pg MCHC 33.2 (31.0-37.0) g/dL RDW 12.2 (11.5-15.5) % Plt Count 327 (150-450) k/uL MPV 7.1 Neutrophils % 59 % Lymphocytes % 21 % Monocytes % 8 % Eosinophils % 8 % Basophils % 1 % Neutrophils # 5.7 (1.3-7.7) k/uL Lymphocytes # 2.0 (1.0-4.8) k/uL Monocytes # 0.8 (0-1.0) k/uL Eosinophils # 0.8 H (0-0.7) k/uL Basophils # 0.1 (0-0.2) k/uL Sodium 140 (137-145) mmol/L Potassium 4.0 (3.5-5.1) mmol/L Chloride 107 (98-107) mmol/L Carbon Dioxide 22 (22-30) mmol/L Anion Gap 11 mmol/L BUN 11 (7-17) mg/dL Creatinine 0.57 (0.52-1.04) mg/dL Est GFR (CKD-EPI)AfAm >90 (>60 ml/min/1.73 sqM) Est GFR (CKD-EPI)NonAf 84 (>60 ml/min/1.73 sqM) Glucose 101 H (74-99) mg/dL Calcium 9.7 (8.4-10.2) mg/dL Total Bilirubin 0.5 (0.2-1.3) mg/dL AST 93 H (14-36) U/L ALT 90 H (4-34) U/L Alkaline Phosphatase 72 (38-126) U/L Total Protein 6.9 (6.3-8.2) g/dL Albumin 3.9 (3.5-5.0) g/dL Urine Color Colorless Urine Appearance Cloudy H (Clear) Urine pH 6.5 (5.0-8.0) Ur Specific [place] 1.012 (1.001-1.035) Urine Protein Negative (Negative) Urine Glucose (UA) 4+ H (Negative) Urine Ketones Negative (Negative) Urine Blood Negative (Negative) Urine Nitrite Negative (Negative) Urine Bilirubin Negative (Negative) Urine Urobilinogen <2.0 (<2.0) mg/dL Ur Leukocyte Esterase Large H (Negative) Ur Squamous Epith Cells 1 (0-4) /hpf Disposition Clinical Impression: Fall, Lumbar back pain Disposition: HOME SELF-CARE Condition: Stable Instructions (If sedation given, give patient instructions): Fall Prevention for Older Adults (ED) Additional Instructions: Please follow-up at your scheduled appointments. Return for any new or worsening symptoms Is patient prescribed a controlled substance at d/c from ED?: No Referrals: Gilberto Kelly MD [Primary Care Provider] - 12/04/22 1:00 pm Miguel Garcia DO [Doctor of Osteopathic Medicine] - 12/11/22 10:30 am Forms: Who Do I Call?, [facility], Personal Superintendent [facility] Time of Disposition: 15:49
[2022-12-01 13:08] LABS: Basophils # (A) 0.1 k/uL (0-0.2); Basophils % (A) 1 %; Eosinophils # (A) 0.8 k/uL (0-0.7); Eosinophils % (A) 8 %; HCT 49.7 % (34.0-46.0); HGB 16.5 gm/dL (11.4-16.0); Lymphocytes % (A) 21 %; MCH 33.9 pg (25.0-35.0); MCHC 33.2 g/dL (31.0-37.0); MCV 102.1 fL (80.0-100.0); Mean Platelet Volume 7.1; Monocytes # (A) 0.8 k/uL (0-1.0); Monocytes % (A) 8 %; Neutrophils # (A) 5.7 k/uL (1.3-7.7); Neutrophils % (A) 59 %; Platelet Count 327 k/uL (150-450); RBC 4.87 m/uL (3.80-5.40); RDW 12.2 % (11.5-15.5); WBC 9.7 k/uL (3.8-10.6)
[2022-12-01 13:20] LABS: ALT 90 U/L (4-34); AST 93 U/L (14-36); African American GFR (CKD) >90 (>60 ml/min/1.73 sqM); Albumin 3.9 g/dL (3.5-5.0); Alkaline Phosphatase 72 U/L (38-126); Anion Gap 11 mmol/L; Blood Urea Nitrogen 11 mg/dL (7-17); Calcium 9.7 mg/dL (8.4-10.2); Carbon Dioxide 22 mmol/L (22-30); Chloride 107 mmol/L (98-107); Glucose 101 mg/dL (74-99); Non-African American GFR(CKD) 84 (>60 ml/min/1.73 sqM); Sodium 140 mmol/L (137-145); Total Bilirubin 0.5 mg/dL (0.2-1.3); Total Protein 6.9 g/dL (6.3-8.2)
[2022-12-01 13:30] LABS: Appearance,Urine Cloudy (Clear); Bilirubin,Urine Negative (Negative); Blood,Urine Negative (Negative); Color,Urine Colorless; Glucose,Urine (UA) 4+ (Negative); Ketones,Urine Negative (Negative); Leukocyte Esterase,Urine Large (Negative); Nitrite,Urine Negative (Negative); PH, Urine 6.5 (5.0-8.0); Protein,Urine Negative (Negative); Specific Gravity,Urine 1.012 (1.001-1.035); Squamous Epithelial Cell,Urine 1 /hpf (0-4); Urobilinogen,Urine <2.0 mg/dL (<2.0)
--- NOTE | 2022-12-01 14:07 | XR ---
EXAMINATION TYPE: XR pelvis AP view DATE OF EXAM: 12/01/2022 COMPARISON: None HISTORY: Fall, pain TECHNIQUE: AP pelvis FINDINGS: Bilateral femoral prostheses are present. Symphysis pubis and sacroiliac joints are normal. Postsurgical changes are within the lumbar spine. Normal bowel gas is present. IMPRESSION: 1. No acute osseous abnormalities AP pelvis
--- NOTE | 2022-12-01 14:07 | XR ---
EXAMINATION TYPE: XR lumbar spine 2 or 3V DATE OF EXAM: 12/01/2022 COMPARISON: None HISTORY: Fall, pain TECHNIQUE: 3 view lumbar spine FINDINGS: Pedicle screws are present L1-2 and L4-5. Fixation rods are present. Disc spacers are prese nt 3 4 and L4-5. L5-S1 disc height is preserved. There is narrowing of the disc heights upper lumbar spine. Wedge deformity of T12 appears to be present, unchanged from 10/28/2022 comparison. No posterio r wall displacement is evident. IMPRESSION: 1. Old wedge deformity T12 without posterior wall displacement. 2. Degenerative disc changes discussed above 3. No acute osseous abnormality
--- NOTE | 2022-12-01 15:25 | CT ---
EXAMINATION TYPE: CT brain сергей whitt con DATE OF EXAM: 12/01/2022 COMPARISON: 10/30/2022, 11/02/2022 HISTORY: fall, pain CT DLP: 1367.7 mGycm Automated exposure control for dose reduction was used. TECHNIQUE: CT scan of the head and cervical spine are performed without contrast. FINDINGS: Bilateral basal ganglia calcifications. Moderate degenerative change. Moderate hypoattenu ation within the white matter most of overall mild white matter ischemia. No midline shift or mass ef fect. No acute hemorrhage. Hypodensity within the right basal ganglia compatible with remote lacunar infarct. There is nodular prominence of the left MCA measuring 4 mm. Intracranial atherosclerotic changes. Orbits are symmetric. Calvarium is intact. Assessment spinal canal nondiagnostic due to artifact resolution. Emphysematous changes involving the lung apices with biapical pleural thickening. There is multilevel degenerative disc disease with sev ere changes C6-C7. Grade 1 anterolisthesis of C3-C4, C4-5 and C5-C6. There is osteopenia. Multilevel facet arthropathy. There is a superior endplate compression fracture of the upper thoracic spine is s table. IMPRESSION: 1. Multilevel anterolisthesis, facet arthropathy and degenerative disc disease. Chronic superior endp late compression fracture upper thoracic spine stable. No acute fracture. 2. No acute intracranial hemorrhage, mass effect, or midline shift is seen. Nodular prominence of the left MCA consider follow-up MRA [place] to exclude aneurysm. 3. Degenerative/remote ischemic white matter changes.
[2022-12-01 16:35] VITALS: BP 141/74; PULSE 106; RESP 20
== END 2022-12-01 16:32 | disposition home or self-care (01) ==
LOC: EC 11:50
DX: M54.50 Low back pain, unspecified (principal); J45.909 Unspecified asthma, uncomplicated; E11.9 Type 2 diabetes mellitus without complications; E78.5 Hyperlipidemia, unspecified; I10 Essential (primary) hypertension; Z87.891 Personal history of nicotine dependence; Z88.5 Allergy status to narcotic agent; Z88.0 Allergy status to penicillin; Z88.8 Allergy status to other drugs, medicaments and biological substances; Z88.1 Allergy status to other antibiotic agents; Z79.51 Long term (current) use of inhaled steroids; Z79.84 Long term (current) use of oral hypoglycemic drugs; Z79.899 Other long term (current) drug therapy
CPT/HCPCS: 36415; 70450; 72100; 72125; 72170; 80053; 81001; 85025; 99285

== ENCOUNTER 2022-12-23 15:11 | Observation (INO) | payer MEDICARE ==
--- NOTE | 2022-12-23 15:31 | ED ---
General Adult HPI - General Chief complaint: Weakness Stated complaint: weakness Time Seen by Provider: 12/23/22 15:20 Source: patient, EMS, RN notes reviewed, old records reviewed Mode of arrival: EMS Limitations: no limitations - History of Present Illness Initial comments: This is an 87-year-old female presents emergency Department with a complaint of just getting progressively weaker. Patient's wants her to go to a rehab center so she can get her strength back. Patient has no specific complaints. Patient denies headache patient denies numbness weakness per patient's chest pain difficult breathing shortness of breath per patient denies any abdominal pain. Patient denies any nausea vomiting diarrhea. Patient denies dysuria hematuria urinary frequency. Patient denies any recent falls or trauma. - Related Data Home Medications Medication Instructions Recorded Confirmed Pravastatin Sodium [Pravachol] 40 mg PO HS 10/27/14 12/23/22 Azelastine HCl [Astepro] 2 spray EA NOSTRIL DAILY 04/02/20 12/23/22 Montelukast Sodium [Singulair] 10 mg PO HS 04/02/20 12/23/22 Budesonide/Formoterol Fumarate 2 puff INHALATION RT-BID 08/02/20 12/23/22 [Symbicort 160-4.5 Mcg Inhaler] Diltiazem Cd [Cardizem CD] 180 mg PO DAILY@1200 08/02/20 12/23/22 Dapagliflozin Propanediol [Farxiga] 10 mg PO DAILY 09/02/22 12/23/22 Multivitamins, Thera [Multivitamin 1 tab PO DAILY@119909/02/22 12/23/22 (formulary)] Omeprazole 40 mg PO AC-BRKFST 09/02/22 12/23/22 SUMAtriptan succinate [Imitrex] 25 mg PO BID PRN 09/02/22 12/23/22 Cholecalciferol [Vitamin D3 (25 125 mcg PO DAILY@119910/26/22 12/23/22 Mcg = 1000 Iu)] Calcium Carbonate/Vitamin D3 1 cap PO DAILY@1200 10/28/22 12/23/22 [Calcium 600 mg-D3 10 Mcg (400 Iu)] Cyanocobalamin (Vitamin B-12) 1,000 mcg PO DAILY@1200 10/28/22 12/23/22 [Vitamin B-12] DULoxetine HCL [Cymbalta] 30 mg PO DAILY 10/28/22 12/23/22 Melatonin 10 mg PO HS 10/28/22 12/23/22 Potassium Gluconate 595mg Tab 595 mg PO DAILY 10/28/22 12/23/22 ALPRAZolam [Xanax] 0.5 mg PO BID PRN 12/04/22 12/23/22 Gabapentin 300 mg PO BID 12/04/22 12/23/22 HYDROcodone/APAP 7.5-325MG [[place] 1 tab PO Q6H PRN 12/04/22 12/23/22 7.5-325] Potassium Chloride ER [K-Dur 10] 10 meq PO HS 12/04/22 12/23/22 Lidocaine 5% Patch [Lidoderm 5% 1 patch TRANSDERM DAILY 12/23/22 12/23/22 Patch] Megestrol [Megace] 400 mg PO DAILY@1200 12/23/22 12/23/22 Spironolactone [Aldactone] 12.5 mg PO DAILY 12/23/22 12/23/22 Previous Rx's Medication Instructions Recorded Apixaban [Eliquis] 2.5 mg PO BID #60 tab 12/08/22 Metoprolol Tartrate [Lopressor] 50 mg PO BID #60 tab 12/09/22 Allergies Allergy/AdvReac Type Severity Reaction Status Date / Time amoxicillin trihydrate Allergy Unknown Verified 12/23/22 17:12 [From Augmentin] cephalexin monohydrate Allergy Unknown Verified 12/23/22 17:12 [From Keflex] dicyclomine Allergy disoriented Verified 12/23/22 17:12 for 4 days hydromorphone HCl Allergy Extremely Verified 12/23/22 17:12 [From Dilaudid] Confusion for 8 days nitrofurantoin Allergy Unknown Verified 12/23/22 17:12 macrocrystalline [From Macrodantin] potassium clavulanate Allergy Unknown Verified 12/23/22 17:12 [From Augmentin] zolpidem [From Ambien] AdvReac Unknown sleep Verified 12/23/22 17:12 walks, confused morphine AdvReac Unknown Verified 12/23/22 17:12 Review of Systems ROS Statement: Those systems with pertinent positive or pertinent negative responses have been documented in the HPI. ROS Other: All systems not noted in ROS Statement are negative. Past Medical History Past Medical History: Asthma, Cancer, Dementia, Diabetes Mellitus, Hyperlipidemia, Hypertension Additional Past Medical History / Comment(s): numbness 2nd,3rd,4th digits rt hand, back pain,skin CA History of Any Multi-Drug Resistant Organisms: ESBL Date of last positivie culture/infection: 12/04/22 MDRO Source:: Urine Past Surgical History: Back Surgery, Hysterectomy, Joint Replacement, Orthopedic Surgery, Tonsillectomy Additional Past Surgical History / Comment(s): back x2,lumbar fusion, left knee replacement,ana hips, carpal tunnel surgery Right. Pain clinic procedure Past Anesthesia/Blood Transfusion Reactions: No Reported Reaction Additional Past Anesthesia/Blood Transfusion Reaction / Comment(s): no hx blood transfusion Past Psychological History: Depression Smoking Status: Former smoker Past Alcohol Use History: None Reported Past Drug Use History: None Reported - Past Family History Mother Family Medical History: No Reported History General Exam - General Exam Comments Initial Comments: GENERAL: Patient is well-developed and well-nourished. Patient is nontoxic and well- hydrated and is in mild distress. ENT: Neck is soft and supple. No significant lymphadenopathy is noted. Oropharynx is clear. Moist mucous membranes. Neck has full range of motion without eliciting any pain. EYES: The sclera were anicteric and conjunctiva were pink and moist. Extraocular movements were intact and pupils were equal round and reactive to light. Eyelids were unremarkable. PULMONARY: Unlabored respirations. Good breath sounds bilaterally. No audible rales r honchi or wheezing was noted. CARDIOVASCULAR: There is a regular rate and rhythm without any murmurs gallops or rubs. ABDOMEN: Soft and nontender with normal bowel sounds. SKIN: Skin is clear with no lesions or rashes and otherwise unremarkable. NEUROLOGIC: Patient is alert and oriented x3. Cranial nerves II through XII are grossly intact. Motor and sensory are also intact. Normal speech, volume and content. Symmetrical smile. MUSCULOSKELETAL: Normal extremities with adequate strength and full range of motion. No lower extremity swelling or edema. No calf tenderness. LYMPHATICS: No significant lymphadenopathy is noted PSYCHIATRIC: Normal psychiatric evaluation. Limitations: no limitations Course Vital Signs 12/23/22 12/23/22 15:17 19:16 Temperature 98.4 F Pulse Rate 104 H 102 H Respiratory 18 20 Rate Blood Pressure 128/78 117/83 O2 Sat by Pulse 93 L 92 L Oximetry Medical Decision Making - Medical Decision Making EKG was interpreted by myself. EKG shows sinus tachycardia at 103 bpm OK interval is 215 QRS is 99 QT interval 334 QTC is 394. Patient's EKG shows no ST segment elevation or depression. Was pt. sent in by a medical professional or institution (, ERIC, TUNNEL WORKER, urgent care, hospital, or senior care...) When possible be specific @ -No Did you speak to anyone other than the patient for history (EMS, parent, family, police, friend...)? What history was obtained from this source @ - ate quite a bit of history Did you review nursing and triage notes (agree or disagree)? Why? @ -I reviewed and agree with nursing and triage notes Were old charts reviewed (outside hosp., previous admission, EMS record, old EKG, old radiological studies, urgent care reports/EKG's, senior care records)? Report findings @ -I reviewed prior charts and lab work on this patient Differential Diagnosis (chest pain, altered mental status, abdominal pain women, abdominal pain men, vaginal bleeding, weakness, fever, dyspnea, syncope, headache, dizziness, GI bleed, back pain, seizure, CVA, palpatations, mental health, musculoskeletal)? @ -Differential Weakness: Hypoglycemia, shock, sepsis, hyponatremia, anemia, infection, [place], ETOH, adverse medicine reaction, overdose, stroke, this is not meant to be an all-inclusive list. EKG interpreted by me (3pts min.). @ -As above X-rays interpreted by me (1pt min.). @ -Chest x-ray shows no acute abnormality CT interpreted by me (1pt min.). @ -CT of the brain and C-spine showed no acute abnormality U/S interpreted by me (1pt. min.). @ -None done What testing was considered but not performed or refused? (CT, X-rays, U/S, labs)? Why? @ -None What meds were considered but not given or refused? Why? @ -None Did you discuss the management of the patient with other professionals (professionals i.e. , ERIC, TUNNEL WORKER, lab, RT, psych nurse, social media community manager, career center director, teacher, photographic intelligence officer, immigration case worker)? Give summary @ -I spoke with [facility] hospitalist and they agreed to admit the patient Was smoking cessation discussed for >3mins.? @ -No Was critical care preformed (if so, how long)? @ -No Were there social determinants of health that impacted care today? How? (Homelessness, low income, unemployed, alcoholism, drug addiction, transportation, low edu. Level, literacy, decrease access to med. care, skilled nursing, rehab)? @ -No Was there de-escalation of care discussed even if they declined (Discuss DNR or withdrawal of care, Hospice)? DNR status @ -No What co-morbidities impacted this encounter? (DM, HTN, Smoking, COPD, CAD, Cancer, CVA, ARF, Chemo, Hep., AIDS, mental health diagnosis, sleep apnea, morbid obesity)? @ -None Was patient admitted / discharged? Hospital course, mention meds given and route, prescriptions, significant lab abnormalities, going to OR and other pertinent info. @ -Patient's lab work came back without any gross abnormality. Chest x-ray showed no abnormality and CT of the brain and C-spine showed no acute abnormality Undiagnosed new problem with uncertain prognosis? @ -No Drug Therapy requiring intensive monitoring for toxicity (Heparin, Nitro, Insulin, Cardizem)? @ -No Were any procedures done? @ -No Diagnosis/symptom? @ -Generalized weakness Acute,or Chronic, or Acute on Chronic? @ -Acute on chronic Uncomplicated (without systemic symptoms) or Complicated (systemic symptoms)? @ -Complicated Side effects of treatment? @ -No Exacerbation, Progression, or Severe Exacerbation? @ -No Poses a threat to life or bodily function? How? (Chest pain, [place], [place], pneumonia, PE, COPD, DKA, ARF, appy, cholecystitis, CVA, Diverticulitis, Homicidal, Suicidal, threat to staff... and all critical care pts) @ -No Diagnosis/symptom? @ -Multiple falls Acute, or Chronic, or Acute on Chronic? @ -Chronic Uncomplicated (without systemic symptoms) or Complicated (systemic symptoms)? @ -Complicated Side effects of treatment? @ -none Exacerbation, Progression, or Severe Exacerbation] @ -no Poses a threat to life or bodily function? @ -no - Lab Data Result diagrams: 12/23/22 15:31 12/23/22 19:15 Lab Results 12/23/22 12/23/22 12/23/22 Range/Units 15:31 15:31 15:31 WBC 9.5 (3.8-10.6) k/uL RBC 4.56 (3.80-5.40) m/uL Hgb 15.3 (11.4-16.0) gm/dL Hct 45.8 (34.0-46.0) % MCV 100.2 H (80.0-100.0) fL MCH 33.6 (25.0-35.0) pg MCHC 33.5 (31.0-37.0) g/dL RDW 12.4 (11.5-15.5) % Plt Count 438 D (150-450) k/uL MPV 7.9 Neutrophils % (Manual) 48 % Lymphocytes % (Manual) 28 % Monocytes % (Manual) 14 % Eosinophils % (Manual) 9 % Basophils % (Manual) 1 % Neutrophils # (Manual) 4.56 (1.3-7.7) k/uL Lymphocytes # (Manual) 2.66 (1.0-4.8) k/uL Monocytes # (Manual) 1.33 H (0-1.0) k/uL Eosinophils # (Manual) 0.86 H (0-0.7) k/uL Basophils # (Manual) 0.10 (0-0.2) k/uL Nucleated RBCs 0 (0-0) /100 WBC Manual Slide Review Performed PT 10.2 (9.0-12.0) sec INR 1.0 (<1.2) APTT 25.1 (22.0-30.0) sec Sodium (137-145) mmol/L Potassium (3.5-5.1) mmol/L Chloride (98-107) mmol/L Carbon Dioxide (22-30) mmol/L Anion Gap mmol/L BUN (7-17) mg/dL Creatinine (0.52-1.04) mg/dL Est GFR (CKD-EPI)AfAm (>60 ml/min/1.73 sqM) Est GFR (CKD-EPI)NonAf (>60 ml/min/1.73 sqM) Glucose (74-99) mg/dL Plasma Lactic Acid Gideon 1.9 (0.7-2.0) mmol/L Calcium (8.4-10.2) mg/dL Magnesium (1.6-2.3) mg/dL Total Bilirubin (0.2-1.3) mg/dL AST (14-36) U/L ALT (4-34) U/L Alkaline Phosphatase (38-126) U/L Troponin I (0.000-0.034) ng/mL Total Protein (6.3-8.2) g/dL Albumin (3.5-5.0) g/dL TSH (0.465-4.680) mIU/L Urine Color Urine Appearance (Clear) Urine pH (5.0-8.0) Ur Specific [place] (1.001-1.035) Urine Protein (Negative) Urine Glucose (UA) (Negative) Urine Ketones (Negative) Urine Blood (Negative) Urine Nitrite (Negative) Urine Bilirubin (Negative) Urine Urobilinogen (<2.0) mg/dL Ur Leukocyte Esterase (Negative) Coronavirus (PCR) (Not Detectd) 12/23/22 12/23/22 12/23/22 Range/Units 15:31 15:36 17:30 WBC (3.8-10.6) k/uL RBC (3.80-5.40) m/uL Hgb (11.4-16.0) gm/dL Hct (34.0-46.0) % MCV (80.0-100.0) fL MCH (25.0-35.0) pg MCHC (31.0-37.0) g/dL RDW (11.5-15.5) % Plt Count (150-450) k/uL MPV Neutrophils % (Manual) % Lymphocytes % (Manual) % Monocytes % (Manual) % Eosinophils % (Manual) % Basophils % (Manual) % Neutrophils # (Manual) (1.3-7.7) k/uL Lymphocytes # (Manual) (1.0-4.8) k/uL Monocytes # (Manual) (0-1.0) k/uL Eosinophils # (Manual) (0-0.7) k/uL Basophils # (Manual) (0-0.2) k/uL Nucleated RBCs (0-0) /100 WBC Manual Slide Review PT (9.0-12.0) sec INR (<1.2) APTT (22.0-30.0) sec Sodium (137-145) mmol/L Potassium (3.5-5.1) mmol/L Chloride (98-107) mmol/L Carbon Dioxide (22-30) mmol/L Anion Gap mmol/L BUN (7-17) mg/dL Creatinine (0.52-1.04) mg/dL Est GFR (CKD-EPI)AfAm (>60 ml/min/1.73 sqM) Est GFR (CKD-EPI)NonAf (>60 ml/min/1.73 sqM) Glucose (74-99) mg/dL Plasma Lactic Acid Gideon (0.7-2.0) mmol/L Calcium (8.4-10.2) mg/dL Magnesium (1.6-2.3) mg/dL Total Bilirubin (0.2-1.3) mg/dL AST (14-36) U/L ALT (4-34) U/L Alkaline Phosphatase (38-126) U/L Troponin I <0.012 (0.000-0.034) ng/mL Total Protein (6.3-8.2) g/dL Albumin (3.5-5.0) g/dL TSH (0.465-4.680) mIU/L Urine Color Light Yellow Urine Appearance Clear (Clear) Urine pH 5.5 (5.0-8.0) Ur Specific [place] 1.018 (1.001-1.035) Urine Protein Negative (Negative) Urine Glucose (UA) 4+ H (Negative) Urine Ketones Negative (Negative) Urine Blood Negative (Negative) Urine Nitrite Negative (Negative) Urine Bilirubin Negative (Negative) Urine Urobilinogen <2.0 (<2.0) mg/dL Ur Leukocyte Esterase Negative (Negative) Coronavirus (PCR) Not Detected (Not Detectd) 12/23/22 Range/Units 19:15 WBC (3.8-10.6) k/uL RBC (3.80-5.40) m/uL Hgb (11.4-16.0) gm/dL Hct (34.0-46.0) % MCV (80.0-100.0) fL MCH (25.0-35.0) pg MCHC (31.0-37.0) g/dL RDW (11.5-15.5) % Plt Count (150-450) k/uL MPV Neutrophils % (Manual) % Lymphocytes % (Manual) % Monocytes % (Manual) % Eosinophils % (Manual) % Basophils % (Manual) % Neutrophils # (Manual) (1.3-7.7) k/uL Lymphocytes # (Manual) (1.0-4.8) k/uL Monocytes # (Manual) (0-1.0) k/uL Eosinophils # (Manual) (0-0.7) k/uL Basophils # (Manual) (0-0.2) k/uL Nucleated RBCs (0-0) /100 WBC Manual Slide Review PT (9.0-12.0) sec INR (<1.2) APTT (22.0-30.0) sec Sodium 137 (137-145) mmol/L Potassium 3.3 L (3.5-5.1) mmol/L Chloride 104 (98-107) mmol/L Carbon Dioxide 20 L (22-30) mmol/L Anion Gap 13 mmol/L BUN 6 L (7-17) mg/dL Creatinine 0.45 L (0.52-1.04) mg/dL Est GFR (CKD-EPI)AfAm >90 (>60 ml/min/1.73 sqM) Est GFR (CKD-EPI)NonAf >90 (>60 ml/min/1.73 sqM) Glucose 90 (74-99) mg/dL Plasma Lactic Acid [place] (0.7-2.0) mmol/L Calcium 9.4 (8.4-10.2) mg/dL Magnesium 1.9 (1.6-2.3) mg/dL Total Bilirubin 0.6 (0.2-1.3) mg/dL AST 53 H (14-36) U/L ALT 84 H (4-34) U/L Alkaline Phosphatase 136 H (38-126) U/L Troponin I (0.000-0.034) ng/mL Total Protein 6.7 (6.3-8.2) g/dL Albumin 3.7 (3.5-5.0) g/dL TSH 1.910 (0.465-4.680) mIU/L Urine Color Urine Appearance (Clear) Urine pH (5.0-8.0) Ur Specific [place] (1.001-1.035) Urine Protein (Negative) Urine Glucose (UA) (Negative) Urine Ketones (Negative) Urine Blood (Negative) Urine Nitrite (Negative) Urine Bilirubin (Negative) Urine Urobilinogen (<2.0) mg/dL Ur Leukocyte Esterase (Negative) Coronavirus (PCR) (Not Detectd) Disposition Clinical Impression: Generalized weakness, Multiple falls Disposition: ADMITTED IP TO THIS HOSP Referrals: Gilberto Kelly MD [Primary Care Provider] - 1-2 days Time of Disposition: 20:25
[2022-12-23] MEDS ORDERED: NITROGLYCERIN SL TABS 0.4 MG TAB SUBLINGUAL PRN (15:42)
--- NOTE | 2022-12-23 15:57 | XR ---
EXAMINATION TYPE: XR chest 2V DATE OF EXAM: 12/23/2022 COMPARISON: 12/04/2022 TECHNIQUE: PA and lateral views submitted. HISTORY: Weakness FINDINGS: The lungs are clear and there is no pneumothorax, pleural effusion, or focal pneumonia. Heart size normal and no overt failure. Osseous structures demonstrate hypertrophic and degenerative changes of the spine. Atherosclerotic change aorta. Diffuse osteopenia with arthropathy of the shoulder. Postsur gical change involving the vertebral canal. Emphysematous changes noted. IMPRESSION: 1. No acute process.
[2022-12-23 16:19] LABS: HCT 45.8 % (34.0-46.0); HGB 15.3 gm/dL (11.4-16.0); MCH 33.6 pg (25.0-35.0); MCHC 33.5 g/dL (31.0-37.0); MCV 100.2 fL (80.0-100.0); Mean Platelet Volume 7.9; Platelet Count 438 k/uL (150-450); RBC 4.56 m/uL (3.80-5.40); RDW 12.4 % (11.5-15.5); WBC 9.5 k/uL (3.8-10.6)
[2022-12-23 16:20] LABS: Partial Thromboplastin Time 25.1 sec (22.0-30.0); Prothrombin Time 10.2 sec (9.0-12.0)
[2022-12-23 16:58] LABS: Eosinophils # (M) 0.86 k/uL (0-0.7); Lymphocytes # (M) 2.66 k/uL (1.0-4.8); Monocytes # (M) 1.33 k/uL (0-1.0); Neutrophils # (M) 4.56 k/uL (1.3-7.7); Neutrophils % (M) 48 %; Nucleated Red Blood Cells 0 /100 WBC (0-0); Total Cells Counted 100
--- NOTE | 2022-12-23 17:04 | CT ---
EXAMINATION TYPE: CT brain cspine wo con CT DLP: 1276.2 mGycm, Automated exposure control for dose reduction was used. DATE OF EXAM: 12/23/2022 4:49 PM COMPARISON: 12/01/2022 CLINICAL INDICATION:Female, 87 years old with history of Trauma; Weakness, states that she has been p rogressively getting weaker. TECHNIQUE: Brain: Multiple axial CT images of the brain were obtained without IV contrast. Cspine: Axial CT images from the skull base to the inferior aspect of T2 we obtained without intraven ous contrast. Coronal and sagittal reformatted images were also reviewed. FINDINGS: Brain: Extra-axial spaces: No abnormal extra-axial fluid collections. Ventricular system: Within normal limits Cerebral parenchyma: No acute intraparenchymal hemorrhage or mass effect. The rawls-white junction is well differentiated. Scattered hypoattenuating areas are seen within the white matter. Bilateral ch oroid plexus intraparenchymal granulomas. Cerebellum: Unremarkable. Mass effect: No evidence of midline shift. Intracranial vasculature: unremarkable Soft tissues: Normal. Calvarium/osseous structures: No depressed skull fracture. Paranasal sinuses and mastoid air cells: Clear. Visualized orbits: Bilaterally aphakia. Cervical spine: Fracture: None. Osseous structures: Multilevel degenerative disc disease changes with endplate spurring and disc oste ophyte complex's. Vertebral alignment: Within normal limits. Spinal canal/Neural Foramina: No evidence of significant spinal canal narrowing. No evidence for sign ificant neural foraminal stenosis. Neck soft tissues: Prevertebral soft tissues are within normal limits. Other: The airway is patent. The lung apices are clear. Atherosclerosis of the carotid bifurcations. IMPRESSION: 1. No acute intracranial process. 2. Nonspecific white matter changes, likely secondary to chronic small vessel ischemic disease. 3. Cord plexus xanthogranulomas. 4. No evidence of cervical spine fracture. 5. Mild multilevel degenerative disc disease.
[2022-12-23 18:20] LABS: Appearance,Urine Clear (Clear); Bilirubin,Urine Negative (Negative); Blood,Urine Negative (Negative); Color,Urine Light Yellow; Glucose,Urine (UA) 4+ (Negative); Ketones,Urine Negative (Negative); Leukocyte Esterase,Urine Negative (Negative); Nitrite,Urine Negative (Negative); PH, Urine 5.5 (5.0-8.0); Protein,Urine Negative (Negative); Specific Gravity,Urine 1.018 (1.001-1.035); Urobilinogen,Urine <2.0 mg/dL (<2.0)
[2022-12-23 19:49] LABS: ALT 84 U/L (4-34); AST 53 U/L (14-36); African American GFR (CKD) >90 (>60 ml/min/1.73 sqM); Albumin 3.7 g/dL (3.5-5.0); Alkaline Phosphatase 136 U/L (38-126); Anion Gap 13 mmol/L; Blood Urea Nitrogen 6 mg/dL (7-17); Calcium 9.4 mg/dL (8.4-10.2); Carbon Dioxide 20 mmol/L (22-30); Chloride 104 mmol/L (98-107); Glucose 90 mg/dL (74-99); Magnesium 1.9 mg/dL (1.6-2.3); Non-African American GFR(CKD) >90 (>60 ml/min/1.73 sqM); Potassium 3.3 mmol/L (3.5-5.1); Sodium 137 mmol/L (137-145); Total Bilirubin 0.6 mg/dL (0.2-1.3); Total Protein 6.7 g/dL (6.3-8.2)
[2022-12-23] MEDS ORDERED: SODIUM CHLORIDE 0.9% 1,000 ML IV ONE (20:27)
[2022-12-24] MEDS ORDERED: Potassium Replacement Protocol 1 EACH MISC MISCELLANE PRN (08:15)
[2022-12-24] MEDS ORDERED: SUMAtriptan succinate 25 MG TAB PO PRN (08:52)
[2022-12-24] MEDS ORDERED: HYDROcodone/APAP 7.5-325MG 1 EACH TAB PO PRN (08:52)
[2022-12-24] MEDS ORDERED: CALCIUM CARBONATE 500 MG CHEWABLE PO PRN (09:00)
[2022-12-24] MEDS ORDERED: ASPIRIN 325 MG TAB PO SCH (09:00)
[2022-12-24] MEDS ORDERED: ONDANSETRON 4 MG/2 ML VIAL IVP PRN (09:00)
[2022-12-24] MEDS ORDERED: SODIUM CHLORIDE 0.9% 1,000 ML IV SCH (09:00)
[2022-12-24] MEDS ORDERED: NALOXONE 0.4 MG/ML 1 ML VIAL IV PRN (09:00)
--- NOTE | 2022-12-24 09:02 | P.HPIM ---
History of Present Illness H&P Date: 12/24/22 Chief Complaint: Weakness, failure to thrive * 87-year-old lady with past medical history significant for new onset atrial fibrillation, hypertension, dyslipidemia, diabetes mellitus, with borderline episodes of hypotension presented to the emergency department with complains of failure to thrive and generalized weakness. * Patient was recently admitted from 12/04 ~12/09. Was treated for urinary tract infection and new onset atrial fibrillation. Patient was discharged home with home care * Ultimately patient presents back secondary to progressive weakness and unable to take care of patient per * Workup initiated in ER included showed CBC with WBC 9.5 hemoglobin 15 hematocrit 45 platelet count 438 * Serum chemistry obtained showed sodium 137 potassium 3.3 chloride 104 carbon dioxide 20 B on 6 creatinine 0.45 * Liver profile showed a LT of 84 and AST 53 troponin negative TSH within normal limits * Urinalysis negative for unit tract infection, tested negative for Covid REVIEW OF SYSTEMS: Generalized weakness, failure to thrive CONSTITUTIONAL: No fever, no malaise, no fatigue. HEENT: No recent visual problems or hearing problems. Denied any sore throat. CARDIOVASCULAR: No chest pain, orthopnea, PND, no palpitations, no syncope. PULMONARY: No shortness of breath, no cough, no hemoptysis. GASTROINTESTINAL: No diarrhea, no nausea, no vomiting, no abdominal pain. NEUROLOGICAL: No headaches, no weakness, no numbness. HEMATOLOGICAL: Denies any bleeding or petechiae. GENITOURINARY: Denies any burning micturition, frequency, or urgency. MUSCULOSKELETAL/RHEUMATOLOGICAL: Denies any joint pain, swelling, or any muscle pain. ENDOCRINE: Denies any polyuria or polydipsia. PHYSICAL EXAMINATION: GENERAL: The patient is alert and oriented x3, not in any acute distress. Chron ic ill appearance HEENT: Pupils are round and equally reacting to light. EOMI. CARDIOVASCULAR: S1 and S2 present. Irregular rhythm tachycardia PULMONARY: Chest is clear to auscultation, no wheezing or crackles. ABDOMEN: Soft, nontender, nondistended, normoactive bowel sounds. No palpable organomegaly. MUSCULOSKELETAL: No joint swelling or deformity. EXTREMITIES: No cyanosis, clubbing, or pedal edema. NEUROLOGICAL: Gross neurological examination did not reveal any focal deficits. SKIN: No rashes. Past Medical History Past Medical History: Asthma, Cancer, Dementia, Diabetes Mellitus, Hyperlipidemia, Hypertension Additional Past Medical History / Comment(s): numbness 2nd,3rd,4th digits rt hand, back pain,skin CA History of Any Multi-Drug Resistant Organisms: ESBL Date of last positivie culture/infection: 12/04/22 MDRO Source:: Urine Past Surgical History: Back Surgery, Hysterectomy, Joint Replacement, Orthopedic Surgery, Tonsillectomy Additional Past Surgical History / Comment(s): back x2,lumbar fusion, left knee replacement,ana hips, carpal tunnel surgery Right. Pain clinic procedure Past Anesthesia/Blood Transfusion Reactions: No Reported Reaction Additional Past Anesthesia/Blood Transfusion Reaction / Comment(s): no hx blood transfusion Past Psychological History: Depression Smoking Status: Never smoker Past Alcohol Use History: None Reported Additional Past Alcohol Use History / Comment(s): quit smoking 2018. Past Drug Use History: None Reported - Past Family History Mother Family Medical History: No Reported History Medications and Allergies Home Medications Medication Instructions Recorded Confirmed Type Pravastatin Sodium [Pravachol] 40 mg PO HS 10/27/14 12/23/22 History Azelastine HCl [Astepro] 2 spray EA NOSTRIL DAILY 04/02/20 12/23/22 History Montelukast Sodium [Singulair] 10 mg PO HS 04/02/20 12/23/22 History Budesonide/Formoterol Fumarate 2 puff INHALATION RT-BID 08/02/20 12/23/22 History [Symbicort 160-4.5 Mcg Inhaler] Diltiazem Cd [Cardizem CD] 180 mg PO DAILY@1200 08/02/20 12/23/22 History Dapagliflozin Propanediol [Farxiga] 10 mg PO DAILY 09/02/22 12/23/22 History Multivitamins, Thera [Multivitamin 1 tab PO DAILY@1200 09/02/22 12/23/22 History (formulary)] Omeprazole 40 mg PO AC-BRKFST 09/02/22 12/23/22 History SUMAtriptan succinate [Imitrex] 25 mg PO BID PRN 09/02/22 12/23/22 History Cholecalciferol [Vitamin D3 (25 125 mcg PO DAILY@1200 10/26/22 12/23/22 History Mcg = 1000 Iu)] Calcium Carbonate/Vitamin D3 1 cap PO DAILY@1200 10/28/22 12/23/22 History [Calcium 600 mg-D3 10 Mcg (400 Iu)] Cyanocobalamin (Vitamin B-12) 1,000 mcg PO DAILY@1200 10/28/22 12/23/22 History [Vitamin B-12] DULoxetine HCL [Cymbalta] 30 mg PO DAILY 10/28/22 12/23/22 History Melatonin 10 mg PO HS 10/28/22 12/23/22 History Potassium Gluconate 595mg Tab 595 mg PO DAILY 10/28/22 12/23/22 History ALPRAZolam [Xanax] 0.5 mg PO BID PRN 12/04/22 12/23/22 History Gabapentin 300 mg PO BID 12/04/22 12/23/22 History HYDROcodone/APAP 7.5-325MG [[place] 1 tab PO Q6H PRN 12/04/22 12/23/22 History 7.5-325] Potassium Chloride ER [K-Dur 10] 10 meq PO HS 12/04/22 12/23/22 History Apixaban [Eliquis] 2.5 mg PO BID #60 tab 12/08/22 12/23/22 Rx Metoprolol Tartrate [Lopressor] 50 mg PO BID #60 tab 12/09/22 12/23/22 Rx Lidocaine 5% Patch [Lidoderm 5% 1 patch TRANSDERM DAILY 12/23/22 12/23/22 History Patch] Megestrol [Megace] 400 mg PO DAILY@1200 12/23/22 12/23/22 History Spironolactone [Aldactone] 12.5 mg PO DAILY 12/23/22 12/23/22 History Allergies Allergy/AdvReac Type Severity Reaction Status Date / Time amoxicillin trihydrate Allergy Unknown Verified 12/23/22 17:12 [From Augmentin] cephalexin monohydrate Allergy Unknown Verified 12/23/22 17:12 [From Keflex] dicyclomine Allergy disoriented Verified 12/23/22 17:12 for 4 days hydromorphone HCl Allergy Extremely Verified 12/23/22 17:12 [From Dilaudid] Confusion for 8 days nitrofurantoin Allergy Unknown Verified 12/23/22 17:12 macrocrystalline [From Macrodantin] potassium clavulanate Allergy Unknown Verified 12/23/22 17:12 [From Augmentin] zolpidem [From Ambien] AdvReac Unknown sleep Verified 12/23/22 17:12 walks, confused morphine AdvReac Unknown Verified 12/23/22 17:12 Physical Exam Vitals: Vital Signs Temp Pulse Pulse Resp BP BP Pulse Ox 12/24/22 07:36 97.8 F 118 H 20 135/79 94 L 12/24/22 03:10 100 18 137/74 94 L 12/23/22 19:16 102 H 20 117/83 92 L 12/23/22 15:17 98.4 F 104 H 18 128/78 93 L Intake and Output 12/23/22 12/24/22 12/24/22 22:59 06:59 14:59 Other: Voiding Method Toilet Weight 53.524 kg 53.524 kg Results CBC & Chem 7: 12/23/22 15:31 12/23/22 19:15 Labs: Abnormal Lab Results - Last 24 Hours (Table) 12/23/22 12/23/22 12/23/22 Range/Units 15:31 17:30 19:15 MCV 100.2 H (80.0-100.0) fL Monocytes # (Manual) 1.33 H (0-1.0) k/uL Eosinophils # (Manual) 0.86 H (0-0.7) k/uL Potassium 3.3 L (3.5-5.1) mmol/L Carbon Dioxide 20 L (22-30) mmol/L BUN 6 L (7-17) mg/dL Creatinine 0.45 L (0.52-1.04) mg/dL AST 53 H (14-36) U/L ALT 84 H (4-34) U/L Alkaline Phosphatase 136 H (38-126) U/L Urine Glucose (UA) 4+ H (Negative) Thrombosis Risk Factor Assmnt - Choose All That Apply Any of the Below Risk Factors Present?: No Other Risk Factors: No Other congenital or acquired thrombophilia - If yes, enter type in comment: No Thrombosis Risk Factor Assessment Level: Very Low Risk Assessment and Plan Assessment: Assessment and plan * Generalized debility with progressive weakness and hypokalemia * Atrial fib with rapid monitor response * Hyperlipidemia * Diabetes mellitus type 2 * History of depression and anxiety * Recent admission for urinary tract infection treated/resolved * In regards to generalized debility, patient will need physical therapy occup ational therapy evaluation for placement. Patient was recently discharged however unable to cope with activities of daily living. We'll optimize electrolytes continue with IV hydration * In regards to atrial fibrillation patient noted to have paroxysmal tachycardia. Start back on home medications including Cardizem and metoprolol continue Eliquis * In regards to diabetes mellitus Accu-Cheks before meals at bedtime continue patient on correctional insulin and oral hypoglycemic * In regards to depression and anxiety home medications reviewed and reconciled * CODE STATUS is full code
[2022-12-24] MEDS ORDERED: DEXTROSE 50% SYRINGE 50 ML IVP PRN ×2 (09:17)
[2022-12-24] MEDS: POTASSIUM CHLORIDE ER 20 MEQ TAB.ER PO SCH ×2 (10:37→10:39)
[2022-12-24] MEDS: DULoxetine HCL 30 MG CAPSULE.DR PO SCH (10:37)
[2022-12-24] MEDS: GABAPENTIN 300 MG CAP PO SCH ×2 (10:37→21:27)
[2022-12-24] MEDS: DILTIAZEM CD 180 MG CAP.ER.24H PO SCH ×2 (10:37→10:48)
[2022-12-24] MEDS: DAPAGLIFLOZIN PROPANEDIOL 10 MG TABLET PO SCH (10:37)
[2022-12-24] MEDS: APIXABAN 2.5 MG TABLET PO SCH ×2 (10:37→21:27)
[2022-12-24] MEDS: SPIRONOLACTONE 25 MG TAB PO SCH (10:38)
[2022-12-24] MEDS: METOPROLOL TARTRATE 50 MG TAB PO SCH ×2 (10:38→21:27)
[2022-12-24] MEDS: AZELASTINE 137MCG/SPRAY EA NOSTRIL SCH (10:38)
[2022-12-24] MEDS: CALCIUM CARB-VIT D 500 MG-5 MCG TAB PO SCH (10:46)
[2022-12-24] MEDS: MULTIVITAMINS, THERA 1 EACH TAB PO SCH (10:46)
[2022-12-24] MEDS: CHOLECALCIFEROL 125 MCG (5000 IU) TABLET PO SCH (10:46)
[2022-12-24] MEDS: MEGESTROL 400 MG/10 ML CUP PO SCH (10:47)
[2022-12-24] MEDS: CYANOCOBALAMIN 500 MCG TAB PO SCH (10:49)
[2022-12-24] MEDS: INSULIN ASPART (NovoLOG) 100 UNIT/ML VIAL SQ SCH ×3 (10:55→21:28)
[2022-12-24 11:01] LABS: Glucose,Whole Blood 109 mg/dL (70-110)
[2022-12-24 16:51] LABS: Glucose,Whole Blood 160 mg/dL (70-110)
[2022-12-24 19:37] LABS: Glucose,Whole Blood 127 mg/dL (70-110)
[2022-12-24] MEDS: PRAVASTATIN SODIUM 40 MG TAB PO SCH (21:26)
[2022-12-24] MEDS: MONTELUKAST 10 MG TAB PO SCH (21:27)
[2022-12-24] MEDS: POTASSIUM CHLORIDE ER 10 MEQ TAB.ER.PRT PO SCH (21:27)
[2022-12-24] MEDS: MELATONIN 5 MG TABLET PO SCH (21:27)
[2022-12-24] MEDS: SYMBICORT 160-4.5 MCG INHALER INHALATION SCH (22:00)
[2022-12-25 06:35] LABS: Glucose,Whole Blood 103 mg/dL (70-110)
[2022-12-25] MEDS: PANTOPRAZOLE 40 MG TABLET PO SCH (06:36)
[2022-12-25] MEDS: INSULIN ASPART (NovoLOG) 100 UNIT/ML VIAL SQ SCH ×4 (06:36→22:03)
[2022-12-25 07:13] LABS: Glucose,Whole Blood 105 mg/dL (70-110)
[2022-12-25 08:44] LABS: African American GFR (CKD) >90 (>60 ml/min/1.73 sqM); Anion Gap 15 mmol/L; Blood Urea Nitrogen 10 mg/dL (7-17); Calcium 9.9 mg/dL (8.4-10.2); Carbon Dioxide 17 mmol/L (22-30); Chloride 106 mmol/L (98-107); Glucose 118 mg/dL (74-99); Non-African American GFR(CKD) >90 (>60 ml/min/1.73 sqM); Phosphorus 4.5 mg/dL (2.5-4.5); Potassium 3.8 mmol/L (3.5-5.1); Sodium 138 mmol/L (137-145)
[2022-12-25 08:46] LABS: HCT 43.5 % (34.0-46.0); HGB 14.5 gm/dL (11.4-16.0); MCHC 33.3 g/dL (31.0-37.0); Mean Platelet Volume 7.6; Platelet Count 379 k/uL (150-450); RBC 4.27 m/uL (3.80-5.40); RDW 12.3 % (11.5-15.5)
[2022-12-25] MEDS: SYMBICORT 160-4.5 MCG INHALER INHALATION SCH ×2 (09:07→19:14)
[2022-12-25] MEDS: SPIRONOLACTONE 25 MG TAB PO SCH (09:38)
[2022-12-25] MEDS: METOPROLOL TARTRATE 50 MG TAB PO SCH ×2 (09:38→22:05)
[2022-12-25] MEDS: DAPAGLIFLOZIN PROPANEDIOL 10 MG TABLET PO SCH (09:39)
[2022-12-25] MEDS: DULoxetine HCL 30 MG CAPSULE.DR PO SCH (09:39)
[2022-12-25] MEDS: APIXABAN 2.5 MG TABLET PO SCH ×2 (09:39→22:05)
[2022-12-25] MEDS: AZELASTINE 137MCG/SPRAY EA NOSTRIL SCH (09:39)
[2022-12-25] MEDS: GABAPENTIN 300 MG CAP PO SCH ×2 (09:39→22:05)
[2022-12-25 09:44] LABS: Neutrophils % (M) 58 %; Nucleated Red Blood Cells 0 /100 WBC (0-0); Total Cells Counted 100
--- NOTE | 2022-12-25 10:23 | XR ---
EXAMINATION TYPE: XR elbow limited 2 views LT, XR Hip Complete 2 views RT DATE OF EXAM: 12/25/2022 COMPARISON: NONE HISTORY: 87-year-old female pain after fall FINDINGS: Left elbow: There is underlying elbow joint effusion which may be reactive to the moderate radiocapitellar and ul stan trochlear joint degenerative change. No obvious displaced fracture is seen. Only 2 views are prov ided limiting the assessment. Right hip: Right hip total arthroplasty shows no significant loosening or periprosthetic fracture. Alignment jennifer ssly anatomic. IMPRESSION: 1. Left elbow: No displaced fracture seen on these 2 views. Moderate osteoarthritic change. Underlyin g elbow joint effusion may be reactive to the arthritis. If concern for occult osseous injury, short interval follow-up can be performed. 2. Right hip: Uncomplicated right hip total arthroplasty.
[2022-12-25 11:22] LABS: Glucose,Whole Blood 92 mg/dL (70-110)
[2022-12-25] MEDS: MULTIVITAMINS, THERA 1 EACH TAB PO SCH (12:04)
[2022-12-25] MEDS: CHOLECALCIFEROL 125 MCG (5000 IU) TABLET PO SCH (12:04)
[2022-12-25] MEDS: DILTIAZEM CD 180 MG CAP.ER.24H PO SCH (12:05)
[2022-12-25] MEDS: CALCIUM CARB-VIT D 500 MG-5 MCG TAB PO SCH (12:05)
[2022-12-25] MEDS: CYANOCOBALAMIN 500 MCG TAB PO SCH (12:05)
[2022-12-25] MEDS: MEGESTROL 400 MG/10 ML CUP PO SCH (12:05)
[2022-12-25 12:14] VITALS: BMI 20.9
--- NOTE | 2022-12-25 12:43 | CDI ---
Documentation Clarification Form Date: 12/25/2022 From: Kaitlyn Abbott Phone: [phone] Admit Date: 12/23/2022 08:29:00 PM Patient Name: Becky Sykes Visit Number: [id number] ATTENTION: The Clinical Documentation Specialists (CDI) and [facility] Coding Staff appreciate your assistance in clarifying documentation. Please respond to the clarification below the line at the bottom and electronically sign. The CDI & [facility] Coding staff will review the response and follow-up if needed. Please note: Queries are made part of the Legal Health Record. If you have any questions, please contact the author of this message via ITS. Dr. Nathan Cristina Your patient has the documented symptom of weakness in the record. Additional clarification regarding the etiology/cause of this symptom is requested. History/Risk Factors: 87yo presented with weakness, frequent falls and failure to thrive. Her brought her in for admission to assist w/ placement to rehab. Clinical Indicators: Per the H&P, she has generalized weakness, failure to thrive, chronically ill appearing and has generalized debility. PT assessment 12/25: Pt presents with confusion, weakness, chronic R hip and low back pain, chronic ROM and strength limitations in B shoulders, unsteady gait She needed mod assist for supine to sit and increased time to complete due to pain in R hip/thigh. able to maintain static sitting on her own. She needed min assist to stand with walker. Pt initially held R foot off floor then able to place it flat but had difficulty tolerating WB. Only able to take a few steps laterally at bedside with min assist. She needed min assist to lift B LEs back into bed recommend CHUNG/ECF as pt has not been able to manage at home. PT recommendations 12/25: Sub-acute rehab d/t assist required for ADL, poor cognition, high risk for falls, poor safety dementia, unable to manage stairs, poor level of function and requiring verbal/physical cues. Treatment: Case management has pending placement, PT/OT Is there a corresponding diagnosis/etiology for this symptom of weakness? [ y ] Age related physical debility [ ] Unable to determine [ ] Other, please specify (Template Last Reviewed: April 2020) MTDD
--- NOTE | 2022-12-25 20:08 | P.PN ---
Subjective Progress Note Date: 12/25/22 * 87-year-old lady with past medical history significant for new onset atrial fibrillation, hypertension, dyslipidemia, diabetes mellitus, with borderline episodes of hypotension presented to the emergency department with complains of failure to thrive and generalized weakness. * Patient was recently admitted from 12/04 ~12/09. Was treated for urinary tract infection and new onset atrial fibrillation. Patient was discharged home with home care * Ultimately patient presents back secondary to progressive weakness and unable to take care of patient per * Workup initiated in ER included showed CBC with WBC 9.5 hemoglobin 15 hematocrit 45 platelet count 438 * Serum chemistry obtained showed sodium 137 potassium 3.3 chloride 104 carbon dioxide 20 B on 6 creatinine 0.45 * Liver profile showed a LT of 84 and AST 53 troponin negative TSH within normal limits * Urinalysis negative for unit tract infection, tested negative for Covid Objective - Vital Signs Vital signs: Vital Signs Temp 97.7 F 12/25/22 09:03 Pulse 93 12/25/22 09:03 Resp 16 12/25/22 09:03 BP 116/74 12/25/22 09:03 Pulse Ox 92 L 12/25/22 09:03 FiO2 Intake & Output 12/24/22 12/25/22 12/25/22 18:59 06:59 18:59 Intake Total 450 118 Output Total 400 Balance 50 118 Weight 53.524 kg Intake: Intake, IV Titration 450 Amount Sodium Chloride 0.9% 1, 450 000 ml @ 75 mls/hr IV . [id number] NEISHA Rx#:[id number] Oral 118 Output: Urine 400 Other: Voiding Method Toilet Toilet # Voids 3 # Bowel Movements 2 - Exam GENERAL: The patient is alert and oriented x3, not in any acute distress. Chronic ill appearance HEENT: Pupils are round and equally reacting to light. EOMI. CARDIOVASCULAR: S1 and S2 present. Irregular rhythm tachycardia PULMONARY: Chest is clear to auscultation, no wheezing or crackles. ABDOMEN: Soft, nontender, nondistended, normoactive bowel sounds. No palpable organomegaly. MUSCULOSKELETAL: No joint swelling or deformity. EXTREMITIES: No cyanosis, clubbing, or pedal edema. NEUROLOGICAL: Gross neurological examination did not reveal any focal deficits. SKIN: No rashes. - Labs CBC & Chem 7: 12/25/22 07:30 12/25/22 07:30 Labs: Abnormal Lab Results - Last 24 Hours (Table) 12/24/22 12/24/22 12/25/22 Range/Units 16:49 19:35 07:30 MCV 102.0 H (80.0-100.0) fL Monocytes # (Manual) 1.10 H (0-1.0) k/uL Eosinophils # (Manual) 0.90 H (0-0.7) k/uL Carbon Dioxide (22-30) mmol/L Creatinine (0.52-1.04) mg/dL Glucose (74-99) mg/dL POC Glucose (mg/dL) 160 H 127 H (70-110) mg/dL 12/25/22 Range/Units 07:30 MCV (80.0-100.0) fL Monocytes # (Manual) (0-1.0) k/uL Eosinophils # (Manual) (0-0.7) k/uL Carbon Dioxide 17 L (22-30) mmol/L Creatinine 0.46 L (0.52-1.04) mg/dL Glucose 118 H (74-99) mg/dL POC Glucose (mg/dL) (70-110) mg/dL Microbiology - Last 24 Hours (Table) 12/23/22 15:29 Blood Culture - Preliminary Blood Assessment and Plan Assessment: * Generalized debility with progressive weakness and hypokalemia * Atrial fib with rapid monitor response * Hyperlipidemia * Diabetes mellitus type 2 * History of depression and anxiety * Recent admission for urinary tract infection treated/resolved * In regards to generalized debility, patient will need physical therapy occupational therapy evaluation for placement. Patient was recently discharged however unable to cope with activities of daily living. We'll optimize electrolytes continue with IV hydration * In regards to atrial fibrillation patient noted to have paroxysmal tachycardia. Start back on home medications including Cardizem and metoprolol continue Eliquis * In regards to diabetes mellitus Accu-Cheks before meals at bedtime continue patient on correctional insulin and oral hypoglycemic * In regards to depression and anxiety home medications reviewed and reconciled * CODE STATUS is full code
[2022-12-25 21:02] LABS: Glucose,Whole Blood 170 mg/dL (70-110)
[2022-12-25] MEDS: MONTELUKAST 10 MG TAB PO SCH (22:04)
[2022-12-25] MEDS: MELATONIN 5 MG TABLET PO SCH (22:04)
[2022-12-25] MEDS: PRAVASTATIN SODIUM 40 MG TAB PO SCH (22:04)
[2022-12-25] MEDS: POTASSIUM CHLORIDE ER 10 MEQ TAB.ER.PRT PO SCH (22:16)
[2022-12-26] MEDS: ALPRAZolam 0.5 MG TAB PO PRN ×2 (01:44→20:45)
[2022-12-26 05:48] LABS: Glucose,Whole Blood 102 mg/dL (70-110)
[2022-12-26] MEDS: INSULIN ASPART (NovoLOG) 100 UNIT/ML VIAL SQ SCH ×4 (07:07→20:41)
[2022-12-26] MEDS: PANTOPRAZOLE 40 MG TABLET PO SCH (07:44)
[2022-12-26] MEDS: SYMBICORT 160-4.5 MCG INHALER INHALATION SCH ×2 (08:01→21:05)
[2022-12-26 09:46] LABS: Calcium 9.7 mg/dL (8.7-10.3); Carbon Dioxide 21.7 mmol/L (21.6-31.8); Chloride 104 mmol/L (96-109); Glucose 101 mg/dL (70-110); Potassium 3.6 mmol/L (3.5-5.5); Sodium 140 mmol/L (135-145)
[2022-12-26] MEDS: GABAPENTIN 300 MG CAP PO SCH ×2 (09:48→20:44)
[2022-12-26] MEDS: DAPAGLIFLOZIN PROPANEDIOL 10 MG TABLET PO SCH (09:48)
[2022-12-26] MEDS: DULoxetine HCL 30 MG CAPSULE.DR PO SCH (09:48)
[2022-12-26] MEDS: APIXABAN 2.5 MG TABLET PO SCH ×2 (09:48→20:44)
[2022-12-26] MEDS: SPIRONOLACTONE 25 MG TAB PO SCH (09:50)
[2022-12-26] MEDS: ACETAMINOPHEN TAB 325 MG TAB PO PRN ×2 (09:50→19:54)
[2022-12-26] MEDS: AZELASTINE 137MCG/SPRAY EA NOSTRIL SCH (09:52)
[2022-12-26 11:41] LABS: Glucose,Whole Blood 172 mg/dL (70-110)
[2022-12-26] MEDS: CHOLECALCIFEROL 125 MCG (5000 IU) TABLET PO SCH (12:03)
[2022-12-26] MEDS: MULTIVITAMINS, THERA 1 EACH TAB PO SCH (12:03)
[2022-12-26] MEDS: CALCIUM CARB-VIT D 500 MG-5 MCG TAB PO SCH (12:03)
[2022-12-26] MEDS: CYANOCOBALAMIN 500 MCG TAB PO SCH (12:03)
[2022-12-26] MEDS: MEGESTROL 400 MG/10 ML CUP PO SCH (12:07)
[2022-12-26] MEDS: METOPROLOL TARTRATE 50 MG TAB PO SCH ×2 (12:07→20:44)
[2022-12-26] MEDS: DILTIAZEM CD 180 MG CAP.ER.24H PO SCH (12:07)
--- NOTE | 2022-12-26 14:20 | P.DS ---
Providers Date of admission: 12/23/22 20:29 Expected date of discharge: 12/26/22 Attending physician: Anjana Carrera Primary care physician: [facility] Course: * 87-year-old lady with past medical history significant for new onset atrial fibrillation, hypertension, dyslipidemia, diabetes mellitus, with borderline episodes of hypotension presented to the emergency department with complains of failure to thrive and generalized weakness. * Patient was recently admitted from 12/04 ~12/09. Was treated for urinary tract infection and new onset atrial fibrillation. Patient was discharged home with home care * Ultimately patient presents back secondary to progressive weakness and unable to take care of patient per * Workup initiated in ER included showed CBC with WBC 9.5 hemoglobin 15 hematocrit 45 platelet count 438 * Serum chemistry obtained showed sodium 137 potassium 3.3 chloride 104 carbon dioxide 20 B on 6 creatinine 0.45 * Liver profile showed a LT of 84 and AST 53 troponin negative TSH within normal limits * Urinalysis negative for unit tract infection, tested negative for Covid * * * Generalized debility with progressive weakness and hypokalemia * Atrial fib with rapid monitor response * Hyperlipidemia * Diabetes mellitus type 2 * History of depression and anxiety * Recent admission for urinary tract infection treated/resolved * In regards to generalized debility, patient will need physical therapy occupational therapy evaluation for placement. Patient was recently discharged however unable to cope with activities of daily living. We'll optimize electrolytes continue with IV hydration * In regards to atrial fibrillation patient noted to have paroxysmal tachycardia. Start back on home medications including Cardizem and metoprolol continue Eliquis * In regards to diabetes mellitus Accu-Cheks before meals at bedtime continue patient on correctional insulin and oral hypoglycemic * In regards to depression and anxiety home medications reviewed and reconciled * CODE STATUS is full code * * Patient has been evaluated by PT/OT and is recommended skilled rehab * Patient is stable for discharge Plan - Discharge Summary Discharge Rx Participant: Yes New Discharge Prescriptions: New Gabapentin [Neurontin] 300 mg PO BID 3 Days #6 cap ALPRAZolam [Xanax] 0.5 mg PO BID PRN 3 Days #6 tab PRN Reason: Anxiety Continue Pravastatin Sodium [Pravachol] 40 mg PO HS Azelastine HCl [Astepro] 2 spray EA NOSTRIL DAILY Montelukast Sodium [Singulair] 10 mg PO HS Multivitamins, Thera [Multivitamin (formulary)] 1 tab PO DAILY@1200 Cholecalciferol [Vitamin D3 (25 Mcg = 1000 Iu)] 125 mcg PO DAILY@1200 DULoxetine HCL [Cymbalta] 30 mg PO DAILY Apixaban [Eliquis] 2.5 mg PO BID #60 tab Metoprolol Tartrate [Lopressor] 50 mg PO BID #60 tab Spironolactone [Aldactone] 12.5 mg PO DAILY Megestrol [Megace] 400 mg PO DAILY@1200 Diltiazem Cd [Cardizem CD] 180 mg PO DAILY@1200 Budesonide/Formoterol Fumarate [Symbicort 160-4.5 Mcg Inhaler] 2 puff INHALATION RT-BID Dapagliflozin Propanediol [Farxiga] 10 mg PO DAILY SUMAtriptan succinate [Imitrex] 25 mg PO BID PRN PRN Reason: Migraine Headache Omeprazole 40 mg PO AC-BRKFST Potassium Gluconate 595mg Tab 595 mg PO DAILY Cyanocobalamin (Vitamin B-12) [Vitamin B-12] 1,000 mcg PO DAILY@1200 Melatonin 10 mg PO HS Calcium Carbonate/Vitamin D3 [Calcium 600 mg-D3 10 Mcg (400 Iu)] 1 cap PO DAILY@1200 ALPRAZolam [Xanax] 0.5 mg PO BID PRN PRN Reason: Anxiety Gabapentin 300 mg PO BID Potassium Chloride ER [K-Dur 10] 10 meq PO HS Lidocaine 5% Patch [Lidoderm 5% Patch] 1 patch TRANSDERM DAILY HYDROcodone/APAP 7.5-325MG [Eure 7.5-325] 1 tab PO Q6H PRN 3 Days #10 tab PRN Reason: Pain Discharge Medication List Pravastatin Sodium [Pravachol] 40 mg PO HS 10/27/14 [History] Azelastine HCl [Astepro] 2 spray EA NOSTRIL DAILY 04/02/20 [History] Montelukast Sodium [Singulair] 10 mg PO HS 04/02/20 [History] Budesonide/Formoterol Fumarate [Symbicort 160-4.5 Mcg Inhaler] 2 puff INHALATION RT-BID 08/02/20 [History] Diltiazem Cd [Cardizem CD] 180 mg PO DAILY@1200 08/02/20 [History] Dapagliflozin Propanediol [Farxiga] 10 mg PO DAILY 09/02/22 [History] Multivitamins, Thera [Multivitamin (formulary)] 1 tab PO DAILY@1200 09/02/22 [History] Omeprazole 40 mg PO AC-BRKFST 09/02/22 [History] SUMAtriptan succinate [Imitrex] 25 mg PO BID PRN 09/02/22 [History] Cholecalciferol [Vitamin D3 (25 Mcg = 1000 Iu)] 125 mcg PO DAILY@1200 10/26/22 [History] Calcium Carbonate/Vitamin D3 [Calcium 600 mg-D3 10 Mcg (400 Iu)] 1 cap PO DAILY@1200 10/28/22 [History] Cyanocobalamin (Vitamin B-12) [Vitamin B-12] 1,000 mcg PO DAILY@1200 10/28/22 [History] DULoxetine HCL [Cymbalta] 30 mg PO DAILY 10/28/22 [History] Melatonin 10 mg PO HS 10/28/22 [History] Potassium Gluconate 595mg Tab 595 mg PO DAILY 10/28/22 [History] ALPRAZolam [Xanax] 0.5 mg PO BID PRN 12/04/22 [History] Gabapentin 300 mg PO BID 12/04/22 [History] Potassium Chloride ER [K-Dur 10] 10 meq PO HS 12/04/22 [History] Apixaban [Eliquis] 2.5 mg PO BID #60 tab 12/08/22 [Rx] Metoprolol Tartrate [Lopressor] 50 mg PO BID #60 tab 12/09/22 [Rx] Lidocaine 5% Patch [Lidoderm 5% Patch] 1 patch TRANSDERM DAILY 12/23/22 [History] Megestrol [Megace] 400 mg PO DAILY@1200 12/23/22 [History] Spironolactone [Aldactone] 12.5 mg PO DAILY 12/23/22 [History] ALPRAZolam [Xanax] 0.5 mg PO BID PRN 3 Days #6 tab 12/26/22 [Rx] Gabapentin [Neurontin] 300 mg PO BID 3 Days #6 cap 12/26/22 [Rx] HYDROcodone/APAP 7.5-325MG [Eure 7.5-325] 1 tab PO Q6H PRN 3 Days #10 tab 12/26/22 [Rx] Follow up Appointment(s)/Referral(s): Gilberto Kelly MD [Primary Care Provider] - 1-2 days [facility], [NON-STAFF] - 1-2 Days Discharge/Stand Alone Forms: Help In The Home
[2022-12-26 16:29] LABS: Glucose,Whole Blood 154 mg/dL (70-110)
[2022-12-26 19:51] LABS: Glucose,Whole Blood 147 mg/dL (70-110)
[2022-12-26] MEDS: MELATONIN 5 MG TABLET PO SCH (20:44)
[2022-12-26] MEDS: POTASSIUM CHLORIDE ER 10 MEQ TAB.ER.PRT PO SCH (20:44)
[2022-12-26] MEDS: PRAVASTATIN SODIUM 40 MG TAB PO SCH (20:44)
[2022-12-26] MEDS: MONTELUKAST 10 MG TAB PO SCH (20:44)
[2022-12-27 06:06] LABS: Glucose,Whole Blood 116 mg/dL (70-110)
[2022-12-27] MEDS: INSULIN ASPART (NovoLOG) 100 UNIT/ML VIAL SQ SCH (06:35)
[2022-12-27] MEDS: PANTOPRAZOLE 40 MG TABLET PO SCH (06:56)
[2022-12-27 07:55] VITALS: BP 125/72; PULSE 82; RESP 19; TEMP 97.7
[2022-12-27] MEDS: APIXABAN 2.5 MG TABLET PO SCH (08:38)
[2022-12-27] MEDS: SPIRONOLACTONE 25 MG TAB PO SCH (08:38)
[2022-12-27] MEDS: ACETAMINOPHEN TAB 325 MG TAB PO PRN (08:39)
[2022-12-27] MEDS: DULoxetine HCL 30 MG CAPSULE.DR PO SCH (08:39)
[2022-12-27] MEDS: DAPAGLIFLOZIN PROPANEDIOL 10 MG TABLET PO SCH (08:39)
[2022-12-27] MEDS: GABAPENTIN 300 MG CAP PO SCH (08:39)
--- NOTE | 2022-12-27 10:13 | P.DS ---
Providers Date of admission: 12/23/22 20:29 Expected date of discharge: 12/27/22 Attending physician: Anjana Carrera Primary care physician: [facility] Course: * 87-year-old lady with past medical history significant for new onset atrial fibrillation, hypertension, dyslipidemia, diabetes mellitus, with borderline episodes of hypotension presented to the emergency department with complains of failure to thrive and generalized weakness. * Patient was recently admitted from 12/04 ~12/09. Was treated for urinary tract infection and new onset atrial fibrillation. Patient was discharged home with home care * Ultimately patient presents back secondary to progressive weakness and unable to take care of patient per * Workup initiated in ER included showed CBC with WBC 9.5 hemoglobin 15 hematocrit 45 platelet count 438 * Serum chemistry obtained showed sodium 137 potassium 3.3 chloride 104 carbon dioxide 20 B on 6 creatinine 0.45 * Liver profile showed a LT of 84 and AST 53 troponin negative TSH within normal limits * Urinalysis negative for unit tract infection, tested negative for Covid * * * Generalized debility with progressive weakness and hypokalemia * Atrial fib with rapid monitor response * Hyperlipidemia * Diabetes mellitus type 2 * History of depression and anxiety * Recent admission for urinary tract infection treated/resolved * In regards to generalized debility, patient will need physical therapy occupational therapy evaluation for placement. Patient was recently discharged however unable to cope with activities of daily living. We'll optimize electrolytes continue with IV hydration * In regards to atrial fibrillation patient noted to have paroxysmal tachycardia. Start back on home medications including Cardizem and metoprolol continue Eliquis * In regards to diabetes mellitus Accu-Cheks before meals at bedtime continue patient on correctional insulin and oral hypoglycemic * In regards to depression and anxiety home medications reviewed and reconciled * CODE STATUS is full code * * 12/27/2022 * -- Discharge to health yesterday due to late discharge and transportation quadrant. * -----Patient has been evaluated by PT/OT and is recommended skilled rehab * Patient is stable for discharge Plan - Discharge Summary Discharge Rx Participant: Yes New Discharge Prescriptions: New Gabapentin [Neurontin] 300 mg PO BID 3 Days #6 cap ALPRAZolam [Xanax] 0.5 mg PO BID PRN 3 Days #6 tab PRN Reason: Anxiety Continue Pravastatin Sodium [Pravachol] 40 mg PO HS Azelastine HCl [Astepro] 2 spray EA NOSTRIL DAILY Montelukast Sodium [Singulair] 10 mg PO HS Multivitamins, Thera [Multivitamin (formulary)] 1 tab PO DAILY@1200 Cholecalciferol [Vitamin D3 (25 Mcg = 1000 Iu)] 125 mcg PO DAILY@1200 DULoxetine HCL [Cymbalta] 30 mg PO DAILY Apixaban [Eliquis] 2.5 mg PO BID #60 tab Metoprolol Tartrate [Lopressor] 50 mg PO BID #60 tab Spironolactone [Aldactone] 12.5 mg PO DAILY Megestrol [Megace] 400 mg PO DAILY@1200 Diltiazem Cd [Cardizem CD] 180 mg PO DAILY@1200 Budesonide/Formoterol Fumarate [Symbicort 160-4.5 Mcg Inhaler] 2 puff INHALATION RT-BID Dapagliflozin Propanediol [Farxiga] 10 mg PO DAILY SUMAtriptan succinate [Imitrex] 25 mg PO BID PRN PRN Reason: Migraine Headache Omeprazole 40 mg PO AC-BRKFST Potassium Gluconate 595mg Tab 595 mg PO DAILY Cyanocobalamin (Vitamin B-12) [Vitamin B-12] 1,000 mcg PO DAILY@1200 Melatonin 10 mg PO HS Calcium Carbonate/Vitamin D3 [Calcium 600 mg-D3 10 Mcg (400 Iu)] 1 cap PO DAILY@1200 ALPRAZolam [Xanax] 0.5 mg PO BID PRN PRN Reason: Anxiety Gabapentin 300 mg PO BID Potassium Chloride ER [K-Dur 10] 10 meq PO HS Lidocaine 5% Patch [Lidoderm 5% Patch] 1 patch TRANSDERM DAILY HYDROcodone/APAP 7.5-325MG [[place] 7.5-325] 1 tab PO Q6H PRN 3 Days #10 tab PRN Reason: Pain Discharge Medication List Pravastatin Sodium [Pravachol] 40 mg PO HS 10/27/14 [History] Azelastine HCl [Astepro] 2 spray EA NOSTRIL DAILY 04/02/20 [History] Montelukast Sodium [Singulair] 10 mg PO HS 04/02/20 [History] Budesonide/Formoterol Fumarate [Symbicort 160-4.5 Mcg Inhaler] 2 puff INHALATION RT-BID 08/02/20 [History] Diltiazem Cd [Cardizem CD] 180 mg PO DAILY@1200 05/21/21 [History] Dapagliflozin Propanediol [Farxiga] 10 mg PO DAILY 09/02/22 [History] Multivitamins, Thera [Multivitamin (formulary)] 1 tab PO DAILY@1200 09/02/22 [History] Omeprazole 40 mg PO AC-BRKFST 09/02/22 [History] SUMAtriptan succinate [Imitrex] 25 mg PO BID PRN 09/02/22 [History] Cholecalciferol [Vitamin D3 (25 Mcg = 1000 Iu)] 125 mcg PO DAILY@1200 10/26/22 [History] Calcium Carbonate/Vitamin D3 [Calcium 600 mg-D3 10 Mcg (400 Iu)] 1 cap PO DONNA Y@1200 10/28/22 [History] Cyanocobalamin (Vitamin B-12) [Vitamin B-12] 1,000 mcg PO DAILY@1200 10/28/22 [History] DULoxetine HCL [Cymbalta] 30 mg PO DAILY 10/28/22 [History] Melatonin 10 mg PO HS 10/28/22 [History] Potassium Gluconate 595mg Tab 595 mg PO DAILY 10/28/22 [History] ALPRAZolam [Xanax] 0.5 mg PO BID PRN 12/04/22 [History] Gabapentin 300 mg PO BID 12/04/22 [History] Potassium Chloride ER [K-Dur 10] 10 meq PO HS 12/04/22 [History] Apixaban [Eliquis] 2.5 mg PO BID #60 tab 12/08/22 [Rx] Metoprolol Tartrate [Lopressor] 50 mg PO BID #60 tab 12/09/22 [Rx] Lidocaine 5% Patch [Lidoderm 5% Patch] 1 patch TRANSDERM DAILY 12/23/22 [History] Megestrol [Megace] 400 mg PO DAILY@1200 12/23/22 [History] Spironolactone [Aldactone] 12.5 mg PO DAILY 12/23/22 [History] ALPRAZolam [Xanax] 0.5 mg PO BID PRN 3 Days #6 tab 12/26/22 [Rx] Gabapentin [Neurontin] 300 mg PO BID 3 Days #6 cap 12/26/22 [Rx] HYDROcodone/APAP 7.5-325MG [[place] 7.5-325] 1 tab PO Q6H PRN 3 Days #10 tab 12/26/22 [Rx] Follow up Appointment(s)/Referral(s): Gilberto Kelly MD [Primary Care Provider] - 1-2 days (Office is closed at time of discharge. Please call for follow-up appointment time and date.) Domingo Wye [place], [NON-STAFF] - 1-2 Days Discharge/Stand Alone Forms: [facility] Home
[2022-12-27] MEDS: SYMBICORT 160-4.5 MCG INHALER INHALATION SCH (10:21)
[2022-12-27] MEDS: METOPROLOL TARTRATE 50 MG TAB PO SCH (13:03)
== END 2022-12-27 12:15 ==
LOC: EC 15:11 → 5NMEDONC 20:29 → INTOOBSV 20:29 → 5NMEDONC 20:59 → 1SOBS 12-24 06:28 → 4SSUR 12-25 16:51 → UNDODISIN 12-27 12:15
PROVIDERS: ADMIT Hospitalist; ATTEND Hospitalist
DX: R53.1 Weakness (principal); E87.6 Hypokalemia; R29.6 Repeated falls; I48.91 Unspecified atrial fibrillation; E78.5 Hyperlipidemia, unspecified; E11.9 Type 2 diabetes mellitus without complications; J45.909 Unspecified asthma, uncomplicated; F03.90 Unspecified dementia, unspecified severity, without behavioral disturbance, psychotic disturbance, mood disturbance, and anxiety; I10 Essential (primary) hypertension; F32.A Depression, unspecified; F41.9 Anxiety disorder, unspecified; Z20.822 Contact with and (suspected) exposure to COVID-19; Z87.891 Personal history of nicotine dependence; Z79.51 Long term (current) use of inhaled steroids; Z79.899 Other long term (current) drug therapy; Z88.0 Allergy status to penicillin; Z88.1 Allergy status to other antibiotic agents; Z88.5 Allergy status to narcotic agent
CPT/HCPCS: 96361 ×4; 96372 ×3; 96360; 99285; 36415; 94640 ×5; 93005; 97162; 97167; 80053; 80048 ×2; 83605; 83735 ×2; 84100; 84132; 84443; 84484; 85025 ×2; 85610; 85730; 81003; 87040; 83036; 87635; 73502; 73070; 71046; 72125; 70450; G0378 ×5; S0179 ×3

== ENCOUNTER 2023-07-22 11:03 | Inpatient (IN) | payer MEDICARE ==
--- NOTE | 2023-07-22 11:37 | ED ---
General Adult HPI - General Chief complaint: Nausea/Vomiting/Diarrhea Stated complaint: NVD Time Seen by Provider: 07/22/23 11:07 Source: patient, family, EMS, RN notes reviewed Mode of arrival: EMS Limitations: no limitations - History of Present Illness Initial comments: 87-year-old female presents to the emergency department for evaluation of nausea and diarrhea x 3 days. Patient notes that she has had decreased appetite and feeling weak. Patient's states that the patient has been having spells of diaphoresis occasionally. He states that these have been going on for the past couple months. She did experience one of these episodes while in the ED. Denies any aggravating or alleviating factors. Patient denies abdominal pain, fever. She admits to urinary frequency. She also admits to pain in her left shoulder blade which started after arriving to ED. she denies fevers at home. - Related Data Home Medications Medication Instructions Recorded Confirmed Pravastatin Sodium [Pravachol] 40 mg PO DAILY 10/27/14 07/22/23 Azelastine HCl [Astepro] 2 spr EA NOSTRIL BID 04/02/20 07/22/23 Montelukast Sodium [Singulair] 10 mg PO DAILY 04/02/20 07/22/23 Budesonide/Formoterol Fumarate 2 puff INHALATION RT-BID 08/02/20 07/22/23 [Symbicort 160-4.5 Mcg Inhaler] Diltiazem Cd [Cardizem CD] 180 mg PO DAILY 08/02/20 07/22/23 Dapagliflozin Propanediol [Farxiga] 10 mg PO DAILY 09/02/22 07/22/23 Multivitamins, Thera [Multivitamin 1 tab PO DAILY 09/02/22 07/22/23 (formulary)] Omeprazole 40 mg PO AC-BRKFST 09/02/22 07/22/23 Cholecalciferol [Vitamin D3 (25 25 mcg PO DAILY 10/26/22 07/22/23 Mcg = 1000 Iu)] DULoxetine HCL [Cymbalta] 30 mg PO DAILY 10/28/22 07/22/23 Gabapentin 600 mg PO HS 12/04/22 07/22/23 Albuterol Sulfate [Albuterol 2 puff INHALATION RT-Q4H PRN 07/22/23 07/22/23 Sulfate Hfa] Calcium Citrate(Unknown Dose) 1 tab PO BID 07/22/23 07/22/23 Celecoxib [CeleBREX] 200 mg PO BID 07/22/23 07/22/23 Mirtazapine [Remeron] 15 mg PO HS 07/22/23 07/22/23 Previous Rx's Medication Instructions Recorded Apixaban [Eliquis] 2.5 mg PO BID #60 tab 12/08/22 Metoprolol Tartrate [Lopressor] 50 mg PO BID #60 tab 12/09/22 ALPRAZolam [Xanax] 0.5 mg PO BID PRN 3 Days #6 tab 12/26/22 Allergies Allergy/AdvReac Type Severity Reaction Status Date / Time nitrofurantoin Allergy Rash/Hives Verified 07/22/23 13:13 macrocrystalline all over [From Macrodantin] zolpidem [From Ambien] AdvReac Unknown sleep Verified 07/22/23 13:13 walks, confused amoxicillin trihydrate AdvReac Nausea & Verified 07/22/23 13:13 [From Augmentin] Vomiting & Diarrhea cephalexin monohydrate AdvReac Flu like Verified 07/22/23 13:13 [From Keflex] symptoms dicyclomine AdvReac disoriented Verified 07/22/23 13:13 for 4 days hydromorphone HCl AdvReac Extremely Verified 07/22/23 13:13 [From Dilaudid] Confusion for 8 days morphine AdvReac violence Verified 07/22/23 13:13 potassium clavulanate AdvReac Nausea & Verified 07/22/23 13:13 [From Augmentin] Vomiting & Diarrhea Review of Systems ROS Statement: Those systems with pertinent positive or pertinent negative responses have been documented in the HPI. ROS Other: All systems not noted in ROS Statement are negative. Past Medical History Past Medical History: Asthma, Cancer, Dementia, Diabetes Mellitus, Hyperlipidemia, Hypertension Additional Past Medical History / Comment(s): numbness 2nd,3rd,4th digits rt hand, back pain,skin CA History of Any Multi-Drug Resistant Organisms: ESBL Date of last positivie culture/infection: 12/04/22 MDRO Source:: Urine Past Surgical History: Back Surgery, Hysterectomy, Joint Replacement, Orthopedic Surgery, Tonsillectomy Additional Past Surgical History / Comment(s): back x2,lumbar fusion, left knee replacement,ana hips, carpal tunnel surgery Right. Pain clinic procedure Past Anesthesia/Blood Transfusion Reactions: No Reported Reaction Additional Past Anesthesia/Blood Transfusion Reaction / Comment(s): no hx blood transfusion Past Psychological History: Depression Smoking Status: Former smoker Past Alcohol Use History: None Reported Past Drug Use History: None Reported - Past Family History Mother Family Medical History: No Reported History General Exam Limitations: no limitations General appearance: alert, in no apparent distress Head exam: Present: atraumatic, normocephalic, normal inspection Eye exam: Present: normal appearance, PERRL, EOMI. Absent: scleral icterus, conjunctival injection, periorbital swelling ENT exam: Present: normal exam, mucous membranes moist Respiratory exam: Present: normal lung sounds bilaterally. Absent: respiratory distress, wheezes, rales, rhonchi, stridor Cardiovascular Exam: Present: normal rhythm, tachycardia, normal heart sounds. Absent: systolic murmur, diastolic murmur, rubs, gallop, clicks GI/Abdominal exam: Present: soft, normal bowel sounds. Absent: distended, tenderness, guarding, rebound, rigid Extremities exam: Present: normal inspection, full ROM, normal capillary refill. Absent: tenderness, pedal edema, joint swelling, calf tenderness Back exam: Present: normal inspection Neurological exam: Present: alert, oriented X3 Psychiatric exam: Present: normal affect, normal mood Skin exam: Present: warm, dry, intact, normal color. Absent: rash Course Vital Signs 07/22/23 07/22/23 07/22/23 11:07 14:14 15:21 Temperature 99.1 F Pulse Rate 118 H 115 H 96 Pulse Rate [ Pulse Oximetery ] Respiratory 20 22 18 Rate Blood Pressure 169/113 159/111 173/108 Blood Pressure [Left Arm] O2 Sat by Pulse 94 L 92 L 93 L Oximetry 07/22/23 07/22/23 07/22/23 18:19 21:35 22:00 Temperature Pulse Rate 97 90 81 Pulse Rate [ Pulse Oximetery ] Respiratory 18 18 17 Rate Blood Pressure 155/125 135/95 133/96 Blood Pressure [Left Arm] O2 Sat by Pulse 97 97 Oximetry 07/22/23 07/23/23 07/23/23 23:21 00:12 02:55 Temperature Pulse Rate 71 76 Pulse Rate [ Pulse Oximetery ] Respiratory 18 17 18 Rate Blood Pressure 136/100 146/82 155/83 Blood Pressure [Left Arm] O2 Sat by Pulse 96 93 L 94 L Oximetry 07/23/23 07/23/23 07/23/23 04:00 05:00 06:00 Temperature 98 F 97.7 F Pulse Rate 86 89 91 Pulse Rate [ Pulse Oximetery ] Respiratory 18 18 18 Rate Blood Pressure 157/90 156/92 163/94 Blood Pressure [Left Arm] O2 Sat by Pulse 96 6 L 96 Oximetry 07/23/23 07/23/23 14:46 15:00 Temperature Pulse Rate 78 Pulse Rate [ 83 Pulse Oximetery ] Respiratory 18 17 Rate Blood Pressure 118/70 Blood Pressure 135/72 [Left Arm] O2 Sat by Pulse 97 91 L Oximetry Medical Decision Making - Medical Decision Making Was pt. sent in by a medical professional or institution (, PA, TRANSPORT COORDINATOR, urgent care, hospital, or shelter...) When possible be specific @ -No Did you speak to anyone other than the patient for history (EMS, parent, family, police, friend...)? What history was obtained from this source @ -No Did you review nursing and triage notes (agree or disagree)? Why? @ -I reviewed and agree with nursing and triage notes Were old charts reviewed (outside hosp., previous admission, EMS record, old EKG, old radiological studies, urgent care reports/EKG's, shelter records)? Report findings @ -No old charts were reviewed Differential Diagnosis (chest pain, altered mental status, abdominal pain women, abdominal pain men, vaginal bleeding, weakness, fever, dyspnea, syncope, headache, dizziness, GI bleed, back pain, seizure, CVA, palpatations, mental health, musculoskeletal)? @ -Differential Back Pain: Strain, zoster, cauda equina syndrome, epidural abscess, vertebral osteomyelitis, discitis, fracture, subluxation, disc herniation, DJD, spinal stenosis, dissection, AAA, pancreatitis, peptic ulcer disease, pyelonephritis, kidney stone, this is not meant to be an all-inclusive list. Differential Weakness: Hypoglycemia, shock, sepsis, hyponatremia, anemia, infection, WA, ETOH, adverse medicine reaction, overdose, stroke, this is not meant to be an all-inclusive list. EKG interpreted by me (3pts min.). @ -EKG at 1227 shows sinus tachycardia with first-degree AV block rate of 108, VA 239, QRS 90, QTQTc [id number] EKG at 1645 shows sinus rhythm rate 94, VA 208, QRS 92, QTQTc 000119 X-rays interpreted by me (1pt min.). @ -Chest x-ray shows tortuous thoracic aorta, no acute process X-ray of the left shoulder obtained which shows no acute fracture CT interpreted by me (1pt min.). 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 min.). @ -None done What testing was considered but not performed or refused? (CT, X-rays, U/S, labs)? Why? @ -None What meds were considered but not given or refused? Why? @ -None Did you discuss the management of the patient with other professionals (professionals i.e. , PA, TRANSPORT COORDINATOR, lab, RT, psych nurse, social services counselor, bus aide, teacher, chief digital media officer, medical case manager)? Give summary @ -Management discussed with Dr. Kelly who is accepting of the admission Was smoking cessation discussed for >3mins.? @ -No Was critical care preformed (if so, how long)? @ -No Were there social determinants of health that impacted care today? How? (Homelessness, low income, unemployed, alcoholism, drug addiction, transportation, low edu. Level, literacy, decrease access to med. care, fci, rehab)? @ -No Was there de-escalation of care discussed even if they declined (Discuss DNR or withdrawal of care, Hospice)? DNR status @ -No What co-morbidities impacted this encounter? (DM, HTN, Smoking, COPD, CAD, Canc er, CVA, ARF, Chemo, Hep., AIDS, mental health diagnosis, sleep apnea, morbid obesity)? @ -None Was patient admitted / discharged? Hospital course, mention meds given and route, prescriptions, significant lab abnormalities, going to OR and other pertinent info. @ -Admitted. Patient presented to the emergency department for generalized weakness, diarrhea x3 days. Patient provided fluids in the emergency department. While in the ED, patient developed left shoulder/scapular pain. Patient also had an episode of diaphoresis. Patient underwent laboratory studies.CBC was unremarkable; normal coagulation studies; CMP shows mild hypokalemia at 3.0 this was replaced with oral potassium, mild transaminitis; patient initially had a negative troponin, repeat was obtained which was 0.016; UA showed 1+ protein, 1+ ketones, 4+ glucose, no evidence of infectious process. Patient tested negative for COVID, influenza, RSV, C. difficile. Patient will be admitted for serial troponins, electrolyte replacement, gentle hydration. Case was discussed with Dr. Kelly who is accepting of the admission. Patient is understanding agreeable with this plan. Case discussed with my attending, Dr. Dumont Undiagnosed new problem with uncertain prognosis? @ -No Drug Therapy requiring intensive monitoring for toxicity (Heparin, Nitro, Insulin, Cardizem)? @ -No Were any procedures done? @ -No Diagnosis/symptom? @ -Hypokalemia, diarrhea, generalized weakness Acute, or Chronic, or Acute on Chronic? @ -Acute Uncomplicated (without systemic symptoms) or Complicated (systemic symptoms)? @ -Uncomplicated Side effects of treatment? @ -No Exacerbation, Progression, or Severe Exacerbation? @ -No Poses a threat to life or bodily function? How? (Chest pain, USA, WA, pneumonia, PE, COPD, DKA, ARF, appy, cholecystitis, CVA, Diverticulitis, Homicidal, Suicidal, threat to staff... and all critical care pts) @ -No - Lab Data Result diagrams: 07/24/23 07:21 07/24/23 07:21 Lab Results 07/22/23 07/22/23 07/22/23 Range/Units 12:08 12:08 12:08 WBC 8.4 (3.8-10.6) k/uL RBC 4.86 (3.80-5.40) m/uL Hgb 15.6 (11.4-16.0) gm/dL Hct 48.7 H (34.0-46.0) % MCV 100.3 H (80.0-100.0) fL MCH 32.1 (25.0-35.0) pg MCHC 32.0 (31.0-37.0) g/dL RDW 12.7 (11.5-15.5) % Plt Count 300 (150-450) k/uL MPV 7.5 Neutrophils % (Manual) 71 % Lymphocytes % (Manual) 24 % Monocytes % (Manual) 3 % Eosinophils % (Manual) 2 % Neutrophils # (Manual) 5.96 (1.3-7.7) k/uL Lymphocytes # (Manual) 2.02 (1.0-4.8) k/uL Monocytes # (Manual) 0.25 (0-1.0) k/uL Eosinophils # (Manual) 0.17 (0-0.7) k/uL Nucleated RBCs 0 (0-0) /100 WBC Manual Slide Review Performed PT 10.5 (10.0-12.5) sec INR 0.9 (<1.2) APTT 23.4 (22.0-30.0) sec Sodium 141 (137-145) mmol/L Potassium 3.0 L (3.5-5.1) mmol/L Chloride 106 (98-107) mmol/L Carbon Dioxide 26 (22-30) mmol/L Anion Gap 9 mmol/L BUN 11 (7-17) mg/dL Creatinine 0.43 L (0.52-1.04) mg/dL Est GFR (CKD-EPI)AfAm >90 (>60 ml/min/1.73 sqM) Est GFR (CKD-EPI)NonAf >90 (>60 ml/min/1.73 sqM) Glucose 125 H (74-99) mg/dL POC Glucose (mg/dL) (70-110) mg/dL POC Glu Concrete Puddler ID Plasma Lactic Acid Gideon (0.7-2.0) mmol/L Calcium 9.6 (8.4-10.2) mg/dL Magnesium 2.0 (1.6-2.3) mg/dL Total Bilirubin 0.7 (0.2-1.3) mg/dL AST 53 H (14-36) U/L ALT 46 H (4-34) U/L Alkaline Phosphatase 87 (38-126) U/L Troponin I (0.000-0.034) ng/mL Total Protein 6.8 (6.3-8.2) g/dL Albumin 4.1 (3.5-5.0) g/dL Urine Color Urine Appearance (Clear) Urine pH (5.0-8.0) Ur Specific [place] (1.001-1.035) Urine Protein (Negative) Urine Glucose (UA) (Negative) Urine Ketones (Negative) Urine Blood (Negative) Urine Nitrite (Negative) Urine Bilirubin (Negative) Urine Urobilinogen (<2.0) mg/dL Ur Leukocyte Esterase (Negative) Urine WBC (0-5) /hpf Ur Squamous Epith Cells (0-4) /hpf Urine Mucus (None) /hpf Stool Lactoferrin (Negative) C. difficile (EIA) Intrp (Negative) Influenza Type A (PCR) (Not Detectd) Influenza Type B (PCR) (Not Detectd) RSV (PCR) (Not Detectd) SARS-CoV-2 (PCR) (Not Detectd) 07/22/23 07/22/23 07/22/23 Range/Units 12:08 12:08 13:40 WBC (3.8-10.6) k/uL RBC (3.80-5.40) m/uL Hgb (11.4-16.0) gm/dL Hct (34.0-46.0) % MCV (80.0-100.0) fL MCH (25.0-35.0) pg MCHC (31.0-37.0) g/dL RDW (11.5-15.5) % Plt Count (150-450) k/uL MPV Neutrophils % (Manual) % Lymphocytes % (Manual) % Monocytes % (Manual) % Eosinophils % (Manual) % Neutrophils # (Manual) (1.3-7.7) k/uL Lymphocytes # (Manual) (1.0-4.8) k/uL Monocytes # (Manual) (0-1.0) k/uL Eosinophils # (Manual) (0-0.7) k/uL Nucleated RBCs (0-0) /100 WBC Manual Slide Review PT (10.0-12.5) sec INR (<1.2) APTT (22.0-30.0) sec Sodium (137-145) mmol/L Potassium (3.5-5.1) mmol/L Chloride (98-107) mmol/L Carbon Dioxide (22-30) mmol/L Anion Gap mmol/L BUN (7-17) mg/dL Creatinine (0.52-1.04) mg/dL Est GFR (CKD-EPI)AfAm (>60 ml/min/1.73 sqM) Est GFR (CKD-EPI)NonAf (>60 ml/min/1.73 sqM) Glucose (74-99) mg/dL POC Glucose (mg/dL) (70-110) mg/dL POC Glu Concrete Puddler ID Plasma Lactic Acid Gideon 1.7 (0.7-2.0) mmol/L Calcium (8.4-10.2) mg/dL Magnesium (1.6-2.3) mg/dL Total Bilirubin (0.2-1.3) mg/dL AST (14-36) U/L ALT (4-34) U/L Alkaline Phosphatase (38-126) U/L Troponin I <0.012 (0.000-0.034) ng/mL Total Protein (6.3-8.2) g/dL Albumin (3.5-5.0) g/dL Urine Color Light Yellow Urine Appearance Clear (Clear) Urine pH 6.5 (5.0-8.0) Ur Specific [place] 1.012 (1.001-1.035) Urine Protein 1+ H (Negative) Urine Glucose (UA) 4+ H (Negative) Urine Ketones 1+ H (Negative) Urine Blood Negative (Negative) Urine Nitrite Negative (Negative) Urine Bilirubin Negative (Negative) Urine Urobilinogen <2.0 (<2.0) mg/dL Ur Leukocyte Esterase Negative (Negative) Urine WBC 2 (0-5) /hpf Ur Squamous Epith Cells <1 (0-4) /hpf Urine Mucus Few H (None) /hpf Stool Lactoferrin (Negative) C. difficile (EIA) Intrp (Negative) Influenza Type A (PCR) (Not Detectd) Influenza Type B (PCR) (Not Detectd) RSV (PCR) (Not Detectd) SARS-CoV-2 (PCR) (Not Detectd) 07/22/23 07/22/23 07/22/23 Range/Units 15:55 16:59 17:45 WBC (3.8-10.6) k/uL RBC (3.80-5.40) m/uL Hgb (11.4-16.0) gm/dL Hct (34.0-46.0) % MCV (80.0-100.0) fL MCH (25.0-35.0) pg MCHC (31.0-37.0) g/dL RDW (11.5-15.5) % Plt Count (150-450) k/uL MPV Neutrophils % (Manual) % Lymphocytes % (Manual) % Monocytes % (Manual) % Eosinophils % (Manual) % Neutrophils # (Manual) (1.3-7.7) k/uL Lymphocytes # (Manual) (1.0-4.8) k/uL Monocytes # (Manual) (0-1.0) k/uL Eosinophils # (Manual) (0-0.7) k/uL Nucleated RBCs (0-0) /100 WBC Manual Slide Review PT (10.0-12.5) sec INR (<1.2) APTT (22.0-30.0) sec Sodium (137-145) mmol/L Potassium (3.5-5.1) mmol/L Chloride (98-107) mmol/L Carbon Dioxide (22-30) mmol/L Anion Gap mmol/L BUN (7-17) mg/dL Creatinine (0.52-1.04) mg/dL Est GFR (CKD-EPI)AfAm (>60 ml/min/1.73 sqM) Est GFR (CKD-EPI)NonAf (>60 ml/min/1.73 sqM) Glucose (74-99) mg/dL POC Glucose (mg/dL) (70-110) mg/dL POC Glu Concrete Puddler ID Plasma Lactic Acid Gideon (0.7-2.0) mmol/L Calcium (8.4-10.2) mg/dL Magnesium (1.6-2.3) mg/dL Total Bilirubin (0.2-1.3) mg/dL AST (14-36) U/L ALT (4-34) U/L Alkaline Phosphatase (38-126) U/L Troponin I 0.016 (0.000-0.034) ng/mL Total Protein (6.3-8.2) g/dL Albumin (3.5-5.0) g/dL Urine Color Urine Appearance (Clear) Urine pH (5.0-8.0) Ur Specific [place] (1.001-1.035) Urine Protein (Negative) Urine Glucose (UA) (Negative) Urine Ketones (Negative) Urine Blood (Negative) Urine Nitrite (Negative) Urine Bilirubin (Negative) Urine Urobilinogen (<2.0) mg/dL Ur Leukocyte Esterase (Negative) Urine WBC (0-5) /hpf Ur Squamous Epith Cells (0-4) /hpf Urine Mucus (None) /hpf Stool Lactoferrin (Negative) C. difficile (EIA) Intrp Negative (Negative) Influenza Type A (PCR) Not Detected (Not Detectd) Influenza Type B (PCR) Not Detected (Not Detectd) RSV (PCR) Not Detected (Not Detectd) SARS-CoV-2 (PCR) Not Detected (Not Detectd) 07/22/23 07/22/23 07/23/23 Range/Units 17:45 20:18 00:01 WBC (3.8-10.6) k/uL RBC (3.80-5.40) m/uL Hgb (11.4-16.0) gm/dL Hct (34.0-46.0) % MCV (80.0-100.0) fL MCH (25.0-35.0) pg MCHC (31.0-37.0) g/dL RDW (11.5-15.5) % Plt Count (150-450) k/uL MPV Neutrophils % (Manual) % Lymphocytes % (Manual) % Monocytes % (Manual) % Eosinophils % (Manual) % Neutrophils # (Manual) (1.3-7.7) k/uL Lymphocytes # (Manual) (1.0-4.8) k/uL Monocytes # (Manual) (0-1.0) k/uL Eosinophils # (Manual) (0-0.7) k/uL Nucleated RBCs (0-0) /100 WBC Manual Slide Review PT (10.0-12.5) sec INR (<1.2) APTT (22.0-30.0) sec Sodium (137-145) mmol/L Potassium (3.5-5.1) mmol/L Chloride (98-107) mmol/L Carbon Dioxide (22-30) mmol/L Anion Gap mmol/L BUN (7-17) mg/dL Creatinine (0.52-1.04) mg/dL Est GFR (CKD-EPI)AfAm (>60 ml/min/1.73 sqM) Est GFR (CKD-EPI)NonAf (>60 ml/min/1.73 sqM) Glucose (74-99) mg/dL POC Glucose (mg/dL) 98 (70-110) mg/dL POC Glu Concrete Puddler ID Polina Tavarez Plasma Lactic Acid Gideon (0.7-2.0) mmol/L Calcium (8.4-10.2) mg/dL Magnesium (1.6-2.3) mg/dL Total Bilirubin (0.2-1.3) mg/dL AST (14-36) U/L ALT (4-34) U/L Alkaline Phosphatase (38-126) U/L Troponin I 0.154 H* (0.000-0.034) ng/mL Total Protein (6.3-8.2) g/dL Albumin (3.5-5.0) g/dL Urine Color Urine Appearance (Clear) Urine pH (5.0-8.0) Ur Specific [place] (1.001-1.035) Urine Protein (Negative) Urine Glucose (UA) (Negative) Urine Ketones (Negative) Urine Blood (Negative) Urine Nitrite (Negative) Urine Bilirubin (Negative) Urine Urobilinogen (<2.0) mg/dL Ur Leukocyte Esterase (Negative) Urine WBC (0-5) /hpf Ur Squamous Epith Cells (0-4) /hpf Urine Mucus (None) /hpf Stool Lactoferrin Positive A (Negative) C. difficile (EIA) Intrp (Negative) Influenza Type A (PCR) (Not Detectd) Influenza Type B (PCR) (Not Detectd) RSV (PCR) (Not Detectd) SARS-CoV-2 (PCR) (Not Detectd) 07/23/23 07/23/23 Range/Units 05:15 08:01 WBC (3.8-10.6) k/uL RBC (3.80-5.40) m/uL Hgb (11.4-16.0) gm/dL Hct (34.0-46.0) % MCV (80.0-100.0) fL MCH (25.0-35.0) pg MCHC (31.0-37.0) g/dL RDW (11.5-15.5) % Plt Count (150-450) k/uL MPV Neutrophils % (Manual) % Lymphocytes % (Manual) % Monocytes % (Manual) % Eosinophils % (Manual) % Neutrophils # (Manual) (1.3-7.7) k/uL Lymphocytes # (Manual) (1.0-4.8) k/uL Monocytes # (Manual) (0-1.0) k/uL Eosinophils # (Manual) (0-0.7) k/uL Nucleated RBCs (0-0) /100 WBC Manual Slide Review PT (10.0-12.5) sec INR (<1.2) APTT (22.0-30.0) sec Sodium (137-145) mmol/L Potassium (3.5-5.1) mmol/L Chloride (98-107) mmol/L Carbon Dioxide (22-30) mmol/L Anion Gap mmol/L BUN (7-17) mg/dL Creatinine (0.52-1.04) mg/dL Est GFR (CKD-EPI)AfAm (>60 ml/min/1.73 sqM) Est GFR (CKD-EPI)NonAf (>60 ml/min/1.73 sqM) Glucose (74-99) mg/dL POC Glucose (mg/dL) 112 H (70-110) mg/dL POC Glu Concrete Puddler ID Cathival, Ivanna Plasma Lactic Acid Gideon (0.7-2.0) mmol/L Calcium (8.4-10.2) mg/dL Magnesium (1.6-2.3) mg/dL Total Bilirubin (0.2-1.3) mg/dL AST (14-36) U/L ALT (4-34) U/L Alkaline Phosphatase (38-126) U/L Troponin I 0.181 H* (0.000-0.034) ng/mL Total Protein (6.3-8.2) g/dL Albumin (3.5-5.0) g/dL Urine Color Urine Appearance (Clear) Urine pH (5.0-8.0) Ur Specific [place] (1.001-1.035) Urine Protein (Negative) Urine Glucose (UA) (Negative) Urine Ketones (Negative) Urine Blood (Negative) Urine Nitrite (Negative) Urine Bilirubin (Negative) Urine Urobilinogen (<2.0) mg/dL Ur Leukocyte Esterase (Negative) Urine WBC (0-5) /hpf Ur Squamous Epith Cells (0-4) /hpf Urine Mucus (None) /hpf Stool Lactoferrin (Negative) C. difficile (EIA) Intrp (Negative) Influenza Type A (PCR) (Not Detectd) Influenza Type B (PCR) (Not Detectd) RSV (PCR) (Not Detectd) SARS-CoV-2 (PCR) (Not Detectd) Disposition Clinical Impression: Nausea & vomiting, Diarrhea, Weakness, Pain of left scapula Disposition: ADMITTED IP TO THIS HOSP Condition: Stable Is patient prescribed a controlled substance at d/c from ED?: No
[2023-07-22] MEDS: SODIUM CHLORIDE 0.9% 500 ML 500 ML IV STA (11:59)
[2023-07-22 12:20] LABS: HCT 48.7 % (34.0-46.0); HGB 15.6 gm/dL (11.4-16.0); MCH 32.1 pg (25.0-35.0); MCV 100.3 fL (80.0-100.0); Mean Platelet Volume 7.5; Platelet Count 300 k/uL (150-450); RBC 4.86 m/uL (3.80-5.40); RDW 12.7 % (11.5-15.5); WBC 8.4 k/uL (3.8-10.6)
[2023-07-22 12:31] LABS: ALT 46 U/L (4-34); AST 53 U/L (14-36); African American GFR (CKD) >90 (>60 ml/min/1.73 sqM); Albumin 4.1 g/dL (3.5-5.0); Alkaline Phosphatase 87 U/L (38-126); Anion Gap 9 mmol/L; Blood Urea Nitrogen 11 mg/dL (7-17); Calcium 9.6 mg/dL (8.4-10.2); Carbon Dioxide 26 mmol/L (22-30); Chloride 106 mmol/L (98-107); Glucose 125 mg/dL (74-99); Non-African American GFR(CKD) >90 (>60 ml/min/1.73 sqM); Sodium 141 mmol/L (137-145); Total Bilirubin 0.7 mg/dL (0.2-1.3); Total Protein 6.8 g/dL (6.3-8.2)
[2023-07-22] MEDS ORDERED: Potassium Replacement Protocol 1 EACH MISC MISCELLANE PRN (12:49)
[2023-07-22] MEDS ORDERED: POTASSIUM CHLORIDE ER 20 MEQ TAB.ER PO SCH (13:00)
--- NOTE | 2023-07-22 13:04 | XR ---
EXAMINATION TYPE: XR chest 2V DATE OF EXAM: 07/22/2023 COMPARISON: 12/23/2022 HISTORY: 87-year-old female with weakness, diarrhea, loss of appetite TECHNIQUE: AP and lateral views FINDINGS: Heart borderline in size. Tortuous/ectatic thoracic aorta with atherosclerotic calcifications through out. Interstitial prominence of the chronic appearance. No consolidation or pleural effusion. IMPRESSION: 1. Borderline cardiomegaly. 2. Tortuous versus ectatic thoracic aorta. These changes may have progressed from 2022. 3. Other chronic changes without acute process seen.
[2023-07-22 13:09] LABS: INR 0.9 (<1.2); Partial Thromboplastin Time 23.4 sec (22.0-30.0); Prothrombin Time 10.5 sec (10.0-12.5)
[2023-07-22 13:10] LABS: Eosinophils # (M) 0.17 k/uL (0-0.7); Lymphocytes # (M) 2.02 k/uL (1.0-4.8); Monocytes # (M) 0.25 k/uL (0-1.0); Neutrophils # (M) 5.96 k/uL (1.3-7.7); Neutrophils % (M) 71 %; Nucleated Red Blood Cells 0 /100 WBC (0-0); Total Cells Counted 100
[2023-07-22 13:56] LABS: Appearance,Urine Clear (Clear); Bilirubin,Urine Negative (Negative); Blood,Urine Negative (Negative); Color,Urine Light Yellow; Glucose,Urine (UA) 4+ (Negative); Ketones,Urine 1+ (Negative); Leukocyte Esterase,Urine Negative (Negative); Mucus,Urine Few /hpf; Nitrite,Urine Negative (Negative); PH, Urine 6.5 (5.0-8.0); Protein,Urine 1+ (Negative); Specific Gravity,Urine 1.012 (1.001-1.035); Squamous Epithelial Cell,Urine <1 /hpf (0-4); Urobilinogen,Urine <2.0 mg/dL (<2.0); WBC,Urine 2 /hpf (0-5)
[2023-07-22] MEDS: POTASSIUM BICARBONATE/CIT AC 20 MEQ TABLET.EFF PO SCH (14:09)
[2023-07-22] MEDS: METOPROLOL TARTRATE 50 MG TAB PO STA (14:11)
[2023-07-22] MEDS ORDERED: DILTIAZEM ORAL 60 MG TAB PO STA (14:58)
[2023-07-22] MEDS: DILTIAZEM CD 180 MG CAP.ER.24H PO STA (15:45)
--- NOTE | 2023-07-22 16:36 | XR ---
Left shoulder HISTORY: Pain. COMPARISON: None. TECHNIQUE: 3 views of left shoulder were obtained. FINDINGS: There is moderate osteoarthritic change of the AC joint and glenohumeral joint. There is spurring of the humeral head and marked narrowing of the glenohumeral joint. There is superior subluxation of the glenohumeral joint consistent with chronic rotator cuff tear. There is no acute fracture or dislocation. IMPRESSION: 1. Chronic rotator cuff tear. 2. Moderate to marked degenerative changes of the AC joint and glenohumeral joint. 3. No evidence of acute trauma.
[2023-07-22] MEDS: METOCLOPRAMIDE 5 MG/ML 2 ML VIAL IVP STA (18:19)
[2023-07-22] MEDS: ENALAPRILAT 1.25 MG/ML 1 ML VIAL IVP STA ×2 (18:20→21:35)
--- NOTE | 2023-07-22 19:24 | CT ---
EXAMINATION TYPE: CT chest angio for PE CT DLP: 1139.2 mGycm, Automated exposure control for dose reduction was used. DATE OF EXAM: 07/22/2023 5:57 PM COMPARISON: None CLINICAL INDICATION:Female, 87 years old with history of abn xr; weakness an diarrhea. abnormal CXR TECHNIQUE/CONTRAST: CTA scan of the thorax is performed with IV Contrast, patient injected with 100ml mL of Isovue 370, M IP images are created and reviewed these are created on a separate workstation.. FINDINGS: Pulmonary Artery: There is no evidence for a filling defect within the pulmonary vasculature to sugge st acute pulmonary embolism. The pulmonary artery is of normal size. Lungs/Pleura: No evidence of focal consolidation, pleural effusion or pneumothorax. Mild centrilobula r and paraseptal emphysema changes are seen throughout the lungs. Airway: Large airways are patent. Heart: Heart is within normal limits for size. Vasculature: No evidence of aortic aneurysm. Mediastinum: No gross evidence of adenopathy. Small hiatal hernia is present. Musculoskeletal: No acute osseous abnormalities, fixation hardware in the spine appears intact. Soft Tissues: Unremarkable. Lower neck: No significant findings. Upper Abdomen: There is nodular contour to liver. IMPRESSION: 1. No evidence of pulmonary embolism. 2. Mild emphysema changes. 3. Hepatic cirrhosis suggested with caudate lobe hypertrophy with caudate lobe cyst. 4. Small hiatal hernia.
--- NOTE | 2023-07-22 19:34 | CT ---
EXAMINATION TYPE: CT abdomen pelvis w con CT DLP: 1139.2 mGycm, Automated exposure control for dose reduction was used. DATE OF EXAM: 07/22/2023 5:57 PM COMPARISON: CT abdomen pelvis most recent from CLINICAL INDICATION:Female, 87 years old with history of pain; weakness an diarrhea. abnormal CXR TECHNIQUE: Axial CT abdomen pelvis w con;Sagittal and coronal reformats were created on a separate w orkstation. Contrast used:100ml mL of Isovue 370 with IV Contrast, (none if empty) Oral contrast used: without Oral Contrast (none if empty) FINDINGS: LOWER CHEST: Unremarkable ABDOMEN LIVER: Nodular contour to liver. There is caudate lobe hypertrophy with anterolisthesis measuring up to 4.0 cm. GALLBLADDER AND BILE DUCTS: Unremarkable. PANCREAS: Unremarkable. SPLEEN: Unremarkable. ADRENAL GLANDS: Unremarkable. KIDNEYS AND URETERS: No evidence of hydronephrosis or renal calculus. The ureters are unremarkable. Areas of cortical thinning within the bilateral renal cortices suggestive of prior injuries. PELVIS BLADDER: Unremarkable REPRODUCTIVE: Unremarkable. ABDOMEN & PELVIS STOMACH AND BOWEL: No evidence of bowel obstruction. Scattered colonic diverticula. PERITONEUM/RETROPERITONEUM: No evidence of pneumoperitoneum or free fluid. VASCULATURE: No evidence of aortic aneurysm. 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 MUSCULOSKELETAL: No acute osseous abnormalities, bilateral hip arthroplasties which appear intact. Th e hardware appears intact. Extensive surgical changes to the spine with hardware present. LYMPH NODES: No gross evidence for lymphadenopathy. SOFT TISSUE/ABDOMINAL WALL: Fat-containing umbilical hernia. IMPRESSION: 1. No evidence for acute abdominal process. 2. Nodular contour to the liver with caudate lobe hypertrophy correlate for cirrhosis. 3. 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 4. Colonic diverticulosis.
[2023-07-22] MEDS ORDERED: ALBUTEROL HFA INHALER INHALATION PRN (20:10)
[2023-07-22] MEDS ORDERED: NALOXONE 0.4 MG/ML 1 ML VIAL IV PRN (20:11)
[2023-07-22] MEDS: MIRTAZAPINE 15 MG TAB PO SCH (21:26)
[2023-07-22] MEDS: APIXABAN 2.5 MG TABLET PO SCH (21:26)
[2023-07-22] MEDS: GABAPENTIN 300 MG CAP PO SCH (21:27)
[2023-07-22] MEDS: CALCIUM CARBONATE 500 MG CHEWABLE PO SCH (21:27)
[2023-07-22] MEDS: METOPROLOL TARTRATE 50 MG TAB PO SCH (21:27)
[2023-07-22] MEDS: AZELASTINE 137MCG/SPRAY EA NOSTRIL SCH (21:33)
[2023-07-22] MEDS: SODIUM CHLORIDE 0.9% 1,000 ML IV SCH (21:36)
[2023-07-23 00:02] LABS: Glucose,Whole Blood 98 mg/dL (70-110)
[2023-07-23] MEDS: ALPRAZolam 0.5 MG TAB PO PRN (05:37)
--- NOTE | 2023-07-23 06:11 | P.HPIM ---
History of Present Illness H&P Date: 07/22/23 HISTORY OF PRESENT ILLNESS: 87-year-old office patient with active medical history of asthma, memory loss, type 2 diabetes, hypertension, hyperlipidemia, post lower back surgery with severe spinal stenosis and compression post fusion, Close also known to have an history of anemia, history of GERD, recurrent migraine, depression, osteoporosis who has been having significant problem with debility and mobility as well has been using walker the last few months. After her hospitalization last 2 time she ended up in the SNF for a period of time and was in palliative care before finally she sign off has been living with her can do independent with some help. She brought to the emergency department by EMS for evaluation of gastrointestinal symptoms for the last 3 days consistent with abdominal discomfort, nausea, vomiting and severe diarrhea that has been having significant incontinence problem. Also had significant shortness of breath with diaphoresis and mild palpitation she had mild urinary incontinence but no burning or discomfort. Also has been having slight discomfort in the midsternal area and shoulder blade area with significant discomfort in her shoulder as well when she attempts to move it or actively rotate the shoulder. She was seen and evaluated in the emergency department with above complaint initially with her laboratory value found to have severe hypokalemia with potassium of 3.0 consistent with her diarrhea surprisingly her liver function tests were mildly elevated had first troponin negative second 1 become positive and still no major complaint of angina at this point.. UA was Negative with negative for urinary culture for RSV influenza and pneumonia. EKG showed atypical finding consistent with tachycardia and Q waves in the inferior leads along with the anterolateral leads. With no ST elevation. Chest x-ray showed borderline cardiomegaly with tortuous versus ectatic thoracic aorta with no acute change. End up having CTA shows no evidence of pulmonary embolism but mild emphysema with sign of hepatic cirrhosis suggested with contact lobe hypertrophy with cardiac lobe cyst with small hiatal hernia. Ended up having CT of the abdomen and pelvis as well with the severity of her symptoms in the emergency room which shows no evidence of acute abdominal process with nodular contour of the liver with cardiac lobe hypertrophy correlate with cirrhosis and occlusion of the celiac axis with reconstitution just past its origin on approximately 10 mm best its origin with colonic diverticulosis. The patient was admitted at this point for severe hypokalemia with non-ST myocardial infarction with recurrent abdominal pain possible ischemic bowel with diverticulitis along with COPD and A-fib. REVIEW OF SYSTEMS: CONSTITUTIONAL: Well-developed slightly confused very pleasant in no acute respiratory distress EYES: No icterus sclerae, no conjunctivitis. EARS, NOSE, MOUTH, THROAT, and FACE: No sore throat, lymphadenopathy, carotid bruits or deformity. RESPIRATORY: Slight shortness of breath no cough or wheezes. CARDIOVASCULAR: Positive atypical chest pain with no angina no PND or orthopnea. GASTROINTESTINAL: Positive abdominal discomfort with nausea vomiting diarrhea no active bleed at the time. GENITOURINARY: Negative for Hematuria or UTI, no kidney stones. Positive incontinence. INTEGUMENT/BREAST: Generalized muscle and joint pain with lower back pain as w ell. HEMATOLOGIC/LYMPHATIC: History of anemia with easy bruising. MUSCULOSKELTAL: Significant and severe lower back pain with myalgia and arthralgia. NEURLOGICAL: No loss of consciousness positive slight confusion and lower extremity weakness with numbness as well.. BEHAVIORAL/PSYCH: Mild memory loss. ENDOCRINE: Negative. PHYSICAL EXAMINATION: General Appearance: Alert, cooperative, pleasant in no acute respiratory distress. Neck HEENT: Supple, no lymphadenopathy, no thyroid enlargement, no carotid bruits. Dry mucosa. Lungs: Decreased breath sound bilaterally with fine rhonchi no crackles or wheezes. Chest Wall: Decreased expansion with deep inspiration no tenderness and no deformity was found on exam, no costochondral pain or discomfort. Heart: Irregular rate and rhythm, S1, S2 positive S3 positive systolic murmur. Back: Mild curvature with scoliosis scar tissue in the lower lumbar area with significant tenderness. Abdomen: Soft, non-tender, positive bowel sound significant hepatomegaly no splenomegaly overactive bowel sound with slight discomfort in the left lower quadrant and mid lower abdominal region area. Extremities: Extremities normal, atraumatic, no cyanosis or edema. Pulses: 2+ and symmetric. Skin: Skin color, texture, tugor normal, no rashes or lesions. Neurologic: Alert oriented with slight confusion cranial nerves II through XII intact, positive weakness of the lower extremity not able to do gait exam. ASSESSMENT AND PLAN: _Non-ST NE: Patient will be admitted to the hospital CK with troponin began, cardiology consultation, repeat EKG in the morning and echocardiogram before deciding on any further intervention. _Severe hypokalemia: With the severity of her diarrhea, potassium replacement protocol be done continue mild hydration repeat potassium magnesium in the morning. _Abdominal pain with nausea vomiting and diarrhea with possible ischemic colitis: With the finding on her abdominal CAT scan consistent with possible ischemic bowel versus diverticulitis the only thing does not fit ischemic bowel that she is not having any GI bleed at this point again treat symptoms keep patient n.p.o. for next 24 hours continue hydration reevaluate GI consultation or general surgery consultation will be recommended.. _COPD: Without exacerbation: Has been on Symbicort and Ventolin continue O2 as well. _A-fib: Pulse rate has been well-controlled, patient still on Eliquis 2.5 mg twice a day remain on diltiazem CD 180 mg daily and metoprolol tartrate 50 mg twice a day. _Type 2 diabetes: A1c has been in the low 7, continue Farxiga and Accu-Chek with sliding scale coverage. _Severe lower back pain with severe peripheral neuropathy: Resume Cymbalta and gabapentin. She is on Celebrex and not any pain meds lately. _Memory loss: Minimal degree of small vessel disease versus Alzheimer disease, has been on mirtazapine did not do well previously with donepezil or rivastigmine with having significant bowel problem with diarrhea. _Hyperlipidemia: Will continue atorvastatin 40 mg a day. _GERD: Continue pantoprazole and might add Pepcid if needed. _GI prophylaxis: Continue pantoprazole 20 mg a day. _DVT prophylaxis: Still on anticoagulation with Eliquis. CODE STATUS: Full code. Admit patient to the inpatient service for more than 2 night stay. Past Medical History Past Medical History: Asthma, Cancer, Dementia, Diabetes Mellitus, Hyperlipidemia, Hypertension Additional Past Medical History / Comment(s): numbness 2nd,3rd,4th digits rt hand, back pain,skin CA History of Any Multi-Drug Resistant Organisms: ESBL Date of last positivie culture/infection: 12/04/22 MDRO Source:: Urine Past Surgical History: Back Surgery, Hysterectomy, Joint Replacement, Orthopedic Surgery, Tonsillectomy Additional Past Surgical History / Comment(s): back x2,lumbar fusion, left knee replacement,ana hips, carpal tunnel surgery Right. Pain clinic procedure Past Anesthesia/Blood Transfusion Reactions: No Reported Reaction Additional Past Anesthesia/Blood Transfusion Reaction / Comment(s): no hx blood transfusion Past Psychological History: Depression Smoking Status: Former smoker Past Alcohol Use History: None Reported Past Drug Use History: None Reported - Past Family History Mother Family Medical History: No Reported History Medications and Allergies Home Medications Medication Instructions Recorded Confirmed Type Pravastatin Sodium [Pravachol] 40 mg PO DAILY 10/27/14 07/22/23 History Azelastine HCl [Astepro] 2 spr EA NOSTRIL BID 04/02/20 07/22/23 History Montelukast Sodium [Singulair] 10 mg PO DAILY 04/02/20 07/22/23 History Budesonide/Formoterol Fumarate 2 puff INHALATION RT-BID 08/02/20 07/22/23 History [Symbicort 160-4.5 Mcg Inhaler] Diltiazem Cd [Cardizem CD] 180 mg PO DAILY 08/02/20 07/22/23 History Dapagliflozin Propanediol [Farxiga] 10 mg PO DAILY 09/02/22 07/22/23 History Multivitamins, Thera [Multivitamin 1 tab PO DAILY 09/02/22 07/22/23 History (formulary)] Omeprazole 40 mg PO AC-BRKFST 09/02/22 07/22/23 History Cholecalciferol [Vitamin D3 (25 25 mcg PO DAILY 10/26/22 07/22/23 History Mcg = 1000 Iu)] DULoxetine HCL [Cymbalta] 30 mg PO DAILY 10/28/22 07/22/23 History Gabapentin 600 mg PO HS 12/04/22 07/22/23 History Apixaban [Eliquis] 2.5 mg PO BID #60 tab 12/08/22 07/22/23 Rx Metoprolol Tartrate [Lopressor] 50 mg PO BID #60 tab 12/09/22 07/22/23 Rx ALPRAZolam [Xanax] 0.5 mg PO BID PRN 3 Days #6 tab 12/26/22 07/22/23 Rx Albuterol Sulfate [Albuterol 2 puff INHALATION RT-Q4H PRN 07/22/23 07/22/23 History Sulfate Hfa] Calcium Citrate(Unknown Dose) 1 tab PO BID 07/22/23 07/22/23 History Celecoxib [CeleBREX] 200 mg PO BID 07/22/23 07/22/23 History Mirtazapine [Remeron] 15 mg PO HS 07/22/23 07/22/23 History Allergies Allergy/AdvReac Type Severity Reaction Status Date / Time nitrofurantoin Allergy Rash/Hives Verified 07/22/23 13:13 macrocrystalline all over [From Macrodantin] zolpidem [From Ambien] AdvReac Unknown sleep Verified 07/22/23 13:13 walks, confused amoxicillin trihydrate AdvReac Nausea & Verified 07/22/23 13:13 [From Augmentin] Vomiting & Diarrhea cephalexin monohydrate AdvReac Flu like Verified 07/22/23 13:13 [From Keflex] symptoms dicyclomine AdvReac disoriented Verified 07/22/23 13:13 for 4 days hydromorphone HCl AdvReac Extremely Verified 07/22/23 13:13 [From Dilaudid] Confusion for 8 days morphine AdvReac violence Verified 07/22/23 13:13 potassium clavulanate AdvReac Nausea & Verified 07/22/23 13:13 [From Augmentin] Vomiting & Diarrhea Physical Exam Vitals: Vital Signs Temp Pulse Resp BP Pulse Ox 07/22/23 18:19 97 18 155/125 07/22/23 15:21 96 18 173/108 93 L 07/22/23 14:14 115 H 22 159/111 92 L 07/22/23 11:07 99.1 F 118 H 20 169/113 94 L Intake and Output 07/22/23 07/22/23 07/22/23 06:59 14:59 22:59 Other: Weight 53.524 kg Results CBC & Chem 7: 07/22/23 12:08 07/22/23 12:08 Labs: Abnormal Lab Results - Last 24 Hours (Table) 07/22/23 07/22/23 07/22/23 Range/Units 12:08 12:08 13:40 Hct 48.7 H (34.0-46.0) % MCV 100.3 H (80.0-100.0) fL Potassium 3.0 L (3.5-5.1) mmol/L Creatinine 0.43 L (0.52-1.04) mg/dL Glucose 125 H (74-99) mg/dL AST 53 H (14-36) U/L ALT 46 H (4-34) U/L Troponin I (0.000-0.034) ng/mL Urine Protein 1+ H (Negative) Urine Glucose (UA) 4+ H (Negative) Urine Ketones 1+ H (Negative) Urine Mucus Few H (None) /hpf 07/22/23 Range/Units 20:18 Hct (34.0-46.0) % MCV (80.0-100.0) fL Potassium (3.5-5.1) mmol/L Creatinine (0.52-1.04) mg/dL Glucose (74-99) mg/dL AST (14-36) U/L ALT (4-34) U/L Troponin I 0.154 H* (0.000-0.034) ng/mL Urine Protein (Negative) Urine Glucose (UA) (Negative) Urine Ketones (Negative) Urine Mucus (None) /hpf
[2023-07-23 08:02] LABS: Glucose,Whole Blood 112 mg/dL (70-110)
[2023-07-23] MEDS: SYMBICORT 160-4.5 MCG INHALER INHALATION SCH (08:19)
[2023-07-23] MEDS: INSULIN ASPART (NovoLOG) 100 UNIT/ML VIAL SQ SCH (08:42)
[2023-07-23] MEDS: CHOLECALCIFEROL 25 MCG (1000 IU) TABLET PO SCH (08:52)
[2023-07-23] MEDS: MULTIVITAMINS, THERA 1 EACH TAB PO SCH (08:52)
[2023-07-23] MEDS: MELOXICAM 7.5 MG TAB PO SCH (08:52)
[2023-07-23] MEDS: DULoxetine HCL 30 MG CAPSULE.DR PO SCH (08:53)
[2023-07-23] MEDS: PANTOPRAZOLE 40 MG TABLET PO SCH (08:53)
[2023-07-23] MEDS: DAPAGLIFLOZIN PROPANEDIOL 10 MG TABLET PO SCH (08:53)
[2023-07-23] MEDS: MONTELUKAST 10 MG TAB PO SCH (08:53)
[2023-07-23] MEDS: DILTIAZEM CD 180 MG CAP.ER.24H PO SCH (08:53)
[2023-07-23] MEDS: PRAVASTATIN SODIUM 40 MG TAB PO SCH (08:53)
[2023-07-23] MEDS: ASPIRIN 81 MG PO SCH (11:33)
[2023-07-23 11:38] LABS: Glucose,Whole Blood 113 mg/dL (70-110)
--- NOTE | 2023-07-23 12:04 | CT ---
EXAMINATION TYPE: CT brain wo con CT DLP: 1095.4 mGycm, Automated exposure control for dose reduction was used. DATE OF EXAM: 07/23/2023 11:56 AM COMPARISON: 12/23/2022. . CLINICAL INDICATION:Female, 87 years old with history of mental status changes, increased AMS TECHNIQUE: Brain: Axial CT images of the brain were obtained with coronal and sagittal reformats created and rev iewed. Contrast used: None. Oral contrast used: None. FINDINGS: Brain: Extra-axial spaces: No abnormal extra-axial fluid collections. Ventricular system: Dilatation in proportion to cerebral atrophy. Bilateral choroid plexus and the gr anulomas suspected. Cerebral parenchyma: Mineralization of the basal ganglia bilaterally. Cerebral atrophy. No acute intr aparenchymal hemorrhage or mass effect. The rawls-white junction is well differentiated. Scattered hy poattenuating areas are seen within the white matter. Cerebellum: Unremarkable. Mass effect: No evidence of midline shift. Intracranial vasculature: unremarkable Soft tissues: Normal. Calvarium/osseous structures: No depressed skull fracture. Paranasal sinuses and mastoid air cells: Mild scattered paranasal sinus disease. Visualized orbits: Bilaterally aphakia. IMPRESSION: 1. No acute intracranial process. 2. Nonspecific white matter changes, likely secondary to chronic small vessel ischemic disease.
--- NOTE | 2023-07-23 12:31 | P.CRDCN ---
History of Present Illness Consult date: 07/23/23 Reason for Consult (text): Elevated troponin History of present illness: History of present illness: This is an 87-year-old female with past medical history of hypertension, hyperlipidemia, diabetes mellitus type 2, paroxysmal atrial fibrillation on Eliquis, memory loss, severe spinal stenosis and compression post fusion, GERD. Patient does not follow with a neurodiagnostic technologist. We have been asked to evaluate the patient for elevated troponins. Patient is unable to provide reliable information. Patient presented to the hospital due to nausea, vomiting, and severe diarrhea along with incontinence. Patient developed shortness of breath and diaphoresis, mild palpitations per chart. Patient currently states that she has had some shortness of breath. She denies having any chest pain. EKG sinus rhythm low voltage Chest x-ray: Borderline cardiomegaly. Tortuous versus ectatic thoracic aorta. No acute process. CTA of the chest: No pulmonary embolism. Mild emphysematous changes. Hepatic cirrhosis. Small hiatal hernia CT of the abdomen pelvis reveals no acute abdominal process. Nodular contour of the liver correlate for cirrhosis. 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 Colonic diverticulosis. Left shoulder: Chronic rotator cuff tear. Degenerative changes. No acute trauma. WBC 8.4, hemoglobin 15.6. Sodium 141, potassium 3. BUN 11 creatinine 0.43. Troponins 0.016, 0.154, 0.181. AST 53, ALT 46. Urinalysis negative for infection. Stool lactoferrin positive. C. difficile negative. Influenza A, influenza B, RSV, COVID-19 not detected. Home cardiac medications: Eliquis 2.5 mg twice daily, Farxiga 10 mg daily, Cardizem CD 180 mg daily, Lopressor 50 mg twice daily, pravastatin 40 mg daily. Echocardiogram performed 10/31/2022 revealed normal LV systolic function. Aortic sclerosis with mild aortic insufficiency. Review Of Systems: At the time of my exam: CONSTITUTIONAL: Denies fever or chills. HEENT: Denies blurred vision, vision changes, or eye pain. Denies hemoptysis CARDIOVASCULAR: Denies chest pain. Denies orthopnea. Denies PND. Denies palpitations RESPIRATORY: Reports minimal shortness of breath. GASTROINTESTINAL: Denies abdominal pain. Denies nausea or vomiting. HEMATOLOGIC: Denies bleeding disorders. GENITOURINARY: Denies any blood in urine. SKIN: Denies pruitis. Denies rash. Physical examination: Gen: This is an 87-year-old female in no acute distress VS: reviewed, blood pressure 163/94, heart rate 91, pulse ox 96% on room air. HEENT: Head is atraumatic, normocephalic. Pupils equal, round. Sclerae is anicteric. NECK: Supple. No JVD. LUNGS: Clear to auscultation. No wheezes or rhonchi. No intercostal retractions. HEART: Regular rate and rhythm. No murmur. ABDOMEN: Soft No tenderness. EXTREMITIES: No pedal edema. No calf tenderness. NEUROLOGICAL: Patient is awake, and confused. Assessment: Non-ST elevated myocardial infarction possible type II event Severe hypokalemia Vomiting and diarrhea, possible ischemic colitis Paroxysmal atrial fibrillation Diabetes mellitus type 2 Chronic back pain Memory loss Hyperlipidemia Hypertension Plan: Resume patient's home cardiac medications Hold on starting heparin drip as patient has already received Eliquis this morning Start patient on aspirin [address] of the brain due to mental status changes Obtain 2-D echocardiogram and Doppler study to assess cardiac structure and function Further recommendations to follow based upon clinical course Thank you kindly for this consultation. Nurse practitioner note has been reviewed, I agree with documented findings and plan of care. Patient was seen and examined. Past Medical History Past Medical History: Asthma, Cancer, Dementia, Diabetes Mellitus, Hyperlipidemia, Hypertension Additional Past Medical History / Comment(s): numbness 2nd,3rd,4th digits rt hand, back pain,skin CA History of Any Multi-Drug Resistant Organisms: ESBL Date of last positivie culture/infection: 12/04/22 MDRO Source:: Urine Past Surgical History: Back Surgery, Hysterectomy, Joint Replacement, Orthopedic Surgery, Tonsillectomy Additional Past Surgical History / Comment(s): back x2,lumbar fusion, left knee replacement,ana hips, carpal tunnel surgery Right. Pain clinic procedure Past Anesthesia/Blood Transfusion Reactions: No Reported Reaction Additional Past Anesthesia/Blood Transfusion Reaction / Comment(s): no hx blood transfusion Past Psychological History: Depression Smoking Status: Former smoker Past Alcohol Use History: None Reported Past Drug Use History: None Reported - Past Family History Mother Family Medical History: No Reported History Medications and Allergies Home Medications Medication Instructions Recorded Confirmed Type Pravastatin Sodium [Pravachol] 40 mg PO DAILY 10/27/14 07/22/23 History Azelastine HCl [Astepro] 2 spr EA NOSTRIL BID 04/02/20 07/22/23 History Montelukast Sodium [Singulair] 10 mg PO DAILY 04/02/20 07/22/23 History Budesonide/Formoterol Fumarate 2 puff INHALATION RT-BID 08/02/20 07/22/23 History [Symbicort 160-4.5 Mcg Inhaler] Diltiazem Cd [Cardizem CD] 180 mg PO DAILY 08/02/20 07/22/23 History Dapagliflozin Propanediol [Farxiga] 10 mg PO DAILY 09/02/22 07/22/23 History Multivitamins, Thera [Multivitamin 1 tab PO DAILY 09/02/22 07/22/23 History (formulary)] Omeprazole 40 mg PO AC-BRKFST 09/02/22 07/22/23 History Cholecalciferol [Vitamin D3 (25 25 mcg PO DAILY 10/26/22 07/22/23 History Mcg = 1000 Iu)] DULoxetine HCL [Cymbalta] 30 mg PO DAILY 10/28/22 07/22/23 History Gabapentin 600 mg PO HS 12/04/22 07/22/23 History Apixaban [Eliquis] 2.5 mg PO BID #60 tab 12/08/22 07/22/23 Rx Metoprolol Tartrate [Lopressor] 50 mg PO BID #60 tab 12/09/22 07/22/23 Rx ALPRAZolam [Xanax] 0.5 mg PO BID PRN 3 Days #6 tab 12/26/22 07/22/23 Rx Albuterol Sulfate [Albuterol 2 puff INHALATION RT-Q4H PRN 07/22/23 07/22/23 History Sulfate Hfa] Calcium Citrate(Unknown Dose) 1 tab PO BID 07/22/23 07/22/23 History Celecoxib [CeleBREX] 200 mg PO BID 07/22/23 07/22/23 History Mirtazapine [Remeron] 15 mg PO HS 07/22/23 07/22/23 History Allergies Allergy/AdvReac Type Severity Reaction Status Date / Time nitrofurantoin Allergy Rash/Hives Verified 07/22/23 13:13 macrocrystalline all over [From Macrodantin] zolpidem [From Ambien] AdvReac Unknown sleep Verified 07/22/23 13:13 walks, confused amoxicillin trihydrate AdvReac Nausea & Verified 07/22/23 13:13 [From Augmentin] Vomiting & Diarrhea cephalexin monohydrate AdvReac Flu like Verified 07/22/23 13:13 [From Keflex] symptoms dicyclomine AdvReac disoriented Verified 07/22/23 13:13 for 4 days hydromorphone HCl AdvReac Extremely Verified 07/22/23 13:13 [From Dilaudid] Confusion for 8 days morphine AdvReac violence Verified 07/22/23 13:13 potassium clavulanate AdvReac Nausea & Verified 07/22/23 13:13 [From Augmentin] Vomiting & Diarrhea Physical Exam Vitals: Vital Signs Temp Pulse Resp BP Pulse Ox 07/23/23 06:00 97.7 F 91 18 163/94 96 07/23/23 05:00 89 18 156/92 6 L 07/23/23 04:00 98 F 86 18 157/90 96 07/23/23 02:55 18 155/83 94 L 07/23/23 00:12 76 17 146/82 93 L 07/22/23 23:21 71 18 136/100 96 07/22/23 22:00 81 17 133/96 97 07/22/23 21:35 90 18 135/95 97 07/22/23 18:19 97 18 155/125 07/22/23 15:21 96 18 173/108 93 L 07/22/23 14:14 115 H 22 159/111 92 L 07/22/23 11:07 99.1 F 118 H 20 169/113 94 L Results 07/22/23 12:08 07/22/23 12:08 Cardiac Enzymes 07/22/23 07/22/23 07/22/23 Range/Units 12:08 12:08 16:59 AST 53 H (14-36) U/L Troponin I <0.012 0.016 (0.000-0.034) ng/mL 07/22/23 07/23/23 Range/Units 20:18 05:15 AST (14-36) U/L Troponin I 0.154 H* 0.181 H* (0.000-0.034) ng/mL Coagulation 07/22/23 Range/Units 12:08 PT 10.5 (10.0-12.5) sec APTT 23.4 (22.0-30.0) sec CBC 07/22/23 Range/Units 12:08 WBC 8.4 (3.8-10.6) k/uL RBC 4.86 (3.80-5.40) m/uL Hgb 15.6 (11.4-16.0) gm/dL Hct 48.7 H (34.0-46.0) % Plt Count 300 (150-450) k/uL Comprehensive Metabolic Panel 07/22/23 Range/Units 12:08 Sodium 141 (137-145) mmol/L Potassium 3.0 L (3.5-5.1) mmol/L Chloride 106 (98-107) mmol/L Carbon Dioxide 26 (22-30) mmol/L BUN 11 (7-17) mg/dL Creatinine 0.43 L (0.52-1.04) mg/dL Glucose 125 H (74-99) mg/dL Calcium 9.6 (8.4-10.2) mg/dL AST 53 H (14-36) U/L ALT 46 H (4-34) U/L Alkaline Phosphatase 87 (38-126) U/L Total Protein 6.8 (6.3-8.2) g/dL Albumin 4.1 (3.5-5.0) g/dL Current Medications Generic Name Dose Route Start Last Admin Trade Name Freq PRN Reason Stop Dose Admin Acetaminophen 650 mg 07/22/23 20:11 Acetaminophen Tab 325 Mg Tab PO Q6HR PRN Mild Pain or Fever > 100.5 Albuterol Sulfate 2 puff 07/22/23 20:10 Albuterol Hfa Inhaler INHALATION RT-Q4H PRN Shortness Of Breath Alprazolam 0.5 mg 07/22/23 20:10 07/23/23 05:37 Alprazolam 0.5 Mg Tab PO 0.5 mg BID PRN Administration Anxiety Apixaban 2.5 mg 07/22/23 21:00 07/22/23 21:26 Apixaban 2.5 Mg Tablet PO 2.5 mg BID NEISHA Administration Protocol Azelastine HCl 2 spray 07/22/23 21:00 07/22/23 21:33 Azelastine 137mcg/[place] EA NOSTRIL Not Given BID NEISHA Budesonide/Formoterol Fumarate 2 puff 07/23/23 08:00 07/23/23 08:19 Symbicort 160-4.5 Mcg Inhaler INHALATION 2 puff RT-BID NEISHA Administration Calcium Carbonate/Glycine 500 mg 07/22/23 21:00 07/22/23 21:27 Calcium Carbonate 500 Mg Chewable PO 500 mg BID NEISHA Administration Cholecalciferol 25 mcg 07/23/23 09:00 Cholecalciferol 25 Mcg (1000 Iu) Tablet PO DAILY NEISHA Dapagliflozin 10 mg 07/23/23 09:00 Dapagliflozin Propanediol 10 Mg Tablet PO DAILY [facility] Diltiazem HCl 180 mg 07/23/23 09:00 Diltiazem Cd 180 Mg Cap.Er.24h PO DAILY [facility] Duloxetine HCl 30 mg 07/23/23 09:00 Duloxetine Hcl 30 Mg Capsule.Dr PO DAILY [facility] Gabapentin 600 mg 07/22/23 21:00 07/22/23 21:27 Gabapentin 300 Mg Cap PO 600 mg HS NEISHA Administration Sodium Chloride 1,000 mls @ 75 mls/hr 07/22/23 20:15 07/22/23 21:36 Saline 0.9% IV 75 mls/hr .[id number] NEISHA Administration Insulin Aspart 0 unit 07/23/23 07:30 07/23/23 08:42 Insulin Aspart (Novolog) 100 Unit/Ml Vial SQ Not Given ACHS [facility] Meloxicam 15 mg 07/23/23 09:00 Meloxicam 7.5 Mg Tab PO DAILY [facility] Metoprolol Tartrate 50 mg 07/22/23 21:00 07/22/23 21:27 Metoprolol Tartrate 50 Mg Tab PO 50 mg BID NEISHA Administration Mirtazapine 15 mg 07/22/23 21:00 07/22/23 21:26 Mirtazapine 15 Mg Tab PO 15 mg HS NEISHA Administration Miscellaneous Information 1 each 07/22/23 12:49 Potassium Replacement Protocol 1 Each Misc MISCELLANE DAILY PRN Per Protocol Protocol Montelukast Sodium 10 mg 07/23/23 09:00 Montelukast 10 Mg Tab PO DAILY [facility] Multivitamins 1 each 07/23/23 09:00 Multivitamins, Thera 1 Each Tab PO DAILY [facility] Naloxone HCl 0.2 mg 07/22/23 20:11 Naloxone 0.4 Mg/Ml 1 Ml Vial IV Q2M PRN Opioid Reversal Pantoprazole Sodium 40 mg 07/23/23 07:30 Pantoprazole 40 Mg Tablet PO AC-BRKFST [facility] Pravastatin Sodium 40 mg 07/23/23 09:00 Pravastatin Sodium 40 Mg Tab PO DAILY NEISHA 07/22/23 12:08 07/22/23 12:08
--- NOTE | 2023-07-23 15:07 | MR ---
EXAMINATION TYPE: MR lumbar spine wo con DATE OF EXAM: 07/23/2023 1:58 PM CLINICAL INDICATION:Female, 87 years old with history of vertebral fracture; PHH, Vertebral fracture. COMPARISON: 07/22/2023 TECHNIQUE: Multi planar, multi sequence imaging was performed utilizing: T1-weighted, T2-weighted, a nd turbo inversion recovery imaging of the lumbar spine. IV Contrast: (None if empty) FINDINGS: Alignment: The lumbar vertebral bodies have preserved heights. Postsurgical alignment with increased kyphosis at T12-L1. Cord: The conus medullaris and the distal spinal cord appear unremarkable with regards to their signa l intensity and morphology. Bones/Discs: No abnormal bony edema identified to suggest fracture. Multilevel degeneration changes t hroughout the spine with disc space narrowing and osteophyte formation. Fixation hardware at L1, L2, L4 and L5. Discectomy at L3-L4 and L4-L5. Surgical changes with laminectomy at a few of the levels po keshia visualized due to susceptibility artifact. T11-T12: severe facet joint arthropathy with severe bilateral neural foraminal stenosis. No spinal ca nal is patent. T12-L1: Disc bulge and facet joint arthropathy result in mild to moderate spinal canal and moderate b ilateral neural foraminal stenosis. L1-L2: No evidence of significant spinal canal stenosis. Facet joint arthropathy mild bilateral neura l foraminal stenosis. L2-L3: Susceptibility artifact limits evaluation. No evidence of significant spinal canal stenosis. F acet joint arthropathy mild bilateral neural foraminal stenosis. L3-L4: No evidence of significant spinal canal stenosis. Facet joint arthropathy mild bilateral neura l foraminal stenosis. L4-L5: Susceptibility artifact limits evaluation. Facet joint arthropathy result in mild spinal canal and mild to moderate bilateral neural foraminal stenosis. L5-S1: Spinal canal is patent and there is osteophyte formation which displaces thee exiting right ne rve series 601 image 6. There is facet joint arthropathy with moderate left neural foraminal stenosis . The right neural foramen is poorly visualized due to susceptibility artifact. There is at least mil [id number] neural foraminal stenosis. No significant spinal canal or neural foraminal stenosis in the remainder of the visualized levels. Other findings: High T2 signal surgical bed fluid collection measuring 48 x 34 mm. Susceptibility ar tifact limits evaluation. No obvious indication for the thecal sac. IMPRESSION: 1. No abnormal bony edema to suggest fracture. 2. Postsurgical changes which limits evaluation. There is spinal canal stenosis worse at T12-L1 with mild to moderate spinal canal stenosis. Additionally there is T11-T12 severe neural foraminal stenos is secondary to facet joint arthropathy. 3. Surgical bed fluid collection most compatible with seroma.
--- NOTE | 2023-07-23 16:15 | P.PN ---
Subjective Progress Note Date: 07/23/23 HISTORY OF PRESENT ILLNESS: 87-year-old office patient with active medical history of asthma, memory loss, type 2 diabetes, hypertension, hyperlipidemia, post lower back surgery with severe spinal stenosis and compression post fusion, Close also known to have an history of anemia, history of GERD, recurrent migraine, depression, osteoporosis who has been having significant problem with debility and mobility as well has been using walker the last few months. After her hospitalization last 2 time she ended up in the SNF for a period of time and was in palliative care before finally she sign off has been living with her can do independent with some help. She brought to the emergency department by EMS for evaluation of gastrointestinal symptoms for the last 3 days consistent with abdominal discomfort, nausea, vomiting and severe diarrhea that has been having significant incontinence problem. Also had significant shortness of breath with diaphoresis and mild palpitation she had mild urinary incontinence but no burning or discomfort. Also has been having slight discomfort in the midsternal area and shoulder blade area with significant discomfort in her shoulder as well when she attempts to move it or actively rotate the shoulder. She was seen and evaluated in the emergency department with above complaint initially with her laboratory value found to have severe hypokalemia with potassium of 3.0 consistent with her diarrhea surprisingly her liver function tests were mildly elevated had first troponin negative second 1 become positive and still no major complaint of angina at this point.. UA was Negative with negative for urinary culture for RSV influenza and pneumonia. EKG showed atypical finding consistent with tachycardia and Q waves in the inferior leads along with the anterolateral leads. With no ST elevation. Chest x-ray showed borderline cardiomegaly with tortuous versus ectatic thoracic aorta with no acute change. End up having CTA shows no evidence of pulmonary embolism but mild emphysema with sign of hepatic cirrhosis suggested with contact lobe hypertrophy with cardiac lobe cyst with small hiatal hernia. Ended up having CT of the abdomen and pelvis as well with the severity of her symptoms in the emergency room which shows no evidence of acute abdominal process with nodular contour of the liver with cardiac lobe hypertrophy correlate with cirrhosis and occlusion of the celiac axis with reconstitution just past its origin on approximately 10 mm best its origin with colonic diverticulosis. The patient was admitted at this point for severe hypokalemia with non-ST myocardial infarction with recurrent abdominal pain possible ischemic bowel with diverticulitis along with COPD and A-fib. 07/23/2023: Patient is quite bit confused, still have slightly elevated troponin compared to original 1 indicate most likely non-ST MN possibly type II. Also had severe hypokalemia with GI symptoms consistent with possible ischemic colitis will continue current management for now. Her A-fib with pulse rates under control and had much worsening memory affected by the acute illness at this point. Blood pressure was quite bit high last 24 hours patient ended up on hydralazine as an addition beside her original blood pressure medication. REVIEW OF SYSTEMS: CONSTITUTIONAL: Well-developed slightly confused very pleasant in no acute respiratory distress EYES: No icterus sclerae, no conjunctivitis. EARS, NOSE, MOUTH, THROAT, and FACE: No sore throat, lymphadenopathy, carotid bruits or deformity. RESPIRATORY: Slight shortness of breath no cough or wheezes. CARDIOVASCULAR: Positive atypical chest pain with no angina no PND or orthopnea. GASTROINTESTINAL: Positive abdominal discomfort with nausea vomiting diarrhea no active bleed at the time. GENITOURINARY: Negative for Hematuria or UTI, no kidney stones. Positive incontinence. INTEGUMENT/BREAST: Generalized muscle and joint pain with lower back pain as well. HEMATOLOGIC/LYMPHATIC: History of anemia with easy bruising. MUSCULOSKELTAL: Significant and severe lower back pain with myalgia and arthr algia. NEURLOGICAL: No loss of consciousness positive slight confusion and lower extremity weakness with numbness as well.. BEHAVIORAL/PSYCH: Mild memory loss. ENDOCRINE: Negative. PHYSICAL EXAMINATION: General Appearance: Alert, cooperative, pleasant in no acute respiratory distress. Neck HEENT: Supple, no lymphadenopathy, no thyroid enlargement, no carotid bruits. Dry mucosa. Lungs: Decreased breath sound bilaterally with fine rhonchi no crackles or wheezes. Chest Wall: Decreased expansion with deep inspiration no tenderness and no deformity was found on exam, no costochondral pain or discomfort. Heart: Irregular rate and rhythm, S1, S2 positive S3 positive systolic murmur. Back: Mild curvature with scoliosis scar tissue in the lower lumbar area with significant tenderness. Abdomen: Soft, non-tender, positive bowel sound significant hepatomegaly no splenomegaly overactive bowel sound with slight discomfort in the left lower quadrant and mid lower abdominal region area. Extremities: Extremities normal, atraumatic, no cyanosis or edema. Pulses: 2+ and symmetric. Skin: Skin color, texture, tugor normal, no rashes or lesions. Neurologic: Alert oriented with slight confusion cranial nerves II through XII intact, positive weakness of the lower extremity not able to do gait exam. ASSESSMENT AND PLAN: _Non-ST MN: Most likely type II MN could be transmural, might require further cardiac testing in the meanwhile, cardiology consultation, repeat EKG in the morning and echocardiogram before deciding on any further intervention. _Severe hypokalemia: Still on IV replacement therapy. _Altered mental status: With much confusion compared to before, Patient has underlying memory loss become quite bit worse at this time. Will continue mirtazapine and eventually will benefit probably from adding donepezil or rivastigmine only reason why patient quit early because of problem with GI complaint, CT of the brain will be done to exclude any possibility of intracranial bleed hemorrhage or stroke. _Abdominal pain with nausea vomiting and diarrhea with possible ischemic colitis: With the finding on her abdominal CAT scan consistent with possible ischemic bowel versus diverticulitis the only thing does not fit ischemic bowel that she is not having any GI bleed at this point again treat symptoms keep pat ient n.p.o. for next 24 hours continue hydration reevaluate GI consultation or general surgery consultation will be recommended.. _COPD: Without exacerbation, Has been on Symbicort and Ventolin continue O2 as well. _A-fib: Pulse rate has been well-controlled, patient still on Eliquis 2.5 mg twice a day remain on diltiazem CD 180 mg daily and metoprolol tartrate 50 mg twice a day. _Type 2 diabetes: A1c has been in the low 7, continue Farxiga and Accu-Chek with sliding scale coverage. _Severe lower back pain with severe peripheral neuropathy: Resume Cymbalta and gabapentin. She is on Celebrex and not any pain meds lately. _Memory loss: Minimal degree of small vessel disease versus Alzheimer disease, has been on mirtazapine did not do well previously with donepezil or rivastigmine with having significant bowel problem with diarrhea. _Hyperlipidemia: Will continue atorvastatin 40 mg a day. _GERD: Continue pantoprazole and might add Pepcid if needed. Prognosis: Fair. Discussion patient be seen cardiology, will consult neurology as well for the significant change in mental status at this point continue current management CAT scan of the brain to be done, echocardiogram and watch her heart function compared to before, continue to treat her electrolyte imbalance at this point t he patient had significant problem with mobility since her back surgery last year continue having problem debility. Physical therapy recreational therapy will be added. Objective - Vital Signs Vital signs: Vital Signs Temp 98 F 07/23/23 04:00 Pulse 89 07/23/23 05:00 Resp 18 07/23/23 05:00 BP 156/92 07/23/23 05:00 Pulse Ox 6 L 07/23/23 05:00 FiO2 Intake & Output 07/22/23 07/22/23 07/23/23 06:59 18:59 06:59 Weight 53.524 kg - Labs CBC & Chem 7: 07/22/23 12:08 07/22/23 12:08 Labs: Abnormal Lab Results - Last 24 Hours (Table) 07/22/23 07/22/23 07/22/23 Range/Units 12:08 12:08 13:40 Hct 48.7 H (34.0-46.0) % MCV 100.3 H (80.0-100.0) fL Potassium 3.0 L (3.5-5.1) mmol/L Creatinine 0.43 L (0.52-1.04) mg/dL Glucose 125 H (74-99) mg/dL AST 53 H (14-36) U/L ALT 46 H (4-34) U/L Troponin I (0.000-0.034) ng/mL Urine Protein 1+ H (Negative) Urine Glucose (UA) 4+ H (Negative) Urine Ketones 1+ H (Negative) Urine Mucus Few H (None) /hpf 07/22/23 Range/Units 20:18 Hct (34.0-46.0) % MCV (80.0-100.0) fL Potassium (3.5-5.1) mmol/L Creatinine (0.52-1.04) mg/dL Glucose (74-99) mg/dL AST (14-36) U/L ALT (4-34) U/L Troponin I 0.154 H* (0.000-0.034) ng/mL Urine Protein (Negative) Urine Glucose (UA) (Negative) Urine Ketones (Negative) Urine Mucus (None) /hpf
[2023-07-23 16:28] LABS: Glucose,Whole Blood 94 mg/dL (70-110)
--- NOTE | 2023-07-23 19:03 | CA ---
Transthoracic Echo Report Name: Becky Sykes Age: 87 Gender: F : 1935 Exam Date: 07/23/2023 16:14 Exam Location: [place] [facility] Ht (in): 62 Wt (lb): 118 Ordering Physician: America Jaramillo Attending/Referring Phys: [id number], Ella Shank Turner Eloisa Franco RDCS Procedure CPT: Indications: LVF Cardiac Hx: Technical Quality: Fair Contrast 1: Total Dose (mL): Contrast 2: Total Dose (mL): MEASUREMENTS (Male / Female) Normal Values 2D ECHO LV Diastolic Diameter PLAX 4.9 cm 4.2 - 5.9 / 3.9 - 5.3 cm LV Systolic Diameter PLAX 3.9 cm IVS Diastolic Thickness 1.3 cm 0.6 - 1.0 / 0.6 - 0.9 cm LVPW Diastolic Thickness 1.1 cm 0.6 - 1.0 / 0.6 - 0.9 cm LV Relative Wall Thickness 0.5 RV Internal Dim ED PLAX 3.5 cm LA Systolic Diameter LX 3.7 cm 3.0 - 4.0 / 2.7 - 3.8 cm LA Volume 30.0 cm??? 18 - 58 / 22 - 52 cm??? LA Volume Index 19.6 cm???/m??? 16 - 28 cm???/m??? M-MODE Aortic Root Diameter MM 3.7 cm AV Cusp Separation MM 2.1 cm DOPPLER AV Peak Velocity 134.3 cm/s AV Peak Gradient 7.2 mmHg AI Peak Velocity 435.2 cm/s AI Peak Gradient 75.7 mmHg AI Pressure Half Time 301.9 ms TR Peak Velocity 254.2 cm/s TR Peak Gradient 25.8 mmHg Right Ventricular Systolic Press 30.3 mmHg FINDINGS Left Ventricle Left ventricular ejection fraction is estimated at 40-45 %. Mildly increased septal wall thickness. Mildly increased posterior wall thickness. Apical septum hypokinesis. Apicalinferior hypokinesis Right Ventricle Mild right ventricular dilatation. Right ventricular systolic pressure within normal limits. Right Atrium Normal right atrial size. No right atrial thrombus or mass seen. Left Atrium Normal left atrial size. No left atrial thrombus or mass present. Mitral Valve Mitral valve thickened. Mild mitral annular calcification. No mitral stenosis, regurgitation or prolapse. Aortic Valve Trileaflet aortic valve. Moderate aortic regurgitation. Tricuspid Valve Structurally normal tricuspid valve. Mild tricuspid regurgitation. Pulmonic Valve Structurally normal pulmonic valve. No pulmonic regurgitation. Pericardium No pericardial effusion. Aorta Normal size aortic root and proximal ascending aorta. CONCLUSIONS Impaired LV function was EF around 40% with mid ventricle and apical hypokinesia Moderate aortic regurgitation Previewed by: Dr. Aubrey Lee MD (Electronically Signed) Final Date: 23 Jul 2023 19:03
[2023-07-23 20:06] LABS: Glucose,Whole Blood 119 mg/dL (70-110)
[2023-07-23] MEDS: QUEtiapine 25 MG TAB PO STA (22:19)
[2023-07-23] MEDS: ACETAMINOPHEN TAB 325 MG TAB PO PRN (23:08)
[2023-07-24] MEDS: POTASSIUM CHLORIDE ER 20 MEQ TAB.ER PO SCH (05:18)
[2023-07-24 06:37] LABS: Glucose,Whole Blood 116 mg/dL (70-110)
[2023-07-24 07:46] LABS: HGB 14.5 gm/dL (11.4-16.0); MCH 32.2 pg (25.0-35.0); MCHC 31.4 g/dL (31.0-37.0); MCV 102.5 fL (80.0-100.0); Macrocytosis Slight; Mean Platelet Volume 7.3; Platelet Count 251 k/uL (150-450); RBC 4.49 m/uL (3.80-5.40); RDW 12.7 % (11.5-15.5)
[2023-07-24 08:02] LABS: ALT 41 U/L (4-34); AST 44 U/L (14-36); African American GFR (CKD) >90 (>60 ml/min/1.73 sqM); Albumin 3.7 g/dL (3.5-5.0); Alkaline Phosphatase 67 U/L (38-126); Anion Gap 7 mmol/L; Blood Urea Nitrogen 17 mg/dL (7-17); Calcium 9.4 mg/dL (8.4-10.2); Carbon Dioxide 25 mmol/L (22-30); Chloride 110 mmol/L (98-107); Glucose 110 mg/dL (74-99); Non-African American GFR(CKD) 87 (>60 ml/min/1.73 sqM); Sodium 142 mmol/L (137-145); Total Protein 6.2 g/dL (6.3-8.2)
[2023-07-24 11:47] LABS: Glucose,Whole Blood 90 mg/dL (70-110)
[2023-07-24] MEDS: POTASSIUM BICARBONATE/CIT AC 20 MEQ TABLET.EFF NG-TUBE SCH ×2 (13:50→21:04)
--- NOTE | 2023-07-24 14:47 | P.PN ---
Subjective Progress Note Date: 07/24/23 Reason for Consult (text): Elevated troponin History of present illness: This is an 87-year-old female with past medical history of hypertension, hyperlipidemia, diabetes mellitus type 2, paroxysmal atrial fibrillation on Eliquis, memory loss, severe spinal stenosis and compression post fusion, GERD. Patient does not follow with a desktop specialist. We have been asked to evaluate the patient for elevated troponins. Patient is unable to provide reliable information. Patient presented to the hospital due to nausea, vomiting, and severe diarrhea along with incontinence. Patient developed shortness of breath and diaphoresis, mild palpitations per chart. Patient currently states that she has had some shortness of breath. She denies having any chest pain. EKG sinus rhythm low voltage Chest x-ray: Borderline cardiomegaly. Tortuous versus ectatic thoracic aorta. No acute process. CTA of the chest: No pulmonary embolism. Mild emphysematous changes. Hepatic cirrhosis. Small hiatal hernia CT of the abdomen pelvis reveals no acute abdominal process. Nodular contour of the liver correlate for cirrhosis. 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 Colonic diverticulosis. Left shoulder: Chronic rotator cuff tear. Degenerative changes. No acute trauma. WBC 8.4, hemoglobin 15.6. Sodium 141, potassium 3. BUN 11 creatinine 0.43. Troponins 0.016, 0.154, 0.181. AST 53, ALT 46. Urinalysis negative for infection. Stool lactoferrin positive. C. difficile negative. Influenza A, influenza B, RSV, COVID-19 not detected. Home cardiac medications: Eliquis 2.5 mg twice daily, Farxiga 10 mg daily, Cardizem CD 180 mg daily, Lopressor 50 mg twice daily, pravastatin 40 mg daily. Echocardiogram performed 10/31/2022 revealed normal LV systolic function. Aortic sclerosis with mild aortic insufficiency. 07/23 Patient is seen today in follow-up. Patient denies having nausea vomiting. No dizziness. No abdominal pain. No chest pain. A repeat troponin ordered today which shows a decreased level to 0.121. Echocardiogram reveals EF of 40% with mild ventricle and apical hypokinesia. Moderate aortic regurgitation. Blood pressure 143/83, heart rate 80, pulse ox 92% on 2 L nasal cannula. Repeat EKG this morning reveals T wave inversions in V1 V2 V3. Physical examination: Gen: This is an 87-year-old female in no acute distress VS: reviewed LUNGS: Clear to auscultation. No wheezes or rhonchi. No intercostal retractions. HEART: Regular rate and rhythm. No murmur. EXTREMITIES: No pedal edema. No calf tenderness. NEUROLOGICAL: Patient is awake, and confused. Assessment: Non-ST elevated myocardial infarction possible type II event Stress-induced cardiomyopathy Severe hypokalemia Vomiting and diarrhea, possible ischemic colitis Paroxysmal atrial fibrillation Diabetes mellitus type 2 Chronic back pain Memory loss Hyperlipidemia Hypertension Plan: Resume patient's home cardiac medications Continue Eliquis and aspirin 81 mg daily Discontinue Mobic due to increased risk of bleeding Further recommendations as patient progresses Nurse practitioner note has been reviewed, I agree with documented findings and plan of care. Patient was seen and examined. Objective - Vital Signs Vital signs: Vital Signs Temp 97.5 F L 07/24/23 05:27 Pulse 81 07/24/23 05:27 Resp 18 07/24/23 05:28 BP 131/74 07/24/23 05:27 Pulse Ox 94 L 07/24/23 08:09 FiO2 Intake & Output 07/23/23 07/24/23 07/24/23 18:59 06:59 18:59 Intake Total 180 Balance 180 Weight 53.524 kg Intake: Oral 180 Other: Voiding Method Toilet Diaper # Voids 1 - Labs CBC & Chem 7: 07/24/23 07:21 07/24/23 07:21 Labs: Abnormal Lab Results - Last 24 Hours (Table) 07/23/23 07/23/23 07/24/23 Range/Units 11:37 20:04 06:35 MCV (80.0-100.0) fL Potassium (3.5-5.1) mmol/L Chloride (98-107) mmol/L Glucose (74-99) mg/dL POC Glucose (mg/dL) 113 H 119 H 116 H (70-110) mg/dL AST (14-36) U/L ALT (4-34) U/L Total Protein (6.3-8.2) g/dL 07/24/23 07/24/23 Range/Units 07:21 07:21 MCV 102.5 H (80.0-100.0) fL Potassium 3.0 L (3.5-5.1) mmol/L Chloride 110 H (98-107) mmol/L Glucose 110 H (74-99) mg/dL POC Glucose (mg/dL) (70-110) mg/dL AST 44 H (14-36) U/L ALT 41 H (4-34) U/L Total Protein 6.2 L (6.3-8.2) g/dL
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
--- NOTE | 2023-07-24 15:16 | P.PN ---
Subjective Progress Note Date: 07/24/23 87-year-old female with past medical history of hypertension, hyperlipidemia, diabetes mellitus type 2, paroxysmal atrial fibrillation on Eliquis, memory loss, severe spinal stenosis and compression post fusion, GERD. Patient does not follow with a traveling engineer. We have been asked to evaluate the patient for elevated troponins. Patient is unable to provide reliable information. Patient presented to the hospital due to nausea, vomiting, and severe diarrhea along with incontinence. Patient developed shortness of breath and diaphoresis, mild palpitations per chart. Patient currently states that she has had some shortness of breath. She denies having any chest pain. Objective - Vital Signs Vital signs: Vital Signs Temp 97.5 F L 07/24/23 05:27 Pulse 81 07/24/23 05:27 Resp 18 07/24/23 05:28 BP 131/74 07/24/23 05:27 Pulse Ox 94 L 07/24/23 08:09 FiO2 Intake & Output 07/23/23 07/24/23 07/24/23 18:59 06:59 18:59 Intake Total 180 Balance 180 Weight 53.524 kg Intake: Oral 180 Other: Voiding Method Toilet Diaper # Voids 1 - Exam Gen: This is an 87-year-old female in no acute distress VS: reviewed LUNGS: Clear to auscultation. No wheezes or rhonchi. No intercostal retractions. HEART: Regular rate and rhythm. No murmur. EXTREMITIES: No pedal edema. No calf tenderness. NEUROLOGICAL: Patient is awake, and confused. - Labs CBC & Chem 7: 07/24/23 07:21 07/24/23 07:21 Labs: Abnormal Lab Results - Last 24 Hours (Table) 07/23/23 07/23/23 07/24/23 Range/Units 11:37 20:04 06:35 MCV (80.0-100.0) fL Potassium (3.5-5.1) mmol/L Chloride (98-107) mmol/L Glucose (74-99) mg/dL POC Glucose (mg/dL) 113 H 119 H 116 H (70-110) mg/dL AST (14-36) U/L ALT (4-34) U/L Total Protein (6.3-8.2) g/dL 07/24/23 07/24/23 Range/Units 07:21 07:21 MCV 102.5 H (80.0-100.0) fL Potassium 3.0 L (3.5-5.1) mmol/L Chloride 110 H (98-107) mmol/L Glucose 110 H (74-99) mg/dL POC Glucose (mg/dL) (70-110) mg/dL AST 44 H (14-36) U/L ALT 41 H (4-34) U/L Total Protein 6.2 L (6.3-8.2) g/dL Assessment and Plan Assessment: Non-ST elevated myocardial infarction possible type II event Stress-induced cardiomyopathy Severe hypokalemia Vomiting and diarrhea, possible ischemic colitis Paroxysmal atrial fibrillation Diabetes mellitus type 2 Chronic back pain Memory loss Hyperlipidemia Hypertension Plan: Resume patient's home cardiac medications Continue Eliquis and aspirin 81 mg daily Discontinue Mobic due to increased risk of bleeding Further recommendations as patient progresses
[2023-07-24 16:20] LABS: Glucose,Whole Blood 86 mg/dL (70-110)
[2023-07-24 20:02] LABS: Glucose,Whole Blood 107 mg/dL (70-110)
[2023-07-25 06:08] LABS: Glucose,Whole Blood 111 mg/dL (70-110)
[2023-07-25] MEDS: LOSARTAN 25 MG TAB PO SCH (09:18)
[2023-07-25 09:42] LABS: African American GFR (CKD) >90 (>60 ml/min/1.73 sqM); Anion Gap 8 mmol/L; Blood Urea Nitrogen 9 mg/dL (7-17); Calcium 9.3 mg/dL (8.4-10.2); Carbon Dioxide 28 mmol/L (22-30); Chloride 107 mmol/L (98-107); Glucose 108 mg/dL (74-99); Non-African American GFR(CKD) 89 (>60 ml/min/1.73 sqM); Potassium 3.9 mmol/L (3.5-5.1); Sodium 143 mmol/L (137-145)
[2023-07-25 09:45] LABS: Basophils # (A) 0.1 k/uL (0-0.2); Basophils % (A) 1 %; Eosinophils # (A) 0.6 k/uL (0-0.7); Eosinophils % (A) 7 %; HCT 48.8 % (34.0-46.0); HGB 15.5 gm/dL (11.4-16.0); Lymphocytes # (A) 2.1 k/uL (1.0-4.8); Lymphocytes % (A) 24 %; MCH 32.8 pg (25.0-35.0); MCHC 31.8 g/dL (31.0-37.0); MCV 103.1 fL (80.0-100.0); Macrocytosis Slight; Mean Platelet Volume 7.9; Monocytes # (A) 0.6 k/uL (0-1.0); Monocytes % (A) 8 %; Neutrophils # (A) 4.8 k/uL (1.3-7.7); Neutrophils % (A) 57 %; Platelet Count 247 k/uL (150-450); RBC 4.74 m/uL (3.80-5.40); RDW 12.5 % (11.5-15.5); WBC 8.4 k/uL (3.8-10.6)
--- NOTE | 2023-07-25 11:07 | P.PN ---
Subjective Progress Note Date: 07/25/23 Reason for Consult (text): Elevated troponin History of present illness: This is an 87-year-old female with past medical history of hypertension, hyperlipidemia, diabetes mellitus type 2, paroxysmal atrial fibrillation on Eliquis, memory loss, severe spinal stenosis and compression post fusion, GERD. Patient does not follow with a dispatch specialist. We have been asked to evaluate the patient for elevated troponins. Patient is unable to provide reliable information. Patient presented to the hospital due to nausea, vomiting, and severe diarrhea along with incontinence. Patient developed shortness of breath and diaphoresis, mild palpitations per chart. Patient currently states that she has had some shortness of breath. She denies having any chest pain. EKG sinus rhythm low voltage Chest x-ray: Borderline cardiomegaly. Tortuous versus ectatic thoracic aorta. No acute process. CTA of the chest: No pulmonary embolism. Mild emphysematous changes. Hepatic cirrhosis. Small hiatal hernia CT of the abdomen pelvis reveals no acute abdominal process. Nodular contour of the liver correlate for cirrhosis. 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 Colonic diverticulosis. Left shoulder: Chronic rotator cuff tear. Degenerative changes. No acute trauma. WBC 8.4, hemoglobin 15.6. Sodium 141, potassium 3. BUN 11 creatinine 0.43. Troponins 0.016, 0.154, 0.181. AST 53, ALT 46. Urinalysis negative for infection. Stool lactoferrin positive. C. difficile negative. Influenza A, influenza B, RSV, COVID-19 not detected. Home cardiac medications: Eliquis 2.5 mg twice daily, Farxiga 10 mg daily, Cardizem CD 180 mg daily, Lopressor 50 mg twice daily, pravastatin 40 mg daily. Echocardiogram performed 10/31/2022 revealed normal LV systolic function. Aortic sclerosis with mild aortic insufficiency. 07/23 Patient is seen today in follow-up. Patient denies having nausea vomiting. No dizziness. No abdominal pain. No chest pain. A repeat troponin ordered today which shows a decreased level to 0.121. Echocardiogram reveals EF of 40% with mild ventricle and apical hypokinesia. Moderate aortic regurgitation. Blood pressure 143/83, heart rate 80, pulse ox 92% on 2 L nasal cannula. Repeat EKG this morning reveals T wave inversions in V1 V2 V3. 07/24 Patient denies having any abdominal pain and no diarrhea. Repeat EKG consistent with Takotsubo. Blood pressures have been elevated up to 180/90, heart rate 81, pulse ox 94% on 2 L. Physical examination: Gen: This is an 87-year-old female in no acute distress VS: reviewed LUNGS: Clear to auscultation. No wheezes or rhonchi. No intercostal retractions. HEART: Regular rate and rhythm. No murmur. EXTREMITIES: No pedal edema. No calf tenderness. NEUROLOGICAL: Patient is awake, and confused. Assessment: Non-ST elevated myocardial infarction possible type II event Stress-induced cardiomyopathy Severe hypokalemia Vomiting and diarrhea, possible ischemic colitis Paroxysmal atrial fibrillation Diabetes mellitus type 2 Chronic back pain Memory loss Hyperlipidemia Hypertension Plan: Continue patient's home cardiac medications Continue Eliquis and aspirin 81 mg daily Discontinue Mobic due to increased risk of bleeding Start patient on losartan 25 mg daily Patient is cleared for discharge from cardiology and may follow-up in the office in 1 to [address] Marrero. Nurse practitioner note has been reviewed, I agree with documented findings and plan of care. Patient was seen and examined. Objective - Vital Signs Vital signs: Vital Signs Temp 97.5 F L 07/25/23 03:55 Pulse 81 07/25/23 03:55 Resp 18 07/25/23 03:55 BP 164/92 07/25/23 03:55 Pulse Ox 94 L 07/25/23 03:55 FiO2 Intake & Output 07/24/23 07/25/23 07/25/23 18:59 06:59 18:59 Intake Total 118 Balance 118 Intake: Oral 118 Other: Voiding Method Toilet Toilet Diaper Diaper # Voids 3 1 # Bowel Movements 1 - Labs CBC & Chem 7: 07/25/23 08:43 07/25/23 08:43 Labs: Abnormal Lab Results - Last 24 Hours (Table) 07/24/23 07/24/23 07/25/23 Range/Units 11:00 19:00 06:07 Potassium 3.3 L (3.5-5.1) mmol/L POC Glucose (mg/dL) 111 H (70-110) mg/dL Troponin I 0.121 H* (0.000-0.034) ng/mL Microbiology - Last 24 Hours (Table) 07/22/23 17:45 Stool Culture - Preliminary Stool
--- NOTE | 2023-07-25 11:18 | P.GSCN ---
History of Present Illness Consult date: 07/25/23 Reason for Consult: abdominal pain History of present illness: this is a 7-year-old female who had some vague complaints of abdominal pain yest erday. Patient states that she had some pain yesterday however the pain is completely resolved today. Patient wants to go home. She denies any pain nausea. Past Medical History Past Medical History: Asthma, Cancer, Dementia, Diabetes Mellitus, Hyperlipidemi a, Hypertension Additional Past Medical History / Comment(s): numbness 2nd,3rd,4th digits rt hand, back pain,skin CA History of Any Multi-Drug Resistant Organisms: ESBL Year Discovered:: 12/04/22 MDRO Source:: Urine Past Surgical History: Back Surgery, Hysterectomy, Joint Replacement, Orthopedic Surgery, Tonsillectomy Additional Past Surgical History / Comment(s): back x2,lumbar fusion, left knee replacement,ana hips, carpal tunnel surgery Right. Pain clinic procedure Past Anesthesia/Blood Transfusion Reactions: No Reported Reaction Additional Past Anesthesia/Blood Transfusion Reaction / Comm: no hx blood transfusion Past Psychological History: Depression Smoking Status: Former smoker Past Alcohol Use History: None Reported Past Drug Use History: None Reported - Past Family History Mother Family Medical History: No Reported History Medications and Allergies Home Medications Medication Instructions Recorded Confirmed Type Pravastatin Sodium [Pravachol] 40 mg PO DAILY 10/27/14 07/22/23 History Azelastine HCl [Astepro] 2 spr EA NOSTRIL BID 04/02/20 07/22/23 History Montelukast Sodium [Singulair] 10 mg PO DAILY 04/02/20 07/22/23 History Budesonide/Formoterol Fumarate 2 puff INHALATION RT-BID 08/02/20 07/22/23 History [Symbicort 160-4.5 Mcg Inhaler] Diltiazem Cd [Cardizem CD] 180 mg PO DAILY 08/02/20 07/22/23 History Dapagliflozin Propanediol [Farxiga] 10 mg PO DAILY 09/02/22 07/22/23 History Multivitamins, Thera [Multivitamin 1 tab PO DAILY 09/02/22 07/22/23 History (formulary)] Omeprazole 40 mg PO AC-BRKFST 09/02/22 07/22/23 History Cholecalciferol [Vitamin D3 (25 25 mcg PO DAILY 10/26/22 07/22/23 History Mcg = 1000 Iu)] DULoxetine HCL [Cymbalta] 30 mg PO DAILY 10/28/22 07/22/23 History Gabapentin 600 mg PO HS 12/04/22 07/22/23 History Apixaban [Eliquis] 2.5 mg PO BID #60 tab 12/08/22 07/22/23 Rx Metoprolol Tartrate [Lopressor] 50 mg PO BID #60 tab 12/09/22 07/22/23 Rx ALPRAZolam [Xanax] 0.5 mg PO BID PRN 3 Days #6 tab 12/26/22 07/22/23 Rx Albuterol Sulfate [Albuterol 2 puff INHALATION RT-Q4H PRN 07/22/23 07/22/23 Hist ory Sulfate Hfa] Calcium Citrate(Unknown Dose) 1 tab PO BID 07/22/23 07/22/23 History Celecoxib [CeleBREX] 200 mg PO BID 07/22/23 07/22/23 History Mirtazapine [Remeron] 15 mg PO HS 07/22/23 07/22/23 History Allergies Allergy/AdvReac Type Severity Reaction Status Date / Time nitrofurantoin Allergy Rash/Hives Verified 07/22/23 13:13 macrocrystalline all over [From Macrodantin] zolpidem [From Ambien] AdvReac Unknown sleep Verified 07/22/23 13:13 walks, confused amoxicillin trihydrate AdvReac Nausea & Verified 07/22/23 13:13 [From Augmentin] Vomiting & Diarrhea cephalexin monohydrate AdvReac Flu like Verified 07/22/23 13:13 [From Keflex] symptoms dicyclomine AdvReac disoriented Verified 07/22/23 13:13 for 4 days hydromorphone HCl AdvReac Extremely Verified 07/22/23 13:13 [From Dilaudid] Confusion for 8 days morphine AdvReac violence Verified 07/22/23 13:13 potassium clavulanate AdvReac Nausea & Verified 07/22/23 13:13 [From Augmentin] Vomiting & Diarrhea Surgical - Exam Vital Signs Temp Pulse Resp BP Pulse Ox 99.1 F 118 H 20 169/113 94 L 07/22/23 11:07 07/22/23 11:07 07/22/23 11:07 07/22/23 11:07 07/22/23 11:07 - General well developed, well nourished, no distress - Eyes PERRL - ENT normal pinna - Neck no masses - Respiratory normal expansion - Cardiovascular Rhythm: regular - Abdomen Abdomen: soft, non tender Results - Labs 07/25/23 08:43 07/25/23 08:43 Abnormal Lab Results - Last 24 Hours (Table) 07/24/23 07/24/23 07/25/23 Range/Units 11:00 19:00 06:07 Hct (34.0-46.0) % MCV (80.0-100.0) fL Potassium 3.3 L (3.5-5.1) mmol/L Creatinine (0.52-1.04) mg/dL Glucose (74-99) mg/dL POC Glucose (mg/dL) 111 H (70-110) mg/dL Troponin I 0.121 H* (0.000-0.034) ng/mL 07/25/23 07/25/23 Range/Units 08:43 08:43 Hct 48.8 H (34.0-46.0) % MCV 103.1 H (80.0-100.0) fL Potassium (3.5-5.1) mmol/L Creatinine 0.48 L (0.52-1.04) mg/dL Glucose 108 H (74-99) mg/dL POC Glucose (mg/dL) (70-110) mg/dL Troponin I (0.000-0.034) ng/mL Microbiology - Last 24 Hours (Table) 07/22/23 17:45 Stool Culture - Preliminary Stool Diabetes panel 07/24/23 07/25/23 Range/Units 19:00 08:43 Sodium 143 (137-145) mmol/L Potassium 3.3 L 3.9 (3.5-5.1) mmol/L Chloride 107 (98-107) mmol/L Carbon Dioxide 28 (22-30) mmol/L BUN 9 (7-17) mg/dL Creatinine 0.48 L (0.52-1.04) mg/dL Glucose 108 H (74-99) mg/dL Calcium 9.3 (8.4-10.2) mg/dL Calcium panel 05/12/24 Range/Units 08:43 Calcium 9.3 (8.4-10.2) mg/dL Pituitary panel 07/24/23 07/25/23 Range/Units 19:00 08:43 Sodium 143 (137-145) mmol/L Potassium 3.3 L 3.9 (3.5-5.1) mmol/L Chloride 107 (98-107) mmol/L Carbon Dioxide 28 (22-30) mmol/L BUN 9 (7-17) mg/dL Creatinine 0.48 L (0.52-1.04) mg/dL Glucose 108 H (74-99) mg/dL Calcium 9.3 (8.4-10.2) mg/dL Adrenal panel 07/24/23 07/25/23 Range/Units 19:00 08:43 Sodium 143 (137-145) mmol/L Potassium 3.3 L 3.9 (3.5-5.1) mmol/L Chloride 107 (98-107) mmol/L Carbon Dioxide 28 (22-30) mmol/L BUN 9 (7-17) mg/dL Creatinine 0.48 L (0.52-1.04) mg/dL Glucose 108 H (74-99) mg/dL Calcium 9.3 (8.4-10.2) mg/dL Assessment and Plan Assessment: resolved abdominal pain. Patient is stable for discharge from a surgical standpoint.
[2023-07-25 11:51] LABS: Glucose,Whole Blood 126 mg/dL (70-110)
[2023-07-25 16:15] LABS: Glucose,Whole Blood 110 mg/dL (70-110)
--- NOTE | 2023-07-25 17:26 | P.PN ---
Subjective 87-year-old female with past medical history of hypertension, hyperlipidemia, diabetes mellitus type 2, paroxysmal atrial fibrillation on Eliquis, memory loss, severe spinal stenosis and compression post fusion, GERD. Patient does not follow with a clinical administrative coordinator. We have been asked to evaluate the patient for elevated troponins. Patient is unable to provide reliable information. Patient presented to the hospital due to nausea, vomiting, and severe diarrhea along with incontinence. Patient developed shortness of breath and diaphoresis, mild palpitations per chart. Patient currently states that she has had some shortness of breath. She denies having any chest pain. 07/25/2023 Patient is seen and evaluated and discussed with nursing staff; no immediate concerns reported -Vital signs are reviewed and stable, lab review shows a WBC of 8.4, hemoglobin of 15.5 and platelet count of 247, sodium 143, potassium 3.9, BUNs/creatinine of 9/0.48 -Patient has been evaluated by cardiology type II infarction related to demand ischemia; neurology is on board and not recommending any further workup and is recommending patient follow-up with neurology as an outpatient -- Patient denies any further episodes of nausea and vomiting, patient has been evaluated by general surgery for possible ischemic colitis; patient has been cleared for clear liquid diet for surgery and advance as tolerated -- PT/OT consulted for evaluation and further recommendations Objective - Vital Signs Vital signs: Vital Signs Temp 97.5 F L 07/25/23 08:15 Pulse 104 H 07/25/23 08:15 Resp 18 07/25/23 08:15 BP 115/78 07/25/23 08:15 Pulse Ox 96 07/25/23 08:15 FiO2 Intake & Output 07/24/23 07/25/23 07/25/23 18:59 06:59 18:59 Intake Total 118 118 Balance 118 118 Intake: Oral 118 118 Other: Voiding Method Toilet Toilet Toilet Diaper Diaper Diaper # Voids 3 1 1 # Bowel Movements 1 1 - Exam Gen: This is an 87-year-old female in no acute distress VS: reviewed LUNGS: Clear to auscultation. No wheezes or rhonchi. No intercostal retractions. HEART: Regular rate and rhythm. No murmur. EXTREMITIES: No pedal edema. No calf tenderness. NEUROLOGICAL: Patient is awake, and confused. - Labs CBC & Chem 7: 07/25/23 08:43 07/25/23 08:43 Labs: Abnormal Lab Results - Last 24 Hours (Table) 07/24/23 07/24/23 07/25/23 Range/Units 11:00 19:00 06:07 Hct (34.0-46.0) % MCV (80.0-100.0) fL Potassium 3.3 L (3.5-5.1) mmol/L Creatinine (0.52-1.04) mg/dL Glucose (74-99) mg/dL POC Glucose (mg/dL) 111 H (70-110) mg/dL Troponin I 0.121 H* (0.000-0.034) ng/mL 07/25/23 07/25/23 Range/Units 08:43 08:43 Hct 48.8 H (34.0-46.0) % MCV 103.1 H (80.0-100.0) fL Potassium (3.5-5.1) mmol/L Creatinine 0.48 L (0.52-1.04) mg/dL Glucose 108 H (74-99) mg/dL POC Glucose (mg/dL) (70-110) mg/dL Troponin I (0.000-0.034) ng/mL Microbiology - Last 24 Hours (Table) 07/22/23 17:45 Stool Culture - Preliminary Stool Assessment and Plan Assessment: Non-ST elevated myocardial infarction possible type II event Stress-induced cardiomyopathy Severe hypokalemia Vomiting and diarrhea, possible ischemic colitis Paroxysmal atrial fibrillation Diabetes mellitus type 2 Chronic back pain Memory loss Hyperlipidemia Hypertension Plan: Resume patient's home cardiac medications Continue Eliquis and aspirin 81 mg daily Discontinue Mobic due to increased risk of bleeding Further recommendations as patient progresses
[2023-07-25 20:10] LABS: Glucose,Whole Blood 113 mg/dL (70-110)
[2023-07-26 06:17] LABS: Glucose,Whole Blood 108 mg/dL (70-110)
[2023-07-26 10:19] VITALS: BP 121/72; PULSE 84; RESP 18; TEMP 97.3
[2023-07-26] MEDS ORDERED: DOCUSATE 100 MG CAP PO SCH (10:30)
[2023-07-26 11:01] LABS: African American GFR (CKD) >90 (>60 ml/min/1.73 sqM); Anion Gap 10 mmol/L; Blood Urea Nitrogen 11 mg/dL (7-17); Calcium 9.4 mg/dL (8.4-10.2); Carbon Dioxide 24 mmol/L (22-30); Chloride 107 mmol/L (98-107); Glucose 154 mg/dL (74-99); Non-African American GFR(CKD) 84 (>60 ml/min/1.73 sqM); Potassium 3.1 mmol/L (3.5-5.1); Sodium 141 mmol/L (137-145)
[2023-07-26 12:12] LABS: Glucose,Whole Blood 141 mg/dL (70-110)
--- NOTE | 2023-07-26 16:03 | P.PN ---
Subjective Progress Note Date: 07/26/23 CHIEF COMPLAINT: Abdominal pain HISTORY OF PRESENT ILLNESS: Abdominal pain has resolved. Patient did have a small bowel movement. She is tolerating diet. Afebrile. She is scheduled for discharge today. She is asking for stool softener. PHYSICAL EXAM: VITAL SIGNS: Reviewed. GENERAL: Well-developed in no acute distress. ABDOMEN: Soft. Nondistended. Nontender. NEUROLOGIC: Alert and oriented. Cranial nerves II through XII grossly intact. ASSESSMENT: 1. Abdominal pain resolved PLAN: -No surgical intervention planned -Patient can be discharged from surgical standpoint -Colace added for constipation Physician Socket Welder Helper note has been reviewed by physician. Signing provider agrees with the documented findings, assessment, and plan of care. Objective - Vital Signs Vital signs: Vital Signs Temp 97.3 F L 07/26/23 08:00 Pulse 84 07/26/23 08:00 Resp 18 07/26/23 08:00 BP 121/72 07/26/23 08:00 Pulse Ox 94 L 07/26/23 08:00 FiO2 Intake & Output 07/25/23 07/26/23 07/26/23 18:59 06:59 18:59 Intake Total 356 236 Balance 356 236 Intake: Oral 356 236 Other: Voiding Method Toilet Toilet Diaper Diaper # Voids 4 2 2 # Bowel Movements 3 - Labs CBC & Chem 7: 07/25/23 08:43 07/26/23 09:59 Labs: Abnormal Lab Results - Last 24 Hours (Table) 07/25/23 07/26/23 07/26/23 Range/Units 20:09 09:59 12:11 Potassium 3.1 L (3.5-5.1) mmol/L Glucose 154 H (74-99) mg/dL POC Glucose (mg/dL) 113 H 141 H (70-110) mg/dL Microbiology - Last 24 Hours (Table) 07/22/23 17:45 Stool Culture - Final Stool
--- NOTE | 2023-07-26 21:28 | P.DS ---
Providers Date of admission: 07/23/23 11:10 Attending physician: Gilberto Kelly Consults: 07/22/23 21:06 Consult Physician Routine Consulting Provider: Dalton Grant Consult Reason/Comments: Elevated troponin Do you want consulting provider notified?: Yes 07/23/23 16:16 Consult Physician Routine Consulting Provider: Chase Soria Consult Reason/Comments: Altered MS Do you want consulting provider notified?: Yes 07/24/23 10:27 Consult Physician Routine Consulting Provider: Enrique Todd Consult Reason/Comments: Abdominal pain/ poss ischemic colitis Do you want consulting provider notified?: Yes Primary care physician: [facility] Course: HISTORY OF PRESENT ILLNESS: 87-year-old office patient with active medical history of asthma, memory loss, type 2 diabetes, hypertension, hyperlipidemia, post lower back surgery with severe spinal stenosis and compression post fusion, Close also known to have an history of anemia, history of GERD, recurrent migraine, depression, osteoporosis who has been having significant problem with debility and mobility as well has been using walker the last few months. After her hospitalization last 2 time she ended up in the SNF for a period of time and was in palliative care before finally she sign off has been living with her can do independent with some help. She brought to the emergency department by EMS for evaluation of gastrointestinal symptoms for the last 3 days consistent with abdominal discomfort, nausea, vomiting and severe diarrhea that has been having significant incontinence problem. Also had significant shortness of breath with diaphoresis and mild palpitation she had mild urinary incontinence but no burning or discomfort. Also has been having slight discomfort in the midsternal area and shoulder blade area with significant discomfort in her shoulder as well when she attempts to move it or actively rotate the shoulder. She was seen and evaluated in the emergency department with above complaint initially with her laboratory value found to have severe hypokalemia with potassium of 3.0 consistent with her diarrhea surprisingly her liver function tests were mildly elevated had first troponin negative second 1 become positive and still no major complaint of angina at this point.. UA was Negative with negative for urinary culture for RSV influenza and pneumonia. EKG showed atypical finding consistent with tachycardia and Q waves in the inferior leads along with the anterolateral leads. With no ST elevation. Chest x-ray showed borderline cardiomegaly with tortuous versus ectatic thoracic aorta with no acute change. End up having CTA shows no evidence of pulmonary embolism but mild emphysema with sign of hepatic cirrhosis suggested with contact lobe hypertrophy with cardiac lobe cyst with small hiatal hernia. Ended up having CT of the abdomen and pelvis as well with the severity of her symptoms in the emergency room which shows no evidence of acute abdominal process with nodular contour of the liver with cardiac lobe hypertrophy correlate with cirrhosis and occlusion of the celiac axis with reconstitution just past its origin on approximately 10 mm best its origin with colonic diverticulosis. The patient was admitted at this point for severe hypokalemia with non-ST myocardial infarction with recurrent abdominal pain possible ischemic bowel with diverticulitis along with COPD and A-fib. 07/23/2023: Patient is quite bit confused, still have slightly elevated troponin compared to original 1 indicate most likely non-ST ME possibly type II. Also had severe hypokalemia with GI symptoms consistent with possible ischemic colitis will continue current management for now. Her A-fib with pulse rates under control and had much worsening memory affected by the acute illness at this point. Blood pressure was quite bit high last 24 hours patient ended up on hydralazine as an addition beside her original blood pressure medication. 07/24/2023:87-year-old female with past medical history of hypertension, hyperlipidemia, diabetes mellitus type 2, paroxysmal atrial fibrillation on Eliquis, memory loss, severe spinal stenosis and compression post fusion, GERD. 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 We have been asked to evaluate the patient for elevated troponins. Patient is unable to provide reliable inf ormation. Patient presented to the hospital due to nausea, vomiting, and severe diarrhea along with incontinence. Patient developed shortness of breath and diaphoresis, mild palpitations per chart. Patient currently states that she has had some shortness of breath. She denies having any chest pain. 07/25/2023: Patient is seen and evaluated and discussed with nursing staff; no immediate concerns reported -Vital signs are reviewed and stable, lab review shows a WBC of 8.4, hemoglobin of 15.5 and platelet count of 247, sodium 143, potassium 3.9, BUNs/creatinine of 9/0.48 -Patient has been evaluated by cardiology type II infarction related to demand ischemia; neurology is on board and not recommending any further workup and is recommending patient follow-up with neurology as an outpatient -- Patient denies any further episodes of nausea and vomiting, patient has been evaluated by general surgery for possible ischemic colitis; patient has been cleared for clear liquid diet for surgery and advance as tolerated -- PT/OT consulted for evaluation and further recommendations 07/26/2023: Patient is feeling much better today she has no further nausea vomiting or abdominal pain her evaluation last few days With general surgery for possible ischemic colitis came back with significant improvement last few days does not require any intervention. Also seen cardiology for her elevated troponin initially with a possible transmural ME which improved significantly even though patient might require further testing is not necessary at this point. Her echocardiogram was done on 07/23/2023 results are compatible with impaired left ventricular function around 40 percentile which mid ventricle and apical hypokinesia moderate aortic regurgitation. The action plan for patient to through the weekend that she had non-ST ME with possible type II event stress-induced cardiomyopathy and severe hypokalemia with severe intractable GI symptoms with possible ischemic colitis and paroxysmal A-fib that resume home meds cardiac meds and continue Eliquis along with baby aspirin discontinue Mobic due to the increased risk of bleed also she was started on losartan 25 mg and titrate dose higher if needed she is going to follow-up with cardiology in 1 to 2 weeks for possible intervention if needed. Also patient seen neurology on 07/24/2023 for altered mental status mild confusion and possible delirium with acute gastroenteritis and elevated cardiac enzyme recommendation to treat abnormal cardiac enzyme gastroenteritis patient had normal B12, folic acid, thyroid, ammonia level recommend patient to follow- up with neurology as an outpatient. Patient mental status has returned to almost be back to normal. REVIEW OF SYSTEMS: CONSTITUTIONAL: Well-developed slightly confused very pleasant in no acute respiratory distress EYES: No icterus sclerae, no conjunctivitis. EARS, NOSE, MOUTH, THROAT, and FACE: No sore throat, lymphadenopathy, carotid bruits or deformity. RESPIRATORY: Slight shortness of breath no cough or wheezes. CARDIOVASCULAR: Positive atypical chest pain with no angina no PND or orthopnea. GASTROINTESTINAL: Positive abdominal discomfort with nausea vomiting diarrhea no active bleed at the time. GENITOURINARY: Negative for Hematuria or UTI, no kidney stones. Positive incontinence. INTEGUMENT/BREAST: Generalized muscle and joint pain with lower back pain as well. HEMATOLOGIC/LYMPHATIC: History of anemia with easy bruising. MUSCULOSKELTAL: Significant and severe lower back pain with myalgia and arthralgia. NEURLOGICAL: No loss of consciousness positive slight confusion and lower extremity weakness with numbness as well.. BEHAVIORAL/PSYCH: Mild memory loss. ENDOCRINE: Negative. PHYSICAL EXAMINATION: General Appearance: Alert, cooperative, pleasant in no acute respiratory distress. Neck HEENT: Supple, no lymphadenopathy, no thyroid enlargement, no carotid bruits. Dry mucosa. Lungs: Decreased breath sound bilaterally with fine rhonchi no crackles or wheezes. Chest Wall: Decreased expansion with deep inspiration no tenderness and no deformity was found on exam, no costochondral pain or discomfort. Heart: Irregular rate and rhythm, S1, S2 positive S3 positive systolic murmur. Back: Mild curvature with scoliosis scar tissue in the lower lumbar area with significant tenderness. Abdomen: Soft, non-tender, positive bowel sound significant hepatomegaly no splenomegaly overactive bowel sound with slight discomfort in the left lower quadrant and mid lower abdominal region area. Extremities: Extremities normal, atraumatic, no cyanosis or edema. Pulses: 2+ and symmetric. Skin: Skin color, texture, tugor normal, no rashes or lesions. Neurologic: Alert oriented with slight confusion cranial nerves II through XII intact, positive weakness of the lower extremity not able to do gait exam. 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 _Paroxysmal atrial fibrillation pulse rates under control currently remain on m etoprolol titrate 50 mg twice a day and Eliquis 2.5 mg twice a day along with Cardizem CD 180 mg daily. _Severe hypokalemia: Was on replacement therapy and done well. _Altered mental status: With much confusion compared to before, Patient has underlying memory loss become quite bit worse at this time. Will continue mirtazapine and eventually will benefit probably from adding donepezil or rivastigmine only reason why patient quit early because of problem with GI complaint, CT of the brain will be done to exclude any possibility of intracranial bleed hemorrhage or stroke. _Abdominal pain with nausea vomiting and diarrhea with possible ischemic colitis, has improved significantly general surgery or not doing any intervention. _COPD: Without exacerbation, Has been on Symbicort and Ventolin continue O2 as well. _Type 2 diabetes: A1c has been in the low 7, continue Farxiga and Accu-Chek with sliding scale coverage. _Severe lower back pain with severe peripheral neuropathy: Resume Cymbalta and gabapentin. She is on Celebrex and not any pain meds lately. _Memory loss: Minimal degree of small vessel disease versus Alzheimer disease, will continue mirtazapine and switch patient or add rivastigmine 1.5 mg titrate up to 3 mg twice a day. _Hyperlipidemia: Will continue atorvastatin 40 mg a day. _GERD: Continue pantoprazole and might add Pepcid if needed. Prognosis: Fair. Discussion patient be seen cardiology, and neurology along with physiatry decide on medical management for now till seen by cardiology and neurology and neurology as an outpatient. Hospital course: Patient was admitted to the hospital on 07/22/2023, Initial symptoms originally were consistent with abdominal discomfort with nausea vomiting diarrhea with significant incontinence worsening shortness of breath with worsening mental status. In the emergency department found to have severe hypokalemia with potassium of 3.0 also continue to have slightly elevated liver function test first troponin came back negative second 1 came back quite elevated slight change with tachycardia and Q waves in the inferior leads and anterolateral leads. The patient is known to have small hiatal hernia on CAT scan no PE was found but found to have hiatal hernia along with PACHECO, liver function test were quite bit abnormal originally. Also found to have colonic diverticulosis with f inding consistent with possible ischemic colitis. General surgery were consulted patient seen and evaluated her symptoms started improving. She was seen cardiology was diagnosed with non-ST ME decided to do medical management, her ejection fraction came back slightly low on echocardiogram consistent with nonischemic cardiomyopathy. Patient was started on medical management medication has done very well with it. She will be discharged home today with home care. Follow-up with neurology and cardiology as an outpatient. Time spent on discharging patient was over 38 minutes. Patient Condition at Discharge: Stable Plan - Discharge Summary Discharge Rx Participant: No New Discharge Prescriptions: New Aspirin 81 mg PO DAILY tab Losartan [Cozaar] 25 mg PO DAILY #30 tab Rivastigmine Tartrate [Rivastigmine] 1.5 mg PO BID #60 capsule Continue Pravastatin Sodium [Pravachol] 40 mg PO DAILY Azelastine HCl [Astepro] 2 spr EA NOSTRIL BID Montelukast Sodium [Singulair] 10 mg PO DAILY Multivitamins, Thera [Multivitamin (formulary)] 1 tab PO DAILY Cholecalciferol [Vitamin D3 (25 Mcg = 1000 Iu)] 25 mcg PO DAILY DULoxetine HCL [Cymbalta] 30 mg PO DAILY Apixaban [Eliquis] 2.5 mg PO BID #60 tab Metoprolol Tartrate [Lopressor] 50 mg PO BID #60 tab Albuterol Sulfate [Albuterol Sulfate Hfa] 2 puff INHALATION RT-Q4H PRN PRN Reason: Shortness Of Breath Diltiazem Cd [Cardizem CD] 180 mg PO DAILY Budesonide/Formoterol Fumarate [Symbicort 160-4.5 Mcg Inhaler] 2 puff INHALATION RT-BID Dapagliflozin Propanediol [Farxiga] 10 mg PO DAILY Omeprazole 40 mg PO AC-BRKFST Gabapentin 600 mg PO HS ALPRAZolam [Xanax] 0.5 mg PO BID PRN 3 Days #6 tab PRN Reason: Anxiety Calcium Citrate(Unknown Dose) 1 tab PO BID Mirtazapine [Remeron] 15 mg PO HS Discontinued Celecoxib [CeleBREX] 200 mg PO BID Discharge Medication List Pravastatin Sodium [Pravachol] 40 mg PO DAILY 10/27/14 [History] Azelastine HCl [Astepro] 2 spr EA NOSTRIL BID 04/02/20 [History] Montelukast Sodium [Singulair] 10 mg PO DAILY 04/02/20 [History] Budesonide/Formoterol Fumarate [Symbicort 160-4.5 Mcg Inhaler] 2 puff INHALATION RT-BID 08/02/20 [History] Diltiazem Cd [Cardizem CD] 180 mg PO DAILY 08/02/20 [History] Dapagliflozin Propanediol [Farxiga] 10 mg PO DAILY 09/02/22 [History] Multivitamins, Thera [Multivitamin (formulary)] 1 tab PO DAILY 09/02/22 [History] Omeprazole 40 mg PO AC-BRKFST 09/02/22 [History] Cholecalciferol [Vitamin D3 (25 Mcg = 1000 Iu)] 25 mcg PO DAILY 10/26/22 [History] DULoxetine HCL [Cymbalta] 30 mg PO DAILY 10/28/22 [History] Gabapentin 600 mg PO HS 12/04/22 [History] Apixaban [Eliquis] 2.5 mg PO BID #60 tab 12/08/22 [Rx] Metoprolol Tartrate [Lopressor] 50 mg PO BID #60 tab 12/09/22 [Rx] ALPRAZolam [Xanax] 0.5 mg PO BID PRN 3 Days #6 tab 12/26/22 [Rx] Albuterol Sulfate [Albuterol Sulfate Hfa] 2 puff INHALATION RT-Q4H PRN 07/22/23 [History] Calcium Citrate(Unknown Dose) 1 tab PO BID 07/22/23 [History] Mirtazapine [Remeron] 15 mg PO HS 07/22/23 [History] Aspirin 81 mg PO DAILY tab 07/26/23 [Rx] Losartan [Cozaar] 25 mg PO DAILY #30 tab 07/26/23 [Rx] Rivastigmine Tartrate [Rivastigmine] 1.5 mg PO BID #60 capsule 07/26/23 [Rx] Follow up Appointment(s)/Referral(s): Shin Marrero DO [STAFF PHYSICIAN] - 1 Week (Office will call once they receive your information to make your follow-up appointment with the cardio logist.) Gilberto Kelly MD [Primary Care Provider] - 07/30/23 11:15 am (Your appointment is with Alejandro) MARY Visiting Nurse, [NON-STAFF] - 1 Week Discharge Disposition: HOME WITH HOME HEALTH SERVICES
== END 2023-07-26 13:10 | disposition home health service (06) | DRG 640 ==
LOC: EC 11:03 → 6NMEDSUR 20:48 → 3SCARD 23:36 → OBSVTOIN 07-23 11:10 → 3SCARD 07-23 14:41
PROVIDERS: ADMIT Internal Medicine Geriatric Medicine; ATTEND Internal Medicine Geriatric Medicine
DX: E87.6 Hypokalemia (principal); I21.A1 Myocardial infarction type 2; F03.93 Unspecified dementia, unspecified severity, with mood disturbance; I42.8 Other cardiomyopathies; I51.81 Takotsubo syndrome; K55.9 Vascular disorder of intestine, unspecified; E11.40 Type 2 diabetes mellitus with diabetic neuropathy, unspecified; K52.9 Noninfective gastroenteritis and colitis, unspecified; E78.5 Hyperlipidemia, unspecified; F32.A Depression, unspecified; G89.29 Other chronic pain; I35.1 Nonrheumatic aortic (valve) insufficiency; I44.0 Atrioventricular block, first degree; I48.0 Paroxysmal atrial fibrillation; J43.9 Emphysema, unspecified; K44.9 Diaphragmatic hernia without obstruction or gangrene; K74.60 Unspecified cirrhosis of liver; M48.04 Spinal stenosis, thoracic region; M47.819 Spondylosis without myelopathy or radiculopathy, site unspecified; K75.81 Nonalcoholic steatohepatitis (NASH); G43.909 Migraine, unspecified, not intractable, without status migrainosus; M75.102 Unspecified rotator cuff tear or rupture of left shoulder, not specified as traumatic; K57.30 Diverticulosis of large intestine without perforation or abscess without bleeding; K21.9 Gastro-esophageal reflux disease without esophagitis; M19.012 Primary osteoarthritis, left shoulder; M81.0 Age-related osteoporosis without current pathological fracture; Z79.01 Long term (current) use of anticoagulants; Z79.1 Long term (current) use of non-steroidal anti-inflammatories (NSAID); Z79.51 Long term (current) use of inhaled steroids; Z79.84 Long term (current) use of oral hypoglycemic drugs; Z79.899 Other long term (current) drug therapy; Z96.652 Presence of left artificial knee joint; Z96.643 Presence of artificial hip joint, bilateral; Z11.52 Encounter for screening for COVID-19; Z98.1 Arthrodesis status; Z88.5 Allergy status to narcotic agent; Z88.0 Allergy status to penicillin; Z88.8 Allergy status to other drugs, medicaments and biological substances; Z91.81 History of falling
CPT/HCPCS: 36415; 70450; 71046; 71275; 72148; 74177; 80048; 80053; 81001; 83605; 83630; 83735; 84132; 84484; 85025; 85027; 85610; 85730; 87045; 87046; 87324; 87636; 93005; 93306; 94640; 94760; 96361; 96374; 99285

== ENCOUNTER → 2023-10-18 | Outpatient (CLI) | payer MEDICARE | LOC: PNWHC3 12:15 | PROVIDERS: ATTEND Specialist | DX: M46.1 Sacroiliitis, not elsewhere classified (principal); M99.63 Osseous and subluxation stenosis of intervertebral foramina of lumbar region; M54.16 Radiculopathy, lumbar region; M47.816 Spondylosis without myelopathy or radiculopathy, lumbar region; Z88.1 Allergy status to other antibiotic agents; Z88.0 Allergy status to penicillin; Z88.5 Allergy status to narcotic agent; Z88.8 Allergy status to other drugs, medicaments and biological substances; Z87.891 Personal history of nicotine dependence | CPT/HCPCS: 99211 ==

== ENCOUNTER → 2023-11-02 | Outpatient (CLI) | payer MEDICARE ==
--- NOTE | 2023-12-01 07:44 | XR ---
Becky Du ID: [id number] : 1935 EXAMINATION TYPE: XR lumbar spine 3V DATE OF EXAM: 11/03/2023 Comparison: None Clinical History: 88-year-old female status post fall with low back and right leg pain Findings: Post surgical change with L1-L5 posterior and interbody fusion. Lateral osseous fusion changes also p resent. No priors available for comparison. There appears to be chronic inferior endplate deformity a t T12 with a interbody ankylosis across T12-L1. Fixed, trace grade 1 retrolisthesis L2-L3 and grade 1 anterolisthesis L3-L4. Otherwise, remaining vertebral body heights are preserved. Extensive vascular calcifications abdominal aorta. Impression: 1. Extensive posterior and interbody lumbar fusion from L1 through L5 levels. 2. Mild anterior wedging of T12 with inferior endplate deformity. Findings suspected to be chronic gi cody the degenerative interbody ankylosis across T12-L1. This can be compared against any available ou tside priors to confirm chronicity. 3. No other vertebral compression collapse.
== END | disposition home or self-care (01) ==
LOC: RADXRMAIN 13:28
PROVIDERS: ATTEND Specialist
DX: M48.54XA Collapsed vertebra, not elsewhere classified, thoracic region, initial encounter for fracture (principal); M24.60 Ankylosis, unspecified joint; M51.16 Intervertebral disc disorders with radiculopathy, lumbar region
CPT/HCPCS: 72100

== ENCOUNTER 2023-11-16 09:23 | Day surgery (SDC) | payer MEDICARE ==
[2023-11-11 15:57] VITALS: BMI 24.8
[2023-11-16 10:31] VITALS: TEMP 97.8
[2023-11-16 10:59] LABS: Glucose,Whole Blood 110 mg/dL (70-110)
[2023-11-16] MEDS ORDERED: DEXAMETHASONE SOD PHOSPHATE 10 MG/ML 1 ML VIAL ONE (11:05)
[2023-11-16] MEDS ORDERED: ROPIVACAINE 5MG/ML 20ML VIAL ONE (11:05)
[2023-11-16] MEDS ORDERED: IOPAMIDOL M300 15ML VIAL ONE (11:05)
--- NOTE | 2023-11-16 11:27 | P.PCN ---
Description of Procedure: PREOPERATIVE DIAGNOSIS: 1-Lumbar radiculopathy . 2-lumbar degenerative disc disease. 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 2-lumbar degenerative disc disease. 3-lumbar spondylosis with facet arthropathy without myelopathy PROCEDURE 1. Transforaminal epidural steroid injection under fluoroscopic guidance at RIGHT L5-S1 level. (Fluoroscopy images stored on file in the radiology Department ) 2. Lumbar epidurogram . ANESTHESIA: Local with 1% lidocaine 5 ml. subcutaneously. Continuous pulse ox, EKG, blood pressure and verbal communication was maintained with the patient. EBL: Minimal PROCEDURE INDICATION: The patient with low back pain and radiculopathy symptoms unresponsive to conservative treatment. The patient was seen and identified in the preoperative area. Risks, benefits, complications, and alternatives were discussed with the patient. The patient agreed to proceed with the procedure and signed the consent. IV was started, and vital signs were stable. PROCEDURE DESCRIPTION / TECHNIQUE: After getting consent, patient was taken to the OR and time out was completed. The patient was placed in the prone position on procedure table and a pillow was placed under the abdomen to reduce lumbar lordosis. The lumbosacral area was prepped and draped in the usual sterile fashion. Critical pause was taken. After injecting 5 mL of plain 1% lidocaine subcutaneously, under oblique view of the fluoroscope, a 22-gauge spinal needle was introduced under the tunnel view of the fluoroscope on the RIGHT side and the needle was advanced so that the tip of the needle was at the posterior inferior quadrant of the intervertebral foramen at the lateral view of the fluoroscope and in the lateral third of the facet column in the AP view of the fluoroscope. Negative CSF, negative blood, negative paresthesia. After needle position confirmation by AP and cross table lateral view, 3 mL of Isovue-M 200 contrast was injected under continuous fluoroscope. No contrast was noted in the intrathecal or intravascular space. The epidurogram was noted. Again after repeated negative aspiration 2.5 mL solution was injected which consists 1.5 mL of normal saline mixed with 1 mL of 20 mg dexamethasone. Needle was removed. At the end of the procedure, skin was cleansed, and bandages were applied. DISPOSITION / PLANS: No complication. The patient tolerated the procedure well. The patient was placed in a supine position and transferred to the recovery area in a stable condition for observation. There was no evidence of lower extremity motor or sensory deficit after the procedure. Patient was discharged from the recovery room after meeting discharge criteria. Home discharge instructions were given to the patient by the staff. The patient was reexamined prior to discharge. Please schedule next injection as caudal epidural steroid injection.
[2023-11-16 11:43] VITALS: BP 139/79; PULSE 76; RESP 16
--- NOTE | 2023-12-14 18:20 | FL ---
EXAMINATION TYPE: FL guided pain mgmt statistic DATE OF EXAM: 11/16/2023 11:30 AM COMPARISON: Pre Operative Images if available both CT/MRI or plain film CLINICAL INDICATION: Female, 88 years old with history of TRANSFORAMINAL EPI; TECHNIQUE: FL guided pain mgmt statistic, multiple fluoroscopic images provided for procedure. Total fluoroscopy time: 22.1 seconds Total submitted images to PACS: 2 DAP: [id number] mGym2 Gycm2 uGym2 cGycm2 or equivalent. FINDINGS: Fluoroscopic images during injection for pain management demonstrate multilevel degeneration changes throughout the spine. No evidence for fracture. No acute process identified. IMPRESSION: 1. No evidence for intraoperative complication. 2. Please see the operative/procedural note for further details. [facility], , 12/14/2023 6:17 PM
== END 2023-11-16 11:57 | disposition home or self-care (01) ==
LOC: ORPAIN 09:23
PROVIDERS: ATTEND Pain Medicine Interventional Pain Medicine
DX: M47.26 Other spondylosis with radiculopathy, lumbar region (principal); M51.16 Intervertebral disc disorders with radiculopathy, lumbar region
CPT/HCPCS: 64483

== ENCOUNTER → 2023-12-02 | Outpatient (CLI) | payer MEDICARE ==
[2023-12-02 12:54] VITALS: BP 122/69; PULSE 79; RESP 16; TEMP 96.8
--- NOTE | 2023-12-02 13:26 | P.PAINPG ---
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 Pt states she experienced % pain relief x 2 wks s/p procedure. Pain level is provoked at 9/10 in intensity, predominantly axial, constant, localized in the cervical spine, sharp in character w occasional shooting towards the R shoulder. Pain is provoked by hyperextension, lifting. Pain is alleviated with PT x 8 wks which ended in Sep 2023, physician guided stretches daily since July 2022, medications, injections in the past, repositioning and rest. Interventional pain procedures completed include POWER C7-T1 x3, POWER L5-S1 x1, R TFESI L5-S1 x1 Patient is currently on Tramadol, Baclofen, Ibu Patient denies any side effects of the medication(s), denies excessive drowsiness or sleepiness, denies suicidal ideation and reports that the current pain medication is helping to control the pain and improve activities of daily living. Patient denies any motor or sensory deficits. Patient denies any fever or night sweats, denies any change in the bowel movements or urination. Physical Examination: -Constitutional: Cooperative. Not in acute distress . - Neurologic: Cranial nerve II to XII intact. No focal neurological deficits. - Psychatric: Alert & oriented x 3. Matching mood & appropriate affect. Judgment and insight intact. - Musculoskeletal: Cervical spine: Muscle bulk/ tone/ strength in the bilateral upper extremities normal Vertebral body tenderness to palpation over Spurling test positive Distraction test positive Facet loading test positive TTP Thoracic spine Muscle bulk / tone/ strength in the bilateral paraspinal muscles normal Vertebral body tender to palpation over Facet loading test positive TTP Lumbar spine: Motor bulk/ tone/ strength lower extremities , thigh and legs : 5/5 Deep tendon reflexes : Normal Knee Jerk. Normal Ankle Jerk . Vertebral body tenderness to palpation over L5 Trevizo test positive R L5-S1 Lumbar Facet Loading Test positive Straight Leg Raise: positive at 30 degrees right side/ left side Gaenslen's Test positive Sacral spine : Severe tenderness over the Sacroiliac joint: right side / left side Range of motion: Flexion of the lumbar spine <60 degrees Range of motion: Extension of the lumbar spine <20 degrees Gaenslen's Test positive R / L Shanique test: positive right side / left side Thigh Thrust Test positive R / L Sacral Thrust Test positive R/ L Imaging: MRI non contrast of the lumbar spine from 08/28/22 reviewed Assessment and plan: Chronic LBP secondary to post laminectomy syndrome Recommendation of R paramedian POWER L5-S1 #2 . Risks, benefits of pr ocedure discussed and pt verbalized understanding. Admits to anticoagulant use or medical history of diabetes. Protocol for discontinuation/ continuation of medications janice procedure discussed. Pt verbalized understanding. All questions answered. I have spent less than 30 minutes on patient care today. Dr John was available by phone for the evaluation of this patient. The time was used to re view the medical records including relevant urine studies and Prescription history (MAPs), review of the available imaging, evaluation and examination of the patient, coordination of care with the medical staff and if applicable referring physicians, as well as creation of the medical record PQRS Narrative: Smoking Status Former smoker Hx Alcohol Use (MH) Yes Home Medications: Ambulatory Orders Pravastatin Sodium [Pravachol] 40 mg PO DAILY 10/27/14 Azelastine HCl [Astepro] 2 spr EA NOSTRIL BID 04/02/20 Montelukast Sodium [Singulair] 10 mg PO DAILY 04/02/20 Budesonide/Formoterol Fumarate [Symbicort 160-4.5 Mcg Inhaler] 2 puff INHALATION RT-BID 08/02/20 Diltiazem Cd [Cardizem CD] 180 mg PO DAILY 08/02/20 Multivitamins, Thera [Multivitamin (formulary)] 1 tab PO DAILY 09/02/22 Omeprazole 40 mg PO AC-BRKFST 09/02/22 Cholecalciferol [Vitamin D3 (25 Mcg = 1000 Iu)] 25 mcg PO DAILY 10/26/22 Gabapentin 600 mg PO HS 12/04/22 Metoprolol Tartrate [Lopressor] 50 mg PO BID #60 tab 12/09/22 ALPRAZolam [Xanax] 0.5 mg PO BID PRN 3 Days #6 tab 12/26/22 Albuterol Sulfate [Albuterol Sulfate Hfa] 2 puff INHALATION RT-Q4H PRN 07/22/23 Calcium Citrate(Unknown Dose) 1 tab PO BID 07/22/23 Mirtazapine [Remeron] 15 mg PO HS 07/22/23 Aspirin 81 mg PO DAILY tab 07/26/23 SUMAtriptan succinate [Imitrex] 25 mg PO ONCE PRN 11/11/23 Controlled Substance Measures - Controlled Substance Measures Is patient prescribed a controlled substance at discharge?: No
== END ==
LOC: PNWHC3 12:07
PROVIDERS: ATTEND Specialist
DX: M54.16 Radiculopathy, lumbar region
CPT/HCPCS: 99211

== ENCOUNTER → 2023-12-22 | Outpatient (CLI) | payer MEDICARE ==
[2023-12-22 13:30] VITALS: BP 137/83; PULSE 83; RESP 17
--- NOTE | 2023-12-22 14:38 | P.PAINPG ---
PQRS Measure Charge Sheet Comment: A 87 yr old female w at side with a history of severe and chronic LBP secondary to post laminectomy syndrome and fall in July 2022 presents today for evaluation s/p R paramedian POWER L5-S1 #2. Pt states she experienced 0 % pain relief s/p procedure. Pain level is provoked at 8 /10 in intensity, predo minantly axial, constant, localized in the lumbar spine, sharp in character w occasional shooting towards the R hip and RLE. Pain is provoked by hyperextension, lifting. Pain is alleviated with PT x 8 wks which ended in Sep 2023 (lumbar), physician guided stretches daily since July 2022 (cervical, lumbar), medications, injections in the past, repositioning and rest. Interventional pain procedures completed include POWER C7-T1 x3, POWER L5-S1 x1, R TFESI L5-S1 x1, R paramedian POWER L5-S1 x1 (Nov 2023) Patient is currently on Tramadol, Baclofen, Ibu Patient denies any side effects of the medication(s), denies excessive drowsiness or sleepiness, denies suicidal ideation and reports that the current pain medication is helping to control the pain and improve activities of daily living. Patient denies any motor or sensory deficits. Patient denies any fever or night sweats, denies any change in the bowel movements or urination. Physical Examination: -Constitutional: Cooperative. Not in acute distress . - Neurologic: Cranial nerve II to XII intact. No focal neurological deficits. - Psychatric: Alert & oriented x 3. Matching mood & appropriate affect. Judgment and insight intact. - Musculoskeletal: Cervical spine: Muscle bulk/ tone/ strength in the bilateral upper extremities normal Vertebral body tenderness to palpation over Spurling test positive Distraction test positive Facet loading test positive TTP Thoracic spine Muscle bulk / tone/ strength in the bilateral paraspinal muscles normal Vertebral body tender to palpation over Facet loading test positive TTP Lumbar spine: Motor bulk/ tone/ strength lower extremities , thigh and legs : 5/5 Deep tendon reflexes : Normal Knee Jerk. Normal Ankle Jerk . Vertebral body tenderness to palpation over L5 Trevizo test positive R L5-S1 Lumbar Facet Loading Test positive Straight Leg Raise: positive at 30 degrees right side/ left side Gaenslen's Test positive Sacral spine : Severe tenderness over the Sacroiliac joint: right side / left side Range of motion: Flexion of the lumbar spine <60 degrees Range of motion: Extension of the lumbar spine <20 degrees Gaenslen's Test positive R / L Shanique test: positive right side / left side Thigh Thrust Test positive R / L Sacral Thrust Test positive R/ L Imaging: MRI non contrast of the lumbar spine from 08/28/22 reviewed Assessment and plan: Chronic LBP secondary to post laminectomy syndrome Recommendation of R TFESI L5-S1 #3. Risks, benefits of procedure discussed and pt verbalized understanding. Admits to anticoagulant use or medical history of diabetes. Protocol for discontinuation/ continuation of medications janice procedure discussed. Pt verbalized understanding. All questions answered. I have spent less than 30 minutes on patient care today. Dr John was available by phone for the evaluation of this patient. The time was used to review the medical records including relevant urine studies and Prescription history (MAPs), review of the available imaging, evaluation and examination of the patient, coordination of care with the medical staff and if applicable referring physicians, as well as creation of the medical record PQRS Narrative: Smoking Status Former smoker Hx Alcohol Use (MH) Yes Home Medications: Ambulatory Orders Pravastatin Sodium [Pravachol] 40 mg PO DAILY 10/27/14 Azelastine HCl [Astepro] 2 spr EA NOSTRIL BID 04/02/20 Montelukast Sodium [Singulair] 10 mg PO DAILY 04/02/20 Budesonide/Formoterol Fumarate [Symbicort 160-4.5 Mcg Inhaler] 2 puff INHALATION RT-BID 08/02/20 Diltiazem Cd [Cardizem CD] 180 mg PO DAILY 08/02/20 Multivitamins, Thera [Multivitamin (formulary)] 1 tab PO DAILY 09/02/22 Omeprazole 40 mg PO AC-BRKFST 09/02/22 Cholecalciferol [Vitamin D3 (25 Mcg = 1000 Iu)] 25 mcg PO DAILY 10/26/22 Gabapentin 600 mg PO HS 12/04/22 Metoprolol Tartrate [Lopressor] 50 mg PO BID #60 tab 12/09/22 ALPRAZolam [Xanax] 0.5 mg PO BID PRN 3 Days #6 tab 12/26/22 Albuterol Sulfate [Albuterol Sulfate Hfa] 2 puff INHALATION RT-Q4H PRN 07/22/23 Calcium Citrate(Unknown Dose) 1 tab PO BID 07/22/23 Mirtazapine [Remeron] 15 mg PO HS 07/22/23 Aspirin 81 mg PO DAILY tab 07/26/23 SUMAtriptan succinate [Imitrex] 25 mg PO ONCE PRN 11/11/23 Controlled Substance Measures - Controlled Substance Measures Is patient prescribed a controlled substance at discharge?: No
== END ==
LOC: PNWHC3 12:58
PROVIDERS: ATTEND Specialist
DX: M47.816 Spondylosis without myelopathy or radiculopathy, lumbar region (principal); M96.1 Postlaminectomy syndrome, not elsewhere classified; Z87.891 Personal history of nicotine dependence; Z88.1 Allergy status to other antibiotic agents; Z88.0 Allergy status to penicillin; Z88.8 Allergy status to other drugs, medicaments and biological substances; Z88.5 Allergy status to narcotic agent
CPT/HCPCS: 99211

== ENCOUNTER 2024-01-11 11:58 | Day surgery (SDC) | payer MEDICARE ==
[2024-01-10 12:11] VITALS: BMI 25.6
[2024-01-11 13:08] VITALS: TEMP 97.3
[2024-01-11 13:15] LABS: Glucose,Whole Blood 113 mg/dL (70-110)
[2024-01-11] MEDS ORDERED: DEXAMETHASONE SOD PHOSPHATE 10 MG/ML 1 ML VIAL ONE (14:06)
[2024-01-11] MEDS ORDERED: IOPAMIDOL M300 15ML VIAL ONE (14:06)
[2024-01-11] MEDS ORDERED: ROPIVACAINE 5MG/ML 20ML VIAL ONE (14:06)
[2024-01-11 14:29] VITALS: RESP 14
--- NOTE | 2024-01-11 14:36 | P.PCN ---
Description of Procedure: PREOPERATIVE DIAGNOSIS: 1-Lumbar radiculopathy . 2-lumbar degenerative disc disease. 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 2-lumbar degenerative disc disease. 3-lumbar spondylosis with facet arthropathy without myelopathy PROCEDURE 1. Transforaminal epidural steroid injection under fluoroscopic guidance at RIGHT L5-S1 level. (Fluoroscopy images stored on file in the radiology Department ) 2. Lumbar epidurogram . ANESTHESIA: Local with 1% lidocaine 5 ml. subcutaneously. Continuous pulse ox, EKG, blood pressure and verbal communication was maintained with the patient. EBL: Minimal PROCEDURE INDICATION: The patient with low back pain and radiculopathy symptoms unresponsive to conservative treatment. The patient was seen and identified in the preoperative area. Risks, benefits, complications, and alternatives were discussed with the patient. The patient agreed to proceed with the procedure and signed the consent. IV was started, and vital signs were stable. PROCEDURE DESCRIPTION / TECHNIQUE: After getting consent, patient was taken to the OR and time out was completed. The patient was placed in the prone position on procedure table and a pillow was placed under the abdomen to reduce lumbar lordosis. The lumbosacral area was prepped and draped in the usual sterile fashion. Critical pause was taken. After injecting 5 mL of plain 1% lidocaine subcutaneously, under oblique view of the fluoroscope, a 22-gauge spinal needle was introduced under the tunnel view of the fluoroscope on the RIGHT side and the needle was advanced so that the tip of the needle was at the posterior inferior quadrant of the intervertebral foramen at the lateral view of the fluoroscope and in the lateral third of the facet column in the AP view of the fluoroscope. Negative CSF, negative blood, negative paresthesia. After needle position confirmation by AP and cross table lateral view, 3 mL of Isovue-M 200 contrast was injected under continuous fluoroscope. No contrast was noted in the intrathecal or intravascular space. The epidurogram was noted. Again after repeated negative aspiration 2.5 mL solution was injected which consists 0.5 mL of normal saline mixed with 2 mL of 20 mg dexamethasone. Needle was removed . At the end of the procedure, skin was cleansed, and bandages were applied. DISPOSITION / PLANS: No complication. The patient tolerated the procedure well. The patient was placed in a supine position and transferred to the recovery area in a stable condition for observation. There was no evidence of lower extremity motor or sensory deficit after the procedure. Patient was discharged from the recovery room after meeting discharge criteria. Home discharge instructions were given to the patient by the staff. The patient was reexamined prior to discharge.
--- NOTE | 2024-01-11 14:41 | FL ---
EXAMINATION TYPE: FL guided pain mgmt statistic DATE OF EXAM: 01/11/2024 FLUOROSCOPY TRANSFORAMINAL LUMBAR EPI INJECTION. fl time 50.7 seconds. DAP [id number]. 1 image sent into PACS. Dr. Michael Rivera. [facility], , 01/11/2024 2:39 PM
[2024-01-11 14:42] VITALS: BP 163/89; PULSE 83
== END 2024-01-11 14:55 | disposition home or self-care (01) ==
LOC: ORPAIN 11:58
PROVIDERS: ATTEND Pain Medicine Interventional Pain Medicine
DX: M51.16 Intervertebral disc disorders with radiculopathy, lumbar region (principal); M47.26 Other spondylosis with radiculopathy, lumbar region
CPT/HCPCS: 64483; J1100; Q9967; J2795

== ENCOUNTER → 2024-01-26 | Outpatient (CLI) | payer MEDICARE ==
--- NOTE | 2024-01-26 13:02 | XR ---
EXAMINATION TYPE: XR lumbar spine 2 or 3V DATE OF EXAM: 01/26/2024 12:53 PM COMPARISON: 11/02/2023 CLINICAL INDICATION: Female, 88 years old with history of M48.07 SPINAL STENOSIS LUMBOSACRAL REGION, TECHNIQUE: 3 view(s) obtained. FINDINGS: Pedicle screws are present L1-L5. Disc spaces are present L4-5 and L5-S1. Laminectomies appear to be present 3 to L5. There is a compression deformity of T12. This is stable from comparison. Degenerativ e disc changes are present throughout the lumbar spine. There is loss of disc height at L1-L2. IMPRESSION: 1. Stable postsurgical change lumbar spine. 2. Compression deformity of L1 appears stable. [facility], , 01/26/2024 1:00 PM
== END | disposition home or self-care (01) ==
LOC: RADXRMAIN 12:32
PROVIDERS: ATTEND Internal Medicine Geriatric Medicine
DX: M48.56XA Collapsed vertebra, not elsewhere classified, lumbar region, initial encounter for fracture (principal); M48.07 Spinal stenosis, lumbosacral region
CPT/HCPCS: 72100

== ENCOUNTER 2024-05-09 12:22 | Day surgery (SDC) | payer MEDICARE ==
[2024-05-08 14:36] VITALS: BMI 28.9
[2024-05-09 13:31] VITALS: RESP 18; TEMP 97.9
[2024-05-09] MEDS ORDERED: DEXAMETHASONE SOD PHOSPHATE 10 MG/ML 1 ML VIAL ONE (13:48)
[2024-05-09] MEDS ORDERED: IOPAMIDOL M200 10 ML VIAL ONE (13:48)
--- NOTE | 2024-05-09 14:10 | P.PCN ---
Date of Procedure: 05/09/24 Description of Procedure: PREOPERATIVE DIAGNOSIS: Lumbar radiculopathy, and lumbar postlaminectomy syndrome. POSTOPERATIVE DIAGNOSIS: Lumbar radiculopathy and lumbar postlaminectomy syndrome. PROCEDURE: 1) right sided L5-S1 Transforaminal epidural steroid injection under fluoroscopic guidance , 2) Epidurogram SURGEON: Ashwin Benítez PRE FABRICATOR: None ANESTHESIA: Local with 3 mL of 1% lidocaine, and IV sedationas: None EBL: None. Specimen removed: None Fluoroscopic image: Saved to electronic medical records PROCEDURE INDICATION: The patient with continued lumbar pain with radiculopathy, and intervertebral disc disease without myelopathy that has failed to respond to adequate conservative management. Came here for repeat procedure. PROCEDURE DESCRIPTION: The patient was seen and identified in the preoperative area. Risks, benefits, complications, and alternatives were discussed with the patient. The patient agreed to proceed with the procedure and signed the consent. IV was started, and vital signs were stable. Patient was taken to the OR and time out was completed. The patient was placed in the prone position on procedure table and a pillow was placed under the abdomen to reduce lumbar lordosis. The lumbosacral area was prepped with ChloraPrep 1 and draped in the usual sterile fashion. Critical pause was taken. Vital signs were closely monitored during the procedure. Using 20 degree ipsilateral oblique fluoroscopy, the chin of the Connor dog of L5 was identified, hardware completely covering. the skin and deeper tissues just below was localized with 1% lidocaine. 23-guage 3.5-inch spinal needle was used for the procedure. The needle was guided by fluoroscopy just underneath the chin of the Connor dog of L5. Under AP fluoroscopy, the needle was advanced to the 6 o'clock position of the right side L5 pedicle , in lateral view the tip of the needle position conformed. After negative aspiration of CSF and blood and with no paresthesias, 1 mL of Isovue-200 contrast dye was injected at each level with excellent anterior epidural spread and outlining of the L5 nerve root, 3 mL of block solution was injected. Block solution contained 10 Mg of dexamethasone, and 2 mL of normal saline preservative-free. Needle was removed intact, skin was cleansed, and bandages were applied. COMPLICATIONS: None. DISPOSITION : The patient was placed in a supine position and transferred to the recovery area in a stable condition for observation and was discharged from the recovery room after meeting discharge criteria. Home discharge instructions given to the patient by the staff. The patient was reexamined prior to discharge. The patient will schedule follow-up in the clinic in 4 weeks' duration
--- NOTE | 2024-05-09 14:21 | FL ---
Fluoroscopy INDICATION: Pain FINDINGS: Fluoroscopy time: 14.1 seconds. Total dose area product (DAP) in uGy*m?, mGy*cm? (or similar): 0.95444 Images obtained: 3. Images demonstrate placement of pedicle screws and fixation rods and disc spacers. IMPRESSION: 1. Documentation of fluoroscopy. [facility], , 05/09/2024 2:18 PM
[2024-05-09 14:42] VITALS: BP 176/89; PULSE 67
== END 2024-05-09 14:45 | disposition home or self-care (01) ==
LOC: ORPAIN 12:22
DX: M54.16 Radiculopathy, lumbar region (principal); M96.1 Postlaminectomy syndrome, not elsewhere classified; Z88.5 Allergy status to narcotic agent; Z88.6 Allergy status to analgesic agent; Z88.1 Allergy status to other antibiotic agents; Z88.8 Allergy status to other drugs, medicaments and biological substances; Z88.0 Allergy status to penicillin; Z79.1 Long term (current) use of non-steroidal anti-inflammatories (NSAID)
CPT/HCPCS: 64483; J1100; Q9966

== ENCOUNTER → 2024-05-22 | Outpatient (CLI) | payer MEDICARE ==
[2024-05-22 13:48] VITALS: BP 127/77; PULSE 69; RESP 15; TEMP 97.2
--- NOTE | 2024-05-22 16:51 | P.PAINPG ---
PQRS Measure Charge Sheet Comment: A 88 yr old wheelchair bound female w at side with a history of severe and chronic LBP secondary to post laminectomy syndrome and fall in July 2022 presents today for evaluation s/p R TFESI L5-S1 #1. Pt states she experienced 50 % pain relief x 2 wks s/p procedure. Pain level is provoked at 4-6 /10 in intensity, predominantly axial, constant, localized in the lumbar spine, sharp in character w occasional shooting towards the R hip, R buttock and RLE. Pain is provoked by hyperextension, lifting. Pain is alleviated with PT x 8 wks which ended in Sep 2023 (lumbar), physician guided stretches daily since July 2022 (cervical, lumbar), medications, injections in the past, use of a wheelchair for ambulatory assistance, repositioning and rest. Interventional pain procedures completed include POWER C7-T1 x3, POWER L5-S1 x1, R TFESI L5-S1 x3 (01/05, 05/09), R paramedian POWER L5-S1 x1 (Nov 2023) Patient is currently on Tramadol, Baclofen, Ibu Patient denies any side effects of the medication(s), denies excessive drowsiness or sleepiness, denies suicidal ideation and reports that the current pain medication is helping to control the pain and improve activities of daily living. Patient denies any motor or sensory deficits. Patient denies any fever or night sweats, denies any change in the bowel movements or urination. Physical Examination: -Constitutional: Cooperative. Not in acute distress . - Neurologic: Cranial nerve II to XII intact. No focal neurological deficits. - Psychatric: Alert & oriented x 3. Matching mood & appropriate affect. Judgment and insight intact. - Musculoskeletal: Cervical spine: Muscle bulk/ tone/ strength in the bilateral upper extremities normal Vertebral body tenderness to palpation over Spurling test positive Distraction test positive Facet loading test positive TTP Thoracic spine Muscle bulk / tone/ strength in the bilateral paraspinal muscles normal Vertebral body tender to palpation over Facet loading test positive TTP Lumbar spine: Motor bulk/ tone/ strength lower extremities , thigh and legs : 5/5 Deep tendon reflexes : Normal Knee Jerk. Normal Ankle Jerk . Vertebral body tenderness to palpation over L5 Trevizo test positive R L4-L5/ L5-S1 Lumbar Facet Loading Test positive Straight Leg Raise: positive at 30 degrees right side/ left side Gaenslen's Test positive Sacral spine : Severe tenderness over the Sacroiliac joint: right side / left side Range of motion: Flexion of the lumbar spine <60 degrees Range of motion: Extension of the lumbar spine <20 degrees Gaenslen's Test positive R / L Shanique test: positive right side / left side Thigh Thrust Test positive R / L Sacral Thrust Test positive R/ L Imaging: MRI non contrast of the lumbar spine from 08/28/22 reviewed Assessment and plan: Chronic LBP secondary to post laminectomy syndrome Recommendation of R TFESI L4-L5/ L5-S1 #3. Risks, benefits of procedure discussed and pt verbalized understanding. Admits to anticoagulant use or medical history of diabetes. Protocol for discontinuation/ continuation of medications janice procedure discussed. Tyl #3 NR. Use, side effects, adverse holly ctions, safe storage discussed. Pt verbalized understanding. All questions answered. I have spent less than 30 minutes on patient care today. Dr John was available by phone for the evaluation of this patient. The time was used to review the medical records including relevant urine studies and Prescription history (MAPs), review of the available imaging, evaluation and examination of the patient, coordination of care with the medical staff and if applicable referring physicians, as well as creation of the medical record PQRS Narrative: Smoking Status Former smoker Narcotic Agreement Date Signed 12/22/23 Hx Alcohol Use (MH) Yes Home Medications: Ambulatory Orders Azelastine HCl [Astepro] 2 spr EA NOSTRIL BID 04/02/20 Montelukast Sodium [Singulair] 10 mg PO DAILY 04/02/20 Budesonide/Formoterol Fumarate [Symbicort 160-4.5 Mcg Inhaler] 2 puff INHALATION RT-BID 08/02/20 Diltiazem Cd [Cardizem CD] 180 mg PO QAM 08/02/20 Multivitamins, Thera [Multivitamin (formulary)] 1 tab PO DAILY 09/02/22 Omeprazole 40 mg PO AC-BRKFST 09/02/22 Cholecalciferol [Vitamin D3 (25 Mcg = 1000 Iu)] 25 mcg PO DAILY 10/26/22 Gabapentin 600 mg PO HS 12/04/22 Metoprolol Tartrate [Lopressor] 50 mg PO BID #60 tab 12/09/22 ALPRAZolam [Xanax] 0.5 mg PO BID PRN 3 Days #6 tab 12/26/22 Calcium Citrate(Unknown Dose) 1 tab PO BID 07/22/23 Mirtazapine [Remeron] 15 mg PO HS 07/22/23 SUMAtriptan succinate [Imitrex] 25 mg PO ONCE PRN 11/11/23 Ibuprofen(Unknown) 1 dose PO Q8H PRN 01/10/24 Atorvastatin [Lipitor] 10 mg PO DAILY 05/09/24 Losartan [Cozaar] 25 mg PO DAILY 05/09/24 Acetaminophen-Codeine 300-30mg [Tylenol w/codeine #3] 1 tab PO Q4H PRN 3 Days #18 tablet 05/22/24 Controlled Substance Measures - Controlled Substance Measures Is patient prescribed a controlled substance at discharge?: Yes When asked, does pt state using other controlled substances?: No If prescribed controlled substance>3 days was MAPS reviewed?: Prescribed <3 Days
== END ==
LOC: PNWHC3 13:27
PROVIDERS: ATTEND Specialist
DX: M96.1 Postlaminectomy syndrome, not elsewhere classified (principal); G89.29 Other chronic pain; Z87.891 Personal history of nicotine dependence; Z88.1 Allergy status to other antibiotic agents; Z88.8 Allergy status to other drugs, medicaments and biological substances; Z88.0 Allergy status to penicillin; Z88.5 Allergy status to narcotic agent
CPT/HCPCS: 99212

== ENCOUNTER 2024-06-13 12:27 | Day surgery (SDC) | payer MEDICARE ==
[2024-06-13] MEDS ORDERED: LACTATED RINGERS 1,000 ML IV SCH (12:39)
[2024-06-13] MEDS ORDERED: IOPAMIDOL M200 10 ML VIAL ONE (12:52)
[2024-06-13] MEDS ORDERED: methylPREDNISolone ACETATE 40 MG/ML 1 ML VIAL ONE (12:52)
[2024-06-13 13:00] VITALS: RESP 16; TEMP 97.3
[2024-06-13 13:08] LABS: Glucose,Whole Blood 158 mg/dL (70-110)
--- NOTE | 2024-06-13 13:38 | P.PCN ---
Date of Procedure: 06/13/24 Procedure(s) Performed: PREOPERATIVE DIAGNOSIS: 1-Lumbar radiculopathy . 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 POSTOPERATIVE DIAGNOSIS: Same as preop diagnosis PROCEDURE 1. Transforaminal epidural steroid injection under fluoroscopic guidance at right L4-5, and right L5-S1 level. (Fluoroscopy images stored on file in the radiology Department ) 2. Lumbar epidurogram . ANESTHESIA: Local with 1% lidocaine 3 ml. EBL: Minimal PROCEDURE INDICATION: The patient with low back pain and radiculopathy symptoms unresponsive to conservative treatment. PROCEDURE DESCRIPTION / TECHNIQUE: The patient was seen and identified in the preoperative area. Risks, benefits, complications, and alternatives were discussed with the patient. The patient agreed to proceed with the procedure and signed the consent. IV was started, and vital signs were stable. Patient was taken to the OR and time out was completed. The patient was placed in the prone position on procedure table and a pillow was placed under the abdomen to reduce lumbar lordosis. The lumbosacral area was prepped and draped in the usual sterile fashion. Critical pause was taken. Vital signs were closely monitored during the procedure. Using oblique fluoroscopy, the chin of the ``Connor dog at right L4-5 level was identified, and the skin and deeper tissues just below was localized with 1% lidocaine. Subsequently, a 22-gauge 5-inch spinal needle was advanced under a tunneled view fluoroscopic guidance just underneath the chin of the ``Connor dog at the right L4-5 Under lateral fluoroscopy, the needle was then advanced to the posterior border of the interforaminal space. After negative aspiration of CSF and blood and with no paresthesias, 1 mL Isovue 200 contrast dye was injected excellent epidurogram and outlining of the nerve root Subsequently, 3 mL of block solution containing 20 mg Depo-Medrol and 2 mL of 0.9% normal saline PF was injected. Needle was removed and the same procedure was repeated at the right L5-S1 level . At the end of the procedure, skin was cleansed, and bandages were applied. COMPLICATIONS:none DISPOSITION / PLANS: The patient was placed in a supine position and transferred to the recovery area in a stable condition for observation. There was no evidence of lower extremity motor or sensory deficit after the procedure. Patient was discharged from the recovery room after meeting discharge criteria. Home discharge instructions were given to the patient by the staff. The patient was reexamined prior to discharge.
--- NOTE | 2024-06-13 13:51 | FL ---
EXAMINATION TYPE: FL guided pain mgmt statistic DATE OF EXAM: 06/13/2024 1:45 PM COMPARISON: Pre Operative Images if available both CT/MRI or plain film CLINICAL INDICATION: Female, 88 years old with history of TRANSFORAMINAL EPI; TECHNIQUE: FL guided pain mgmt statistic, multiple fluoroscopic images provided for procedure. DAP: 0.48671 mGym2 Gycm2 uGym2 cGycm2 or equivalent. FINDINGS: Fluoroscopic images during injection for pain management demonstrate multilevel degeneration changes throughout the spine. No evidence for fracture. No acute process identified. IMPRESSION: 1. No evidence for intraoperative complication. 2. Please see the operative/procedural note for further details. [facility], , 06/13/2024 1:48 PM
[2024-06-13 14:02] VITALS: BP 122/77; PULSE 68
== END 2024-06-13 14:04 | disposition home or self-care (01) ==
LOC: ORPAIN 12:27
PROVIDERS: ATTEND Specialist
DX: M54.16 Radiculopathy, lumbar region (principal); Z88.0 Allergy status to penicillin; Z88.1 Allergy status to other antibiotic agents; Z88.5 Allergy status to narcotic agent; Z88.8 Allergy status to other drugs, medicaments and biological substances
CPT/HCPCS: 64483; 64484; Q9966; J1010

== ENCOUNTER → 2024-07-03 | Outpatient (CLI) | payer MEDICARE ==
[2024-07-03 13:06] VITALS: BP 122/76; PULSE 81; RESP 16
--- NOTE | 2024-07-03 14:31 | P.PAINPG ---
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 Pt states she experienced 80 % pain relief x 2-3 wks s/p procedure. Pain level is provoked at 8 /10 in intensity, predominantly axial, constant, localized in the lumbar spine, sharp in character w occasional shooting towards the R hip, R buttock and RLE. Pain is provoked by hyperextension, lifting. Pain is alleviated with PT x 8 wks which ended in Sep 2023 (lumbar), physician guided stretches daily since July 2022 (cervical, lumbar), medications, injections in the past, use of a wheelchair for ambulatory assistance, repositioning and rest. Will limit steroid injections until Fall 2024. Interventional pain procedures completed include POWER C7-T1 x3, POWER L5-S1 x1, R TFESI L5-S1 x3 (01/05, 05/09), R paramedian POWER L5-S1 x1 (Nov 2023) Patient is currently on Tramadol, Baclofen, Ibu Patient denies any side effects of the medication(s), denies excessive drowsiness or sleepiness, denies suicidal ideation and reports that the current pain medication is helping to control the pain and improve activities of daily living. Patient denies any motor or sensory deficits. Patient denies any fever or night sweats, denies any change in the bowel movements or urination. Physical Examination: -Constitutional: Cooperative. Not in acute distress . - Neurologic: Cranial nerve II to XII intact. No focal neurological deficits. - Psychatric: Alert & oriented x 3. Matching mood & appropriate affect. Judgment and insight intact. - Musculoskeletal: Cervical spine: Muscle bulk/ tone/ strength in the bilateral upper extremities normal Vertebral body tenderness to palpation over Spurling test positive Distraction test positive Facet loading test positive TTP Thoracic spine Muscle bulk / tone/ strength in the bilateral paraspinal muscles normal Vertebral body tender to palpation over Facet loading test positive TTP Lumbar spine: Motor bulk/ tone/ strength lower extremities , thigh and legs : 5/5 Deep tendon reflexes : Normal Knee Jerk. Normal Ankle Jerk . Vertebral body tenderness to palpation over L5 Trevizo test positive R L4-L5/ L5-S1 Lumbar Facet Loading Test positive Straight Leg Raise: positive at 30 degrees right side/ left side Gaenslen's Test positive Sacral spine : Severe tenderness over the Sacroiliac joint: right side / left side Range of motion: Flexion of the lumbar spine <60 degrees Range of motion: Extension of the lumbar spine <20 degrees Gaenslen's Test positive R / L Shanique test: positive right side / left side Thigh Thrust Test positive R / L Sacral Thrust Test positive R/ L Imaging: MRI non contrast of the lumbar spine from 08/28/22 reviewed Assessment and plan: Chronic LBP secondary to post laminectomy syndrome Recommendation of medication management. Opiate/ narcotic agreement signed 07/03/24. Tylenol #3 #30 w 1 RF. Use, side effects, adverse reactions and safe storage discussed. Pt verbalized understanding. All questions answered. I have spent less than 30 minutes on patient care today. Dr John was available by phone for the evaluation of this patient. The time was used to review the medical records including relevant urine studies and Prescription history (MAPs), review of the available imaging, evaluation and examination of the patient, coordination of care with the medical staff and if applicable referring physicians, as well as creation of the medical record - Pain Location Right Lower Back Non-Pharmacological Interventions: Chiropractic Treatment, Inactivity, Physical Therapy, Position/Reposition, Sitting, Standing Pharmacological Interventions: Epidural, PRN Medication PQRS Narrative: Smoking Status Former smoker Narcotic Agreement Date Signed 12/22/23 Hx Alcohol Use (MH) Yes Home Medications: Ambulatory Orders Azelastine HCl [Astepro] 2 spr EA NOSTRIL BID 04/02/20 Budesonide/Formoterol Fumarate [Symbicort 160-4.5 Mcg Inhaler] 2 puff INHALATION RT-BID 08/02/20 Diltiazem Cd [Cardizem CD] 180 mg PO QAM 08/02/20 Omeprazole 40 mg PO AC-BRKFST 09/02/22 Cholecalciferol [Vitamin D3 (25 Mcg = 1000 Iu)] 25 mcg PO DAILY 10/26/22 Metoprolol Tartrate [Lopressor] 50 mg PO BID #60 tab 12/09/22 ALPRAZolam [Xanax] 0.5 mg PO BID PRN 3 Days #6 tab 12/26/22 Calcium Citrate(Unknown Dose) 1 tab PO BID 07/22/23 Mirtazapine [Remeron] 15 mg PO HS 07/22/23 Atorvastatin [Lipitor] 10 mg PO DAILY 05/09/24 Losartan [Cozaar] 25 mg PO DAILY 05/09/24 Empagliflozin [Jardiance] 10 mg PO DAILY 06/09/24 Ibuprofen [Advil] 200 mg PO Q6HR PRN 06/09/24 Acetaminophen-Codeine 300-30mg [Tylenol w/codeine #3] 1 tab PO DAILY PRN 30 Days #30 tablet 07/03/24 Pregabalin 100 mg PO BID 30 Days #60 cap 07/03/24 Controlled Substance Measures - Controlled Substance Measures Is patient prescribed a controlled substance at discharge?: Yes When asked, does pt state using other controlled substances?: Yes If prescribed controlled substance>3 days was MAPS reviewed?: Yes If Rx opioid, was Start Talking consent form obtained?: Yes Was information provided regarding opioid addiction?: Yes
== END ==
LOC: PNWHC3 12:02
PROVIDERS: ATTEND Specialist
DX: M96.1 Postlaminectomy syndrome, not elsewhere classified (principal); G89.29 Other chronic pain; Z87.891 Personal history of nicotine dependence; Z88.0 Allergy status to penicillin; Z88.1 Allergy status to other antibiotic agents; Z88.5 Allergy status to narcotic agent; Z88.8 Allergy status to other drugs, medicaments and biological substances
CPT/HCPCS: 99211

== ENCOUNTER 2024-09-15 11:14 | Emergency (ER) | payer MEDICARE ==
--- NOTE | 2024-09-15 11:43 | ED ---
Fall HPI - General Chief Complaint: Fall Stated Complaint: Fall Time Seen by Provider: 09/15/24 11:18 Source: patient, EMS Mode of arrival: EMS - History of Present Illness Initial Comments: 88-year-old female presenting with chief complaint of right ankle pain. Patient reports that yesterday she had a fall while in the bathroom. Her had to help her get up and he states that his her feet were awkwardly underneath her as she was getting up. Today when she woke up she was unable to bear weight on the right foot. She does have quite a bit of swelling to the ankle as well. She did hit her head. No loss of consciousness or blood thinners. She denies any other injuries. No chest pain, difficulty breathing, abdominal pain. - Related Data Home Medications Medication Instructions Recorded Confirmed Azelastine HCl [Astepro] 2 spr EA NOSTRIL BID 04/02/20 06/09/24 Budesonide/Formoterol Fumarate 2 puff INHALATION RT-BID 08/02/20 06/09/24 [Symbicort 160-4.5 Mcg Inhaler] Diltiazem Cd [Cardizem CD] 180 mg PO QAM 08/02/20 06/09/24 Omeprazole 40 mg PO AC-BRKFST 09/02/22 06/09/24 Cholecalciferol [Vitamin D3 (25 25 mcg PO DAILY 10/26/22 06/09/24 Mcg = 1000 Iu)] Calcium Citrate(Unknown Dose) 1 tab PO BID 07/22/23 06/09/24 Mirtazapine [Remeron] 15 mg PO HS 07/22/23 06/09/24 Atorvastatin [Lipitor] 10 mg PO DAILY 05/09/24 06/09/24 Losartan [Cozaar] 25 mg PO DAILY 05/09/24 06/09/24 Empagliflozin [Jardiance] 10 mg PO DAILY 06/09/24 06/09/24 Ibuprofen [Advil] 200 mg PO Q6HR PRN 06/09/24 06/09/24 Previous Rx's Medication Instructions Recorded Metoprolol Tartrate [Lopressor] 50 mg PO BID #60 tab 12/09/22 ALPRAZolam [Xanax] 0.5 mg PO BID PRN 3 Days #6 tab 12/26/22 Acetaminophen-Codeine 300-30mg 1 tab PO DAILY PRN 30 Days #30 07/03/24 [Tylenol w/codeine #3] tablet Pregabalin 100 mg PO BID 30 Days #60 cap 07/03/24 Allergies Allergy/AdvReac Type Severity Reaction Status Date / Time nitrofurantoin Allergy Rash/Hives Verified 09/15/24 11:20 macrocrystalline all over [From Macrodantin] zolpidem [From Ambien] AdvReac Unknown sleep Verified 09/15/24 11:20 walks, confused amoxicillin trihydrate AdvReac Nausea & Verified 09/15/24 11:20 [From Augmentin] Vomiting & Diarrhea cephalexin monohydrate AdvReac Flu like Verified 09/15/24 11:20 [From Keflex] symptoms dicyclomine AdvReac disoriented Verified 09/15/24 11:20 for 4 days hydromorphone HCl AdvReac Extremely Verified 09/15/24 11:20 [From Dilaudid] Confusion for 8 days morphine AdvReac violence Verified 09/15/24 11:20 potassium clavulanate AdvReac Nausea & Verified 09/15/24 11:20 [From Augmentin] Vomiting & Diarrhea Review of Systems ROS Statement: Those systems with pertinent positive or pertinent negative responses have been documented in the HPI. ROS Other: All systems not noted in ROS Statement are negative. Past Medical History Past Medical History: Asthma, Cancer, Dementia, Diabetes Mellitus, GERD/Reflux, Hyperlipidemia, Hypertension, Memory Impairment, Myocardial Infarction ([place]) Additional Past Medical History / Comment(s): numbness 2nd,3rd,4th digits rt hand, back pain,skin CA Last Myocardial Infarction Date:: 07/22/23 History of Any Multi-Drug Resistant Organisms: ESBL Date of last positivie culture/infection: 12/04/22 MDRO Source:: Urine Past Surgical History: Back Surgery, Hysterectomy, Joint Replacement, Orthopedic Surgery, Tonsillectomy Additional Past Surgical History / Comment(s): back x2,lumbar fusion, left knee replacement,ana hips-REPLACEMNBET, carpal tunnel surgery Right. Pain clinic procedure, COLONOSCOPY Past Anesthesia/Blood Transfusion Reactions: No Reported Reaction Additional Past Anesthesia/Blood Transfusion Reaction / Comment(s): no hx blood transfusion Past Psychological History: Depression Smoking Status: Former smoker Past Alcohol Use History: None Reported Past Drug Use History: None Reported - Past Family History Mother Family Medical History: No Reported History General Exam General appearance: alert, in no apparent distress Head exam: Present: atraumatic, normocephalic, normal inspection Eye exam: Present: normal appearance, EOMI. Absent: periorbital swelling Neck exam: Present: normal inspection. Absent: meningismus Respiratory exam: Present: normal lung sounds bilaterally. Absent: respiratory distress, wheezes, rales, rhonchi, stridor Cardiovascular Exam: Present: regular rate, normal rhythm, normal heart sounds. Absent: systolic murmur, diastolic murmur, rubs, gallop, clicks Right Ankle exam: Present: tenderness, swelling. Absent: full ROM Neurovascular tendon exam: Present: no vascular compromise Neurological exam: Present: alert, oriented X3 Expanded Eye Response: (4) open spontaneously Motor Response: (6) obeys commands Verbal Response: (5) oriented [place] Total: 15 Psychiatric exam: Present: normal affect, normal mood Skin exam: Present: warm, dry, normal color Course Vital Signs 09/15/24 09/15/24 09/15/24 11:17 13:47 15:36 Temperature 98.4 F 98.6 F Pulse Rate 93 82 80 Respiratory 18 18 20 Rate Blood Pressure 138/80 130/67 128/79 O2 Sat by Pulse 93 L 95 93 L Oximetry Medical Decision Making - Medical Decision Making Was pt. sent in by a medical professional or institution ([facility], STEAM TENDER, urgent care, hospital, or residential...) When possible be specific @ -No Did you speak to anyone other than the patient for history (EMS, parent, family, police, friend...)? What history was obtained from this source @ - Did you review nursing and triage notes (agree or disagree)? Why? @ -I reviewed and agree with nursing and triage notes Were old charts reviewed (outside hosp., previous admission, EMS record, old EKG, old radiological studies, urgent care reports/EKG's, residential records)? Report findings @ -No old charts were reviewed Differential Diagnosis (chest pain, altered mental status, abdominal pain women, abdominal pain men, vaginal bleeding, weakness, fever, dyspnea, syncope, headache, dizziness, GI bleed, back pain, seizure, CVA, palpatations, mental health, musculoskeletal)? @ -Differential Musculoskeletal Muscular strain, contusion, ligament sprain, fracture, arthritis, septic arthritis, bursitis, cellulitis, muscle spasm, nerve compression, DVT, arterial occlusion, herpes zoster, electrolyte abnormality, tumor.... This is not meant to be in all inclusive list EKG interpreted by me (3pts min.). @ -EKG shows sinus rhythm with first-degree AV block ventricular rate 78. LA interval 312. QRS 90. QT 391 QTc 425 X-rays interpreted by me (1pt min.). @ -Chest x-ray shows cardiomegaly and mild pulmonary vascular congestion. Chest x-ray shows no evidence of acute fracture. Subcutaneous swelling around the ankle likely secondary to underlying soft tissue injury CT interpreted by me (1pt min.). @ -CT shows no acute intracranial process. Grade 1 anterolisthesis of C3 on C4 and C4 on C5 and C5 on C6. No evidence of cervical spine fracture. Mild multilevel degenerative disc disease U/S interpreted by me (1pt. min.). @ -None done What testing was considered but not performed or refused? (CT, X-rays, U/S, labs)? Why? @ -None What meds were considered but not given or refused? Why? @ -None Did you discuss the management of the patient with other professionals (professionals i.e. , PA, STEAM TENDER, lab, RT, psych nurse, social worker aide, chief information security officer, teacher, chief information officer, comp field case manager)? Give summary @ -No Was smoking cessation discussed for >3mins.? @ -No Was critical care preformed (if so, how long)? @ -No Were there social determinants of health that impacted care today? How? (Homelessness, low income, unemployed, alcoholism, drug addiction, transportation, low edu. Level, literacy, decrease access to med. care, fdc, rehab)? @ -No Was there de-escalation of care discussed even if they declined (Discuss DNR or withdrawal of care, Hospice)? DNR status @ -No What co-morbidities impacted this encounter? (DM, HTN, Smoking, COPD, CAD, Cancer, CVA, ARF, Chemo, Hep., AIDS, mental health diagnosis, sleep apnea, morbid obesity)? @ -None Was patient admitted / discharged? Hospital course, mention meds given and route , prescriptions, significant lab abnormalities, going to OR and other pertinent info. @ -88-year-old female presenting with chief complaint of right ankle pain after a fall yesterday. She did hit her head. No loss of consciousness or blood thinners. X-ray negative for fracture and CT negative for acute intracranial process or cervical spine fracture. Patient was noted to be a bit hypoxic on r oom air. Looking at previous visits it seems that her baseline is between 90 and 92% on room air. Workup was obtained which shows no acute process on chest x-ray negative troponin BNP is only 159. Patient feels well and she denies any difficulty breathing or chest pain. She would like to go home. Vital signs are stable, oxygen saturation is stable on room air. She is educated on today's findings. Follow-up with orthopedics. Follow-up with PCP. Report back to ER with any new or worsening symptoms. Discussed return parameters and answered all questions. Patient conveyed verbal understanding and agreed to the plan. I discussed this case in detail with my attending Dr. Ayala Undiagnosed new problem with uncertain prognosis? @ -No Drug Therapy requiring intensive monitoring for toxicity (Heparin, Nitro, Insulin, Cardizem)? @ -No Were any procedures done? @ -No Diagnosis/symptom? @ -Ankle sprain Acute, or Chronic, or Acute on Chronic? @ -Acute Uncomplicated (without systemic symptoms) or Complicated (systemic symptoms)? @ -uncomplicated Side effects of treatment? @ -No Exacerbation, Progression, or Severe Exacerbation? @ -No Poses a threat to life or bodily function? How? (Chest pain, [place], [place], pneumonia, PE, COPD, DKA, ARF, appy, cholecystitis, CVA, Diverticulitis, Homicidal, Suicidal, threat to staff... and all critical care pts) @ -Unlikely - Lab Data Result diagrams: 09/15/24 14:08 09/15/24 14:08 Lab Results 09/15/24 09/15/24 09/15/24 Range/Units 13:59 14:08 14:08 WBC 9.85 (4.50-10.00) 10*3/uL RBC 4.69 (4.10-5.20) 10*6/uL Hgb 15.5 H (12.0-15.0) g/dL Hct 45.6 (37.2-46.3) % MCV 97.2 H (80.0-97.0) fL MCH 33.0 H (27.0-32.0) pg MCHC 34.0 (32.0-37.0) g/dL Plt Count 198 (140-440) 10*3/uL MPV 9.7 (9.5-12.2) fL Immature Gran % (Auto) 0.3 % Neutrophils % 61.3 % Lymphocytes % 23.2 % Monocytes % 12.5 % Eosinophils % 2.2 % Basophils % 0.5 % Immature Gran # 0.03 (0.00-0.04) 10*3/uL Neutrophils # 6.03 (1.80-7.70) 10*3/uL Lymphocytes # 2.29 (0.90-5.00) 10*3/uL Monocytes # 1.23 H (0.20-1.00) 10*3/uL Eosinophils # 0.22 (0.04-0.35) 10*3/uL Basophils # 0.05 (0.00-0.10) 10*3/uL PT 11.2 (10.0-12.5) sec INR 1.0 (<1.2) APTT 22.2 (22.0-30.0) sec Sodium (137-145) mmol/L Potassium (3.5-5.1) mmol/L Chloride (98-107) mmol/L Carbon Dioxide (22-30) mmol/L Anion Gap mmol/L BUN (7-17) mg/dL Creatinine (0.52-1.04) mg/dL Est GFR (CKD-EPI)AfAm (>60 ml/min/1.73 sqM) Est GFR (CKD-EPI)NonAf (>60 ml/min/1.73 sqM) Glucose (74-99) mg/dL Calcium (8.4-10.2) mg/dL Magnesium (1.6-2.3) mg/dL Total Bilirubin (0.2-1.3) mg/dL AST (14-36) U/L ALT (4-34) U/L Alkaline Phosphatase (38-126) U/L Troponin I (0.000-0.034) ng/mL NT-Pro-B Natriuret Pep pg/mL Total Protein (6.3-8.2) g/dL Albumin (3.5-5.0) g/dL Urine Color Colorless Urine Appearance Clear (Clear) Urine pH 6.5 (5.0-8.0) Ur Specific [place] 1.021 (1.001-1.035) Urine Protein Negative (Negative) Urine Glucose (UA) 4+ H (Negative) Urine Ketones Negative (Negative) Urine Blood Negative (Negative) Urine Nitrite Negative (Negative) Urine Bilirubin Negative (Negative) Urine Urobilinogen <2.0 (<2.0) mg/dL Ur Leukocyte Esterase Negative (Negative) 09/15/24 09/15/24 Range/Units 14:08 14:08 WBC (4.50-10.00) 10*3/uL RBC (4.10-5.20) 10*6/uL Hgb (12.0-15.0) g/dL Hct (37.2-46.3) % MCV (80.0-97.0) fL MCH (27.0-32.0) pg MCHC (32.0-37.0) g/dL Plt Count (140-440) 10*3/uL MPV (9.5-12.2) fL Immature Gran % (Auto) % Neutrophils % % Lymphocytes % % Monocytes % % Eosinophils % % Basophils % % Immature Gran # (0.00-0.04) 10*3/uL Neutrophils # (1.80-7.70) 10*3/uL Lymphocytes # (0.90-5.00) 10*3/uL Monocytes # (0.20-1.00) 10*3/uL Eosinophils # (0.04-0.35) 10*3/uL Basophils # (0.00-0.10) 10*3/uL PT (10.0-12.5) sec INR (<1.2) APTT (22.0-30.0) sec Sodium 139 (137-145) mmol/L Potassium 3.5 (3.5-5.1) mmol/L Chloride 101 (98-107) mmol/L Carbon Dioxide 27 (22-30) mmol/L Anion Gap 11 mmol/L BUN 8 (7-17) mg/dL Creatinine 0.46 L (0.52-1.04) mg/dL Est GFR (CKD-EPI)AfAm >90 (>60 ml/min/1.73 sqM) Est GFR (CKD-EPI)NonAf >90 (>60 ml/min/1.73 sqM) Glucose 119 H (74-99) mg/dL Calcium 9.1 (8.4-10.2) mg/dL Magnesium 2.1 (1.6-2.3) mg/dL Total Bilirubin 0.7 (0.2-1.3) mg/dL AST 55 H (14-36) U/L ALT 43 H (4-34) U/L Alkaline Phosphatase 141 H (38-126) U/L Troponin I <0.012 (0.000-0.034) ng/mL NT-Pro-B Natriuret Pep 159 pg/mL Total Protein 6.8 (6.3-8.2) g/dL Albumin 4.2 (3.5-5.0) g/dL Urine Color Urine Appearance (Clear) Urine pH (5.0-8.0) Ur Specific [place] (1.001-1.035) Urine Protein (Negative) Urine Glucose (UA) (Negative) Urine Ketones (Negative) Urine Blood (Negative) Urine Nitrite (Negative) Urine Bilirubin (Negative) Urine Urobilinogen (<2.0) mg/dL Ur Leukocyte Esterase (Negative) Disposition Clinical Impression: Fall, Ankle sprain Disposition: HOME SELF-CARE Condition: Good Instructions (If sedation given, give patient instructions): Ankle Sprain (ED), Head Injury (ED) Additional Instructions: Follow up with PCP and orthopedics. Report back to ER with any new or worsening symptoms. Is patient prescribed a controlled substance at d/c from ED?: No Referrals: Gilberto Kelly MD [Primary Care Provider] - 1-2 days Jamarcus Zarco MD [STAFF PHYSICIAN] - 1-2 days Time of Disposition: 15:22
--- NOTE | 2024-09-15 12:13 | XR ---
EXAMINATION TYPE: XR ankle complete RT DATE OF EXAM: 09/15/2024 11:57 AM COMPARISON: None CLINICAL INDICATION: Female, 88 years old with history of fall; , pain TECHNIQUE: XR ankle complete RT; frontal, lateral and oblique projections. FINDINGS: There is no evidence of acute osseous pathology. No evidence of subluxation or dislocation. Kager's fat pad is intact. Mild soft tissue swelling around the ankle. No radiopaque foreign bodies are ident ified. IMPRESSION: 1. No evidence of acute fracture. 2. Subcutaneous swelling around the ankle likely secondary to underlying soft tissue injury. [facility], , 09/15/2024 12:11 PM
--- NOTE | 2024-09-15 13:18 | CT ---
EXAMINATION TYPE: CT brain cspine wo con DATE OF EXAM: 09/15/2024 12:52 PM COMPARISON: None. CLINICAL INDICATION: Female, 88 years old with history of fall; fell yesterday/confusion, pain TECHNIQUE: Brain: Multiple axial CT images of the brain were obtained without IV contrast. Cspine: Axial CT images from the skull base to the inferior aspect of T2 we obtained without intraven ous contrast. Coronal and sagittal reformatted images were also reviewed. . CT DLP: 1292.4 mGycm, Automated exposure control for dose reduction was used. FINDINGS: Brain: Extra-axial spaces: No abnormal extra-axial fluid collections. Ventricular system: Within normal limits Cerebral parenchyma: Right basal ganglia prior injury is stable. No acute intraparenchymal hemorrhage or mass effect. The rawls-white junction is well differentiated. Cerebellum: Unremarkable. Mass effect: No evidence of midline shift. Intracranial vasculature: unremarkable Soft tissues: Normal. Calvarium/osseous structures: No depressed skull fracture. Paranasal sinuses and mastoid air cells: Clear. Visualized orbits: Orbital contents are intact. Cervical spine: Fracture: None. Osseous structures: Multilevel degenerative disc disease changes with endplate spurring and disc oste ophyte complex's. Vertebral alignment: Grade 1 anterolisthesis of C3 on C4 and C4 on C5 and C5 on C6. Spinal canal/Neural Foramina: Disc osteophyte complexes at C6-C7 with at least mild spinal canal sten osis. No evidence for significant neural foraminal stenosis. Neck soft tissues: Prevertebral soft tissues are within normal limits. Other: The airway is patent. The lung apices are clear. IMPRESSION: 1. No acute intracranial process. 2. Grade 1 anterolisthesis of C3 on C4 and C4 on C5 and C5 on C6. 3. No evidence of cervical spine fracture. 4. Mild multilevel degenerative disc disease. [facility], , 09/15/2024 1:16 PM
[2024-09-15 14:11] LABS: Bilirubin,Urine Negative (Negative); Blood,Urine Negative (Negative); Color,Urine Colorless; Glucose,Urine (UA) 4+ (Negative); Ketones,Urine Negative (Negative); Leukocyte Esterase,Urine Negative (Negative); Nitrite,Urine Negative (Negative); PH, Urine 6.5 (5.0-8.0); Protein,Urine Negative (Negative); Specific Gravity,Urine 1.021 (1.001-1.035); Urobilinogen,Urine <2.0 mg/dL (<2.0)
[2024-09-15 14:16] LABS: Basophils # (A) 0.05 10*3/uL (0.00-0.10); Basophils % (A) 0.5 %; Eosinophils # (A) 0.22 10*3/uL (0.04-0.35); Eosinophils % (A) 2.2 %; HCT 45.6 % (37.2-46.3); HGB 15.5 g/dL (12.0-15.0); Lymphocytes # (A) 2.29 10*3/uL (0.90-5.00); Lymphocytes % (A) 23.2 %; MCH 33.0 pg (27.0-32.0); MCHC 34.0 g/dL (32.0-37.0); MCV 97.2 fL (80.0-97.0); Monocytes # (A) 1.23 10*3/uL (0.20-1.00); Monocytes % (A) 12.5 %; Neutrophils # (A) 6.03 10*3/uL (1.80-7.70); Neutrophils % (A) 61.3 %; Platelet Count 198 10*3/uL (140-440); RBC 4.69 10*6/uL (4.10-5.20); RDW 12.1 % (11.5-14.5); WBC 9.85 10*3/uL (4.50-10.00)
[2024-09-15 14:30] LABS: ALT 43 U/L (4-34); AST 55 U/L (14-36); African American GFR (CKD) >90 (>60 ml/min/1.73 sqM); Albumin 4.2 g/dL (3.5-5.0); Alkaline Phosphatase 141 U/L (38-126); Anion Gap 11 mmol/L; Blood Urea Nitrogen 8 mg/dL (7-17); Calcium 9.1 mg/dL (8.4-10.2); Carbon Dioxide 27 mmol/L (22-30); Chloride 101 mmol/L (98-107); Glucose 119 mg/dL (74-99); Magnesium 2.1 mg/dL (1.6-2.3); Non-African American GFR(CKD) >90 (>60 ml/min/1.73 sqM); Potassium 3.5 mmol/L (3.5-5.1); Sodium 139 mmol/L (137-145); Total Protein 6.8 g/dL (6.3-8.2)
[2024-09-15 14:34] LABS: INR 1.0 (<1.2); Partial Thromboplastin Time 22.2 sec (22.0-30.0); Prothrombin Time 11.2 sec (10.0-12.5)
[2024-09-15 14:38] LABS: NT-Pro-B-Type Natriuretic Pept 159 pg/mL
--- NOTE | 2024-09-15 14:57 | XR ---
EXAMINATION TYPE: XR chest 2V DATE OF EXAM: 09/15/2024 2:37 PM COMPARISON: Chest radiographs from 07/22/2023. CLINICAL INDICATION: Female, 88 years old with history of difficulty breathing; [facility] TECHNIQUE: XR chest 2V Frontal and lateral views of the chest. FINDINGS: Lungs/Pleura: There is no evidence of pleural effusion, focal consolidation, or pneumothorax. Pulmonary vascularity: Unremarkable. Heart/mediastinum: Cardiomediastinal silhouette is unremarkable. Atherosclerotic calcifications are seen in the aorta. Musculoskeletal: No acute osseous pathology. There is lower spine fixation hardware is present. Other findings: None IMPRESSION: Cardiomegaly and mild pulmonary vascular congestion. Correlate with BNP for congestive heart failure. [facility], , 09/15/2024 2:55 PM
[2024-09-15 15:41] VITALS: BP 128/79; PULSE 80; RESP 20; TEMP 98.6
== END 2024-09-15 15:57 | disposition home or self-care (01) ==
LOC: EC 11:14
DX: S93.409A Sprain of unspecified ligament of unspecified ankle, initial encounter (principal); Z87.891 Personal history of nicotine dependence; Z88.0 Allergy status to penicillin; Z88.1 Allergy status to other antibiotic agents; Z88.5 Allergy status to narcotic agent; Z88.8 Allergy status to other drugs, medicaments and biological substances; W19.XXXA Unspecified fall, initial encounter
CPT/HCPCS: 36415; 70450; 71046; 72125; 80053; 81003; 83735; 83880; 84484; 85025; 85610; 85730; 93005; 99285